=== PATIENT | male | born 1970 | race Caucasian/White ===

== ENCOUNTER 2023-09-16 02:48 | Emergency (ER) | payer MEDICARE, MEDICAID, SELFPAY ==
--- NOTE | 2023-09-16 | ECG_ITS ---
Test Reason : HYPERTENSION Blood Pressure : / mmHG Vent. Rate : 082 BPM Atrial Rate : 082 BPM P-R Int : 158 ms QRS Dur : 112 ms QT Int : 388 ms P-R-T Axes : 048 -24 025 degrees QTc Int : 453 ms Normal sinus rhythm Possible Left atrial enlargement Minimal voltage criteria for LVH, may be normal variant ( Wero product ) Borderline ECG No previous ECGs available Referred By: Generic ED Physician Electronically Signed By:SARA OLMOS
--- NOTE | ~2023-09-16 | XR_ITS ---
EXAMINATION: XR CHEST CLINICAL INFORMATION: Shortness of breath. COMPARISON: None available. TECHNIQUE: 2 views of the chest were obtained. FINDINGS: The lung volumes are low. The cardiomediastinal silhouette is within normal limits. There is faint bibasilar opacities. There are no significant pleural effusions. There is curvature of the thoracic spine to the right. The soft tissues are unremarkable. XR/XR chest 2V IMPRESSION: Low lung volumes. Faint bibasilar opacities likely atelectasis. Infiltrates considered less likely.
[2023-09-16 02:54] VITALS: BP 156/93; PULSE 89; RESP 19; TEMP 37.2; O2SAT 92; BMI 30.5
[2023-09-16 03:10] LABS: MANUAL DIFF FLAG NO
[2023-09-16 03:12] LABS: Basophils Absolute Auto 0.1 X10*3/uL (0.0-0.2); Basophils Percent Auto 0.7 % (0-2); Eosinophils Absolute Auto 0.2 X10*3/uL (0.0-0.4); Eosinophils Percent Auto 2.3 % (0-4); Hematocrit 46.2 % (42.0-52.0); Hemoglobin 16.2 g/dl (14.0-18.0); Imm Gran Abs Auto 0.03 X10*3/uL (0.00-0.03); Imm Gran Pct Auto 0.3 % (0.0-0.4); Lymphocytes Absolute Auto 2.2 X10*3/uL (1.2-4.9); Lymphocytes Percent Auto 22.1 % (20-40); Mean Corpuscular HGB Conc 35.1 g/dl (31.0-36.0); Mean Corpuscular Hemoglobin 30.6 pg (27.0-33.0); Mean Corpuscular Volume 87.2 fL (80.0-98.0); Mean Platelet Volume 9.7 fL (9.4-12.4); Monocytes Absolute Auto 0.7 X10*3/uL (0.1-1.2); Neutrophils Absolute Auto 6.6 x10*3/uL (2.0-8.3); Neutrophils Percent Auto 67.6 % (45-73); Platelet Count 211 X10*3/uL (160-400); Red Cell Distribution Width 12.5 % (11.0-16.0); White Blood Count 9.8 X10*3/uL (4.8-10.8)
[2023-09-16 03:35] LABS: Alanine Aminotransferase 22 U/L (0-40); Albumin Level 4.1 g/dL (3.5-5.0); Alkaline Phosphatase 100 U/L (39-117); Anion Gap 15 (12-20); Aspartate Amino Transferase 23 U/L (5-37); Bilirubin Direct 0.1 mg/dL (0.0-0.5); Bilirubin Total 0.4 mg/dL (0.0-1.0); Blood Urea Nitrogen 8 mg/dL (9-16); Calcium 9.5 mg/dL (8.4-10.2); Carbon Dioxide 26 mmol/L (22-29); Chloride 101 mmol/L (96-108); Creatinine Clr Calc Pharmacy 113.3; Estimated Glomerular Filt Rate > 60; Glucose Random 158 mg/dL (60-115); Potassium 3.5 mmol/L (3.3-5.1); Sodium 138 mmol/L (135-145); Total Protein 7.3 g/dL (6.5-8.0)
[2023-09-16 03:55] LABS: Troponin-I High Sensitivity < 2.7 ng/L (<3.5-35.0)
[2023-09-16 03:58] VITALS: BP 131/82; PULSE 84; RESP 16; O2SAT 93
--- NOTE | 2023-09-16 04:45 | ED_ITS ---
HPI - General Adult General Chief complaint: General Medical Stated complaint: High Blood Pressure Time Seen by Provider: 09/16/23 03:44 Source: patient, family and historic interpreter Mode of arrival: ambulatory History of Present Illness HPI narrative: 53-year-old male with presentation of waking up from sleep with feeling short of breath and having left shoulder pain and noting that his blood pressure was very high. Patient states that he took an additional dose of his losartan totaling 200 mg. Patient denies any recent illnesses such as fever, chills, nausea/vomiting/abdominal discomfort, he states that his blood pressure medication has recently been changed and otherwise at the time of my interview states that his symptoms have completely resolved. Related Data Allergies Allergy/AdvReac Type Severity Reaction Status Date / Time No Known Allergies Allergy Verified 09/16/23 02:53 Review of Systems 2 Review of Systems: Pertinent positives and negatives as stated in [facility] Past Medical History Source: nursing notes reviewed Social History Social History Smoked in Last 30 Days: No Use of substances other than those prescribed or required for medical reasons: No Advance Directives: No Advance Directives Information Provided: Yes Physical Exam ED Vital Signs: Vital Signs - 24 hr 09/16/23 02:54 09/16/23 03:58 09/16/23 05:00 Temperature 98.9 F 98.3 F Pulse Rate 89 84 76 Respiratory Rate 19 16 18 Blood Pressure 156/93 H 131/82 124/79 Pulse Oximetry 92 93 96 Oxygen Delivery Method Room Air Room Air Room Air 09/16/23 05:08 Temperature Pulse Rate 79 Respiratory Rate 18 Blood Pressure Pulse Oximetry Oxygen Delivery Method BMI result Body Mass Index 30.5 VITAL SIGNS: Reviewed. GENERAL: Well developed, well nourished, in no acute distress. HEAD: Normocephalic/atraumatic EYES: PERRLA, EOMI EARS: Ext canals without abnormality NOSE: Nares patent bilateral OROPHARYNX: no oral lesions noted, posterior pharynx clear NECK: Supple, no adenopathy LUNGS: Normal breath sounds. No adventitious sounds or accessory muscle use. SpO2<93> CARDIOVASCULAR: Regular rate and rhythm without noted murmurs ABDOMEN: Soft, non-tender, non-distended with bowel sounds. MUSCULOSKELETAL: No tenderness, deformities, or effusions noted on gross inspection. EXTREMITIES: No cyanosis, clubbing or edema. SKIN: Inspection of the skin reveals no rashes NEUROLOGIC: Alert and oriented x 4. Strength and sensation to light touch were grossly intact x 4. Medications Administered Discontinued Medications Generic Name Dose Route Start Last Admin Trade Name Baldomeroq PRN Reason Stop Dose Admin Albuterol/Ipratropium 3 ml 09/16/23 04:49 09/16/23 05:04 Albuterol/Iprat 2.5/0.5mg 3 Ml Ampul.Neb INHALE 09/16/23 04:50 3 ml ONCE ONE Administration Medical Decision Making Medical Decision Making [facility] Narrative: 83-year-old male with history and clinical presentation, DDX: Viral illness, CHF, asthma, ACS I reviewed all investigations and hematologic indices are grossly within normal limits and there are no noted derangements. Chemistry indices are negative for CANDY/electrolytes/liver enzyme derangement and serial troponins are undetectable without acute EKG changes. Patient is currently asymptomatic. Chest x-ray is not significant for infiltrate or venous congestion. BNP is undetectable. On re-evaluation patient appears much improved, states that he feels better and is otherwise discharged home with instructions to follow-up with his primary care doctor. Differential Diagnosis Differential Diagnoses: The differential diagnosis associated with the presentation includes Please see the discussion above Admission/Observation Consideration of admission/observation: Escalation of care including admission/observation considered Please see the discussion above Lab Data [facility] Lab Attestation statement: I reviewed the patient's lab results. Please see the discussion above 09/16/23 03:07 09/16/23 03:07 Labs: Lab Results 09/16/23 09/16/23 09/16/23 Range/Units 03:06 03:07 05:01 WBC 9.8 (4.8-10.8) X10*3/uL RBC 5.30 (4.60-5.80) X10*6/uL Hgb 16.2 (14.0-18.0) g/dl Hct 46.2 (42.0-52.0) % MCV 87.2 (80.0-98.0) fL MCH 30.6 (27.0-33.0) pg MCHC 35.1 (31.0-36.0) g/dl RDW 12.5 (11.0-16.0) % Plt Count 211 (160-400) X10*3/uL MPV 9.7 (9.4-12.4) fL Immature Gran % (Auto) 0.3 (0.0-0.4) % Neut % (Auto) 67.6 (45-73) % Lymph % (Auto) 22.1 (20-40) % [place] % (Auto) 7.0 (2-11) % Eos % (Auto) 2.3 (0-4) % Baso % (Auto) 0.7 (0-2) % Lymph # (Auto) 2.2 (1.2-4.9) X10*3/uL [place] # (Auto) 0.7 (0.1-1.2) X10*3/uL Eos # (Auto) 0.2 (0.0-0.4) X10*3/uL Baso # (Auto) 0.1 (0.0-0.2) X10*3/uL Abs Immat Gran (auto) 0.03 (0.00-0.03) X10*3/uL Absolute Neuts (auto) 6.6 (2.0-8.3) x10*3/uL Absolute Nucleated RBC 0.000 (0.0-0.012) X10*3/uL Nucleated RBC % (auto) 0.0 (0.0-0.2) /100WBC Sodium 138 (135-145) mmol/L Potassium 3.5 (3.3-5.1) mmol/L Chloride 101 (96-108) mmol/L Carbon Dioxide 26 (22-29) mmol/L Anion Gap 15 (12-20) BUN 8 L (9-16) mg/dL Creatinine 0.91 (0.5-1.4) mg/dL Estim Creat Clear Calc 113.3 Estimated GFR > 60 Random Glucose 158 H (60-115) mg/dL Calcium 9.5 (8.4-10.2) mg/dL Total Bilirubin 0.4 (0.0-1.0) mg/dL Direct Bilirubin 0.1 (0.0-0.5) mg/dL AST 23 (5-37) U/L ALT 22 (0-40) U/L Alkaline Phosphatase 100 (39-117) U/L Troponin I High Sens < 2.7 < 2.7 (<3.5-35.0) ng/L B-Natriuretic Peptide < 10 (<100) pg/mL Total Protein 7.3 (6.5-8.0) g/dL Albumin 4.1 (3.5-5.0) g/dL Independent Interpretation I performed an independent interpretation of an: EKG Interpretation: Normal sinus rhythm, HR-82, no STEMI, AL/QTC are within normal limits. Radiology Impression Discussion of test interpretation with radiology: I have reviewed the radiologist's reading. Radiologist Impression: Please see the discussion above Chronic Conditions Patient?s care impacted by: Hypertension Discharge Plan Discharge Clinical Impression: Hypertension Patient Disposition: Home, Self-Care Instructions: DASH Eating Plan (ED), Hypertension (ED) Additional Instructions: 1. Resume all home medications as prescribed 2. Follow-up with your primary care doctor by calling the office this morning. Return to the ER for any worsening symptoms. Print Language: Djib[place]ian
[2023-09-16 04:48] LABS: B Type Natriuretic Peptide < 10 pg/mL (<100)
[2023-09-16 05:00] VITALS: BP 124/79; PULSE 76; RESP 18; TEMP 36.8; O2SAT 96
[2023-09-16] MEDS: Albuterol/Iprat 2.5/0.5MG 3 ML AMPUL.NEB INHALE (05:04)
[2023-09-16 05:08] VITALS: PULSE 79; RESP 18; O2SAT 89
[2023-09-16 05:29] LABS: Troponin-I High Sensitivity < 2.7 ng/L (<3.5-35.0)
[2023-09-16 06:07] VITALS: BP 117/76; PULSE 78; RESP 16; TEMP 37.1; O2SAT 95
== END 2023-09-16 06:07 | disposition home or self-care (01) ==
PROVIDERS: Emergency Provider Student in an Organized Health Care Education/Training Program
DX: I10 Essential (primary) hypertension (principal); R06.02 Shortness of breath
CPT/HCPCS: 36415; 71046; 80048; 80076; 83880; 84484; 85025; 93005; 94640; 99284; 99285

== ENCOUNTER → 2023-09-16 03:00 | Outpatient (BNV) | payer MEDICARE, MEDICAID, SELFPAY | PROVIDERS: Emergency Provider Student in an Organized Health Care Education/Training Program; Visit Provider Internal Medicine | DX: I10 Essential (primary) hypertension (principal) | CPT/HCPCS: 93010 ==

== ENCOUNTER 2024-03-13 14:57 | Outpatient (REF) | payer MEDICARE, MEDICAID, SELFPAY ==
[2024-03-13 16:57] LABS: Alanine Aminotransferase 31 U/L (0-40); Albumin Level 4.6 g/dL (3.5-5.0); Alkaline Phosphatase 111 U/L (39-117); Aspartate Amino Transferase 33 U/L (5-37); Bilirubin Direct 0.2 mg/dL (0.0-0.5); Bilirubin Total 0.6 mg/dL (0.0-1.0); Total Protein 8.3 g/dL (6.5-8.0)
[2024-03-14 07:28] LABS: HBS Num1 168.86 mIU/mL (0-7.99); HBc Num1 0.17 S/CO (0.00-0.79); HBsAGNum1 0.37 S/CO (0.00-0.99); HIV AB/AG Nonreactive (Nonreactive); HIV Num 1 0.13 S/CO (0.00-0.99); Hepatitis B Core Antibody Nonreactive (Nonreactive); Hepatitis B Surface Antigen Negative (Negative); ~HepC Num1 0.16 S/CO (0.00-0.79); ~Hepatitis B Surface Antibody REACTIVE (Nonreactive); ~Hepatitis C Antibody Nonreactive (Nonreactive)
[2024-03-14 07:55] LABS: Hepatitis A Antibody IgG Nonreactive (Nonreactive); ~Hepatitis A Antibody IgG 0.31 S/CO (0.00-0.99)
[2024-03-14 07:58] LABS: Syphilis Screen Nonreactive (Nonreactive)
[2024-03-14 08:45] LABS: Anion Gap 12 (12-20); Blood Urea Nitrogen 9 mg/dL (9-16); Calcium 9.6 mg/dL (8.4-10.2); Carbon Dioxide 26 mmol/L (22-29); Chloride 105 mmol/L (96-108); Estimated Glomerular Filt Rate > 60; Glucose Random 87 mg/dL (60-115); Potassium 4.1 mmol/L (3.3-5.1); Sodium 139 mmol/L (135-145)
== END 2024-03-13 14:58 | disposition home or self-care (01) ==
LOC: HO.HHCL 14:57
PROVIDERS: Visit Provider Emergency Medicine
DX: I10 Essential (primary) hypertension (principal); F11.20 Opioid dependence, uncomplicated; Z11.59 Encounter for screening for other viral diseases; Z20.828 Contact with and (suspected) exposure to other viral communicable diseases; Z11.3 Encounter for screening for infections with a predominantly sexual mode of transmission
CPT/HCPCS: 36415; 80048; 80076; 86704; 86706; 86708; 86780; 86803; 87340; 87389

== ENCOUNTER 2024-07-20 10:17 | Outpatient (AMB) | payer MEDICARE, MEDICAID, SELFPAY ==
--- NOTE | 2024-07-20 10:20 | A.OFFVIS_ITS ---
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 States pain started about 15 yrs ago, no injury he can recall. Hx of herniated disc. His pain starts at his neck and T-spine. He is also having lower back pain that radiates to his right side. Denies groin pain. He has numbness and tingling in both feet. States he has fallen multiple times and has made his pain worse. He has tried P.T and injection with no relief. Patient referred by [facility] Dr. Shane Ndiaye Senior Internet Sales Consultant Name: [email or web address] [id number] Allergies No Known Allergies Allergy (Verified 07/20/24 10:33) Medication List - Last Reconciled 07/20/24 by Aminah Moody MD albuterol sulfate 2 mg PO TID amlodipine 5 mg PO DAILY aspirin 81 mg PO DAILY atorvastatin 40 mg PO DAILY buprenorphine-naloxone 2-0.5 mg (Suboxone) 1 film buccal DAILY chlorthalidone 25 mg PO DAILY cholecalciferol (vitamin D3) 10 mcg PO DAILY clonidine HCl 0.1 mg PO BEDTIME duloxetine 30 mg PO DAILY fluticasone propion-salmeterol 100-50 mcg/dose (Advair Diskus) 1 inh inhalation BID fluticasone propionate 50 mcg/actuation (Flonase Allergy Relief) 1 spray intranasal DAILY glipizide 5 mg PO DAILY losartan 100 mg PO DAILY metformin 1,000 mg PO DAILY mirtazapine 15 mg PO BEDTIME naloxone 4 mg/actuation (Narcan) 4 mg intranasal Q2M PRN HPI Comments Details: States pain started about 15 yrs ago, no injury he can recall. Hx of herniated disc. His pain starts at his neck and T-spine. He is also having lower back pain that radiates to both legs, worse on left. Denies groin pain. He has numbness and tingling in both feet. Last PT more than 2 years ago. Last MRI more than 2 years, in [place], [place]. Last injection around that time, injection didn't help at that time. Has not seen a surgeon yet. Diabetic with neuropathy. Has tried gabapentin but he has moved. History of opioid dependence, on suboxone. [facility] Social History (System 09/20/24 @ 09:32 by Sandra Galeas) Current occupational status: disabled Review of Systems Const All systems reviewed & are unremarkable except as noted in HPI and below Physical Exam Constitutional: Patient appears to be in no acute distress, well nourished and well developed. Patient was appropriately conversant and oriented. Good historian. MSK: No specific abnormalities found on inspection of the spine and all extremities. Diffusely tender including SI and GT. Neurological: Left hip flexor weaker than right. Left hip flexor 4/5, right hip flexor 5/5. Bilateral knee extensors 5/5. Dorsiflexors 5/5. Tested while seated. No clonus. Results Reviewed Results Reviewed: I reviewed records from the following: [facility]-patient has history of opiate dependence, on Suboxone. Assessment & Plan Assessment & Plan (1) Chronic low back pain with sciatica: Code(s): M54.40 - Lumbago with sciatica, unspecified side; G89.29 - Other chronic pain Category: Medical Qualifiers: Back pain laterality: bilateral Sciatica laterality: bilateral sciatica Qualified Code(s): M54.42 - Lumbago with sciatica, left side; M54.41 - Lumbago with sciatica, right side; G89.29 - Other chronic pain Plan Previously diagnosed with lumbar disc herniation. Has had injections in the past. No recent physical therapy. Patient says he will find information where we can get reports of his last lumbar MRI. He is reluctant about getting further injections or physical therapy. Assessment and plan discussed with patient, and patient was agreeable. All questions were answered thoroughly. Aminah Moody MD, ANN Board Certified, [place] Board of [employer] Medicine and Rehabilitation (ABPMR) Board Certified, [place] Board of Electrodiagnostic Medicine (ABEM) Coding Level of Care Code New Pt Level 3 (63102) Diagnoses Chronic bilateral low back pain with bilateral sciatica M54.42; M54.41; G89.29 Back pain laterality: bilateral Sciatica laterality: bilateral sciatica
--- OUTSIDE RECORDS SUMMARY | 2024-07-20 11:28 | XMS_ITS | Encounter Summary ---
Author Organization [employer] Address [address] [place] [address] [address] [place] [address] Care Team Providers Care Hand Ii Thermal Cutter Name Role Phone Ced Sesay PA-C Primary Care Provider Reason for Referral * Medications - Denied Specialty Diagnoses / Procedures Referred By Davey vance Referred To Contact Diagnoses Asthma, unspecified asthma severity, unspecified whether complicated, unspecified whether persistent Ced Sesay PA-C [address] [place] [address] Phone: tel: fax: Referral ID Status Reason Start Date Expiration Date Visits Re quested Visits Authorized [id number] Denied 1 1 Encounter Details Date Type Department Care Team (Late st Contact Info) Description 02/13/2024 Telephone [facility] [address] [place] [address] Family Medicine, Video Tape Editor, CAMPUS POLICE OFFICER Social History Tobacco Use Types Packs/Day Years Used Date Smoking Tobacco: Every Day Cigarettes Sex and Gender Information Value Date Recorded Sex Assigned at Male 12/06/2023 1:37 PM EDT Legal Sex Male 6:53 PM EDT Gender Identity Male 12/06/2023 1:37 PM EDT Sexual Orientation Choose not to disclose 2023 6:53 PM EDT documented as of this encounter Miscellaneous Notes * Telephone Encounter - Emily Anderson LPN - 02/16/2024 9:23 AM EDT Pa req. Sent to PA team for advir inhaler * Telephone Encounter - Ced Sesay PA-C - 02/15/2024 1:53 PM EDT Hi, I sent ADVAIR as you stated that it is covered by insurance. He can use 2 puffs every 12 hours but can increase after a few days to 3 puffs if not working. If still not good, he is to let us know so we can send a stronger strength. Should use with spacer and stop smoking. * Telephone Encounter - Laquita Matamoros LPN - 02/15/2024 10:07 AM EDT Note received from pharmacy, Karla FELDMAN, the following meds are cover w/o PA: advair,arnuity ellipta, breztri aero and dulera. * Telephone Encounter - Laquita Matamoros LPN - 02/13/2024 11:10 AM EDT Request received from [facility], pt request refill for Advair and ventolin inhalers. These meds are not in pt's med list including NG. Attempted to reach pt but voice mail is not set up. Pt needs appt withprovider if these are new med request. documented in this encounter Plan of Treatment Upcoming Encounters Date Type Department Care Team (Late st Contact Info) Description 08/24/2024 2:00 PM EST Office Visit [facility] [address] [place] [phone] Carlin Rivas CNP [address] [place] [address] 09/03/2024 1:30 PM EDT Clinical Support [facility] [address] [place] [phone] Michaela Tenorio, GREGORY documented as of this encounter Visit Diagnoses Diagnosis Asthma, unspecified asthma severity, unspecified whether complicated, unspecified whether persistent- Primary documented in this encounter Care Teams Hand Ii Thermal Cutter Relationship Specialty Start Date End Date Ced Sesay PA-C [address] [place] [phone] PCP - General Family Medicine 09/07/18 05/14/24 Promise Zavala LPN Petroleum Plant OperatorMember Of Parliament 12/13/19 05/14/24 documented as of this encounter
--- OUTSIDE RECORDS SUMMARY | 2024-07-20 11:28 | XMS_ITS | Encounter Summary ---
Author Organization [employer] Address [address] [place] [address] [address] [place] [address] Care Team Providers Care Meat Stringer Name Role Phone Ced Sesay PA-C Primary Care Provider Encounter Details Date Type Department Care Team (Late st Contact Info) Description 12/07/2023 [facility] Only [address] [address] Ced Sesay PA-C [address] [place] [phone] Uncomplicated opioid dependence (CMS/HCC) Social History Tobacco Use Types Packs/Day Years Used Date Smoking Tobacco: Never Assessed Sex and Gender Information Value Date Recorded Sex Assigned at Male 12/06/2023 1:37 PM EDT Legal Sex Male 6:53 PM EDT Gender Identity Male 12/06/2023 1:37 PM EDT Sexual Orientation Choose not to disclose 2023 6:53 PM EDT documented as of this encounter Plan of Treatment Upcoming Encounters Date Type Department Care Team (Late st Contact Info) Description 08/24/2024 2:00 PM EST Office Visit [facility] [address] [place] [phone] Carlin Rivas CNP [address] [place], [place] [phone] 09/03/2024 1:30 PM EDT Clinical Support [facility] [address] [place] [phone] Michaela Tenorio RN documented as of this encounter Visit Diagnoses Diagnosis Uncomplicated opioid dependence (CMS/HCC) documented in this encounter Care Teams Meat Stringer Relationship Specialty Start Date End Date Ced Sesay PA-C [address] [place] [phone] PCP - General Family Medicine 09/07/18 05/14/24 Promise Zavala LPN Floor MechanicSandblast Carver 12/13/19 05/14/24 documented as of this encounter
--- OUTSIDE RECORDS SUMMARY | 2024-07-20 11:28 | XMS_ITS | Clinical Summary ---
Author Organization [facility] Address [address] [place] [address] Care Team Providers Care Grubber Name Role Phone Unavailable Primary Care Provider Unavailabl e Allergies Active Allergy Reactions Criticality Noted Date Comments Cyclobenzaprine Hcl 12/06/2016 Medications No known medications Active Problems No known active problems Social History Tobacco Use Types Packs/Day Years Used Date Smoking Tobacco: Never Assessed Sex and Gender Information Value Date Recorded Sex Assigned at Not on file Legal Sex Male 11:06 AM EDT Gender Identity Not on file Sexual Orientation Not on file Plan of Treatment Health Maintenance Due Date Last Done Comments Hepatitis C Screening 1968 DTaP/Tdap/Td (1 - Tdap) 1986 Hep B (1 of 3 - 19+ 3-dose series) 1987 Pneumococcal 50+ years (1 of 1 - PCV) 2018 Zoster (Shingrix) (1 of 2) 2018 COVID-19 Vaccine ( - 2023-2 5 season) 2024 Influenza (#1) 2024 HPV Vaccine Aged Out No longer eligi ble based on patient's age to complete this topic Hep A Aged Out No longer eligi ble based on patient's age to complete this topic Hib Aged Out No longer eligi ble based on patient's age to complete this topic Meningococcal ACWY Aged Out No longer eligible based on patient's age to complete this topic Insurance MEDICARE PART B MEDICAID
--- OUTSIDE RECORDS SUMMARY | 2024-07-20 11:29 | XMS_ITS | Encounter Summary ---
Author Organization [facility] Address [address] [place] [address] Care Team Providers Care Program Coordinator Name Role Phone Ced Sesay Primary Care Provider [phone] Reason for Referral * Consultation (Routine) - Authorized Specialty Diagnoses / Procedures Referred By Conttheodora t Referred To Contact Orthopaedic Surgery Diagnoses Low back pain, unspecified back pain laterality, unspecified chronicity, unspecified whether sciatica present Ced Sesay PA [address] [place] [phone] Phone: tel: fax: [facility] [address] [place] [address] Phone: tel: fax: Referral ID Status Reason Start Date Expiration Date Visits Requested Visits Authorized [id number] Authorized Specialty Services Required 02/01/2024 08/02/2025 6 6 Encounter Details Date Type Department Care Team (Late st Contact Info) Description 02/01/2024 Community Orders [facility] Link [address] [place] [address] Ced Sesay PA [address] [place] [phone] Low back pain, unspecified back pain laterality, unspecified chronicity, unspecified whether sciatica present (Primary Dx) Social History Tobacco Use Types Packs/Day Years Used Date Smoking Tobacco: Former Smokeless Tobacco: Never Comments:: Alcohol Use Standard Drinks/Week Comments No 0 (1 standard drink = 0.6 oz pur e alcohol) Sex and Gender Information Value Date Recorded Sex Assigned at Male 02/01/2024 10:29 AM EDT Legal Sex Male 6:52 PM EDT Gender Identity Not on file Sexual Orientation Not on file documented as of this encounter Plan of Treatment Scheduled Referrals Name Type Priority Associated Diagnoses Orde r Schedule Ambulatory referral to Ortho - All Outpatient Referral Routine Low back pain, unspecified back pain laterality, unspecified chronicity, unspecified whether sciatica present Expected: 02/01/2024, Expires: 08/03/2024 documented as of this encounter Visit Diagnoses Diagnosis Low back pain, unspecified back pain laterality, unspecified chronicity, unspecified whether sciatica present- Primary documented in this encounter Care Teams Program Coordinator Relationship Specialty Start Date End Date Ced Sesay PA PCP - General 10/14/21 documented as of this encounter
--- OUTSIDE RECORDS SUMMARY | 2024-07-20 11:29 | XMS_ITS | Encounter Summary ---
Author Organization [facility] Address [address] [place] [address] Care Team Providers Care Burr Grinder Name Role Phone Unavailable Primary Care Provider Unavailabl e Encounter Details Date Type Department Care Team ([facility] st Contact Info) Description 11/09/2016 Orders Only [facility] Orthopedic Surgery [address] [facility] [address] [place] [address] Cullen Rosas MD [address] [place] [address] Social History Tobacco Use Types Packs/Day Years Used Date Smoking Tobacco: Never Assessed Sex and Gender Information Value Date Recorded Sex Assigned at Not on file Legal Sex Male 11:06 AM EDT Gender Identity Not on file Sexual Orientation Not on file documented as of this encounter Plan of Treatment Scheduled Orders Name Type Priority Associated Diagnoses Orde r Schedule XRAY SPINE, LUMBOSACRAL; 2 OR 3 VIEWS FC Imaging Routine Low back pain, unspecified back pain laterality, unspecified chronicity, with sciatica presence unspecified Expected: 12/06/2016, Expires: 11/09/2017 documented as of this encounter Visit Diagnoses Diagnosis Low back pain, unspecified back pain laterality, unspecified chronicity, with sciatica presence unspecified documented in this encounter
--- OUTSIDE RECORDS SUMMARY | 2024-07-20 11:29 | XMS_ITS | Referral Summary ---
Author Organization [facility] Address [address] [place] [address] Care Team Providers Care Blade Sharpener Name Role Phone Ced Sesay Primary Care Provider [phone] Allergies Active Allergy Reactions Criticality Noted Date Comments Cyclobenzaprine Rash Pregabalin Itching 03/24/2016 Medications * This document contains information received from the source organization and may not represent a complete record from that organization. atorvastatin (LIPITOR) 40 mg tablet Take 40 mg by mouth once a day. 5 7 Active losartan (COZAAR) 100 mg tablet Take 100 mg by mouth once a day. Active metFORMIN (GLUCOPHAGE) 1,000 mg tablet TK 1 T PO BID WITH THE MORNING AND EMANUEL MEAL 2 7 Active glipiZIDE XL (GLUCOTROL XL) 5 mg tablet TK 1 T PO QD WITH CINDY 2 7 Active OXYCONTIN 40 mg tablet Take 40 mg by mouth every 12 hours. 0 7 Active oxyCODONE-acet aminophen (PERCOCET) 5-325 mg tablet Take 1 tablet by mouth daily. Active chlorthalidone (HYGROTEN) 25 mg tablet Chlorthalidone 25 MG Oral Tablet TK 1/2 T PO QD Quantity: 15; Refills: 0 Started -Apr-2016 Active 6 Active MAPAP EXTRA STRENGTH 500 mg tablet TK 2 T PO EVERY 12 HOURS PRN. 5 7 Active albuterol (PROAIR HFA,VENTOLIN HFA) 90 mcg inhaler Inhale 2 puffs (180 mcg total) by mouth every 4 hours as needed for wheezing or shortness of breath. Use with spacer. 6.7 g 7 Active diclofenac (VOLTAREN) 1% gel EDISON TOPICALLY QID PRN P [address] (CYMBALTA) 30 mg capsule Take 60 mg by mouth once a day. 7 Active mirtazapine (REMERON) 15 mg tablet Take 45 mg by mouth daily. Before bedtime. 6 Active ranitidine (ZANTAC) 150 mg tablet TK 1 T PO BID PRN WITH BREAKFAST AND DINNER FOR HEARTBURN/ ACID REFLUX. 7 Active inhalational spacing device Valved Holding Chamber Device. USE DIRECTED WITH INHALER. 6 Active glipiZIDE XL (GLUCOTROL XL) tablet 10 mg Take 10 mg by mouth daily. Active predniSONE (DELTASONE) 50 mg tablet Take 1 tablet (50 mg total) by mouth daily. 5 tablet 9 Active loratadine (CLARITIN) 10 mg tablet Take 1 tablet (10 mg total) by mouth daily. 10 tablet 9 Active ibuprofen (MOTRIN) 800 mg tablet Take 1 tablet (800 mg total) by mouth 3 times a day. 21 tablet 9 Active polyethylene glycol (COLYTE) solutionIndica tions:Screen for colon cancer Take according to instructions provided by physician. 4000 mL 9 Active fluticasone propion-salmet brandi (ADVAIR DISKUS) 100-50 mcg inhaler Inhale 1 puff by mouth every 12 (twelve) hours. 9 Active cloNIDine (CATAPRES) 0.1 mg tablet Take 0.1 mg by mouth 2 times a day. Active hydroCHLOROthi azide (HYDRODIURIL) 12.5 mg tablet Take 12.5 mg by mouth once a day. Active Active Problems Problem Noted Date Diagnosed Date Asthma 08/13/2016 Dyspnea 08/12/2016 Chronic obstructive asthma 08/12/2016 Acute hip pain, left 11/27/2015 Acute back pain with sciatica, left 09/16/2015 Social History Tobacco Use Types Packs/Day Years Used Date Smoking Tobacco: Former Smokeless Tobacco: Never Comments:: Alcohol Use Standard Drinks/Week Comments No 0 (1 standard drink = 0.6 oz pur e alcohol) Sex and Gender Information Value Date Recorded Sex Assigned at Male 02/01/2024 10:29 AM EDT Legal Sex Male 6:52 PM EDT Gender Identity Not on file Sexual Orientation Not on file Last Filed Vital Signs Vital Sign Reading Time Taken Comments Blood Pressure 151/104 07/06/2023 5:00 AM EST Pulse 73 07/06/2023 2:29 AM EST Temperature 36.4 ??C (97.5 ??F) 07/05/2023 9:33 PM ES T Respiratory Rate 18 07/06/2023 4:00 AM EST Oxygen Saturation 96% 07/06/2023 5:00 AM EST Inhaled Oxygen Concentration - - Weight 112.5 kg (248 lb) 07/05/2023 9:36 PM EST Height 170.2 cm (5' 7 ) 07/05/2023 9:36 PM EST Body Mass Index 38.84 07/05/2023 9:36 PM EST Plan of Treatment Not on file Procedures * Due to [place] [employer] law, this organization might not be sharing negative HIV tests. Procedure Name Priority Date/Time Associated Diagnosis Comments COLONOSCOPY 12/11/2018 CT CHEST PULMONARY EMBOLISM W CONTRAST STAT 04/13/2016 5:47 AM EDT from Last 3 Months or Most Recently Relevant to Health Maintenance Results * Due to [place] [employer] law, this organization might not be sharing negative HIV tests. * COLONOSCOPY (12/11/2018) Narrative Procedure Note Sandeep Duarte MD - 12/11/2018 11:35 AM EDT Gastroenterology Patient Name: Kannan You Procedure Date: 12/11/2018 11:35 AM Date of : 1970 Admit Type: Outpatient Age: 48 Room: Room 3 Gender: Male Note Status: Finalized Attending MD: Sandeep Duarte MD Procedure: Colonoscopy Indications: Screening for colorectal malignant neoplasm Comorbidities Providers: Sandeep Duarte MD Referring MD: Gabriella Acevedo (Referring MD) Requesting Provider: Medicines: Midazolam 6 mg IV, Fentanyl 100 micrograms IV Complications: No immediate complications. Estimated Blood Loss: Estimated blood loss: none. Procedure: After I obtained informed consent, the scope was passed under direct vision. Throughout the procedure, the patient's blood pressure, pulse, and oxygen saturations were monitored continuously. The Colonoscope was introduced through the anus and advanced to theterminal ileum. The colonoscopy was performed withoutdifficulty. The patient tolerated the procedure well. The qualityof the bowel preparation was fair. Retroflexion wasperformed. Findings: The terminal ileum appeared normal. A 2 mm polyp was found in the rectum. The polyp was sessile. Thepolyp was removed with a cold snare. Resection and retrieval werecomplete. The exam was otherwise without abnormality. Impression: - Preparation of the colon was fair. - The examined portion of the ileum was normal. - One 2 mm polyp in the rectum, removed with a coldsnare. Resected and retrieved. - The examination was otherwise normal. Recommendation: - If the pathology report reveals adenomatous tissue,then repeat the colonoscopy for surveillance in 5 years. - If the pathology report indicates hyperplastic polyp, then repeat colonoscopy for screening purposes in 10years. Sandeep Duarte MD 12/11/2018 12:26:39 PM This report has been signed electronically. Number of Addenda: 0 Note Initiated On: 12/11/2018 11:35 AM us Sandeep Duarte MD PROVATION PROCEDURES Fi nal Result * CT Chest Pulmonary Embolism with Contrast (04/13/2016 5:47 AM EDT) Anatomical Region Laterality Modality Body Computed Tomogra phy 04/13/2016 4:35 AM EDT Impressions 04/13/2016 6:21 AM EDT 1. No evidence of pulmonary embolism. 2. Hepatic steatosis. 3. Platelike atelectasis in the right lower lobe and lower lingula. I have personally reviewed the images and I agree with the report above. Contrast Information : OMNIPAQUE 350: 80 ML, IV POWER INJ WSN: [id number] Narrative 04/13/2016 6:21 AM EDT COMPARISON: None. FINDINGS: Vessels: There is no intraluminal filling defect to suggest pulmonary embolism. The aorta is normal in caliber, without gross acute abnormality. Lungs: The tracheobronchial tree is patent. ??There is no focal airspace consolidation. ??No pleural effusion or pneumothorax is identified. There is platelike atelectasis in the right lower lobe and lower lingula. Mediastinum: The heart size is normal without pericardial effusion. ??There are no enlarged mediastinal, axillary, or hilar lymph nodes. ?? Bones: The visualized osseous structures demonstrate no acute abnormality. There is S-shaped scoliosis of the thoracic spine. Chest wall: Unremarkable. Abdomen: The liver demonstrates significant decreased density relative to the spleen consistent with hepatic steatosis. Procedure Note Crow Mcbride - 02/23/2017 COMPARISON: None. FINDINGS: Vessels: There is no intraluminal filling defect to suggest pulmonary embolism. The aorta is normal in caliber, without gross acute abnormality. Lungs: The tracheobronchial tree is patent. There is no focal airspace consolidation. No pleural effusion or pneumothorax is identified. There is platelike atelectasis in the right lower lobe and lower lingula. Mediastinum: The heart size is normal without pericardial effusion. There are no enlarged mediastinal, axillary, or hilar lymph nodes. Bones: The visualized osseous structures demonstrate no acute abnormality. There is S-shaped scoliosis of the thoracic spine. Chest wall: Unremarkable. Abdomen: The liver demonstrates significant decreased density relative to the spleen consistent with hepatic steatosis. IMPRESSION: 1. No evidence of pulmonary embolism. 2. Hepatic steatosis. 3. Platelike atelectasis in the right lower lobe and lower lingula. I have personally reviewed the images and I agree with the report above. Contrast Information : OMNIPAQUE 350: 80 ML, IV POWER INJ WSN: [id number] Casey Castro MD IMG CT PROCEDURES Final Result from Last 3 Months or Most Recently Relevant to Health Maintenance Insurance MEDICARE [facility] Care Teams Blade Sharpener Relationship Specialty Start Date End Date Ced Sesay PA PCP - General 10/14/21
--- OUTSIDE RECORDS SUMMARY | 2024-07-20 11:29 | XMS_ITS | Encounter Summary ---
Author Organization [facility] [employer] Address [address] [place] [address] Care Team Providers Care Leasing Assistant Name Role Phone Unavailable Primary Care Provider Unavailabl e Encounter Details Date Type Department Care Team (Late st Contact Info) Description 07/10/[address] [facility] [address] [place] [address] Shane Ndiaye MD [address] [place] [address] Social History Tobacco Use Types Packs/Day Years Used Date Smoking Tobacco: Every Day Cigarettes Alcohol Use Standard Drinks/Week Comments Never 0 (1 standard drink = 0.6 oz pur e alcohol) Housing Stability Answer Date Recorded What is your housing situation today? I have evelynbarb vazquez 03/13/[address] you li ve. Do you have problems with any of the following? None of the above 03/13/2024 Food Insecurity Answer Date Recorded Within the past 12 months, y ou worried that your food would run out before you got money to buy more: Never True 03/13/2024 Within the past 12 months,th e food you bought just didn't last and you didn't have enough money to get more: Never True Transportation Answer Date Recorded In the past 12 months, has l ack of transportation kept you from medical appts, meetings, work or from getting things needed for daily living? No 03/13/2024 Utilities Answer Date Recorded In the past 12 months, has t he electric, gas, oil or water company threatened to shut off services in your home? No 03/13/2024 Depression Answer Date Recorded Patient Health Questionnaire-2 Score 0 03/13/2024 Internet Access Answer Date Recorded Internet Access Q1 No 03/13/2024 Internet Access Q2 I do not want or need it 02/25 Sex and Gender Information Value Date Recorded [...] Description 08/24/2024 2:00 PM EST Office Visit [address] [address] Carlin Rivas CNP [address] [place] [address] 09/03/2024 1:30 PM EDT Clinical Support [address] [address] Michaela Tenorio RN documented as of this encounter Visit Diagnoses Not on filedocumented in this encounter
--- OUTSIDE RECORDS SUMMARY | 2024-07-20 11:29 | XMS_ITS | Clinical Summary ---
Author Organization [employer] Address [address] [place] [address] 7t [place] [address] Care Team Providers Care Supplier Quality Specialist Name Role Phone Unavailable Primary Care Provider Unavailabl e Allergies Active Allergy Reactions Criticality Noted Date Comments Cyclobenzaprine Hives 01/30/2019 Causative Agent: Flexeril; Reaction(s): Hives Pregabalin 03/24/2016 Causative Agent: Lyrica; Comment: Extremity swelling, shortness of breath and chest tightness Medications * This document contains information received from the source organization and may not represent a complete record from that organization. Narcan 4 MG/0.1ML nasal spray Administer into affected nostril(s). 04/14/20 23 Active omeprazole (PriLOSEC) [address] capsule Take 20 mg by mouth. Active polyethylene glycol (Colyte) 240 g solution Take by mouth. 11/11/19 19 Active predniSONE (Deltasone) 50 MG tablet Take 50 mg by mouth Once per day. 09/10/19 19 Active pregabalin (Lyrica) 75 MG capsule Take by mouth. Activ e Spacer/Aero-Ho lding Chambers (EasiVent) inhaler Valved Holding Chamber Device. USE DIRECTED WITH INHALER. 04/21/20 16 Active Fluticasone Furoate-Vilant brandi (Breo Ellipta) 50-25 MCG/ACT aerosol powder Inhale 2 puffs 2 times daily. 60 each 1 02/14/20 24 Active albuterol (ProAir HFA) 108 (90 Base) MCG/ACT inhaler Inhale 1 puff every 4 (four) hours if needed for shortness of breath or wheezing. 18 g 1 02/14/20 24 Active acetaminophen (Tylenol) 500 MG tablet TK 2 TS PO EVERY 12 HOURS PRN Active atorvastatin (Lipitor) 40 MG tablet 04/24/20 17 Active Blood Glucose Monitoring Suppl (FreeStyle Lite) device Use as directed to check blood sugar every day 01/08/20 20 Active fluticasone-sa lmeterol (Advair) 45-21 MCG/ACT inhalerIndicat ions:Asthma, unspecified asthma severity, unspecified whether complicated, unspecified whether persistent Inhale 2 puffs in the morning and at bedtime. Rinse mouth with water after use to reduce aftertaste and incidence of candidiasis. Do not swallow. 12 g 11 02/15/20 24 025 Active buprenorphine- naloxone (Suboxone) 4-1 MG per sublingual filmIndication s:Uncomplicate d opioid dependence (CMS/HCC) Place 1 Film under the tongue 2 times daily for 28 days. 56 Film 03/06/20 24 Active nicotine polacrilex (Commit) 4 MG lozenge Dissolve 1 lozenge (4 mg) in the mouth every 2 (two) hours if needed for smoking cessation. 100 lozenge 03/13/20 24 Active nicotine (Nicoderm CQ) 7 MG/24HR patch Place 1 patch on the skin 1 (one) time each day at the same time. 14 patch 03/13/20 24 Active nicotine (Nicoderm CQ) 21 MG/24HR patch Place 1 patch on the skin 1 (one) time each day at the same time. 42 patch 03/13/20 24 Active nicotine (Nicoderm CQ) 14 MG/24HR patch Place 1 patch on the skin 1 (one) time each day at the same time. 14 patch 03/13/20 24 Active naloxone (Narcan) 4 mg/0.1 mL nasal spray Administer 1 spray (4 mg) into affected nostril(s) if needed for opioid reversal. May repeat every 2-3 minutes if needed, alternating nostrils, until medical assistance becomes available. 2 each 3 03/13/20 24 025 Active amLODIPine (Norvasc) 10 MG tablet Take 1 tablet (10 mg) by mouth Once per day. 30 tablet 03/13/20 24 Active chlorthalidone (Hygroton) 25 MG tablet Take 1 tablet (25 mg) by mouth Once per day. 30 tablet 5 03/13/20 24 Active losartan (Cozaar) 100 MG tablet Take 1 tablet (100 mg) by mouth Once per day. 30 tablet 5 03/13/20 24 Active cloNIDine (Catapres) 0.1 MG tablet Take 1 tablet (0.1 mg) by mouth 2 times daily. 60 tablet 5 03/13/20 24 Active glipiZIDE (Glucotrol) 10 MG tablet Take 10 mg by mouth before breakfast and before evening meal. Active aspirin 81 MG EC tablet Take 81 mg by mouth Once per day. Active metFORMIN (Glucophage) 1000 MG tablet Take 1,000 mg by mouth with breakfast and with evening meal. Active mirtazapine (Remeron) 7.5 MG tablet Take 1 tablet (7.5 mg) by mouth if needed at bedtime (sleep). 30 tablet 2 04/16/20 24 Active albuterol 108 (90 Base) MCG/ACT inhaler 2 puffs q 4-6 hours prn asthma/shortne ss of breath. 18 g 1 05/15/20 24 Active FREESTYLE LITE test strip TEST BLOOD SUGAR ONCE DAILY 100 each 2 05/17/20 24 Active lidocaine (Xylocaine) 5 % ointment Apply topically if needed in the morning and at bedtime for moderate pain. 50 g 1 06/11/20 24 Active Buprenorphine HCl-Naloxone HCl (Suboxone) 8-2 MG SL filmIndication s:Uncomplicate d opioid dependence (CMS/HCC) Place 1 Film under the tongue 2 times daily. 56 Film 1 07/02/19 25 025 Active tiZANidine (Zanaflex) 2 MG tablet Take 1 tablet (2 mg) by mouth every 8 (eight) hours if needed for muscle spasms. 30 tablet 3 07/10/19 25 Active Buprenorphine HCl-Naloxone HCl (Suboxone) 8-2 MG SL filmIndication s:Uncomplicate d opioid dependence (CMS/HCC) Place 1 Film under the tongue 2 times daily for 28 days. 56 Film 06/05/20 24 025 Discontinued(R eorder (will not trigger notification to Pharmacy)) tiZANidine (Zanaflex) 2 MG tablet Take 1 tablet (2 mg) by mouth every 8 (eight) hours if needed for muscle spasms for up to 10 days. 30 tablet 06/11/20 24 025 Discontinued(R eorder (will not trigger notification to Pharmacy)) Active Problems Problem Noted Date Diagnosed Date Tobacco dependence 03/13/2024 HTN (hypertension) 03/13/2024 Mild persistent asthma without complication 02/25 Type 2 diabetes mellitus wit hout complication, without long-term current use of insulin 03/13/2024 Anxiety 03/13/2024 Depression 03/13/2024 Lumbar radiculopathy, chronic 03/13/2024 Gastroesophageal reflux disease without esophagi tis 03/13/2024 Uncomplicated opioid dependence 12/06/2023 Encounters Date Type Department Care Team Description 07/10/2024 Orders Only [facility] [address] [place] [phone] Shane Ndiaye MD 07/10/2024 Telephone [facility] [address] [place] [phone] Lino Yoon MD New patient appt. 07/09/2024 1:30 PM EST Clinical Support [address] [address] Michaela Tenorio RN Uncomplicated opioid dependence (CMS/HCC) (Primary Dx) 07/09/2024 Travel 07/02/2024 Refill [facility] [address] [place] [phone] Michaela Tenorio RN Uncomplicated opioid dependence (CMS/HCC) 07/01/2024 Refill [facility] [address] [place] [phone] Shane Ndiaye MD 06/11/2024 1:30 PM EST Office Visit [address] [address] Shane Ndiaye MD Uncomplicated opioid dependence (CMS/HCC) (Primary Dx) 06/11/2024 Travel 06/04/2024 Refill [facility] [address] [place] [phone] Michaela Tenorio RN Uncomplicated opioid dependence (CMS/HCC) 05/28/2024 2:00 PM EST Office Visit [address] [address] Shane Ndiaye MD Uncomplicated opioid dependence (CMS/HCC) (Primary Dx); Chronic bilateral low back pain without sciatica; Chronic pain of both knees; Left hip pain 05/28/2024 Patient Outreach [facility] [address] [place] [address] [place] [address] AnshulCiarajv 05/28/2024 Travel 05/22/2024 Refill [facility] [address] [place] [address] Michaela Tenorio RN Uncomplicated opioid dependence (CMS/HCC) 05/20/[address] [phone] Ced Sesay PA-C 05/15/2024 Refill [facility] [address] [place] [address] Emre Mckeon MD 05/15/2024 Telephone [facility] [address] [place] [phone] Emre Mckeon MD 05/15/2024 Telephone [facility] [address] [place] [phone] Lizbeth Duncan MA 05/15/2024 Telephone [facility] [address] [place] [phone] Emre Mckeon MD 05/14/2024 2:00 PM EST Clinical Support [address] [address] Michaela Tenorio RN Uncomplicated opioid dependence (CMS/HCC) (Primary Dx) 05/14/2024 Travel 05/08/2024 Refill [facility] [address] [place] [phone] Michaela Tenorio RN Uncomplicated opioid dependence (CMS/HCC) 04/30/2024 3:15 PM EST Office Visit [address] [phone] Shane Ndiaye MD Uncomplicated opioid dependence (CMS/HCC) (Primary Dx) 04/30/2024 Travel 2024 Refill [facility] [address] [place] [phone] Michaela Tenorio RN Uncomplicated opioid dependence (CMS/HCC) from Last 3 Months Immunizations Name Administration Dates Next Due Hep A, Adult 03/19/2024 Hep B, adult 09/01/2016,10/21/2015,07/18/2015 Influenza injectable quadriv alent IIV4 with preservative 03/23/2018 Influenza injectable quadriv alent preservative free 04/26/2020,03/02/2017,02/25/2016,04/01 Pneumococcal Polysaccharide PPSV23 08/28/2021 Tdap 04/01/2015 Social History Tobacco Use Types Packs/Day Years Used Date Smoking Tobacco: Every Day Cigarettes Tobacco Cessation:Ready to Q uit: Not Asked; Counseling Given: Not Answered Alcohol Use Standard Drinks/Week Comments Never 0 (1 standard drink = 0.6 oz pur e alcohol) Housing Stability Answer Date Recorded What is your housing situation today? I have evelyn vazquez 03/13/[address] you [...] not to disclose 2023 6:53 PM EDT Last Filed Vital Signs Vital Sign Reading Time Taken Comments Blood Pressure 135/88 03/19/2024 2:13 PM EDT Pulse 80 03/19/2024 2:13 PM EDT Temperature 36.7 ??C (98 ??F) 03/13/2024 2:18 PM EDT Respiratory Rate 16 02/14/2024 1:34 PM EDT Oxygen Saturation 95% 02/14/2024 1:34 PM EDT Inhaled Oxygen Concentration - - Weight 109 kg (240 lb 12.8 oz) 02/14/2024 1:34 P M EDT Height 174 cm (5' 8.5 ) 11/23/2023 9:22 AM EDT Body Mass Index 36.08 11/23/2023 9:22 AM EDT Plan of Treatment Upcoming Encounters Date Type Department Care Team (Late st Contact Info) Description 08/24/2024 2:00 PM EST Office Visit [facility] [address] [place] [address] [phone] Carlin Rivas CNP [address] [place], [place] [phone] 09/03/2024 1:30 PM EDT Clinical Support [facility] [address] [place] [address] [phone] Michaela Tenorio, RN Health Maintenance Due Date Last Done Comments CT Colonography 1968 FIT DNA/Cologuard 1968 FIT 1968 FOBT 1968 Sigmoidoscopy 1968 Eye Exam 1978 Alcohol/Substance Use Screening 1980 Diabetes: Urine Protein Screening 1987 Zoster Vaccines (2 of 2) 07/24/2021 05/29/2021 Pneumococcal Vaccine: Pediatrics (0 to 5 Years) and At-Risk Patients (6 to 64 Years) (2 of 2 - PCV) 08/28/2022 08/28/2021 Lipid Panel 11/17/2023 11/16/2022 Diabetes: Hemoglobin A1C 11/30/2023 05/31/2023 COVID-19 Vaccine ( - season) 2024 11/22/2020, 10/25/2020 Influenza Vaccine (#1) 2024 , 03/23/2018, 03/02/2017, Additional history exists Hepatitis A Vaccines (2 of 2 - Risk 2-dose series) 09/16/2024 03/19/2024 Diabetes: Foot Exam 09/19/2024 09/20/2023 Depression Screening 03/13/2025 03/13/2024, 03/13/20 24 SDOH Screening 03/13/2025 03/13/2024 DTaP/Tdap/Td Vaccines (2 - Td or Tdap) 04/01/2025 04/01/2015 Tobacco Screening 06/11/2025 06/11/2024 Colonoscopy 12/11/2028 12/11/2018 Colorectal Cancer Screening 12/11/2028 RSV Patients and Patients Aged 60 years or older (1 - 1-dose 75+ series) 2043 Hepatitis B Vaccines Completed 09/01/2016, 10/21/2015, 07/18/2015 HIV Screening Completed 03/13/2024, 06/16/2023 Hepatitis C Screening Completed 03/13/2024, 023 HIB Vaccines Aged Out No longer eligi ble based on patient's age to complete this topic HPV Vaccines Aged Out No longer eligi ble based on patient's age to complete this topic IPV Vaccines Aged Out No longer eligi ble based on patient's age to complete this topic Meningococcal Vaccine Aged Out No daron radha eligible based on patient's age to complete this topic RSV under 20 months Aged Out No longe r eligible based on patient's age to complete this topic Rotavirus Vaccines Aged Out No longer eligible based on patient's age to complete this topic Procedures Procedure Name Priority Date/Time Associated Diagnosis Comments POCT WILLIAM-14 URINE DRUG SCREEN Routine 07/09/2024 1:13 PM EST Uncomplicated opioid dependence (CMS/HCC) POCT WILLIAM-14 URINE DRUG SCREEN Routine 06/11/2024 1:26 PM EST Uncomplicated opioid dependence (CMS/HCC) POCT WILLIAM-14 URINE DRUG SCREEN Routine 05/28/2024 1:38 PM EST Uncomplicated opioid dependence (CMS/HCC) POCT WILLIAM-14 URINE DRUG SCREEN Routine 05/14/2024 1:57 PM EST Uncomplicated opioid dependence (CMS/HCC) POCT WILLIAM-14 URINE DRUG SCREEN Routine 04/30/2024 3:49 PM EST Uncomplicated opioid dependence (CMS/HCC) HEPATITIS C AB W/REFL TO HCV RNA, QN, PCR Routine 03/13/2024 3:07 PM EDT HIV 1/2 ANTIGEN/ANTIBODY, FOURTH GENERATION W/RFL Routine 03/13/2024 3:07 PM EDT DIABETES FOOT EXAM Routine 09/20/2023 HEMOGLOBIN A1C Routine 05/31/2023 LIPID PANEL, STANDARD Routine 11/16/2022 COLONOSCOPY Routine 12/11/2018 from Last 3 Months or Most Recently Relevant to Health Maintenance Results * POCT WILLIAM-14 Urine Drug Screen (07/09/2024 1:13 PM EST) Only the most recent of5 resultswithin the time period is included. THC Negative Cocaine Screen, Urine Negative Opiate Screen, Urine Negative Methamphetamine Screen Urine Negative Amphetamine Screen, Urine Negative Benzodiazepines Screen, Urine Negative Barbiturate Screen, Urine Negative Methadone Screen, Urine Negative Buprenophine Screen, Urine Positive TCA, Urine Negative MDMA Urine Negative ng/mL Oxycodone Screen, Urine Negative Phencyclidine (PCP), Urine Negative Propoxyphene, Urine Negative Fentanyl, Urine Negative Urine Urine specimen obtained by clean catch procedure / Unknown 07/09/2024 1:13 PM EST Malena Adams MD POINT OF CARE TEST ENTER/CHINA T ORDERABLES Final Result * Hepatitis C Antibody with Reflex to HCV, RNA, Quantitative, Real-Time PCR (03/13/2024 3:07 PM EDT) Hepatitis C Antibody Nonreactive Nonreactive [facility] Comment:Antibodies to HCV no t detected; does not exclude early acuteHCV infection. 03/13/2024 3:07 PM EDT 03/13/2024 4:22 PM EDT Shane Ndiaye MD LAB BLOOD ORDERABLES Final Resul t Performing Organization Address City/[facility]/ZIP Co de Phone Number [facility] [address] [place] [address] [phone] * HIV-1/2 Antigen and Antibodies, Fourth Generation, with Reflexes (03/13/2024 3:07 PM EDT) HIV AB/AG Nonreactive Nonreactive [facility] Comment:HIV-1 p24 Ag and/or HIV-1/HIV-2 Ab not detected.A test result that is nonreactive does not exclude thepossibility of exposure to or infection with HIV-1 and/orHIV-2. Nonreactive results in this assay for individualswith prior exposure to HIV-1 and/or HIV-2 may be due toantigen and antibody levels that are below the limit ofdetection of this assay.[facility] HIV Ag/Ab Combo assay result andsupplemental assay results should be interpreted inconjunction with the patient's clinical presentation,history and other laboratory results. If the results areinconsistent with clinical evidence, additional testing issuggested to confirm the result. 03/13/2024 3:07 PM EDT 03/13/2024 4:22 PM EDT Shane Ndiaye MD LAB BLOOD ORDERABLES Final Resul t Performing Organization Address [facility]/ZIP Co de Phone Number [facility] [address] [place] [phone] [phone] * Diabetes Foot Exam (09/20/2023) Historical Provider HEALTH MAINTENANCE Final Result * (ABNORMAL) Hemoglobin A1c (05/31/2023) Hemoglobin A1C 6.2(A) 4.0 - 6.0 % Historical Provider HEALTH MAINTENANCE Final Result * Lipid Panel, Standard (11/16/2022) LDL Cholesterol 36 mg/dL Blood Venous blood specimen / Unknown us Historical Provider MD LAB BLOOD ORDERABLES Yasmin l Result * (ABNORMAL) Colonoscopy (12/11/2018) Colonoscopy Normal(A) Normal us Historical Provider HEALTH MAINTENANCE Final Result from Last 3 Months or Most Recently Relevant to Health Maintenance [facility]
--- OUTSIDE RECORDS SUMMARY | 2024-07-20 11:29 | XMS_ITS | Encounter Summary ---
Author Organization [employer] Address [address] [facility] 7t [place] [address] Care Team Providers Care Back Hoe Machine Operator Name Role Phone Unavailable Primary Care Provider Unavailabl e Encounter Details Date Type Department Care Team (Latest Contact Info) Description 07/09/2024 Travel Social History Tobacco Use Types Packs/Day Years [...] Description 08/24/2024 2:00 PM EST Office Visit [address] [phone] Carlin Rivas CNP [address] [place], [place] [phone] 09/03/2024 1:30 PM EDT Clinical Support [address] [address] Michaela Tenorio RN documented as of this encounter Visit Diagnoses Not on filedocumented in this encounter
--- OUTSIDE RECORDS SUMMARY | 2024-07-20 11:29 | XMS_ITS | Encounter Summary ---
Author Organization [employer] Address [address] [facility] [address]t [place] [address] Care Team Providers Care Hot Frame Tender Name Role Phone Unavailable Primary Care Provider Unavailabl e Reason for Visit * Reason Comments OBAT Encounter Details Date Type Department Care Team (Latest Contact Info) Description 07/09/2024 1:30 PM EST Clinical Support [facility] [address] [place] [address] Michaela Tenorio RN Uncomplicated opioid dependence (CMS/HCC) (Primary Dx) Social History Tobacco Use Types [...] PM EDT documented as of this encounter Progress Notes * Michaela Tenorio RN - 07/09/2024 1:30 PM EST Patient here today for Opioid Dependence RV. Patient on current Suboxone dose of 16/4 mg on a 4 week schedule. Patient has been in the program for 3 months. Induction date: 03/12/24. LFTs done 03/13/24. Patient actively enrolled in behavioral health services, therapist ---. JAN VALDIVIA reviewed by provider. Last PCP appt: pending Feeder Operator: Zainab Moved here from [place] several months ago. Feels well except for chronic LBP, bilat knee pain, left hip pain. Had lumbar injection and PT in [place] that didn't help. States that oxycodone and Fentanyl patches helped. Takes Tylenol with mild relief. LAST VISIT 06/11/24 [facility] reviewed. UTOX: + bup Discussed Suboxone dental care; given written instructions. Kannan is requesting refill of mirtazapine that was prescribed for sleep by former PCP in [place]. Lab tests were good. Has nonreactive Hep A antibodies, and he had 1st Hep A vaccine 03/19/2024. Constipation is relieved by MiraLax, does not need refill. Lives alone. Smoked 1 PPD, decreased to 1 cigarette/day using NRT. No EtOH. Not employed. Lives alone. Has 2 adult children, 1 in [place], 1 in [facility]. He declined supply of fentanyl strips. Assessment/Plan Diagnoses and all orders for this visit: Uncomplicated opioid dependence ([facility]) Recovery support, harm reduction (including Narcan) and behavioral health attendance reviewed. Continue Suboxone 16/4 mg on 4 week schedule. If doing well at next visit, will increase visit interval to 8 weeks. I prescribed tizanidine and lidocaine patches for back pain pending being assigned PCP. - POCT WILLIAM-14 Urine Drug Screen Other orders - tiZANidine (Zanaflex) 2 MG tablet; Take 1 tablet (2 mg) by mouth every 8 (eight) hours if needed for muscle spasms for up to 10 days. - lidocaine (Xylocaine) 5 % ointment; Apply topically if needed in the morning and at bedtime for moderate pain. Today 07/09/24 UTOX: + bup Feeder Operator: Lizbeth Brunner presented today for OBAT RN IN PERSON VISIT for Opioid Use Disorder. He is alert and oriented.Speech clear, coherent and goal directed. Easily engaged. Initiates conversation. Good eye contact.Doing well on suboxone. Denies illicit substance use, cravings or side effects. Requesting refill of his tizanidine. Will request refill when Dr. Ndiaye returns tomorrow. Patient is still awaiting a PCP new patient appt. Second MANAGER MEDICAL WRITING request sent to [facility]. Plan: Suboxone dosing schedule of 16/4 mg daily and management of side effects reviewed. Recovery support, harm reduction (including Narcan), and behavioral health attendance reviewed. Appointment for two weeks given. Patient expressed understanding and agreement with continuing plan of care. This information has been disclosed to you from records protected by federal confidentiality rules (42 CFR Part 2). The federal rules prohibit you from making any further disclosure of information inthis record that identifies a patient as having or having had a substance use disorder either directly, by reference to publicly available information, or through verification of such identification by another person unless further disclosure is expressly permitted by the written consent of the individual whose information is being disclosed or as otherwise permitted by (see2.3.1). The federal rules restrict any use of the information to investigate or prosecute with regard to a crime any patient with a substance use disorder, except as provided at 2.12??(5) and 2.65. documented in this encounter Plan of Treatment Upcoming Encounters Date Type Department Care Team (Late st Contact Info) Description 08/24/2024 2:00 PM EST Office Visit [facility] [address] [place] [address] Carlin Rivas CNP [address] [place] [phone] 09/03/2024 1:30 PM EDT Clinical Support [address] [phone] Michaela Tenorio RN documented as of this encounter Procedures Procedure Name Priority Date/Time Associated Diagnosis Comments POCT WILLIAM-14 URINE DRUG SCREEN Routine 07/09/2024 1:13 PM EST Uncomplicated opioid dependence (CMS/HCC) documented in this encounter Results * POCT WILLIAM-14 Urine Drug Screen (07/09/2024 1:13 PM EST) THC Negative Cocaine Screen, Urine Negative Opiate [...] CARE TEST ENTER/CHINA T ORDERABLES Final Result documented in this encounter Visit Diagnoses Diagnosis Uncomplicated opioid dependence (CMS/HCC)- Primary documented in this encounter
--- OUTSIDE RECORDS SUMMARY | 2024-07-20 11:29 | XMS_ITS | Encounter Summary ---
Author Organization [employer] Address [address] [facility] 7[address] [place] [address] Care Team Providers Care Boat Joiner Name Role Phone Unavailable Primary Care Provider Unavailabl e Reason for Visit * Reason Onset Date Comments Med Refill 07/02/2024 Encounter Details Date Type Department Care Team (Late st Contact Info) Description 07/02/2024 Refill [facility] [address] [place] [address] Michaela Tenorio RN Uncomplicated opioid dependence (CMS/HCC) Social History Tobacco [...] Description 08/24/2024 2:00 PM EST Office Visit [address] [address] Carlin Rivas CNP [address] [place] [address] 09/03/2024 1:30 PM EDT Clinical Support [address] [address] Michaela Tenorio RN documented as of this encounter Visit Diagnoses Diagnosis Uncomplicated opioid dependence (CMS/HCC) documented in this encounter
--- OUTSIDE RECORDS SUMMARY | 2024-07-20 11:29 | XMS_ITS | Clinical Summary ---
Author Organization [facility] Address [address] [place] [address] Care Team Providers Care Full Time Name Role Phone Ced Sesay Primary Care Provider [phone] Allergies Active Allergy Reactions Criticality Noted Date [...] Acute back pain with sciatica, left 09/16/2015 Family History Medical History Relation Name Comments Other Father Family History of cardiac disorder /Family History of kidney disease Relation Name Status Comments Father Social History Tobacco Use Types Packs/Day Years [...] 07/05/2023 9:36 PM EST Plan of Treatment Health Maintenance Due Date Last Done Comments HIV Screening 1968 Hepatitis C Screening 1968 CT Lung Cancer Screening (Baseline) 2018 04/13/2016 Zoster Vaccines (1 of 2) 2018 Pneumococcal Vaccine: Pediat joan (0-5 Years) and At-Risk Patients (6-64 Years) (2 of 2 - PCV) 08/28/2022 08/28/2021 Colonoscopy 12/12/2023 12/11/2018 COVID-19 Vaccine (3 - 2023-2 5 season) 2024 11/22/2020, 10/25/2020 Influenza Vaccine (#1) 2024 , 03/23/2018, 03/02/2017, Additional history exists Alcohol/Substance Use Screening 06/27/2024 Depression Evaluation 06/27/2024 Social Drivers of Health Barbie ual Screening 06/27/2024 DTaP,Tdap,and Td Vaccines (2 - Td or Tdap) 04/01/2025 04/01/2015 Tobacco Screening 06/27/2042 07/05/2023 RSV Vaccine (60+ years old a nd patients) (1 - 1-dose 75+ series) 2043 Hepatitis B Vaccines Completed 09/01/2016, 10/21/2015, 07/18/2015 Procedures * Due to [place] myDocket law, this organization might not be sharing negative HIV tests. Procedure Name Priority Date/Time Associated Diagnosis Comments COLONOSCOPY 12/11/2018 CT CHEST PULMONARY EMBOLISM W CONTRAST STAT 04/13/2016 5:47 AM EDT from Last 3 Months or Most Recently Relevant to Health Maintenance Results * Due to [place] myDocket law, this organization might not be sharing [...] 350: 80 ML, IV POWER INJ WSN: [id number] Narrative 04/13/2016 6:21 AM EDT COMPARISON: None. [...] 350: 80 ML, IV POWER INJ WSN: [id number] Casey Castro MD IMG CT PROCEDURES Final Result from Last 3 Months or Most Recently Relevant to Health Maintenance Insurance MEDICARE [facility] Care Teams Full Time Relationship Specialty Start Date End Date Ced Sesay PA PCP - General 10/14/21
--- OUTSIDE RECORDS SUMMARY | 2024-07-20 11:29 | XMS_ITS | Encounter Summary ---
Author Organization [employer] Address [address] [facility] [address] [place] [address] Care Team Providers Care Tar Worker Name Role Phone Unavailable Primary Care Provider Unavailabl e Reason for Visit * Reason Onset Date Comments New patient appt. 07/10/2024 Encounter Details Date Type Department Care Team ([facility] st Contact Info) Description 07/10/2024 Telephone [facility] MED[facility]INE [address] [place], [place] [phone] Lino Yoon MD [address] [place], [place] [phone] New patient appt. Social History Tobacco Use Types Packs/Day Years [...] encounter Miscellaneous Notes * Telephone Encounter - Jany Johnson - 07/17/2024 11:47 AM EST Outgoing call to pt to book BUSINESS RECORDS MANAGER appt. Patient booked for 08/24/24 with BUSINESS RECORDS MANAGER Carlin. [facility] patient. Medical conditions reported: DM, Cholesterol, high BP. Appt reminder sent via text and mail. * Telephone Encounter - Jany Johnson - 07/10/2024 12:50 PM EST Zero availability. Patient will be contacted as soon as an appt becomes available. * Telephone Encounter - Jany Johnson - 07/10/2024 12:46 PM EST ----- Message from Nurse Michaela Tejada sent at 07/09/2024 1:30 PM EST ----- Patient requesting new patient appt. Is on several blood pressure medications with refills running out next month. Request previously sent in March,. documented in this encounter Plan of Treatment Upcoming Encounters Date Type Department Care Team (Late st Contact Info) Description 08/24/2024 2:00 PM EST Office Visit [facility] [address] [place] [address] Carlin Rivas CNP [address] [place], [place] [phone] 09/03/2024 1:30 PM EDT Clinical Support [address] [address] Michaela Tenorio RN documented as of this encounter Visit Diagnoses Not on filedocumented in this encounter
--- OUTSIDE RECORDS SUMMARY | 2024-07-20 11:29 | XMS_ITS | Encounter Summary ---
Author Organization [employer] Address [address] [facility] 7[address] [place] [address] Care Team Providers Care Capacitor Pack Press Operator Name Role Phone Unavailable Primary Care Provider Unavailabl e Reason for Visit * Reason Comments Med Refill Encounter Details Date Type Department Care Team (Late st Contact Info) Description 07/01/[address] [facility] MED[facility]INE [address] [place] [address] Shane Ndiaye MD [address] [place] [address] Social History Tobacco Use Types Packs/Day Years Used Date Smoking Tobacco: Every Day Cigarettes Alcohol Use Standard Drinks/Week Comments Never 0 (1 standard drink = 0.6 oz pur e alcohol) Housing Stability Answer Date Recorded What is your housing situation today? I have evelyn taylor 03/13/[address] you li [...] Description 08/24/2024 2:00 PM EST Office Visit [address] [phone] Carlin Rivas CNP [address] [place], [place] [phone] 09/03/2024 1:30 PM EDT Clinical Support [address] [address] Michaela Tenorio RN documented as of this encounter Visit Diagnoses Not on filedocumented in this encounter
--- OUTSIDE RECORDS SUMMARY | 2024-07-20 11:29 | XMS_ITS | Encounter Summary ---
Author Organization [employer] Address [address] [place] [address] 7 [place] [address] Care Team Providers Care Drier Attendant Name Role Phone Unavailable Primary Care Provider Unavailabl e Reason for Visit * Reason Comments Med Refill Encounter Details Date Type Department Care Team (Late st Contact Info) Description 05/20/2024 Refill Family [facility] [address] [phone] Ced Sesay PA-C [address] [place] [phone] Social History Tobacco Use Types Packs/Day Years [...] encounter Miscellaneous Notes * Telephone Encounter - Preston Duran - 05/22/2024 1:24 AM EST documented in this encounter Plan of Treatment Upcoming Encounters Date Type Department Care Team (Late st Contact Info) Description 08/24/2024 2:00 PM EST Office Visit [facility] MED[facility]INE [address] [place] [id number] Carlin Rivas CNP [address] [place] [address] 09/03/2024 1:30 PM EDT Clinical Support [address] [address] Michaela Tenorio RN documented as of this encounter Visit Diagnoses Not on filedocumented in this encounter
== END 2024-07-20 10:52 | disposition home or self-care (01) ==
PROVIDERS: Visit Provider Physical Medicine & Rehabilitation
DX: M54.42 Lumbago with sciatica, left side (principal); M54.41 Lumbago with sciatica, right side; G89.29 Other chronic pain
CPT/HCPCS: 99203

== ENCOUNTER → 2024-07-20 10:17 | Outpatient (BNVA) | payer MEDICARE, MEDICAID, SELFPAY | PROVIDERS: Visit Provider Physical Medicine & Rehabilitation | DX: M54.42 Lumbago with sciatica, left side (principal); M54.41 Lumbago with sciatica, right side; G89.29 Other chronic pain | CPT/HCPCS: 99202 ==

== ENCOUNTER 2024-09-14 12:50 | Outpatient (AMB) | payer MEDICARE, MEDICAID, SELFPAY ==
--- NOTE | 2024-09-14 14:15 | A.OFFVIS_ITS ---
Vital Signs 09/14/24 14:21 Height 6 ft Weight 218 lb 7 oz BMI 29.6 BP 142/95 H Blood Pressure Location Rt brachial Position Sitting Pulse 71 Pulse Source Pulse Oximeter Pulse Oximetry (%) 96 Oxygen Delivery Method Room Air Intake Visit Reasons: Chronic pain syndrome Intake Note: Pain today 8 Managed Care Director Required: Yes Managed Care Director Language: Canal Boat Captain Name: Kalina Accompanied by: Self / Same As Patient Allergies No Known Allergies Allergy (Verified 09/14/24 14:22) HPI Comments Details: The patient is a 54-year-old male presenting with chronic low back pain. His pain has persisted for over 15 years, diagnosed as resulting from degenerative disc disease and osteoarthritis of the spine. During this time, he has undertaken several therapeutic interventions, including injections and physical therapy, with only temporary benefits before effectiveness diminished. His pain is localized primarily to the lumbar spine region, worsening with twisting movements but shows no evidence of radicular pain extending into the lower extremities. The patient denies any history of back surgery or acute injury to the spine. He underwent an MRI study approximately two years prior, pointing to degenerative changes, with ongoing efforts to retrieve those imaging results. Medications such as anti-inflammatories have been ineffective. Despite various therapies, pain has significantly impacted his daily life, leading to disability status primarily due to persistent back discomfort. - Onset: More than 15 years ago. - Quality: Described as pressure and discomfort. - Duration and Timing: Chronic, continuous issue. - Primary Location: Lumbar spine. - Radiation: No radiation down the legs reported. - Exacerbation: Worsens with twisting movements and physical exertion. - Relief: Achieved temporarily with opioids such as oxycodone, thermal massage. - Activities Interference: Activities significantly impacted, leading to disabling status. - Affect: Pain has led to disability affecting daily life. - Analgesia: Anti-inflammatory medications deemed ineffective. - Adverse Effects: No specific adverse effects from medication noted. - Activities of Daily Living: Pain severely limits functional capacity, contributing to inability to work. - Aberrant Drug Related Behaviors: None reported or evidenced. Completed physical therapy 6 months ago with no improvement. Denies red flag symptoms including new loss of bowel, bladder or saddle anesthesia Denies current use of anticoagulants Denies implantable devices, pacemaker or defibrillator Reports MRI completed approximately 2 years ago, results are not available at this time. This was performed in [place]. He is currently on Suboxone through [facility] Social History (Updated 07/20/24 @ 10:40 by THEA Espino) Current occupational status: disabled Review of Systems Const Details: - Musculoskeletal: Reports chronic low back pain. - Neurological: Denies radicular pain or sensations down the legs. - Constitutional: No report of fever or accompanying systemic symptoms. Physical Exam Vital Signs: Last Vital Signs Pulse 71 09/14/24 14:21 BP 142/95 H 09/14/24 14:21 Pulse Ox 96 09/14/24 14:21 Oxygen Delivery Method Room Air 09/14/24 14:21 BMI result Body Mass Index 29.6 General: awake, alert, oriented. Answers questions appropriately. Fully engaged in examination. Skin: warm, dry, intact HEENT: Normocephalic. Hearing intact. Cardiac: External chest normal in appearance. Respiratory: No cough, audible wheezing or stridor. Abdomen: without gross distension. MS: No obvious swelling or deformities. Able to stand on bilateral tiptoes and bilateral heels.? Able to transition from sit to stand unassisted. Ambulates with bilaterally normal heel strike and toe off Facet loading positive Tenderness to palpation midline lumbar vertebrae and lumbar paraspinal muscles SLR negative bilaterally Negative footdrop, negative clonus Nontender over bilateral PSIS Bilateral lower extremity strength 5/5 Neurological: Oriented to person, place, time and situation. Thought process intact. No gait abnormalities appreciated. Psychiatric: Appropriate mood and affect. Good judgment and insight. Assessment & Plan Assessment & Plan (1) Lumbar spondylosis: Code(s): M47.816 - Spondylosis without myelopathy or radiculopathy, lumbar region Category: Medical (2) Degenerative disc disease, lumbar: Code(s): M51.369 - Other intervertebral disc degeneration, lumbar region without mention of lumbar back pain or lower extremity pain Category: Medical (3) Chronic pain syndrome: Code(s): G89.4 - Chronic pain syndrome Category: Medical Plan To address this patient's chronic low back pain, related to degenerative disc disease and osteoarthritis, I will commence with obtaining updated x-ray imaging of the lumbar spine to evaluate for current degenerative changes and compare with results from the previous MRI performed around two years ago, to be obtained with authorized release. Once these imaging results are available, we will explore the utility of diagnostic injections to precisely identify pain sources and propose potential nerve stimulation therapies contingent on positive outcomes. I discussed with the patient the chronicity of his low back pain, acknowledging the diagnosis of degenerative disc disease and possible arthritic contributions. I explained the rationale for obtaining updated x-rays and retrieving past MRI data to correlate with clinical findings. The patient consented to the release of medical records for previous imaging studies, necessary to formulate an informed treatment strategy focused on precise diagnostic interventions like injections and possibly nerve stimulation. We reviewed the possibilities of revising his pain management plan depending on these comprehensive assessments, with an understanding of steps to pursue upon receipt of diagnostic results. - Consent to release previous MRI records for review. - Obtain updated x-rays as instructed. - Follow up for review of imaging results and discussion of potential treatment options. - after review of MRI plan for bilateral diagnostic L3-L4 DR L5 medial branch blocks with local anesthetic. If positive results plan for bilateral lumbar sprint PNS trial. - Notify for any sudden changes in symptoms or worsening conditions. Patient was informed and verbally consented to the use of an ambient scribe for clinic note documentation during this visit. Orders: Orders XR lumbar spine 4V min Today M54.9 - Dorsalgia, unspecified Coding Level of Care Code New Pt Level 4 (03622) Complex EM visit Add On G2211 Diagnoses Lumbar spondylosis M47.816 Degenerative disc disease, lumbar M51.369 Chronic pain syndrome G89.4
[2024-09-14 14:21] VITALS: BP 142/95; PULSE 71; O2SAT 96; BMI 29.6
--- OUTSIDE RECORDS SUMMARY | 2024-09-14 15:13 | XMS_ITS | Clinical Summary ---
Author Organization [facility] Address [address] [place] [address] Care Team Providers Care Academic Physician Name Role Phone Unavailable Primary Care Provider [...]
--- OUTSIDE RECORDS SUMMARY | 2024-09-14 15:13 | XMS_ITS | Encounter Summary ---
Author Organization [employer] Address [address] [facility] 7t [place] [address] Care Team Providers Care Insulation Installer Name Role Phone Carlin Rivas CNP Primary Care Provider [phone] Reason for Referral * Consultation (Routine) - Pending Review Specialty Diagnoses / Procedures Referred By Davey vance Referred To Contact Joint Surgery Diagnoses Chronic pain syndrome Carlin Rivas CNP [address] [place] [address] Phone: tel: fax: Referral ID Status Reason Start Date Expiration Date Visits Requested Visits Authorized [id number] Pending Review Specialty Services Required 08/24/2024 08/24/2025 1 1 * Consultation (Routine) - Authorized Specialty Diagnoses / Procedures Referred By Davey vance Referred To Contact Orthopaedic Surgery Diagnoses Chronic pain syndrome Carlin Rivas CNP [address] [place] [address] Phone: tel: fax: [facility] Orthopedics [address] [place] [address] Phone: tel: Referral ID Status Reason Start Date Expiration Date Visits Requested Visits Authorized [id number] Authorized Specialty Services Required 08/24/2024 08/24/2025 1 1 * Consultation (Routine) - Authorized Specialty Diagnoses / Procedures Referred By Davey vance Referred To Contact Pain Medicine Diagnoses Chronic pain syndrome Carlin Rivas CNP [address] [place] [address] Phone: tel: fax: [address] Phone: tel: fax: Referral ID Status Reason Start Date Expiration Date Visits Requested Visits Authorized [id number] Authorized Specialty Services Required 08/24/2024 08/24/2025 1 1 * Consultation (Routine) - Authorized Specialty Diagnoses / Procedures Referred By Davey vance Referred To Contact Dental Grocery Specialist / Dentistry Diagnoses Healthcare maintenance Carlin Rivas CNP [address] [place] [address] Phone: tel: fax: Referral ID Status Reason Start Date Expiration Date Visits Requested Visits Authorized [id number] Authorized Consult and Treat 08/24/2024 08/24/2025 1 1 * Consultation (Routine) - Authorized Specialty Diagnoses / Procedures Referred By Davey vance Referred To Contact Optometry Diagnoses Routine eye exam Carlin Rivas CNP [address] [place] [address] Phone: tel: fax: [facility] OPTOMETRY [address] [place] [address] Phone: tel: fax: Referral ID Status Reason Start Date Expiration Date Visits Requested Visits Authorized [id number] Authorized Consult and Treat 08/24/2024 08/24/2025 1 1 Reason for Visit * Reason Comments New Pt Encounter Details Date Type Department Care Team (Late st Contact Info) Description 08/24/2024 2:00 PM EST Office Visit [facility] MEDICINE [address] [place] [id number] Carlin Rivas CNP [address] [place] [address] Type 2 diabetes mellitus with other specified complication, without long-term current use of insulin ([facility]) (Primary Dx); Routine eye exam; Healthcare maintenance; Asthma, unspecified asthma severity, unspecified whether complicated, unspecified whether persistent; Anxiety associated with depression; Chronic pain syndrome; Hypertension, unspecified type; Anxiety and depression Social History Tobacco Use Types Packs/Day Years Used Date Smoking Tobacco: Every Day Cigarettes Tobacco Cessation:Ready to Q uit: Not Asked; Counseling Given: Not Answered Alcohol Use Standard Drinks/Week Comments Never 0 (1 standard drink = 0.6 oz pur e alcohol) Depression Answer Date Recorded Patient Health Questionnaire-9 Score 7 08/24/2024 Patient Health Questionnaire-9 Score 7 08/24/2024 Last PHQ-9: Questionnaire Data Not on file 0 08/24/2024 Housing Stability Answer Date Recorded What is [...] Answer Date Recorded Patient Health Questionnaire-2 Score 2 08/24/2024 Internet Access Answer Date Recorded Internet Access Q1 Yes 08/24/2024 Internet Access Q2 I do not want or need it 07/29 Sex and Gender Information Value Date Recorded Sex Assigned at Male 12/06/2023 1:37 PM EDT Legal Sex Male 6:53 PM EDT Gender Identity Male 12/06/2023 1:37 PM EDT Sexual Orientation Choose not to disclose 2023 6:53 PM EDT documented as of this encounter Last Filed Vital Signs Vital Sign Reading Time Taken Comments Blood Pressure 143/80 08/24/2024 1:53 PM EST Pulse 76 08/24/2024 1:53 PM EST Temperature 36.8 ??C (98.2 ??F) 08/24/2024 1:53 PM ES T Respiratory Rate 18 08/24/2024 1:53 PM EST Oxygen Saturation 98% 08/24/2024 1:53 PM EST Inhaled Oxygen Concentration - - Weight 101 kg (222 lb 9.6 oz) 08/24/2024 1:53 PM EST Height - - Body Mass Index 33.35 11/23/2023 9:22 AM EDT documented in this encounter Progress Notes * Carlin Rivas, YOLANDA - 08/24/2024 2:00 PM EST Subjective: Kannan Galeano is a 54 y.o. male who presents to the office for a new patient visit. Previous PCP was in [place]. Denies recent illness, injury, hospitalization. Interim history: Pt part of [facility] program, pt on current suboxone dose of 16/4mg on a 4 week schedule. Pt apart of program x 3 months. Has Narcan at home Pt was enrolled in [facility], had therapist in [place], no longer seeing therapist, reports his mental health is great right now. Pt has chronic pain syndrome. Had lumbar injection and PT in [place] that didn't help. States that oxycodone and Fentanyl patches helped. Takes Tylenol with mild relief. Pt also prescribed tizanidine and lidocaine patches for pain control. Smoker, smoking 1-2 PPW, now 5 cigarette/day using NRT, no alcohol, no illicit drug use, on suboxone Not employed, lives alone, has 2 adult children, has [employer] ARCHITECT helps with ADLs Pt has blood glucose monitor at home, checks daily glucose runs 60-130s. Denies any diet or exercise at this time, unable to exercise d/t chronic pain. Pt has BP monitor at home, hasn't checked it in awhile. Current concerns: Chronic Pain Imaging: MRI Lumbar spine 07/2018 The signal intensity and size of the visualized spinal cord and cauda equina are within normal limits. No suspicious spinal cord or cauda equina lesions. No spinal cord compression. The conus medullaris terminates at the L1-L2 level. Endplate changes are seen at L5-S1. Question bilateral pars defects. The visualized vertebral body heights are well maintained. Vertebral alignment is preserved. No acute fracture or dislocation. No ligamentous or soft tissue injury. The paraspinal soft tissues areunremarkable. XR Lumbar Spine 2-3 Views FINDINGS: Again seen is bilateral L5 spondylolysis with an associated grade 1 anterior listhesis of L5 on S1. Degenerative disc disease at this level is stable. Alignment is otherwise maintained without acute fracture or dislocation. Lab Results Component Value Date HGBA1C 7.0 (A) 08/24/2024 Lab Results Component Value Date GLUCOSE 87 03/13/2024 NA 139 03/13/2024 K 4.1 03/13/2024 CO2 26 03/13/2024 CL 105 03/13/2024 BUN 9 03/13/2024 CREATININE 0.85 03/13/2024 History reviewed. No pertinent surgical history. No family history on file. Social History Living situation: lives alone Employment/Education: unemployed Diet/exercise: none at this time Substance use: -alcohol : none -tobacco : yes 1 cigarette daily on NRT -opioids : hx of opioid use, part of [facility] program, on suboxone Sexual activity: Mental health: Patient Health Questionnaire-9 Score: 7 (08/24/2024 2:01 PM) Patient Health Questionnaire-2 Score: 2 (08/24/2024 2:01 PM) Thoughts that you would be better off or hurting yourself in some way: Not at all (08/24/2024 2:01 PM) Allergies Allergen Reactions Cyclobenzaprine Hives Causative Agent: Flexeril; Reaction(s): Hives Pregabalin Causative Agent: Lyrica; Comment: Extremity swelling, shortness of breath and chest tightness Review of Systems Constitutional: Negative for activity change, appetite change, chills, fatigue, fever and unexpected weight change. Respiratory: Negative for choking, shortness of breath and wheezing. Cardiovascular: Negative for chest pain and palpitations. Gastrointestinal: Negative for abdominal distention, abdominal pain, constipation, diarrhea, nauseaand vomiting. Musculoskeletal: Positive for arthralgias, back pain, gait problem and myalgias. Negative for jointswelling, neck pain and neck stiffness. Neurological: Positive for weakness. Negative for tremors, seizures, syncope, facial asymmetry, speech difficulty, light-headedness, numbness and headaches. Psychiatric/Behavioral: Negative for self-injury and sleep disturbance. The patient is not nervous/anxious. Vitals: 08/24/24 1353 BP: (!) 143/80 Pulse: 76 Resp: 18 Temp: 98.2 ??F (36.8 ??C) TempSrc: Oral SpO2: 98% Weight: 222 lb 9.6 oz (101 kg) Physical Exam Vitals reviewed. Constitutional: General: He is not in acute distress. Appearance: Normal appearance. He is not ill-appearing, toxic-appearing or diaphoretic. HENT: Head: Normocephalic and atraumatic. Right Ear: Tympanic membrane, ear canal and external ear normal. There is no impacted cerumen. Left Ear: Tympanic membrane, ear canal and external ear normal. There is no impacted cerumen. Nose: No congestion or rhinorrhea. Mouth/Throat: Pharynx: No oropharyngeal exudate or posterior oropharyngeal erythema. Eyes: General: No scleral icterus. Right eye: No discharge. Left eye: No discharge. Extraocular Movements: Extraocular movements intact. Pupils: Pupils are equal, round, and reactive to light. Cardiovascular: Rate and Rhythm: Normal rate and regular rhythm. Pulses: Normal pulses. Heart sounds: Normal heart sounds. No murmur heard. No friction rub. No gallop. Pulmonary: Effort: Pulmonary effort is normal. No respiratory distress. Breath sounds: Normal breath sounds. No stridor. No wheezing, rhonchi or rales. Chest: Chest wall: No tenderness. Musculoskeletal: Cervical back: Normal range of motion and neck supple. No tenderness. Right lower leg: No edema. Left lower leg: No edema. Lymphadenopathy: Cervical: No cervical adenopathy. Neurological: General: No focal deficit present. Mental Status: He is alert and oriented to person, place, and time. Mental status is at baseline. Sensory: No sensory deficit. Motor: Weakness present. Coordination: Coordination normal. Gait: Gait abnormal. Deep Tendon Reflexes: Reflexes normal. Psychiatric: Mood and Affect: Mood normal. Behavior: Behavior normal. Thought Content: Thought content normal. Judgment: Judgment normal. Routine Screening and Health Maintenance Optometry: No Dental: Yes Routine Cancer Screening Colon CA: Last colonoscopy in 2018, a 2mm polyp was removed from rectum. Exam was otherwise normal.Repeat in 2028. Lung CA: had lung cancer screening last year, was normal PSA: due if desired by pt Problem List Items Addressed This Visit HTN (hypertension) Overview Pt taking Cozaar and chlorthalidone Has BP monitor at home Current Assessment & Plan Pt BP mildly elevated today goal is <140/90 Advised pt to start taking Bps and keep log to review at next appt Anxiety and depression Overview Last Addressed Date: 05/31/2023 Current Assessment & Plan Pt declines services at this time Happy with current medication, reports mental health has improved a lot from the past Asthma (Chronic) Current Assessment & Plan Asthma controlled on daily maintenance inhaler, needs refills today they were sent Has albuterol inhaler on hand Relevant Medications Breo Ellipta 100-25 MCG/ACT aerosol powder Chronic pain syndrome Overview Pt has chronic back pain and chronic knee pain Pt follows with [facility] program On Suboxone 16/4mg Has Narcan at home Conservative therapy- ineffective PT- tried and was ineffective Steroid injections: has 1 lumbar injection, ineffective Acupuncture- not trialed yet Current Assessment & Plan Plan to refer to our pain mgmt clinic Plan to refer to exploration manager Pt declines PT at this time Pt to continue with tylenol and lidocaine patches prn Will obtain new images of his back and both knees Will refer to ortho for further evaluation Pt would benefit from supportive devices at home specifically hand railing in his bathroom, a raised toilet seat, and a shower chair d/t instability. Pt does have walker at home. Relevant Orders Referral to Pain Medicine XR Lumbar Spine 2-3 Views XR Knee 4+ Views Left XR Knee 4+ Views Right Referral to Orthopaedic Surgery Referral for Acupuncture Type 2 diabetes mellitus, without long-term current use of insulin ([facility]) - Primary Current Assessment & Plan Maintenance BMP: ordered today Microalbumin: ordered today Foot Exam: completed today Eye Exam: not UTD Lipid panel: ordered today Statin: yes lipitor 40 mg ASA: no DIEGO/ARB: yes Cozaar 100 Encouraged regular aerobic exercise for improved glycemic control Encouraged daily foot checks Encouraged lean protein snacks and to avoid foods high in sugar and simple carbohydrates Treatment Goals: A1c goal: <7% FBG goal: <130 2 hour post prandial goal: <180 Relevant Medications glipiZIDE XL (Glucotrol XL) 5 MG 24 hr tablet Other Relevant Orders Lipid Panel, Standard Albumin, Random Urine W/Creatinine POCT HGB A1C (Completed) POCT Glucose (Completed) Basic Metabolic Panel Healthcare maintenance Current Assessment & Plan Vision: Due, referral placed Dental: cleaning UTD, but needs to transfer care to [facility], referral placed Colon CA: UTD, next due 2028 Lung CA: UTD, had it done last year in [place] and was neg, will obtain records Labs: see orders IMMs: declines today, due for covid, flu, pcv20, zoster Follow up in 3 months for chronic conditions Relevant Orders Referral to [facility] Dental Adult Other Visit Diagnoses Routine eye exam Relevant Orders Referral to [facility] Eye Care [facility] POWER PLANT OPERATORS SUPERVISOR Attestation [employer]OWER [employer]PERAT[employer] SUPERVISOR Resident Attestation: Patient was seen and evaluated by Carlin Rivas CNP, in collaboration with Dylan Abreu MD whohas reviewed my assessment and plan. I, Dylan Abreu MD , have reviewed the resident's note and agree with the assessment & plan of care as documented above. Visit Conducted in: Malay Translation by: Provided by [facility] staff member Jackson Warner MA , documented in this encounter Miscellaneous Notes * Assessment & Plan Note - Carlin Rivas CNP - 08/24/2024 4:16 PM EST Associated Problem(s): Chronic pain syndrome Plan to refer to our pain mgmt clinic Plan to refer to exploration manager Pt declines PT at this time Pt to continue with tylenol and lidocaine patches prn Will obtain new images of his back and both knees Will refer to ortho for further evaluation * Assessment & Plan Note - Carlin Rivas CNP - 08/24/2024 4:12 PM EST Associated Problem(s): HTN (hypertension) Pt BP mildly elevated today goal is <140/90 Advised pt to start taking Bps and keep log to review at next appt * Assessment & Plan Note - Carlin Rivas CNP - 08/24/2024 4:11 PM EST Associated Problem(s): Asthma Asthma controlled on daily maintenance inhaler, needs refills today they were sent Has albuterol inhaler on hand * Assessment & Plan Note - Carlin Rivas CNP - 08/24/2024 4:10 PM EST Associated Problem(s): Healthcare maintenance Vision: Due, referral placed Dental: cleaning UTD, but needs to transfer care to [facility], referral placed Colon CA: UTD, next due 2028 Lung CA: UTD, had it done last year in [place] and was neg, will obtain records Labs: see orders IMMs: declines today, due for covid, flu, pcv20, zoster Follow up in 3 months for chronic conditions * Assessment & Plan Note - Carlin Rivas CNP - 08/24/2024 4:08 PM EST Associated Problem(s): Anxiety and depression Pt declines services at this time Happy with current medication, reports mental health has improved a lot from the past * Assessment & Plan Note - Carlin Rivas CNP - 08/24/2024 2:00 PM EST Associated Problem(s): Type 2 diabetes mellitus, without long-term current use of insulin ([facility]) Maintenance BMP: ordered today Microalbumin: ordered today Foot Exam: completed today Eye Exam: not UTD Lipid panel: ordered today Statin: yes lipitor 40 mg ASA: no DIEGO/ARB: yes Cozaar 100 Encouraged regular aerobic exercise for improved glycemic control Encouraged daily foot checks Encouraged lean protein snacks and to avoid foods high in sugar and simple carbohydrates Treatment Goals: A1c goal: <7% FBG goal: <130 2 hour post prandial goal: <180 documented in this encounter Plan of Treatment Upcoming Encounters Date Type Department Care Team (Late st Contact Info) Description 10/29/2024 1:45 PM EDT Clinical Support [facility] MEDICINE [address] [place] [address] Michaela Tenorio, RN Scheduled Orders Name Type Priority Associated Diagnoses Orde r Schedule Lipid Panel, Standard Lab Routine Type 2 diabetes mellitus with other specified complication, without long-term current use of insulin ([facility]) Expected: 08/24/2024 (Approximate), Expires: 08/24/2025 Albumin, Random Urine W/Creatinine Lab Routine Type 2 diabetes mellitus with other specified complication, without long-term current use of insulin (CMS/HCC) Expected: 08/24/2024 (Approximate), Expires: 08/24/2025 Basic Metabolic Panel Lab Routine Type 2 diabetes mellitus with other specified complication, without long-term current use of insulin ([facility]) Expected: 08/24/2024 (Approximate), Expires: 08/24/2025 XR Lumbar Spine 2-3 Views Imaging Routine Chronic pain syndrome Expected: 08/24/2024, Expires: 08/24/2025 XR Knee 4+ Views Left Imaging Routine Chronic pain syndrome Expected: 08/24/2024, Expires: 08/24/2025 XR Knee 4+ Views Right Imaging Routine Chronic pain syndrome Expected: 08/24/2024, Expires: 08/24/2025 Scheduled Referrals Name Type Priority Associated Diagnoses Orde r Schedule Referral to [facility] Eye Care Outpatient Referral Routine Routine eye exam Expected: 08/24/2024 (Approximate), Expires: 08/24/2025 Referral to [facility] Dental Adult Outpatient Referral Routine Healthcare maintenance Expected: 08/24/2024 (Approximate), Expires: 08/24/2025 Referral to Pain Medicine Outpatient Referral Routine Chronic pain syndrome Expected: 08/24/2024 (Approximate), Expires: 08/24/2025 Referral to Orthopaedic Surgery Outpatient Referral Routine Chronic pain syndrome Expected: 08/24/2024 (Approximate), Expires: 08/24/2025 Referral for Acupuncture Outpatient Referral Routine Chronic pain syndrome Expected: 08/24/2024 (Approximate), Expires: 08/24/2025 documented as of this encounter Procedures Procedure Name Priority Date/Time Associated Diagnosis Comments POCT GLYCATED HEMOGLOBIN, TOTAL Routine 08/24/2024 1:52 PM EST Type 2 diabetes mellitus with other specified complication, without long-term current use of insulin ([facility]) POCT GLUCOSE Routine 08/24/2024 1:52 PM EST Type 2 diabetes mellitus with other specified complication, without long-term current use of insulin ([facility]) documented in this encounter Results * POCT Glucose (08/24/2024 1:52 PM EST) Glucose Blood, POC 62 60 - 200 mg/dL QC Media Lot # [id number] Lot# Expiration Date Blood Capillary blood specimen / Unknown 08/24/2024 1:52 PM EST [facility] Rob [facility] POINT OF CARE TEST ENTER/ EDIT ORDERABLES Final Result * (ABNORMAL) POCT HGB A1C (08/24/2024 1:52 PM EST) Hemoglobin A1C 7.0(A) 4.0 - 6.0 % QC Media Lot # [id number] Lot# Expiration Date Blood 08/24/2024 1:52 PM EST [facility] POINT OF CARE TEST ENTER/ EDIT ORDERABLES Final Result documented in this encounter Visit Diagnoses Diagnosis Type 2 diabetes mellitus with other specified complication, without long-term current use of insulin ([facility])- Primary Routine eye exam Examination of eyes and vision Healthcare maintenance Asthma, unspecified asthma severity, unspecified whether complicated, unspecified whether persistent Anxiety associated with depression Dysthymic disorder Chronic pain syndrome Hypertension, unspecified type Anxiety and depression documented in this encounter Additional Health Concerns Assessment Noted Time PHQ-9 Depression Total Score: 7 08/24/19 25 2:01 PM EST documented as of this encounter Care Teams Insulation Installer Relationship Specialty Start Date End Date Carlin Rivas CNP [address] [place] [id number] PCP - General Family Medicine 08/24/24 documented as of this encounter
--- OUTSIDE RECORDS SUMMARY | 2024-09-14 15:13 | XMS_ITS | Encounter Summary ---
Author Organization [employer] Address [address] [facility] [address] [place] [address] Care Team Providers Care Licensed Midwife Name Role Phone Unavailable Primary Care Provider Unavailabl e Reason for Visit * Reason Comments Pre-visit Planning SDOH unable to reach , no voicemail. Encounter Details Date Type Department Care Team (Late st Contact Info) Description 08/16/2024 Patient Outreach [facility] [address] [place] [address] Carlin Rivas CNP [address] [place], [place] [phone] Pre-visit Planning (SDOH unable to reach, no voicemail.) Social History Tobacco Use Types Packs/Day Years [...] as of this encounter Progress Notes * Roslyn Medina - 08/16/2024 3:34 PM EST CC Roslyn Rodríguez placed outbound call to patient to complete pre-visit planning. No answer at this time. Patient name and were not confirmed. CC unable to leave a message due to no voicemail. documented in this encounter Plan of Treatment Upcoming Encounters Date Type Department Care Team (Late st Contact Info) Description 10/29/2024 1:45 PM EDT Clinical Support [facility] [address] [place] [phone] Michaela Tenorio RN documented as of this encounter Visit Diagnoses Not on filedocumented in this encounter
--- OUTSIDE RECORDS SUMMARY | 2024-09-14 15:13 | XMS_ITS | Encounter Summary ---
Author Organization [employer] Address [address] [facility] [address] [place] [address] Care Team Providers Care Accounts Receivable Specialist Name Role Phone Carlin Rivas YOLANDA Primary Care Provider [phone] Reason for Visit * Reason Onset Date Comments Med Refill 08/29/2024 Encounter Details Date Type Department Care Team (Late st Contact Info) Description 08/29/2024 Refill [facility] [address] [place] [address] Michaela Tenorio RN Uncomplicated opioid dependence (CMS/HCC) [...] Description 10/29/2024 1:45 PM EDT Clinical Support [facility] [address] [place] [address] Michaela Tenorio RN documented as of this encounter Visit Diagnoses Diagnosis Uncomplicated opioid dependence (CMS/HCC) documented in this encounter Additional Health Concerns Assessment Noted Time PHQ-9 Depression Total Score: 7 08/24/19 2:01 PM EST documented as of this encounter Care Teams Accounts Receivable Specialist Relationship Specialty Start Date End Date Carlin Rivas CNP [address] [place] [address] PCP - General Family Medicine 08/24/24 documented as of this encounter
--- OUTSIDE RECORDS SUMMARY | 2024-09-14 15:13 | XMS_ITS | Encounter Summary ---
Author Organization [employer] Address [address] [place] [address] [address] [place] [address] Care Team Providers Care Guest Relation Officer Name Role Phone Ced Sesay PA-C Primary Care Provider Carlin Rivas CNP Primary Care Provider [phone] Encounter Details Date Type Department Care Team (Late st Contact Info) Description 02/13/2024 Telephone [facility] [address] [place] [phone] Family Medicine, Home Care Consultant, LEGAL CONTRACTS SPECIALIST Social History Tobacco Use Types Packs/Day Years [...] Anderson LPN - 02/16/2024 9:23 AM EDT German hinojosa. Sent to PA team for advir inhaler [...] AM EDT Note received from pharmacy, Karla smith PA, the following meds are cover w/o PA: [...] Description 10/29/2024 1:45 PM EDT Clinical Support [facility] [address] [place] [phone] Michaela Tenorio RN documented as of this encounter Visit Diagnoses Diagnosis Asthma, unspecified asthma severity, unspecified whether complicated, unspecified whether persistent- Primary documented in this encounter Care Teams Guest Relation Officer Relationship Specialty Start Date End Date Ced Sesay PA-C [address] [place] [phone] PCP - General Family Medicine 09/07/18 05/14/24 Carlin Rivas CNP [address] [place] [id number] PCP - General Family Medicine 08/24/24 Promise Zavala LPN Cricket CoachCity Manager 12/13/19 05/14/24 documented as of this encounter
--- OUTSIDE RECORDS SUMMARY | 2024-09-14 15:13 | XMS_ITS | Clinical Summary ---
Author Organization [facility] Address [address] [place] [address] Care Team Providers Care Rehabilitation Tech Name Role Phone Ced Sesay Primary Care Provider [phone] Allergies Active Allergy Reactions Criticality Noted Date [...] 1% gel EDISON TOPICALLY QID PRN P 11/30/[address] (CYMBALTA) 30 mg [...] HIV Screening 1970 Hepatitis C Screening [address] Lung Cancer Screening (Baseline) 2018 04/13/2016 Zoster Vaccines (1 of 2) 2018 Pneumococcal Vaccine: 50+ Ye ars (2 of 2 - PCV) 08/28/2022 08/28/2021 Colonoscopy 12/12/2023 12/11/2018 COVID-19 Vaccine (3 - 2023-2 5 season) 2024 11/22/2020, 10/25/2020 Influenza Vaccine (#1) 2024 , 03/23/2018, 03/02/2017, Additional history exists Alcohol/Substance Use Screening 06/27/2024 Depression Screening and Follow-Up 06/27/2024 Social Drivers of Health Barbie ual Screening 06/27/2024 DTaP,Tdap,and Td Vaccines (2 - Td or Tdap) 04/01/2025 04/01/2015 RSV Vaccine (60+ years old a nd patients) (1 - 1-dose 75+ series) 2043 Hepatitis B Vaccines Completed 09/01/2016, 10/21/2015, 07/18/2015 Procedures * Due to [place] state law, this organization might not be sharing negative HIV tests. Procedure Name Priority Date/Time Associated Diagnosis Comments COLONOSCOPY 12/11/2018 CT CHEST PULMONARY EMBOLISM W CONTRAST STAT 04/13/2016 5:47 AM EDT from Last 3 Months or Most Recently Relevant to Health Maintenance Results * Due to [place] state law, this organization might not be sharing [...] 350: 80 ML, IV POWER INJ WSN: [id number] Narrative 04/13/2016 6:21 AM EDT COMPARISON: None. [...] spleen consistent with hepatic steatosis. Procedure Note ChilobereRenataCrow - 02/23/2017 COMPARISON: None. FINDINGS: Vessels: There [...] 350: 80 ML, IV POWER INJ WSN: [id number] Casey Castro MD IMG CT PROCEDURES Final Result from Last 3 Months or Most Recently Relevant to Health Maintenance Insurance MEDICARE [facility] Care Teams Rehabilitation Tech Relationship Specialty Start Date End Date Ced Sesay PA PCP - General 10/14/21
--- OUTSIDE RECORDS SUMMARY | 2024-09-14 15:13 | XMS_ITS | Encounter Summary ---
Author Organization [employer] Address [address] [place] [address] [address] [place] [address] Care Team Providers Care Cryptographic Machine Operator Name Role Phone Ced Sesay PA-C Primary Care Provider Carlin Rivas CNP Primary Care Provider [phone] Encounter Details Date Type Department Care Team (Late st Contact Info) Description 12/07/2023 Orders Only [address] [phone] Ced Sesay PA-C [address] [place] [phone] Uncomplicated opioid dependence (CMS/HCC) Social History Tobacco [...] Description 10/29/2024 1:45 PM EDT Clinical Support [facility] [address] [place], [place] [phone] Michaela Tenorio RN documented as of this encounter Visit Diagnoses Diagnosis Uncomplicated opioid dependence (CMS/HCC) documented in this encounter Care Teams Cryptographic Machine Operator Relationship Specialty Start Date End Date Ced Sesay PA-C [address] [place] [phone] PCP - General Family Medicine 09/07/18 05/14/24 Carlin Rivas CNP [address] [place] [phone] PCP - General Family Medicine 08/24/24 Promise Zavala LPN Psychosocial Rehabilitation CounselorSoftware Applications Specialist 12/13/19 05/14/24 documented as of this encounter
--- OUTSIDE RECORDS SUMMARY | 2024-09-14 15:13 | XMS_ITS | Encounter Summary ---
Author Organization [employer] Address [address] [facility] [address] [place] [address] Care Team Providers Care Director Of Sales And Marketing Name Role Phone Carlin Rivas YOLANDA Primary Care Provider [phone] Reason for Visit * Reason Comments Med Refill Encounter Details Date Type Department Care Team (Late st Contact Info) Description 08/30/[address] [facility] [address] [place], [place] [phone] Shane Ndiaye MD [address] [place], [place] [phone] Social History Tobacco Use Types Packs/Day Years [...] t he electric, gas, oil or water Qlue threatened to shut off services in your [...] encounter Miscellaneous Notes * Telephone Encounter - Carlin Rivas CNP - 08/31/2024 9:02 AM EST Good morning, I will refill med, but please calal pt and remind him to come in [facility] to complete ordered bloodwork from last appt. Specifically pt needs to complete BMP since pt is on ARB. Thank you! documented in this encounter Plan of Treatment Upcoming Encounters Date Type Department Care Team (Late st Contact Info) Description 10/29/2024 1:45 PM EDT Clinical Support [facility] [address] [place] [address] Michaela Tenorio, RN documented as of this encounter Visit Diagnoses Not on filedocumented in this encounter Additional Health Concerns Assessment Noted Time PHQ-9 Depression Total Score: 7 08/24/19 2:01 PM EST documented as of this encounter Care Teams Director Of Sales And Marketing Relationship Specialty Start Date End Date Carlin Rivas CNP [address] [place] [address] PCP - General Family Medicine 08/24/24 documented as of this encounter
--- OUTSIDE RECORDS SUMMARY | 2024-09-14 15:13 | XMS_ITS | Encounter Summary ---
Author Organization [facility] Address [address] [place] [address] Care Team Providers Care Day Care Worker Name Role Phone Unavailable Primary Care Provider Unavailabl e Encounter Details Date Type Department Care Team ([facility] st Contact Info) Description 11/09/2016 Orders Only [facility] Orth[facility] [address] [facility] [address] [place] [address] Cullen Rosas MD [address] [place] [address] Social History Tobacco Use Types Packs/Day Years [...]
--- OUTSIDE RECORDS SUMMARY | 2024-09-14 15:13 | XMS_ITS | Clinical Summary ---
Author Organization [employer] Address [address] [place] [address] 7[address] [place] [address] Care Team Providers Care Cold Type Composing Machine Operator Name Role Phone Carlin Rivas CALENDER WORKER HELPER Primary Care Provider [phone] Allergies Active Allergy Reactions Criticality Noted Date Comments Cyclobenzaprine Hives 01/30/2019 Causative Agent: Flexeril; Reaction(s): Hives Pregabalin 03/24/2016 Causative Agent: Lyrica; Comment: Extremity swelling, shortness of breath and chest tightness Medications * This document contains information received from the source organization and may not represent a complete record from that organization. omeprazole (PriLOSEC) [address] capsule Take 20 mg by mouth. Active polyethylene glycol (Colyte) 240 g solution Take by mouth. 11/11/19 19 Active pregabalin (Lyrica) 75 MG capsule Take by mouth. Activ e Spacer/Aero-Ho lding Chambers (EasiVent) inhaler Valved Holding Chamber Device. USE DIRECTED WITH INHALER. 04/21/20 16 Active acetaminophen (Tylenol) 500 MG tablet TK 2 TS PO EVERY 12 HOURS PRN Active atorvastatin (Lipitor) 40 MG tablet 04/24/20 17 Active Blood Glucose Monitoring Suppl (FreeStyle Lite) device Use as directed to check blood sugar every day 01/08/20 20 Active buprenorphine- naloxone (Suboxone) 4-1 MG per [...] day. 30 tablet 5 03/13/20 24 Active chlorthalidone (Hygroton) 25 MG tablet Take 1 tablet (25 mg) by mouth Once per day. 30 tablet 5 03/13/20 24 Active cloNIDine (Catapres) 0.1 MG tablet Take 1 tablet (0.1 mg) by mouth 2 times daily. 60 tablet 5 03/13/20 24 Active aspirin 81 MG EC tablet Take 81 mg by mouth Once per day. Active metFORMIN (Glucophage) 1000 MG tablet Take 1,000 mg by mouth with breakfast and with evening meal. Active albuterol 108 (90 Base) MCG/ACT inhaler 2 puffs q 4-6 hours prn asthma/shortne ss of breath. 18 g 1 05/15/20 24 Active FREESTYLE LITE test strip TEST BLOOD SUGAR ONCE DAILY 100 each 2 05/17/20 24 Active lidocaine (Xylocaine) 5 % ointment Apply topically if needed in the morning and at bedtime for moderate pain. 50 g 1 06/11/20 24 Active tiZANidine (Zanaflex) 2 MG tablet Take 1 tablet (2 mg) by mouth every 8 (eight) hours if needed for muscle spasms. 30 tablet 3 07/10/19 25 Active lamoTRIgine (LaMICtal) 25 MG tablet Take 25 mg by mouth Once per day. 10/20/19 24 Active Breo Ellipta 100-25 MCG/ACT aerosol powderIndicati ons:Asthma, unspecified asthma severity, unspecified whether complicated, unspecified whether persistent Take 1 puff by mouth Once per day. 60 each 08/24/19 25 Active mirtazapine (Remeron) 7.5 MG tabletIndicati ons:Anxiety associated with depression Take 1 tablet (7.5 mg) by mouth if needed at bedtime (sleep). 30 tablet 2 08/24/19 25 025 Active glipiZIDE XL (Glucotrol XL) 5 MG 24 hr tabletIndicati ons:Type 2 diabetes mellitus with other specified complication, without long-term current use of insulin (CMS/HCC) Take 1 tablet (5 mg) by mouth with breakfast. 90 tablet 3 08/24/19 25 Active Buprenorphine HCl-Naloxone HCl (Suboxone) 8-2 MG SL filmIndication s:Uncomplicate d opioid dependence (CMS/HCC) Place 1 Film under the tongue 2 times daily. 56 Film 1 08/30/19 25 025 Active losartan (Cozaar) 100 MG tablet TAKE 1 TABLET BY MOUTH EVERY DAY 90 tablet 1 09/01/19 25 Active predniSONE (Deltasone) 50 MG tablet Take 50 mg by mouth Once per day. 09/10/19 19 025 Discontinued(T herapy completed) losartan (Cozaar) 100 MG tablet Take 1 tablet (100 mg) by mouth Once per day. 30 tablet 5 03/13/20 24 025 Discontinued mirtazapine (Remeron) 7.5 MG tablet Take 1 tablet (7.5 mg) by mouth if needed at bedtime (sleep). 30 tablet 2 04/16/20 24 025 Discontinued(R eorder (will not trigger notification to Pharmacy)) Buprenorphine HCl-Naloxone HCl (Suboxone) 8-2 MG SL filmIndication s:Uncomplicate d opioid dependence (CMS/HCC) Place 1 Film under the tongue 2 times daily. 56 Film 1 07/02/19 25 025 Discontinued(R eorder (will not trigger notification to Pharmacy)) Breo Ellipta 100-25 MCG/ACT aerosol powder Take 1 puff by mouth Once per day. 05/15/20 24 025 Discontinued(R eorder (will not trigger notification to Pharmacy)) glipiZIDE XL (Glucotrol XL) 5 MG 24 hr tablet Take 1 tablet by mouth with breakfast. 02/17/20 24 025 Discontinued(R eorder (will not trigger notification to Pharmacy)) Active Problems Problem Noted Date Diagnosed Date Abnormal colonoscopy 08/24/2024 Overview (08/24/2024): Status: Chronic; Recent NextGen Note: One 2mm polyp in rectum. Repeat in 5 years, date of next colonoscopy: 12/12/2023 Chronic pain syndrome 08/24/2024 Overview (08/24/2024): Pt has chronic back pain and chronic knee pain Pt follows with [facility] program On Suboxone 16/4mg Has Narcan at home Conservative therapy- ineffective PT- tried and was ineffective Steroid injections: has 1 lumbar injection, ineffective Acupuncture- not trialed yet Assessment & Plan (08/24/2024 4:16 PM EST): Plan to refer to our pain mgmt clinic Plan to refer to water plant pump operator supervisor Pt declines PT at this time Pt to continue with tylenol and lidocaine patches prn Will obtain new images of his back and both knees Will refer to ortho for further evaluation Pain in thoracic spine 08/24/2024 Overview (08/24/2024): Last Addressed Date: 11/30/2021; Status: Chronic Routine health maintenance 08/24/2024 Overview (08/24/2024): Last Addressed Date: 06/17/2021; Status: Chronic; Recent NextGen Note: #RHCM: SMOKING: denies any current smoking and states he hasn't been using the nicotine patch because of his anxiety. SUBSTANCE USE: denies drinking any alcohol. VACCINATIONS: patient reports he received both dosages of the COVID vaccine. COLONOSCOPY: reports he had a Colonoscopy done in 2019 and was told to f/u in 10 years (~2028) since patient had a hyperplastic polyp. SOCIAL: he has 2 children that live in [place] and expresses his 4 years ago. ASCVD=10.5% on 06/17/21 considering he is a smoker. Pt was started on Aspirin 81mg Smoking 08/24/2024 Overview (08/24/2024): Last Addressed Date: 12/30/2022 Type 2 diabetes mellitus, wi thout long-term current use of insulin 08/24/2024 Assessment & Plan (08/24/2024 2:00 PM EST): Maintenance BMP: ordered today Microalbumin: ordered today [...] <130 2 hour post prandial goal: <180 Healthcare maintenance 08/24/2024 Assessment & Plan (08/24/2024 4:10 PM EST): Vision: Due, referral placed Dental: cleaning UTD, but needs to transfer care to [facility], referral placed Colon CA: UTD, next due 2028 Lung CA: UTD, had it done last year in [place] and was neg, will obtain records Labs: see orders IMMs: declines today, due for covid, flu, pcv20, zoster Follow up in 3 months for chronic conditions Tobacco dependence 03/13/2024 HTN (hypertension) 03/13/2024 Overview (08/24/2024): Pt taking Cozaar and chlorthalidone Has BP monitor at home Assessment & Plan (08/24/2024 4:12 PM EST): Pt BP mildly elevated today goal is <140/90 Advised pt to start taking Bps and keep log to review at next appt Mild persistent asthma without complication 02/25 Type 2 diabetes mellitus wit hout complication, without long-term current use of insulin 03/13/2024 Anxiety 03/13/2024 Anxiety and depression 03/13/2024 Overview (08/24/2024): Last Addressed Date: 05/31/2023 Assessment & Plan (08/24/2024 4:08 PM EST): Pt declines services at this time Happy with current medication, reports mental health has improved a lot from the past Lumbar radiculopathy, chronic 03/13/2024 Gastroesophageal reflux disease without esophagi tis 03/13/2024 Uncomplicated opioid dependence 12/06/2023 Asthma 08/13/2016 Assessment & Plan (08/24/2024 4:11 PM EST): Asthma controlled on daily maintenance inhaler, needs refills today they were sent Has albuterol inhaler on hand Chronic obstructive pulmonary disease 08/12/2016 Dyspnea 08/12/2016 Acute hip pain, left 11/27/2015 Acute back pain with sciatica, left 09/16/2015 Encounters Date Type Department Care Team Description 09/03/2024 1:30 PM EDT Office Visit [facility] [address] [place] [phone] Shane Ndiaye MD Uncomplicated opioid dependence (CMS/HCC) (Primary Dx) 09/03/2024 Travel 08/31/[address] [address] Carlin Rivas CNP Lab Orders; Med Refill 08/30/2024 Refill [facility] [address] [place] [phone] Shane Ndiaye MD 08/29/[address] [address] Michaela Tenorio, RN Uncomplicated opioid dependence (CMS/HCC) 08/27/2024 Telephone [facility] [address] [place] [phone] Carlin Rivas CNP Durable Medical Equipment (Shower chair, rts, grab bar) 08/24/2024 2:00 PM EST Office Visit [address] [address] Carlin Rivas CNP Type 2 diabetes mellitus with other specified complication, without long-term current use of insulin (CMS/[facility]) (Primary Dx); Routine eye exam; Healthcare maintenance; Asthma, unspecified asthma severity, unspecified whether complicated, unspecified whether persistent; Anxiety associated with depression; Chronic pain syndrome; Hypertension, unspecified type; Anxiety and depression 08/24/2024 Travel 08/16/2024 Patient Outreach [facility] [address] [place] [address] Carlin Rivas CNP Pre-visit Planning (SDOH unable to reach, no voicemail.) 08/16/2024 Telephone [facility] [address] [place] [address] Carlin Rivas CNP Chart Prep 07/10/2024 Orders Only [facility] [address] [place], [place] [phone] Shane Ndiaye MD 07/10/2024 Telephone [facility] [address] [place] [phone] Lino Yoon MD New patient appt. 07/09/2024 1:30 PM EST Clinical Support [facility] [address] [place] [phone] Michaela Tenorio RN Uncomplicated opioid dependence ([facility]) (Primary Dx) 07/09/2024 Travel 07/02/2024 Refill [facility] [address] [place] [phone] Michaela Tenorio RN Uncomplicated opioid dependence ([facility]) 07/01/2024 Refill [facility] [address] [place] [phone] Shane Ndiaye MD from Last 3 Months Immunizations Name Administration Dates Next Due Hep A, Adult 03/19/2024 Hep B, adult 09/01/2016,10/21/2015,07/18/2015 Influenza injectable quadriv alent IIV4 with preservative 03/23/2018 Influenza injectable quadriv alent preservative free 04/26/2020,03/02/2017,02/25/2016,04/01 Pneumococcal Polysaccharide PPSV23 08/28/2021 Tdap 04/01/2015 Zoster, Recombinant 05/29/2021 Social History Tobacco Use Types Packs/Day Years [...] 9.6 oz) 08/24/2024 1:53 PM EST Height 174 cm (5' 8.5 ) 11/23/2023 9:22 AM EDT Body Mass Index 33.35 11/23/2023 9:22 AM EDT Plan of Treatment Upcoming Encounters Date Type Department Care Team (Late st Contact Info) Description 10/29/2024 1:45 PM EDT Clinical Support [address] [address] Michaela Tenorio, GREGORY Health Maintenance Due Date Last Done Comments CT Colonography 1968 FIT DNA/Cologuard 1968 FIT 1968 FOBT 1968 Sigmoidoscopy 1968 Eye Exam 1978 Alcohol/Substance Use Screening 1980 Diabetes: Urine Protein Screening 1987 Zoster Vaccines (2 of 2) 07/24/2021 05/29/2021 Pneumococcal Vaccine: 50+ Years (2 of 2 - PCV) 08/28/2022 08/28/2021 Lipid Panel 11/17/2023 11/16/2022 COVID-19 Vaccine (3 - season) 2024 11/22/2020, 10/25/2020 Influenza Vaccine (#1) 2024 , 03/23/2018, 03/02/2017, Additional history exists Diabetes: Foot Exam 09/19/2024 09/20/2023 Diabetes: Hemoglobin A1C 11/21/2024 08/24/2024, 12/0 10/2022 DTaP/Tdap/Td Vaccines (2 - Td or Tdap) 04/01/2025 04/01/2015 Depression Screening 08/24/2025 08/24/2024, 08/24/19 25 SDOH Screening 08/24/2025 08/24/2024 Tobacco Screening 08/24/2025 08/24/2024 Colonoscopy 12/11/2028 12/11/2018 Colorectal Cancer Screening 12/11/2028 RSV Patients and Patients Aged 60 years or older (1 - 1-dose 75+ series) 2043 Hepatitis B Vaccines Completed 09/01/2016, 10/21/2015, 07/18/2015 HIV Screening Completed 03/13/2024, 06/16/2023 Hepatitis C Screening Completed 03/13/2024, 023 Hepatitis A Vaccines Aged Out 03/19/2024 No long er eligible based on patient's age to complete this topic HIB Vaccines Aged Out No longer eligi [...] Comments POCT WILLIAM-14 URINE DRUG SCREEN Routine 09/03/2024 1:18 PM EDT Uncomplicated opioid dependence (CMS/HCC) POCT GLUCOSE Routine 08/24/2024 1:52 PM EST Type 2 diabetes mellitus with other specified complication, without long-term current use of insulin (CMS/HCC) POCT GLYCATED HEMOGLOBIN, TOTAL Routine 08/24/2024 1:52 PM EST Type 2 diabetes mellitus with other specified complication, without long-term current use of insulin (CMS/HCC) AMB REFERRAL TO ORTHOPAEDIC SURGERY Routine 07/20/2024 Chronic bilateral low back pain without sciatica Chronic pain of both knees Left hip pain POCT WILLIAM-14 URINE DRUG SCREEN Routine 07/09/2024 1:13 PM EST Uncomplicated opioid dependence (CMS/HCC) HEPATITIS C AB W/REFL TO HCV RNA, QN, PCR Routine 03/13/2024 3:07 PM EDT HIV 1/2 ANTIGEN/ANTIBODY, FOURTH GENERATION W/RFL Routine 03/13/2024 3:07 PM EDT HM DIABETES FOOT EXAM Routine 09/20/2023 LIPID PANEL, STANDARD Routine 11/16/2022 COLONOSCOPY Routine 12/11/2018 from Last 3 Months or Most Recently Relevant to Health Maintenance Results * POCT WILLIAM-14 Urine Drug Screen (09/03/2024 1:18 PM EDT) Only the most recent of2 resultswithin the time period is included. THC [...] obtained by clean catch procedure / Unknown 09/03/2024 1:18 PM EDT Shane Ndiaye MD POINT OF CARE TEST ENTER/EDIT OR DERABLES Final Result * (ABNORMAL) POCT HGB A1C (08/24/2024 1:52 PM EST) Hemoglobin A1C 7.0(A) 4.0 - 6.0 % QC Media Lot # [id number] Lot# Expiration Date Blood 08/24/2024 1:52 PM EST [facility] POINT OF CARE TEST ENTER/ EDIT ORDERABLES Final Result * POCT Glucose (08/24/2024 1:52 PM EST) Pathologist [facility] Glucose Blood, POC 62 60 - 200 mg/dL QC Media Lot # [id number] Lot# Expiration Date Blood Capillary blood specimen / Unknown 08/24/2024 1:52 PM EST [facility] POINT OF CARE TEST ENTER/ EDIT ORDERABLES Final Result * Hepatitis C Antibody with Reflex to HCV, RNA, Quantitative, Real-Time PCR (03/13/2024 3:07 PM EDT) Hepatitis C Antibody Nonreactive Nonreactive [facility] Comment:Antibodies to HCV no t detected; does not exclude early acuteHCV infection. 03/13/2024 3:07 PM EDT 03/13/2024 4:22 PM EDT Shane Ndiaye MD LAB BLOOD ORDERABLES Final Resul t Performing Organization Address [facility] Co de Phone Number [facility] [address] [place] [phone] * HIV-1/2 Antigen and Antibodies, Fourth Generation, with Reflexes (03/13/2024 3:07 PM EDT) HIV AB/AG Nonreactive Nonreactive [facility] Comment:HIV-1 p24 Ag and/or HIV-1/HIV-2 Ab not detected.A test result that is nonreactive does not exclude thepossibility of exposure to or infection with HIV-1 and/orHIV-2. Nonreactive results in this assay for individualswith prior exposure to HIV-1 and/or HIV-2 may be due toantigen and antibody levels that are below the limit ofdetection of this assay.The [employer] HIV Ag/Ab Combo assay result andsupplemental assay results should be interpreted inconjunction with the patient's clinical presentation,history and other laboratory results. If the results areinconsistent with clinical evidence, additional testing issuggested to confirm the result. 03/13/2024 3:07 PM EDT 03/13/2024 4:22 PM EDT us Shane Ndiaye MD LAB BLOOD ORDERABLES Final Resul t Performing Organization Address [facility] Co de Phone Number [facility] [address] [place] [phone] * Diabetes Foot Exam (09/20/2023) [facility] Provider HEALTH MAINTENANCE Final Result * Lipid Panel, Standard (11/16/2022) LDL Cholesterol 36 mg/dL Blood Venous blood specimen / Unknown Historical Provider LAB BLOOD ORDERABLES Yasmin l Result * (ABNORMAL) Colonoscopy (12/11/2018) Colonoscopy Normal(A) Normal Historical Provider HEALTH MAINTENANCE Final Result from Last 3 Months or Most Recently Relevant to Health Maintenance Insurance [facility] STANDARD MEDICARE [facility] STANDARD MEDICARE Care Teams Cold Type Composing Machine Operator Relationship Specialty Start Date End Date Carlin Rivas CNP [address] [place] [phone] PCP - General Family Medicine 08/24/24
--- OUTSIDE RECORDS SUMMARY | 2024-09-14 15:13 | XMS_ITS | Encounter Summary ---
Author Organization [employer] Address [address] [facility] [address] [place] [address] Care Team Providers Care Patient Services Manager Name Role Phone Carlin Rivas YOLANDA Primary Care Provider [phone] Encounter Details Date Type Department Care Team (Latest Contact Info) Description 08/24/2024 Travel Social History Tobacco Use Types Packs/Day [...] Description 10/29/2024 1:45 PM EDT Clinical Support [facility] [address] [place] [address] Michaela Tenorio RN documented as of this encounter Visit Diagnoses Not on filedocumented in this encounter Additional Health Concerns Assessment Noted Time PHQ-9 Depression Total Score: 7 08/24/19 2:01 PM EST documented as of this encounter Care Teams Patient Services Manager Relationship Specialty Start Date End Date Carlin Rivas CNP [address] [place] [address] PCP - General Family Medicine 08/24/24 documented as of this encounter
--- OUTSIDE RECORDS SUMMARY | 2024-09-14 15:13 | XMS_ITS | Referral Summary ---
Author Organization [facility] Address [address] [place] [address] Care Team Providers Care Emd Special Education Teacher Name Role Phone Ced Sesay Primary Care Provider [phone] Allergies Active Allergy Reactions Criticality Noted Date [...] Not on file Procedures * Due to [place] [employer] law, this organization might not be sharing negative HIV tests. Procedure Name Priority Date/Time Associated Diagnosis Comments COLONOSCOPY 12/11/2018 CT CHEST PULMONARY EMBOLISM W CONTRAST STAT 04/13/2016 5:47 AM EDT from Last 3 Months or Most Recently Relevant to Health Maintenance Results * Due to [place] [employer] law, this organization might not be sharing [...] 0 Note Initiated On: 12/11/2018 11:35 AM Sandeep Duarte MD PROVATION PROCEDURES Fi nal [...] 350: 80 ML, IV POWER INJ WSN: [id number] Narrative 04/13/2016 6:21 AM EDT COMPARISON: None. [...] 350: 80 ML, IV POWER INJ WSN: [id number] us Casey Castro MD IMG CT PROCEDURES Final Result from Last 3 Months or Most Recently Relevant to Health Maintenance Insurance [address] [place] [id number] MEDICARE [facility] [address] [place] [id number] Care Teams Emd Special Education Teacher Relationship Specialty Start Date End Date Ced Sesay PA PCP - General 10/14/21
--- OUTSIDE RECORDS SUMMARY | 2024-09-14 15:13 | XMS_ITS | Encounter Summary ---
Author Organization [employer] Address [address] [facility] [address] [place] [address] Care Team Providers Care Jazz Singer Name Role Phone Carlin Rivas CNP Primary Care Provider [phone] Reason for Visit * Reason Onset Date Comments Durable Medical Equipment 08/27/2024 Shower chair, rts, grab bar Encounter Details Date Type Department Care Team ([facility] st Contact Info) Description 08/27/2024 Telephone [facility] [address] [place], [place] [phone] Carlin Rivas CNP [address] [place], [place] [phone] Durable Medical Equipment (Shower chair, rts, grab bar) Social History Tobacco Use Types Packs/Day Years [...] encounter Miscellaneous Notes * Telephone Encounter - Nidia Paniagua - 09/03/2024 3:15 PM EDT RX signed and faxed to Daniela . Confirmation received and sent to scan. If patient calls to check status on above, please advise them to contact Daniela at [phone]. * Telephone Encounter - Nidia Paniagua - 08/27/2024 2:56 PM EST DME RX for Raised toilet seat, Shower chair and grab bar generated and placed on providers desk [facility]. * Telephone Encounter - Nidia Paniagua - 08/27/2024 2:56 PM EST ----- Message from Dialoggy Rob sent at 08/24/2024 4:20 PM EST ----- Modesto Jacob, can you please generate DME request for supportive railing in bathroom, raised toilet seat, and shower chair for this patient. Thank you! documented in this encounter Plan of Treatment Upcoming Encounters Date Type Department Care Team (Late st Contact Info) Description 10/29/2024 1:45 PM EDT Clinical Support [facility] [address] [place] [address] Michaela Tenorio RN documented as of this encounter Visit Diagnoses Not on filedocumented in this encounter Additional Health Concerns Assessment Noted Time PHQ-9 Depression Total Score: 7 08/24/19 2:01 PM EST documented as of this encounter Care Teams Jazz Singer Relationship Specialty Start Date End Date Carlin Rivas CNP [address] [place] [address] PCP - General Family Medicine 08/24/24 documented as of this encounter
--- OUTSIDE RECORDS SUMMARY | 2024-09-14 15:13 | XMS_ITS | Encounter Summary ---
Author Organization [employer] Address [address] [facility] [address] [place] [address] Care Team Providers Care Government Professor Name Role Phone Unavailable Primary Care Provider Unavailabl e Reason for Visit * Reason Onset Date Comments Chart Prep 08/16/2024 Encounter Details Date Type Department Care Team (Late st Contact Info) Description 08/16/2024 Telephone [facility] MEDICINE [address] [place] [address] Carlin Rivas CNP [address] [place], [place] [phone] Chart Prep Social History Tobacco Use Types Packs/Day Years [...] encounter Miscellaneous Notes * Telephone Encounter - Jackson Warner MA - 08/16/2024 9:45 AM EST Chart Prep Labs: done Images: not done Vaccines due: yes Zoster PCV Flu Covid Hep A Referrals: complete Screenings: eye exam Overdue care gaps: A1C, Glucose, Sbirt documented in this encounter Plan of Treatment Upcoming Encounters Date Type Department Care Team (Late st Contact Info) Description 10/29/2024 1:45 PM EDT Clinical Support [facility] MEDICINE [address] [place] [phone] Michaela Tenorio, RN documented as of this encounter Visit Diagnoses Not on filedocumented in this encounter
--- OUTSIDE RECORDS SUMMARY | 2024-09-14 15:13 | XMS_ITS | Encounter Summary ---
Author Organization [facility] Address [address] [place] [address] Care Team Providers Care Day Care Assistant Name Role Phone Ced Sesay Primary Care Provider [phone] Encounter Details Date Type Department Care Team (Late st Contact Info) Description 02/01/2024 Community Orders [facility] EpicCare Link [address] [place] [address] Ced Sesay PA [address] [place] [phone] Low back pain, unspecified back pain laterality, [...] as of this encounter Plan of Treatment Not on file documented as of this encounter Visit Diagnoses Diagnosis Low back pain, unspecified back pain laterality, unspecified chronicity, unspecified whether sciatica present- Primary documented in this encounter Care Teams Day Care Assistant Relationship Specialty Start Date End Date Ced Sesay PA PCP - General 10/14/21 documented as of this encounter
--- OUTSIDE RECORDS SUMMARY | 2024-09-14 15:13 | XMS_ITS | Encounter Summary ---
Author Organization [employer] Address [address] [place] [address] [address]t [place] [address] Care Team Providers Care Pot Press Operator Name Role Phone Carlin Rivas YOLANDA Primary Care Provider [phone] Reason for Visit * Reason Comments Med Refill Encounter Details Date Type Department Care Team (Late st Contact Info) Description 05/20/2024 Refill Family [facility] [address] [phone] Ced Sesay PA-C [address] [place] [phone] Social History Tobacco Use Types Packs/Day [...] 1:45 PM EDT Clinical Support [facility] [address] [place] [address] Michaela Tenorio RN documented as of this encounter Visit Diagnoses Not on filedocumented in this encounter Care Teams Pot Press Operator Relationship Specialty Start Date End Date Carlin Rivas CNP [address] [place], [place] [phone] PCP - General Family Medicine 08/24/24 documented as of this encounter
--- OUTSIDE RECORDS SUMMARY | 2024-09-14 15:13 | XMS_ITS | Encounter Summary ---
Author Organization [employer] Address [address] [facility] 7t [place] [address] Care Team Providers Care Die Lay Out Worker Name Role Phone Carlin Rivas CNP Primary Care Provider [phone] [phone] Reason for Visit * Reason Onset Date Comments Lab Orders 08/31/2024 Med Refill 08/31/2024 Encounter Details Date Type Department Care Team (Late st Contact Info) Description 08/31/2024 Telephone [facility] [address] [place], [place] [phone] Carlin Rivas CNP [address] [place], [place] [phone] Lab Orders; Med Refill Social History Tobacco Use Types Packs/Day Years [...] encounter Miscellaneous Notes * Telephone Encounter - Lyn Hobson RN - 08/31/2024 9:35 AM EST TC x 3 placed to pt via Ookbee presser automatic (ViajaNet ID#[id number]) to inform of below PCP message. Call immediately goes to voicemail. No answer, voicemail box has not been set up. Unable to leave a voicemail. Message forwarded to PCP as an FYI. Carlin Rivas CNP: Good morning, I will refill med, but please call pt and remind him to comein ADILENE to complete ordered bloodwork from last appt. Specifically needs to complete BMP since pt is on ARB. Thank you! documented in this encounter Plan of Treatment Upcoming Encounters Date Type Department Care Team (Late st Contact Info) Description 10/29/2024 1:45 PM EDT Clinical Support [facility] [address] [place] [phone] Michaela Tenorio RN documented as of this encounter Visit Diagnoses Not on filedocumented in this encounter Additional Health Concerns Assessment Noted Time PHQ-9 Depression Total Score: 7 08/24/19 25 2:01 PM EST documented as of this encounter Care Teams Die Lay Out Worker Relationship Specialty Start Date End Date Carlin Rivas CNP [address] [place] [address] PCP - General Family Medicine 08/24/24 documented as of this encounter
--- OUTSIDE RECORDS SUMMARY | 2024-09-14 15:14 | XMS_ITS | Encounter Summary ---
Author Organization [employer] Address [address] [facility] 7t [place] [address] Care Team Providers Care Spring Inspector Name Role Phone Carlin Rivas YOLANDA Primary Care Provider [phone] [phone] Encounter Details Date Type Department Care Team (Latest Contact Info) Description 09/03/2024 Travel Social History Tobacco Use Types Packs/Day [...] Description 10/29/2024 1:45 PM EDT Clinical Support [facility] [address] [place] [address] Michaela Tenorio RN documented as of this encounter Visit Diagnoses Not on filedocumented in this encounter Additional Health Concerns Assessment Noted Time PHQ-9 Depression Total Score: 7 08/24/19 2:01 PM EST documented as of this encounter Care Teams Spring Inspector Relationship Specialty Start Date End Date Carlin Rivas CNP [address] [place] [address] PCP - General Family Medicine 08/24/24 documented as of this encounter
--- OUTSIDE RECORDS SUMMARY | 2024-09-14 15:14 | XMS_ITS | Encounter Summary ---
Author Organization [employer] Address [address] [facility] 7t [place] [address] Care Team Providers Care Medical Anthropologist Name Role Phone Carlin Rivas YOLANDA Primary Care Provider [phone] [phone] Reason for Visit * Reason Comments Med Refill Encounter Details Date Type Department Care Team ([facility] st Contact Info) Description 07/01/2024 Refill [facility] [address] [place], [place] [phone] Shane Ndiaye MD [address] [place], [place] [phone] Social History Tobacco Use Types Packs/Day Years [...] Description 10/29/2024 1:45 PM EDT Clinical Support [facility] [address] [place], [place] [phone] Michaela Tenorio RN documented as of this encounter Visit Diagnoses Not on filedocumented in this encounter Care Teams Medical Anthropologist Relationship Specialty Start Date End Date Carlin Rivas CNP [address] [place] [address] PCP - General Family Medicine 08/24/24 documented as of this encounter
--- OUTSIDE RECORDS SUMMARY | 2024-09-14 15:14 | XMS_ITS | Encounter Summary ---
Author Organization [employer] Address [address] [facility] 7t [place] [address] Care Team Providers Care Macroeconomics Professor Name Role Phone aCrlin Rivas YOLANDA Primary Care Provider [phone] [phone] Reason for Visit * Reason Comments OBAT F/U Encounter Details Date Type Department Care Team (Latest Contact Info) Description 09/03/2024 1:30 PM EDT Office Visit [facility] [address] [place] [address] Shane Ndiaye MD [address] [place], [place] [phone] Uncomplicated opioid dependence (CMS/HCC) (Primary Dx) Social [...] as of this encounter Progress Notes * Shane Ndiaye MD - 09/03/2024 1:30 PM EDT Subjective Patient ID: Kannan Galeano is a 54 y.o. male. HPI Patient here today for Opioid Dependence RV. Patient on current Suboxone dose of 16/4 mg on a 8 week schedule. Patient has been in the program for 5 months. Induction date: 03/12/24. LFTs done 03/13/24. Patient actively enrolled in behavioral health services, therapist ---. JAN VALDIVIA reviewed by provider. Last PCP appt: pending Cell Operation Supervisor: Lizbeth Moved here from [place]. Feels well except for chronic LBP, bilat knee pain, left hip pain. Had lumbar injection and PT in [place] that didn't help. States that oxycodone and Fentanyl patches helped. Takes Tylenol with mild relief. PCP referred him to [facility] for back pain; he states lumbar spine MRI is scheduled later this month. [facility] reviewed. UTOX: + bup Declines speaking with tin recovery worker today, states PCP referred him to [facility]. Discussed Suboxone dental care; given written instructions. Lab tests were good. Has nonreactive Hep A antibodies, and he had 1st Hep A vaccine 03/19/2024. Last vaccine due later this month. Constipation is relieved by MiraLax, does not need refill. Lives alone. Smoked 1 PPD, decreased to 1 cigarette/day using NRT. No EtOH. Not employed. Lives alone. Has 2 adult children, 1 in [place], [facility]. He declined supply of fentanyl strips. The following portions of the chart were reviewed this encounter and updated as appropriate: Review of Systems Constitutional: Negative for fever. Respiratory: Negative for shortness of breath. Cardiovascular: Negative for chest pain. Gastrointestinal: Negative for abdominal pain. Musculoskeletal: Positive for back pain. Skin: Negative for rash. Neurological: Negative for headaches. Objective Physical Exam Vitals and nursing note reviewed. Constitutional: Appearance: Normal appearance. HENT: Head: Normocephalic and atraumatic. Nose: Nose normal. Eyes: Conjunctiva/sclera: Conjunctivae normal. Pupils: Pupils are equal, round, and reactive to light. Pulmonary: Effort: Pulmonary effort is normal. Skin: General: Skin is warm and dry. Neurological: Mental Status: He is alert. Gait: Gait is intact. Psychiatric: Mood and Affect: Mood and affect normal. Behavior: Behavior normal. Procedures Assessment/Plan Diagnoses and all orders for this visit: Uncomplicated opioid dependence (CMS/HCC) Recovery support, harm reduction (including Narcan) and behavioral health attendance reviewed. Continue Suboxone 16/4 mg on 8 week schedule. - POCT WILLIAM-14 Urine Drug Screen documented in this encounter Plan of Treatment Upcoming Encounters Date Type Department Care Team (Late st Contact Info) Description 10/29/2024 1:45 PM EDT Clinical Support [facility] [address] [place] [phone] Michaela Tenorio RN documented as of this encounter Procedures Procedure Name Priority Date/Time Associated Diagnosis Comments POCT WILLIAM-14 URINE DRUG SCREEN Routine 09/03/2024 1:18 PM EDT Uncomplicated opioid dependence (CMS/HCC) documented in this encounter Results * POCT WILLIAM-14 Urine Drug Screen (09/03/2024 1:18 PM EDT) THC Negative Cocaine Screen, Urine Negative Opiate [...] CARE TEST ENTER/EDIT OR DERABLES Final Result documented in this encounter Visit Diagnoses Diagnosis Uncomplicated opioid dependence (CMS/HCC)- Primary documented in this encounter Additional Health Concerns Assessment Noted Time PHQ-9 Depression Total Score: 7 08/24/19 2:01 PM EST documented as of this encounter Care Teams Macroeconomics Professor Relationship Specialty Start Date End Date Carlin Rivas CNP [address] [place] [phone] PCP - General Family Medicine 08/24/24 documented as of this encounter
== END 2024-09-14 14:42 | disposition home or self-care (01) ==
LOC: HO.PMC 12:50
PROVIDERS: Visit Provider Registered Nurse Emergency
DX: M47.816 Spondylosis without myelopathy or radiculopathy, lumbar region (principal); M51.369 Other intervertebral disc degeneration, lumbar region without mention of lumbar back pain or lower extremity pain; G89.4 Chronic pain syndrome
CPT/HCPCS: 99204; G2211

== ENCOUNTER → 2024-09-14 12:50 | Outpatient (BNVA) | payer MEDICARE, MEDICAID, SELFPAY | PROVIDERS: Visit Provider Registered Nurse Emergency | DX: M47.816 Spondylosis without myelopathy or radiculopathy, lumbar region (principal); M51.369 Other intervertebral disc degeneration, lumbar region without mention of lumbar back pain or lower extremity pain; G89.4 Chronic pain syndrome | CPT/HCPCS: 99202 ==

== ENCOUNTER 2024-09-21 11:14 | Outpatient (REF) | payer MEDICARE, MEDICAID, SELFPAY ==
--- NOTE | ~2024-09-21 | XR_ITS ---
EXAMINATION: X-ray lumbar spine 4 views. CLINICAL INFORMATION: Dorsalgia, unspecified. TECHNIQUE: 4 views of the lumbar spine. COMPARISON: No priors. FINDINGS: Marginal osteophyte formation and endplate sclerosis and vacuum phenomenon and decreased intervertebral disc height at L5-S1. 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 No acute cortical disruption. XR/XR lumbar spine 4V min IMPRESSION: Grade 1 anterolisthesis secondary to spondylolysis pars interarticularis at L5-S1. Severe spondylosis L5-S1. Electronically signed by: Rico Aldana MD 09/21/2024 02:09 PM EDT
== END 2024-09-21 11:15 | disposition home or self-care (01) ==
LOC: HO.XRAY 11:14
PROVIDERS: Visit Provider Registered Nurse Emergency
DX: M54.9 Dorsalgia, unspecified (principal)
CPT/HCPCS: 72110

== ENCOUNTER → 2024-09-21 11:18 | Outpatient (BNV) | payer MEDICARE, MEDICAID, SELFPAY | PROVIDERS: Visit Provider Radiology Diagnostic Radiology | DX: M54.9 Dorsalgia, unspecified (principal) | CPT/HCPCS: 72110 ==

== ENCOUNTER 2024-11-30 14:44 | Outpatient (REF) | payer MEDICARE, MEDICAID, SELFPAY ==
--- OUTSIDE RECORDS SUMMARY | 2024-11-30 14:47 | XMS_ITS | Encounter Summary ---
Author Organization [employer] Address [address] [facility] 7t [place] [address] Care Team Providers Care Dog Handler Name Role Phone Carlin Rivas YOLANDA Primary Care Provider [phone] [phone] Reason for Visit * Reason Onset Date Comments Chart Prep 11/29/2024 Encounter Details Date Type Department Care Team (Late st Contact Info) Description 11/29/2024 Telephone [facility] [address] [facility] [place] [address] Anna Anne MA Chart Prep Social History Tobacco Use Types [...] encounter Miscellaneous Notes * Telephone Encounter - Anna Anne MA - 11/29/2024 10:31 AM EDT Chart Prep Labs: not done from 08/24/24 Images: not done 08/24/24 Referrals: Optometry [facility], Dental [facility], Acupuncture [facility], Orthopedic surgeon t/c [phone] no referral on file Ma re faxed referral. Vaccines due: Covid, PCV20, and Zoster Screenings: eye exam, foot exam, and Lipid panel, Urine protein Overdue care gaps: Glucose and Tobacco documented in this encounter Plan of Treatment Upcoming Encounters Date Type Department Care Team (Late st Contact Info) Description 12/05/2024 2:00 PM EDT Office Visit [facility] OPTOMETRY [address] [place] [address] Janet Nuñez, OD [address] [place] [address] 12/24/2024 1:30 PM EDT Office Visit [facility] MEDICINE [address] [place] [address] Shane Ndiaye MD [address] [place] [address] documented as of this encounter Visit Diagnoses Not on filedocumented in this encounter Additional Health Concerns Assessment Noted Time PHQ-9 Depression Total Score: 7 08/24/19 25 2:01 PM EST documented as of this encounter Care Teams Dog Handler Relationship Specialty Start Date End Date Carlin Rivas CNP [address] [place] [address] PCP - General Family Medicine 08/24/24 documented as of this encounter
[2024-11-30 16:31] LABS: MANUAL DIFF FLAG NO
[2024-11-30 16:35] LABS: Basophils Absolute Auto 0.1 X10*3/uL (0.0-0.2); Basophils Percent Auto 0.9 % (0-2); Eosinophils Absolute Auto 0.1 X10*3/uL (0.0-0.4); Eosinophils Percent Auto 0.7 % (0-4); Hematocrit 43.4 % (42.0-52.0); Hemoglobin 15.7 g/dl (14.0-18.0); Imm Gran Abs Auto 0.01 X10*3/uL (0.00-0.03); Imm Gran Pct Auto 0.1 % (0.0-0.4); Lymphocytes Percent Auto 28.9 % (20-40); Mean Corpuscular HGB Conc 36.2 g/dl (31.0-36.0); Mean Corpuscular Hemoglobin 31.5 pg (27.0-33.0); Mean Corpuscular Volume 87.1 fL (80.0-98.0); Mean Platelet Volume 10.2 fL (9.4-12.4); Monocytes Absolute Auto 0.5 X10*3/uL (0.1-1.2); Monocytes Percent Auto 6.6 % (2-11); Neutrophils Absolute Auto 4.3 x10*3/uL (2.0-8.3); Neutrophils Percent Auto 62.8 % (45-73); Platelet Count 300 X10*3/uL (160-400); Red Blood Count 4.98 X10*6/uL (4.60-5.80); Red Cell Distribution Width 12.7 % (11.0-16.0); White Blood Count 6.9 X10*3/uL (4.8-10.8)
[2024-11-30 16:43] LABS: Rheumatoid Factor < 13.0 IU/mL (<15.0)
[2024-11-30 17:13] LABS: Erythrocyte Sedimentation Rate 5 MM/HR (0-15)
[2024-11-30 18:13] LABS: Alanine Aminotransferase 30 U/L (0-40); Albumin Level 4.7 g/dL (3.5-5.0); Anion Gap 12 (12-20); Aspartate Amino Transferase 29 U/L (5-37); Bilirubin Total 0.4 mg/dL (0.0-1.0); Blood Urea Nitrogen 10 mg/dL (9-16); C Reactive Protein 0.25 mg/dL (< or = 0.50); Calcium 9.6 mg/dL (8.4-10.2); Carbon Dioxide 30 mmol/L (22-29); Chloride 103 mmol/L (96-108); Estimated Glomerular Filt Rate > 60; Glucose Random 114 mg/dL (60-115); Potassium 3.4 mmol/L (3.3-5.1); Sodium 142 mmol/L (135-145); Total Protein 7.3 g/dL (6.5-8.0)
[2024-11-30 18:20] LABS: TSH reflex Free T4 0.52 uIU/mL (0.32-4.0)
[2024-11-30 18:49] LABS: Alkaline Phosphatase 74 U/L (39-117)
[2024-12-07 11:29] LABS: Anti Nuclear Antibody Pattern Nuclear, Speckled; Anti Nuclear Antibody Screen POSITIVE (NEGATIVE)
== END 2024-11-30 14:45 | disposition home or self-care (01) ==
LOC: HO.HHCL 14:44
DX: G89.4 Chronic pain syndrome (principal); R63.4 Abnormal weight loss
CPT/HCPCS: 36415; 80053; 84443; 85025; 85652; 86038; 86039; 86140; 86431

== ENCOUNTER 2025-01-17 14:09 | Inpatient (IN) | payer MEDICARE, MEDICAID, SELFPAY ==
--- NOTE | ~2025-01-17 | XR_ITS ---
EXAMINATION: XR ABDOMEN 1 VIEW (KUB) HISTORY: abd pain, hx of SBO COMPARISON: There are no prior studies available for comparison. FINDINGS: Three supine views of the abdomen are submitted. There is gaseous distention of the stomach and numerous small bowel loops which are moderately dilated. There is also gas in the ascending colon. No abnormal calcifications are identified. There are surgical clips in the left upper quadrant. There are no abnormal soft tissue masses. There is scoliosis and degenerative disc disease of the spine. XR/XR KUB IMPRESSION: Findings concerning for small bowel obstruction. This could be further evaluated with CT as indicated. Electronically signed by: Alfredito Briones MD 01/17/2025 03:53 PM EDT
--- NOTE | ~2025-01-17 | CT_ITS ---
CLINICAL HISTORY: pain, nausea and vomiting. ?obstruction CT abdomen and pelvis with contrast Comparison: CR/SR - XR ABDOMEN 1 VIEW (KUB) - 01/17/25 15:39 EDT Findings: Small bilateral effusions. Mild dependent atelectasis. Colonic interposition displacing the liver posteriorly. Liver parenchyma is otherwise within normal limits. Atrophic pancreas. Gallbladder, spleen, and adrenal glands are within normal limits. No hydronephrosis. Symmetric contrast enhancement of the kidneys. Small bowel loops are displaced to the right with the distal SMA located lateral to the SMV suggesting malrotation. There is small-bowel obstruction with transition point in the left lower quadrant. No pneumatosis or pneumoperitoneum. Pelvic contents unremarkable. Severe degenerative disc disease at L5-S1. Grade 1 anterolisthesis of L5 on S1 from bilateral pars defects. No acute fracture. IMPRESSION: 1. Small bowel obstruction with transition point in left lower quadrant. 2. Findings suggestive of intestinal malrotation with right-sided small bowel and lateral displacement of distal SMA relative to SMV. This document has been electronically signed by: Celso Glez MD on 01/17/2025 21:39:54
--- NOTE | ~2025-01-17 | XR_ITS ---
CLINICAL HISTORY: Post NG Tube Placement 1 view chest x-ray Comparison: CT/SR - CT ABDOMEN PELVIS W IV CON - 01/17/25 19:53 EDT CR/SR - XR CHEST 2 VIEWS - 09/16/23 04:29 EDT Findings: Low lung volumes with bibasilar atelectasis. Normal heart size. Gastric tube tip and side hole in the stomach. Gas distended loops of bowel in the visualized upper abdomen. IMPRESSION: Gastric tube in appropriate position. This document has been electronically signed by: Celso Glez MD on 01/18/2025 00:18:36
--- NOTE | 2025-01-17 14:43 | ED.ABDPAIN ---
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 He reports in his symptoms started just this morning. He reports persistent nausea and vomiting with diffuse abdominal pain pain Denies any fevers, chills His pain is 8/10 on, sharp and constant. He reports that he is not having bowel movements with the passing gas Related Data Home Medications ?Medication ?Instructions ?Recorded ?Confirmed albuterol sulfate 2 mg/5 mL oral 2 mg PO TID 07/20/24 07/20/24 syrup amlodipine 5 mg tablet 5 mg PO DAILY 07/20/24 07/20/24 aspirin 81 mg tablet,delayed 81 mg PO DAILY 07/20/24 07/20/24 release atorvastatin 40 mg tablet 40 mg PO DAILY 07/20/24 07/20/24 buprenorphine 2 mg-naloxone 0.5 mg 1 film buccal DAILY 07/20/24 07/20/24 sublingual film (Suboxone) chlorthalidone 25 mg tablet 25 mg PO DAILY 07/20/24 07/20/24 cholecalciferol (vitamin D3) 10 10 mcg PO DAILY 07/20/24 07/20/24 mcg (400 unit) capsule clonidine HCl 0.1 mg tablet 0.1 mg PO BEDTIME 07/20/24 07/20/24 duloxetine 30 mg capsule,delayed 30 mg PO DAILY 07/20/24 07/20/24 release fluticasone 100 mcg-salmeterol 50 1 inh inhalation BID 07/20/24 07/20/24 mcg/dose blistr powdr for inhalation (Advair Diskus) fluticasone propionate 50 1 spray intranasal DAILY 07/20/24 07/20/24 mcg/actuation nasal spray,suspension (Flonase Allergy Relief) glipizide 5 mg tablet 5 mg PO DAILY 07/20/24 07/20/24 losartan 100 mg tablet 100 mg PO DAILY 07/20/24 07/20/24 metformin 1,000 mg tablet 1,000 mg PO DAILY 07/20/24 07/20/24 mirtazapine 15 mg tablet 15 mg PO BEDTIME 07/20/24 07/20/24 naloxone 4 mg/actuation nasal 4 mg intranasal Q2M PRN 07/20/24 07/20/24 spray (Narcan) Allergies Allergy/AdvReac Type Severity Reaction Status Date / Time No Known Allergies Allergy Verified 01/17/25 14:47 Review of Systems Constitutional: Denies body ache(s), Denies chills and Denies fever(s) Eyes: Denies blurry vision Denies vertigo and Denies dizziness Cardiovascular: Denies chest pain and Denies dyspnea on exertion Respiratory: Denies cough and Denies dyspnea on exertion Gastrointestinal: Reports abdominal pain, Denies melena, Reports bloating, Denies hematochezia, Reports change in bowel habits, Denies excessive flatus, Reports nausea, Reports vomiting and Denies hematemesis Musculoskeletal: Denies back pain Skin/Breast: Denies rash Denies vertigo and Denies dizziness Psychiatric: Denies anxiety PMFSH Social History Social History (Updated 07/20/24 @ 10:40 by THEA Espino) Smoked in Last 30 Days: No Use of substances other than those prescribed or required for medical reasons: No Advance Directives: No Advance Directives Information Provided: No Current occupational status: disabled Physical Exam ED Vital Signs: Vital Signs - 24 hr 01/17/25 14:44 01/17/25 16:45 01/17/25 17:14 Temperature 97.4 F 98.7 F Pulse Rate 79 79 68 Respiratory Rate 22 H 11 L 13 Blood Pressure 196/115 H 209/129 H 150/81 H Pulse Oximetry 99 93 94 Oxygen Delivery Method Room Air Room Air Room Air 01/17/25 19:05 01/17/25 20:16 01/17/25 22:14 Temperature 97.3 F 97.8 F 98.3 F Pulse Rate 78 86 84 Respiratory Rate 16 19 18 Blood Pressure 145/85 H 175/113 H 155/88 H Pulse Oximetry 95 93 93 Oxygen Delivery Method Room Air Room Air Room Air BMI result Body Mass Index 28.2 Const General: healthy appearing, no acute distress, alert and awake Nutritional Appearance: well nourished Orientation/consciousness: patient oriented x3 HENMT Head: Yes normocephalic and Yes atraumatic Eyes Eyelids: Yes eyelids normal Conjunctivae: conjunctivae normal Sclerae: sclerae normal Corneas: corneas normal Pupils: Equal, round and reactive pupils present EOM: EOMs intact bilaterally Neck Neck: Yes full ROM Resp Effort & Inspection: normal respiratory effort, able to speak in complete sentences and not labored GI Inspection: No distended Palpation (GI): Soft to palpation, not firm, Tenderness to palpation present (GI) in the LLQ, in the RLQ, in the LUQ and in the RUQ; Melo's sign negative, Guarding due to palpation present (GI) and not rigid Skin General skin exam: elasticity normal Neuro General: patient oriented x3 Cranial nerves: Yes Equal, round and reactive pupils present and Yes Bilaterally intact EOM present Cognition (Neuro): normal cognition Extrem Other: Moving all extremities well without any obvious deformities Course Course Course Narrative: This is an RME: Additional HPI, ROS, PE not included below will be deferred to primary provider. RME assessment and note performed by: Daylin Smith PA-C This is a 59-mwta-cvd-male, hx of diabetes, who presents to the ER with a complaint of abdominal pain since this morning. Nausea and vomiting started this AM. Abd is soft, diffuse tenderness throughout. Reporting diarrhea. No fevers. +chills. Reporting pain with urinating, malodorous urine, no hematuria. had cholecystectomy. Hx of SBO - pain feels the same Plan: Labs, EKG, UA, further ER eval needed Reevaluation(s) Reevaluation #1: Patient is signed out to overnight staff pending CT scan and disposition Time: 19:22 Reevaluation #2: 9:49 PM 01/17/2025 (Carmen FELDMAN): Patient was signed out to this provider at shift change, in summary the patient is a 54-year-old male with a history of SBO who presents to the ED with nausea, vomiting, and abdominal pain similar to his previous presentation. The patient was signed out pending CT abdomen and pelvis. The patient's CT has now resulted and shows SBO with transition point and question intestinal malrotation. The patient's case, lab findings, and CT findings will be discussed with surgery. 10:15 PM 01/17/2025 (Carmen FELDMAN): Patient's case was discussed with Dr. Galarza from surgery who has accepted the patient to the surgical service. Patient will have an NG tube placed. RN updated. Medical Decision Making Medical Decision Making [facility] Narrative: 54-year-old male with past medical history as above presents for evaluation abdominal pain. He has diffuse tenderness, history of bowel obstruction I feel that is the most likely diagnosis. A KUB was obtained which is consistent with small-bowel obstruction. Plan for CT scan with IV and oral contrast to better evaluate. There are no findings to suggest infectious process. The patient is afebrile with no known infection. His sodium is slightly low at 134 with a potassium of 3.1, this is likely due to vomiting. We will treat with IV fluids Differential Diagnosis Differential Diagnoses: The differential diagnosis associated with the presentation includes Abdominal pain Gastroenteritis Small bowel obstruction Diverticulitis Bowel perforation less likely Admission/Observation Consideration of admission/observation: Escalation of care including admission/observation considered Lab Data [facility] Lab Attestation statement: I reviewed the patient's lab results. As above 01/17/25 15:18 01/17/25 15:18 Labs: Lab Results 01/17/25 01/17/25 01/17/25 Range/Units 15:18 17:12 20:22 WBC 11.4 H (4.8-10.8) X10*3/uL RBC 5.73 (4.60-5.80) X10*6/uL Hgb 18.2 H (14.0-18.0) g/dl Hct 49.2 (42.0-52.0) % MCV 85.9 (80.0-98.0) fL MCH 31.8 (27.0-33.0) pg MCHC 37.0 H (31.0-36.0) g/dl RDW 13.0 (11.0-16.0) % Plt Count 348 (160-400) X10*3/uL MPV 9.3 L (9.4-12.4) fL Immature Gran % (Auto) 0.4 (0.0-0.4) % Neut % (Auto) 80.9 H (45-73) % Lymph % (Auto) 11.2 L (20-40) % [place] % (Auto) 6.3 (2-11) % Eos % (Auto) 0.3 (0-4) % Baso % (Auto) 0.9 (0-2) % Lymph # (Auto) 1.3 (1.2-4.9) X10*3/uL [place] # (Auto) 0.7 (0.1-1.2) X10*3/uL Eos # (Auto) 0.0 (0.0-0.4) X10*3/uL Baso # (Auto) 0.1 (0.0-0.2) X10*3/uL Abs Immat Gran (auto) 0.04 H (0.00-0.03) X10*3/uL Absolute Neuts (auto) 9.2 H (2.0-8.3) x10*3/uL Absolute Nucleated RBC 0.000 (0.0-0.012) X10*3/uL Nucleated RBC % (auto) 0.0 (0.0-0.2) /100WBC Sodium 134 L (135-145) mmol/L Potassium 3.1 L (3.3-5.1) mmol/L Chloride 97 (96-108) mmol/L Carbon Dioxide 25 (22-29) mmol/L Anion Gap 15 (12-20) BUN 8 L (9-16) mg/dL Creatinine 0.72 (0.5-1.4) mg/dL Estim Creat Clear Calc 117.1 Estimated GFR > 60 Random Glucose 143 H (60-115) mg/dL Lactic Acid 0.9 (0.5-2.0) mmol/L Calcium 9.7 (8.4-10.2) mg/dL Magnesium 1.7 (1.6-2.6) mg/dL Total Bilirubin 0.6 (0.0-1.0) mg/dL Direct Bilirubin 0.3 (0.0-0.5) mg/dL AST 27 (5-37) U/L ALT 17 (0-40) U/L Alkaline Phosphatase 87 (39-117) U/L Troponin I High Sens 2.9 (<3.5-35.0) ng/L Total Protein 7.6 (6.5-8.0) g/dL Albumin 4.7 (3.5-5.0) g/dL Lipase 14 (8-78) U/L Urine Color Yellow Urine Appearance Clear Urine pH 8.0 (5.0-9.0) Ur Specific Elton 1.010 (1.005-1.025) Urine Protein Trace (Neg-Trace) mg/dL Urine Glucose (UA) Negative (Negative) mg/dL Urine Ketones 15 (Negative) mg/dL Urine Blood Negative (Negative) Urine Nitrite Negative (Negative) Ur Leukocyte Esterase Negative (Negative) Influenza Type A (PCR) NEGATIVE (Negative) Influenza Type B (PCR) NEGATIVE (Negative) RSV RNA Qual (PCR) NEGATIVE (Negative) SARS-CoV-2 RNA (RT-PCR) NEGATIVE (Negative) Medications Administered Discontinued Medications Generic Name Dose Route Start Last Admin Trade Name Freq PRN Reason Stop Dose Admin Diatrizoate Meglum/Diatrizoate Sod 30 ml 01/17/25 20:12 01/17/25 20:14 Diatrizoate Meglumine, Sodium 30 Ml Solution PO 01/17/25 20:13 30 ml ONCE ONE Administration Hydromorphone HCl 1 mg 01/17/25 17:32 01/17/25 17:54 Hydromorphone Hcl 1 Mg/Ml Syringe IVPUSH 01/17/25 17:33 1 mg ONCE ONE Administration Protocol Hydromorphone HCl 1 mg 01/17/25 21:10 01/17/25 21:17 Hydromorphone Hcl 1 Mg/Ml Syringe IVPUSH 01/17/25 21:11 1 mg ONCE ONE Administration Protocol Lactated Ringer's 1,000 mls @ 999 mls/hr 01/17/25 16:45 01/17/25 17:55 Lr IV 01/17/25 17:45 Infused .Q1H1M [place] Infusion Iohexol 100 ml 01/17/25 19:58 01/17/25 19:59 Iohexol 350 Mg/Ml 100 Ml Infus..Btl IV 01/17/25 19:59 85 ml ONCE ONE Administration Morphine Sulfate 4 mg 01/17/25 16:04 01/17/25 16:42 Morphine Sulfate 4 Mg/Ml Cartridge IVPUSH 01/17/25 16:05 4 mg ONCE ONE Administration Protocol Ondansetron HCl 4 mg 01/17/25 16:04 01/17/25 16:42 Ondansetron Hcl 4 Mg/2 Ml Vial IVPUSH 01/17/25 16:05 4 mg ONCE ONE Administration Ondansetron HCl 4 mg 01/17/25 21:16 01/17/25 21:18 Ondansetron Hcl 4 Mg/2 Ml Vial IVPUSH 01/17/25 21:17 4 mg ONCE ONE Administration Discharge Plan Discharge Print Language: Turkmen
[2025-01-17 14:44] VITALS: BP 196/115; PULSE 79; RESP 22; TEMP 36.3; O2SAT 99; BMI 28.2
--- NOTE | 2025-01-17 14:44 | ECG_ITS ---
Test Reason : cp/sob Blood Pressure : */* mmHG Vent. Rate : 74 BPM Atrial Rate : 74 BPM P-R Int : 164 ms QRS Dur : 112 ms QT Int : 396 ms P-R-T Axes : 74 -25 71 degrees QTcB Int : 439 ms Normal sinus rhythm Minimal voltage criteria for LVH, may be normal variant ( Wero product ) Inferior infarct , age undetermined Abnormal ECG When compared with ECG of 16-Sep-2023 03:00, No significant change was found Referred By: Daylin Smith Electronically Signed By: Keyshawn Arias
[2025-01-17 15:27] LABS: MANUAL DIFF FLAG NO
[2025-01-17 15:29] LABS: Hematocrit 49.2 % (42.0-52.0); Hemoglobin 18.2 g/dl (14.0-18.0); Imm Gran Abs Auto 0.04 X10*3/uL (0.00-0.03); Imm Gran Pct Auto 0.4 % (0.0-0.4); Lymphocytes Absolute Auto 1.3 X10*3/uL (1.2-4.9); Mean Corpuscular HGB Conc 37.0 g/dl (31.0-36.0); Mean Corpuscular Hemoglobin 31.8 pg (27.0-33.0); Mean Corpuscular Volume 85.9 fL (80.0-98.0); NRBC Abs Auto 0.000 X10*3/uL (0.0-0.012); NRBC Pct Auto 0.0 /100WBC (0.0-0.2); Platelet Count 348 X10*3/uL (160-400); Red Blood Count 5.73 X10*6/uL (4.60-5.80); White Blood Count 11.4 X10*3/uL (4.8-10.8)
[2025-01-17 15:45] LABS: Alanine Aminotransferase 17 U/L (0-40); Albumin Level 4.7 g/dL (3.5-5.0); Alkaline Phosphatase 87 U/L (39-117); Anion Gap 15 (12-20); Aspartate Amino Transferase 27 U/L (5-37); Blood Urea Nitrogen 8 mg/dL (9-16); Calcium 9.7 mg/dL (8.4-10.2); Carbon Dioxide 25 mmol/L (22-29); Chloride 97 mmol/L (96-108); Creatinine Clr Calc Pharmacy 117.1; Estimated Glomerular Filt Rate > 60; Lipase 14 U/L (8-78); Magnesium 1.7 mg/dL (1.6-2.6); Potassium 3.1 mmol/L (3.3-5.1); Sodium 134 mmol/L (135-145); Total Protein 7.6 g/dL (6.5-8.0)
[2025-01-17 15:55] LABS: Troponin-I High Sensitivity 2.9 ng/L (<3.5-35.0)
--- OUTSIDE RECORDS SUMMARY | 2025-01-17 15:56 | XMS_ITS | Clinical Summary ---
Author Organization [facility] Address [address] [place] [address] Care Team Providers Care Commercial Instructor Supervisor Name Role Phone Ced Sesay Primary Care Provider [phone] Allergies Active Allergy Reactions Criticality Noted Date [...] 73 07/06/2023 2:29 AM EST Temperature 36.4 C (97.5 F) 07/05/2023 9:33 PM EST Respiratory Rate 18 07/06/2023 4:00 AM EST [...] - 2023-2 5 season) 2024 11/22/2020, 10/25/2020 Alcohol/Substance Use Screening 06/27/2024 Depression Screening and Follow-Up 06/27/2024 Social Drivers of Health Barbie ual Screening 06/27/2024 Influenza Vaccine (#1) 2025 , 03/23/2018, 03/02/2017, Additional history exists DTaP,Tdap,and Td Vaccines (2 - Td or Tdap) 04/01/2025 04/01/2015 RSV Vaccine (60+ years old a nd patients) (1 - 1-dose 75+ series) 2043 Hepatitis B Vaccines Completed 09/01/2016, 10/21/2015, 07/18/2015 Procedures * Due to [place] [employer] law, this organization might not be sharing negative HIV tests. Procedure Name Priority Date/Time Associated Diagnosis Comments COLONOSCOPY 12/11/2018 CT CHEST PULMONARY EMBOLISM W CONTRAST STAT 04/13/2016 5:47 AM EDT from Last 3 Months or Most Recently Relevant to Health Maintenance Results * Due to [place] [employer] law, this organization might not be sharing [...] 350: 80 ML, IV POWER INJ WSN: [id number] Narrative 04/13/2016 6:21 AM EDT COMPARISON: None. [...] spleen consistent with hepatic steatosis. Procedure Note Renata Mcbridesco - 02/23/2017 COMPARISON: None. FINDINGS: Vessels: There [...] 350: 80 ML, IV POWER INJ WSN: [id number] Casey Castro MD IMG CT PROCEDURES Final Result from Last 3 Months or Most Recently Relevant to Health Maintenance Insurance MEDICARE [facility] Care Teams Commercial Instructor Supervisor Relationship Specialty Start Date End Date Ced Sesay PA PCP - General 10/14/21
--- OUTSIDE RECORDS SUMMARY | 2025-01-17 15:56 | XMS_ITS | Clinical Summary ---
Author Organization [employer] Address [address] [place] [address] Care Team Providers Care Broadcast Designer Name Role Phone Carlin Rivas [facility] Primary Care Provider [phone] Allergies Active Allergy Reactions Criticality Noted Date [...] solution Take by mouth. 11/11/19 19 Active Spacer/Aero-Hol ding Chambers (EasiVent) inhaler 04/21/20 16 Active acetaminophen (Tylenol) 500 MG tablet Active atorvastatin (Lipitor) 40 MG tablet 04/24/20 17 Active Blood Glucose Monitoring Suppl (FreeStyle Lite) device 01/08/20 20 Active buprenorphine-n aloxone (Suboxone) 4-1 MG per sublingual filmIndications :Uncomplicated opioid dependence (CMS/HCC) Place 1 Film under the tongue 2 times daily for 28 days. 56 Film 03/06/20 24 Active naloxone (Narcan) 4 mg/0.1 mL nasal spray Administer 1 spray (4 mg) into affected nostril(s) if needed for opioid reversal. May repeat every 2-3 minutes if needed, alternating nostrils, until medical assistance becomes available. 2 each 3 03/13/20 24 2024 Active cloNIDine (Catapres) 0.1 MG tablet Take [...] breath. 18 g 1 05/15/20 24 Active lidocaine (Xylocaine) 5 % ointment [...] 24 Active Breo Ellipta 100-25 MCG/ACT aerosol powderIndicatio ns:Asthma, unspecified asthma severity, unspecified whether complicated, unspecified whether persistent Take 1 puff by mouth Once per day. 60 each 08/24/19 25 Active glipiZIDE XL (Glucotrol XL) 5 MG 24 hr tabletIndicatio ns:Type 2 diabetes mellitus with other specified complication, without long-term current use of insulin (CMS/HCC) Take 1 tablet (5 mg) by mouth with breakfast. 90 tablet 3 08/24/19 25 Active escitalopram (Lexapro) 10 MG tabletIndicatio ns:Anxiety associated with depression Take 1 tablet (10 mg) by mouth Once per day. 30 tablet 2 12/01/19 25 2024 Active losartan-hydroC HLOROthiazide (Hyzaar) 100-12.5 MG tabletIndicatio ns:Hypertension , unspecified type Take 1 tablet by mouth Once per day. 30 tablet 11 12/01/19 25 2025 Active polyvinyl alcohol (Liquifilm Tears) 1.4 % ophthalmic solutionIndicat ions:Dry eyes, bilateral Administer 1 drop into both eyes if needed in the morning and at bedtime for dry eyes. 15 mL 5 12/06/19 25 Active Buprenorphine HCl-Naloxone HCl (Suboxone) 8-2 MG SL filmIndications :Uncomplicated opioid dependence (CMS/HCC) Place 1 Film under the tongue 3 times daily. Do not start before December 17, 2024. 84 Film 1 12/18/19 25 2024 Active amLODIPine (Norvasc) 10 MG tablet TAKE 1 TABLET BY MOUTH EVERY DAY 30 tablet 5 12/25/19 25 Active docusate sodium (Colace) 100 MG capsule Take 1 capsule (100 mg) by mouth 2 times daily. 60 capsule 11 01/02/20 25 2025 Active polycarbophil (Fibercon) 625 MG tablet Take 1 tablet (625 mg) by mouth 2 times daily. 60 tablet 11 01/02/20 25 2025 Active polyethylene glycol, PEG, 3350 (MiraLax) 17 GM/SCOOP powder Take 17 g by mouth if needed each day (constipation) . 527 g 2 01/02/20 25 2025 Active senna-docusate sodium (Senokot-S) 8.6-50 MG tabletIndicatio ns:Other constipation Take 2 tablets by mouth Once per day. 60 tablet 01/05/20 25 2025 Active glucose blood (FREESTYLE LITE) test stripIndication s:Type 2 diabetes mellitus with other specified complication, without long-term current use of insulin ([facility]) TEST BLOOD SUGAR ONCE DAILY 100 each 3 01/16/20 25 Active Blood Pressure Monitor miscIndications :Hypertension, unspecified type Use to check blood pressure two times daily 1 each 01/17/20 25 Active amLODIPine (Norvasc) 10 MG tablet Take 1 tablet (10 mg) by mouth Once per day. 30 tablet 5 03/13/20 24 2024 Discontinued FREESTYLE LITE test strip TEST BLOOD SUGAR ONCE DAILY 100 each 2 05/17/20 24 2024 Discontinued(R eorder (will not trigger notification to Pharmacy)) ibuprofen 800 MG tabletIndicatio ns:Chronic pain syndrome Take 1 tablet (800 mg) by mouth 3 times daily. 90 tablet 12/01/19 25 2024 Blood Pressure Monitor [facility] 2024 Discontinued(R eorder (will not trigger notification to Pharmacy)) Active Problems Problem Noted Date Diagnosed Date Generalized anxiety disorder 11/02/2024 Abnormal colonoscopy 08/24/2024 Overview (08/24/2024): Status: Chronic; [...] pain mgmt clinic Plan to refer to rn radiation Pt declines PT at this time Pt [...] he has 2 children that live in [place] and expresses his 4 years ago. ASCVD=10.5% [...] UTD, but needs to transfer care to [facility], referral placed Colon CA: UTD, next due 2028 Lung CA: UTD, had it done last year in [place] and was neg, will obtain records Labs: [...] Encounters Date Type Department Care Team Description 01/15/2025 Refill [facility] [address] [place] [address] Carlin Rivas CNP Hypertension, unspecified type (Primary Dx) 01/15/2025 Refill [facility] [address] [place] [address] Carlin Rivas CNP Type 2 diabetes mellitus with other specified complication, without long-term current use of insulin ([facility]) 01/11/2025 Refill [facility] [address] [place] [address] Carlin Rivas CNP Anxiety associated with depression 01/09/2025 9:30 AM EDT Office Visit [facility] [address] [place] [address] Cheo, Ananya, OD Presbyopia (Primary Dx) 01/07/2025 Telephone [facility] [address] [place] [address] Carlin Rivas CNP 01/04/2025 3:45 PM EDT Office Visit [facility] [address] [place] [address] Carlin Rivas CNP Other constipation (Primary Dx); Type 2 diabetes mellitus with other specified complication, without long-term current use of insulin ([facility]) 01/04/2025 Travel 01/03/2025 Telephone [facility] [address] [place] [address] Carlin Rivas CNP Chart Prep 01/03/2025 Telephone [facility] [address] [place] [address] Carlin Rivas CNP Nurse Triage 01/01/2025 10:40 AM EDT Office Visit [facility] [address] [place] [address] Daly Pineda DO Acute constipation (Primary Dx) 01/01/2025 Travel 12/31/2024 Telephone [facility] [address] [place] [address] Carlin Rivas CNP Nurse Triage 12/24/2024 1:30 PM EDT Office Visit [facility] [address] [place] [address] Shane Ndiaye MD Uncomplicated opioid dependence (CMS/HCC) (Primary Dx) 12/24/2024 Travel 12/23/2024 Refill [facility] [address] [place] [address] Carlin Rivas CNP Anxiety associated with depression 12/23/2024 Refill [facility] [address] [place] [address] Shane Ndiaye MD 12/18/[address] [address] Carlin Rivas CNP 12/14/2024 11:30 AM EDT Clinical Support [address] [address] Sandy Hebert RN Hypertension, unspecified type 12/14/2024 Refill [facility] [address] [place] [phone] Michaela Tenorio RN Uncomplicated opioid dependence (CMS/HCC) 12/14/2024 Travel 12/07/2024 Orders Only [facility] [address] [place], [place] [phone] Carlin Rivas CNP Positive CHRIS (antinuclear antibody) (Primary Dx); Unintended weight loss; Chronic pain syndrome 12/05/2024 2:00 PM EDT Office Visit [facility] [address] [place] [address] Janet Nuñez, HAYLEY Type 2 diabetes mellitus without ophthalmic manifestations (CMS/HCC) (Primary Dx); Dry eyes, bilateral; Combined forms of age-related cataract of both eyes; Myopia, bilateral 12/05/2024 Travel 12/04/2024 Telephone [facility] [address] [place] [address] Yenny Penaloza RN 12/03/2024 Telephone [facility] [address] [place] [phone] Carlin Rivas CNP Appointment 11/30/2024 2:00 PM EDT Office Visit [address] [address] Carlin Rivas CNP Anxiety associated with depression (Primary Dx); Type 2 diabetes mellitus with other specified complication, without long-term current use of insulin (CMS/HCC); Chronic pain syndrome; Unintended weight loss; Hypertension, unspecified type 11/30/2024 Travel 11/29/2024 Telephone [facility] [address] [place] [phone] Anna Anne MA Chart Prep 11/02/2024 1:00 PM EDT Office Visit [address] [address] Carlin Rivas CNP Type 2 diabetes mellitus with other specified complication, without long-term current use of insulin (CMS/HCC) (Primary Dx); Chronic pain syndrome; Hypertension, unspecified type; Generalized anxiety disorder 11/02/2024 Travel 10/29/2024 1:45 PM EDT Office Visit [address] [address] Shane Ndiaye MD Uncomplicated opioid dependence (CMS/HCC) (Primary Dx) 10/29/2024 Patient Outreach [address] [address] Osman Pedersen Recovery Supports 10/29/2024 Refill [facility] [address] [place] [phone] Michaela Tenorio RN Uncomplicated opioid dependence (CMS/HCC) 10/29/2024 Travel 10/22/2024 Refill [facility] [address] [place] [phone] Michaela Tenorio, GREGORY Uncomplicated opioid dependence (CMS/HCC) from Last 3 Months Immunizations Immunization Administration Dates Next Due Hep A, Adult 12/24/2024,03/19/2024 Hep B, adult 09/01/2016,10/21/2015,07/18/2015 Influenza injectable quadriv alent IIV4 with preservative 03/23/2018 Influenza injectable quadriv alent preservative free 04/26/2020,03/02/2017,02/25/2016,04/01 Pneumococcal Polysaccharide PPSV23 08/28/2021 Tdap 04/01/2015 Zoster, Recombinant 05/29/2021 Social History Tobacco Use Types Packs/Day Years Used Date Smoking Tobacco: Every Day Cigarettes Tobacco Cessation:Ready to Q uit: Not Asked; Counseling Given: Not Answered Comments:Pt reports smoking more often when he is anxious Alcohol Use Standard Drinks/Week Comments Never 0 [...] Sign Reading Time Taken Comments Blood Pressure 130/82 01/04/2025 3:38 PM EDT Pulse 82 01/04/2025 3:38 PM EDT Temperature 36.3 C (97.3 F) 01/04/2025 3:38 PM EDT Respiratory Rate 20 01/04/2025 3:38 PM EDT Oxygen Saturation 97% 01/04/2025 3:38 PM EDT Inhaled Oxygen Concentration - - Weight 91 kg (200 lb 9.6 oz) 01/04/2025 3:38 PM EDT Height 174 cm (5' 8.5 ) 01/04/2025 3:38 PM EDT Body Mass Index 30.06 01/04/2025 3:38 PM EDT Plan of Treatment Upcoming Encounters Date Type Department Care Team (Late st Contact Info) Description 02/18/2025 1:15 PM EDT Office Visit [facility] [address], [place] [phone] Shane Ndiaye MD [address] [place] [address] Health Maintenance Due Date Last Done Comments CT Colonography 1968 FIT DNA/Cologuard 1968 FIT 1968 FOBT 1968 Sigmoidoscopy 1968 Diabetes: Urine Protein Screening 1987 Zoster Vaccines (2 of 2) 07/24/2021 05/29/2021 Pneumococcal Vaccine: 50+ Years (2 of 2 - PCV) 08/28/2022 08/28/2021 Lipid Panel 11/17/2023 11/16/2022 COVID-19 Vaccine ( - season) 2024 11/22/2020, 10/25/2020 Diabetes: Foot Exam 09/19/2024 09/20/2023 Diabetes: Hemoglobin A1C 02/02/2025 025, 08/24/2024, 05/31/2023 Influenza Vaccine (#1) 2025 0, 03/23/2018, 03/02/2017, Additional history exists DTaP/Tdap/Td Vaccines (2 - Td or Tdap) 04/01/2025 04/01/2015 Depression Screening 08/24/2025 08/24/2024, 08/24/19 SDOH Screening 08/24/2025 08/24/2024 Alcohol/Substance Use Screening 11/02/2025 11/02/2024 Disability Screening 11/02/2025 11/02/2024 Tobacco Screening 01/04/2026 01/04/2025 Eye Exam 12/05/2026 12/05/2024, 11/25, 12/05/2024, Additional history exists Colonoscopy 12/11/2028 12/11/2018 Colorectal Cancer Screening 12/11/2028 RSV Patients and Patients Aged 60 years or older (1 - 1-dose 75+ series) 2043 Hepatitis B Vaccines Completed 09/01/2016, 10/21/2015, 07/18/2015 HIV Screening Completed 03/13/2024, 06/16/2023 Hepatitis C Screening Completed 03/13/2024, 023 Hepatitis A Vaccines Aged Out 12/24/2024, 03/19/20 24 No longer eligible based on patient's age to complete this topic HIB Vaccines Aged Out No longer eligi ble based on patient's age to complete this topic HPV Vaccines Aged Out No longer eligi ble based on patient's age to complete this topic IPV Vaccines Aged Out No longer eligi ble based on patient's age to complete this topic Meningococcal B Vaccine Aged Out No l onger eligible based on patient's age to complete [...] Name Priority Date/Time Associated Diagnosis Comments POCT GLUCOSE Routine 01/04/2025 4:00 PM EDT Type 2 diabetes mellitus with other specified complication, without long-term current use of insulin ([facility]) POCT WILLIAM-14 URINE DRUG SCREEN Routine 12/24/2024 1:15 PM EDT Uncomplicated opioid dependence (CMS/[facility]) CBC WITH AUTO DIFFERENTIAL Routine 11/30/2024 2:27 PM EDT Unintended weight loss TSH W/REFLEX TO FT4 Routine 11/30/2024 2 :27 PM EDT Unintended weight loss RHEUMATOID FACTOR Routine 11/30/2024 2:2 7 PM EDT Chronic pain syndrome CHRIS SCREEN, IFA, W/REFL TITER AND PATTERN Routine 11/30/2024 2:27 PM EDT Chronic pain syndrome COMPREHENSIVE METABOLIC PANEL Routine 11/30/2024 2:27 PM EDT Chronic pain syndrome C-REACTIVE PROTEIN Routine 11/30/2024 2: 27 PM EDT Chronic pain syndrome SED RATE BY MODIFIED WESTERGREN Routine 11/30/2024 2:27 PM EDT Chronic pain syndrome POCT GLUCOSE Routine 11/30/2024 2:07 PM EDT Type 2 diabetes mellitus with other specified complication, without long-term current use of insulin (CMS/HCC) POCT GLYCATED HEMOGLOBIN, TOTAL Routine 11/02/2024 1:10 PM EDT Type 2 diabetes mellitus with other specified complication, without long-term current use of insulin (CMS/HCC) POCT GLUCOSE Routine 11/02/2024 1:09 PM EDT Type 2 diabetes mellitus with other specified complication, without long-term current use of insulin (CMS/HCC) POCT WILLIAM-14 URINE DRUG SCREEN Routine 10/29/2024 1:47 PM EDT Uncomplicated opioid dependence (CMS/HCC) HEPATITIS C AB W/REFL TO HCV RNA, QN, PCR Routine 03/13/2024 3:07 PM EDT HIV 1/2 ANTIGEN/ANTIBODY, FOURTH GENERATION W/RFL Routine 03/13/2024 3:07 PM EDT DIABETES FOOT EXAM Routine 09/20/2023 LIPID PANEL, STANDARD Routine 11/16/2022 COLONOSCOPY Routine 12/11/2018 from Last 3 Months or Most Recently Relevant to Health Maintenance Results * POCT Glucose (01/04/2025 4:00 PM EDT) Only the most recent of3 resultswithin the time period is included. Pathologist [facility] Glucose Blood, POC 127 60 - 200 mg/dL QC Media Lot # [id number] Lot# Expiration Date Blood Capillary blood specimen / Unknown 01/04/2025 4:00 PM EDT Carlin Rivas CNP POINT OF CARE TEST ENTER/ EDIT ORDERABLES Final Result * (ABNORMAL) POCT WILLIAM-14 Urine Drug Screen (12/24/2024 1:15 PM EDT) Only the most recent of2 resultswithin the time period is included. [facility] THC Negative Negative Cocaine Screen, Urine Negative Negative Opiate Screen, Urine Negative Negative Methamphetamine Screen Urine Negative Negative Amphetamine Screen, Urine Negative Negative Benzodiazepines Screen, Urine Negative Negative Barbiturate Screen, Urine Negative Negative Methadone Screen, Urine Negative Negative Buprenophine Screen, Urine Positive(A) Negative TCA, Urine Negative Negative MDMA Urine Negative Negative ng/mL Oxycodone Screen, Urine Negative Negative Phencyclidine (PCP), Urine Negative Negative Fentanyl, Urine Negative Negative Urine Urine specimen obtained by clean catch procedure / Unknown 12/24/2024 1:15 PM EDT Shane Ndiaye MD POINT OF CARE TEST ENTER/EDIT OR DERABLES Final Result * TSH W/Reflex to FT4 (11/30/2024 2:27 PM EDT) Pathologist [facility] TSH reflex Free T4 0.52 0.32 - 4.0 uIU/mL [facility] Blood Venous blood specimen / Unknown 11/30/2024 2:27 PM EDT 11/30/2024 4:26 PM EDT Carlin Rivas [facility] LAB BLOOD ORDERABLES Yasmin gordillo Result [facility] [address] [place] [phone] * (ABNORMAL) CBC auto differential (11/30/2024 2:27 PM EDT) White Blood Count 6.9 4.8 - 10.8 X10*3/uL [facility] Red Blood Count 4.98 4.60 - 5.80 X10*6/uL [facility] Hemoglobin 15.7 14.0 - 18.0 g/dl [facility] Hematocrit 43.4 42.0 - 52.0 % [facility] Mean Corpuscular Volume 87.1 80.0 - 98.0 fL [facility] Mean Corpuscular Hemoglobin 31.5 27.0 - 33.0 pg [facility] Mean Corpuscular HGB Conc 36.2(H) 31.0 - 36.0 g/dl [facility] Red Cell Distribution Width 12.7 11.0 - 16.0 % [facility] Platelet Count 300 160 - 400 X10*3/uL [facility] Mean Platelet Volume 10.2 9.4 - 12.4 fL [facility] Neutrophils Percent Auto 62.8 45 - 73 % [facility] Imm Gran Pct Auto 0.1 0.0 - 0.4 % [facility] Lymphocytes Percent Auto 28.9 20 - 40 % [facility] Monocytes Percent Auto 6.6 2 - 11 % [facility] Eosinophils Percent Auto 0.7 0 - 4 % [facility] Basophils Percent Auto 0.9 0 - 2 % [facility] NRBC Pct Auto 0.0 0.0 - 0.2 /100WBC [facility] Neutrophils Absolute Auto 4.3 2.0 - 8.3 x10*3/uL [facility] Imm Gran Abs Auto 0.01 0.00 - 0.03 X10*3/uL [facility] Lymphocytes Absolute Auto 2.0 1.2 - 4.9 X10*3/uL [facility] Monocytes Absolute Auto 0.5 0.1 - 1.2 X10*3/uL [facility] Eosinophils Absolute Auto 0.1 0.0 - 0.4 X10*3/uL [facility] Basophils Absolute Auto 0.1 0.0 - 0.2 X10*3/uL [facility] NRBC Abs Auto 0.000 0.0 - 0.012 X10*3/uL [facility] Blood Venous blood specimen / Unknown 11/30/2024 2:27 PM EDT 11/30/2024 4:26 PM EDT [facility] BLOOD ORDERABLES Yasmin l Result Performing Organization Address City/[facility] Co de Phone Number [facility] [address] [place] [phone] * Sed Rate by Modified Abdielren (11/30/2024 2:27 PM EDT) Pathologist [facility] Erythrocyte Sedimentation Rate 5 0 - 15 MM/HR [facility] Comment:Patients with polycy themia and many hemoglobin abnormalitiesmay have depressed sed rates whereas patients with anemiamay have elevated sed rates. Blood Venous blood specimen / Unknown 11/30/2024 2:27 PM EDT 11/30/2024 4:26 PM EDT [facility] LAB BLOOD ORDERABLES Yasmin l Result Performing Organization Address City/[facility] Co de Phone Number [facility] [address] [place] [phone] * Rheumatoid Factor (11/30/2024 2:27 PM EDT) Pathologist [facility] Rheumatoid Factor <13.0 <15.0 IU/mL [facility] Blood Venous blood specimen / Unknown 11/30/2024 2:27 PM EDT 11/30/2024 4:26 PM EDT Result [facility] LAB BLOOD ORDERABLES Yasmin l Result Performing Organization Address City/[facility] Co de Phone Number [facility] [address] [place] [phone] * C-reactive Protein (11/30/2024 2:27 PM EDT) Pathologist [facility] C Reactive Protein 0.25 < or = 0.50 mg/dL [facility] Blood Venous blood specimen / Unknown 11/30/2024 2:27 PM EDT 11/30/2024 4:26 PM EDT Result [facility] LAB BLOOD ORDERABLES Yasmin l Result Performing Organization Address [facility] Co de Phone Number [facility] [address] [place] [phone] * (ABNORMAL) CHRIS Screen,IFA, with Reflex to Titer and Pattern (11/30/2024 2:27 PM EDT) Pathologist [facility] Anti Nuclear Antibody Screen POSITIVE (A) NEGATIVE [facility] Comment:CHRIS IFA is a first l ine screen for detecting thepresence of up to approximately 150 autoantibodies invarious autoimmune diseases. A positive CHRIS IFA resultis suggestive of autoimmune disease and reflexes totiter and pattern. Further laboratory testing may beconsidered if clinically indicated.For additional information, please refer [email or web address](This link is being provided for informational/educational purposes only.) CHRIS Titer 1:80(A) titer [facility] Comment:A low level CHRIS tite r may be present in pre-clinicalautoimmune diseases and normal individuals. Reference Range <1:40 Negative 1:40-1:80 Low Antibody Level >1:80 Elevated Antibody Level CHRIS Pattern Nuclear, Speckled (A) [facility] Comment:Speckled pattern is associated with mixed connectivetissue disease (MCTD), systemic lupus erythematosus(SLE), Sjogren's syndrome, dermatomyositis, andsystemic sclerosis/polymyositis overlap.AC-2,4,5,29: SpeckledInternational Consensus on CHRIS Patterns(https://doi.org/10.1515/lsnw-1803-3073) CHRIS TITER 2 (REF LAB) 1:80(A) titer [facility] Comment:A low level CHRIS tite r may be present in pre-clinicalautoimmune diseases and normal individuals. Reference Range <1:40 Negative 1:40-1:80 Low Antibody Level >1:80 Elevated Antibody Level CHRIS Pattern 2 (A) [facility] Comment:Cytoplasmic, Discret e Dots/GW body Abnormal Flag: AStaining of GW bodies in the cytoplasm of interphasecells with high numbers in late S/G2 cells (e.g., anti-GW182, anti-Figueroa/Ago2). Pattern is associated with primarybiliary cholangitis (PBC), systemic autoimmune rheumaticdiseases (SARD), neurological conditions, and otherautoimmune conditions.AC-18: Discrete Dots/GW body-likeInternational Consensus on CHRIS Patterns(https://doi.org/10.1515/hvvh-3102-4776)THIS TEST WAS PERFORMED AT:[employer] [place] [phone] ELLSWORTH MD CHRIS TITER 3 TNP [facility] CHRIS PATTERN 3 [facility] Blood Venous blood specimen / Unknown 11/30/2024 2:27 PM EDT 11/30/2024 4:26 PM EDT [facility] LAB BLOOD ORDERABLES Yasmin l Result [facility] [address] [place] [phone] * (ABNORMAL) Comprehensive Metabolic Panel (11/30/2024 2:27 PM EDT) Sodium 142 135 - 145 mmol/L [facility] Potassium 3.4 3.3 - 5.1 mmol/L [facility] Chloride 103 96 - 108 mmol/L [facility] Carbon Dioxide 30(H) 22 - 29 mmol/L [facility] Anion Gap 12 12 - 20 [facility] Urea Nitrogen (BUN) 10 9 - 16 mg/dL [facility] Creatinine, Serum 0.73 0.5 - 1.4 mg/dL [facility] Estimated Glomerular Filt Rate >60 [facility] Comment:Chronic Kidney Disea se: Estimated GFR < 60 mL/min/1.79x2Tmnknc Kidney Disease: Estimated GFR < 15 mL/min/1.73m2 Glucose 114 60 - 115 mg/dL [facility] Calcium 9.6 8.4 - 10.2 mg/dL [facility] Bilirubin, Total 0.4 0.0 - 1.0 mg/dL [facility] Aspartate Amino Transferase 29 5 - 37 U/L [facility] Alanine Aminotransferase 30 0 - 40 U/L [facility] Total Protein 7.3 6.5 - 8.0 g/dL [facility] Albumin Level 4.7 3.5 - 5.0 g/dL [facility] Alkaline Phosphatase 74 39 - 117 U/L [facility] Blood Venous blood specimen / Unknown 11/30/2024 2:27 PM EDT 11/30/2024 4:26 PM EDT [facility] LAB BLOOD ORDERABLES Yasmin l Result [facility] [address] [place] [phone] * (ABNORMAL) POCT HGB A1C (11/02/2024 1:10 PM EDT) Hemoglobin A1C 7.0(A) 4.0 - 6.0 % QC Media Lot # [id number] Lot# Expiration Date ,644 Blood 11/02/2024 1:[address] [facility] POINT OF CARE TEST ENTER/ EDIT ORDERABLES Final Result * Hepatitis C Antibody with Reflex to HCV, RNA, Quantitative, Real-Time PCR (03/13/2024 3:07 PM EDT) Pathologist [facility] Hepatitis C Antibody Nonreactive Nonreactive [facility] Comment:Antibodies to HCV no t detected; does not exclude early acuteHCV infection. 03/13/2024 3:07 PM EDT 03/13/2024 4:22 PM EDT Result [facility] Shane Ndiaye MD LAB BLOOD ORDERABLES Final Resul t Performing Organization Address [facility] Co de Phone Number [facility] [address] [place] [address] [phone] * HIV-1/2 Antigen and Antibodies, Fourth Generation, with Reflexes (03/13/2024 3:07 PM EDT) Pathologist [facility] HIV AB/AG Nonreactive Nonreactive [facility] Comment:HIV-1 p24 Ag and/or HIV-1/HIV-2 Ab not detected.A test result that is nonreactive does not exclude thepossibility of exposure to or infection with HIV-1 and/orHIV-2. Nonreactive results in this assay for individualswith prior exposure to HIV-1 and/or HIV-2 may be due toantigen and antibody levels that are below the limit ofdetection of this assay.The [employer] HIV Ag/Ab Combo assay result andsupplemental assay results should be interpreted inconjunction with the patient's clinical presentation,history and other laboratory results. If the results areinconsistent with clinical evidence, additional testing issuggested to confirm the result. 03/13/2024 3:07 PM EDT 03/13/2024 4:22 PM EDT Shane Ndiaye MD LAB BLOOD ORDERABLES Final Resul t Performing Organization Address [facility] Co de Phone Number [facility] [address] [place] [phone] * Diabetes Foot Exam (09/20/2023) us Historical Provider HEALTH MAINTENANCE Final Result * Lipid Panel, Standard (11/16/2022) LDL Cholesterol 36 mg/dL Blood Venous blood specimen / Unknown Historical Provider LAB BLOOD ORDERABLES Yasmin l Result * (ABNORMAL) Colonoscopy (12/11/2018) Colonoscopy Normal(A) Normal Historical Provider HEALTH MAINTENANCE Final Result from Last 3 Months or Most Recently Relevant to Health Maintenance Insurance [employer] [phone] [employer] [place] [address] [place] [phone] Care Teams Broadcast Designer Relationship Specialty Start Date End Date Carlin Rivas CNP [address] [place] [phone] PCP - General Family Medicine 08/24/24
--- OUTSIDE RECORDS SUMMARY | 2025-01-17 15:56 | XMS_ITS | Clinical Summary ---
Author Organization [facility] Address [address] [place] [address] Care Team Providers Care Hypo Dipper Name Role Phone Unavailable Primary Care Provider [...] - 2023-2 5 season) 2024 Influenza (#1) 2025 HPV Vaccine Aged Out No longer eligi [...]
[2025-01-17 16:10] LABS: Resp Syncy Virus RNA Qual PCR NEGATIVE (Negative); SARS COV2 PCR INHOUSE NEGATIVE (Negative)
[2025-01-17 16:45] VITALS: BP 209/129; PULSE 79; RESP 11; O2SAT 93
[2025-01-17 17:14] VITALS: BP 150/81; PULSE 68; RESP 13; TEMP 37.1; O2SAT 94
[2025-01-17] MEDS: Lactated Ringers 1,000 ML 999 ML IV (17:17)
[2025-01-17 17:19] LABS: Appearance Urine Clear; Glucose Urine UA Negative (Negative); PH 8.0 (5.0-9.0); Specific Gravity - Urine 1.010 (1.005-1.025)
[2025-01-17 19:05] VITALS: BP 145/85; PULSE 78; RESP 16; TEMP 36.3; O2SAT 95
[2025-01-17] MEDS: iohexoL 350 MG/ML 100 ML INFUS..BTL IV (19:59)
[2025-01-17 20:16] VITALS: BP 175/113; PULSE 86; RESP 19; TEMP 36.6; O2SAT 93
[2025-01-17 22:14] VITALS: BP 155/88; PULSE 84; RESP 18; TEMP 36.8; O2SAT 93
[2025-01-17] MEDS: Lactated Ringers 1,000 ML 125 ML IVCONT (22:42)
[2025-01-17] MEDS: oxyCODONE HCl Immed Release 5 MG TABLET PO (22:43)
--- NOTE | 2025-01-17 22:54 | PC.NURSE ---
16 Fr NGT placed in R nare, placement confirmed with air bolus, awaiting CXR. Pt continues to be uncomfortable, given prn oxycodone.
--- NOTE | 2025-01-17 23:06 | HO.PM.IMCN ---
History of Present Illness Data of Consult Service Date: 01/17/25 Requesting physician: Jv Galarza Primary Care Provider: ANASTACIA Bill Reason for consult: medical managment DM barrel burner requested and patient's son was able to provide HPI, PMH, PSH. Patient is a 54-year-old male, Icelandic-speaking only with past medical history hypertension, hyperlipidemia, tobacco dependence, history of substance use disorder has been sober for years, chronic pain syndrome involving back pain, COPD not on home O2, NIDDM, allergic rhinitis, vitamin-D deficiency, chronic constipation (patient recently started buprenorphine prone with naltrexone for pain management per patient's son), history of previous small-bowel obstruction 11 years ago (pt resided in [facility] at the time), previous abdominal surgery 20 years prior (both son inpatient unable to provide type of surgery or reason for surgery) came through the emergency department with complaints of abdominal pain and was admitted by Dr. Galarza for small bowel obstruction. Patient currently NPO and has NG tube ordered per surgeon. Hospitalist consult requested for medical management of patient's diabetes and medical needs. Patient currently experiencing abdominal pain secondary to bowel obstruction with point of transition via CT scan. Patient has NG tube in place but confirmation chest x-ray is pending. Patient is not able to participate in admission interview due to patient's level of pain. Son is at patient's bedside and was helpful in providing information for consultation. Currently patient's only medical concern is his abdominal pain. Patient and son both understand that patient currently has a bowel obstruction. Patient does have history of small-bowel obstruction 11 years prior and son is not sure if surgical intervention was required. Per patient's son, patient has had chronic issues with constipation and prior was on oxycodone and then recently switched to bupreneprhone and naltrexone for pain management involving back pain. Patient has been using MiraLax to help with his constipation but was continued to have issues. Son does acknowledge that patient did have abdominal surgery approximately 20 years prior but is unable to explain the type of surgery or indication for the surgery. There is a scar in the upper abdominal area. Son does report that patient did have history of colonoscopy and EGD but can not recall how long ago or what the results were. Patient was following with the GI specialist up until 2 years prior. K incidentally 3.1, secondary likely to vomiting and poor po intake. Patient is also a known diabetic but only takes oral medications. Patient has never been dependent on insulin. Patient is not taking any GLP 1 injectable medications at this time. Patient is an active smoker but does not use oxygen at home. Patient does use inhalers daily. Review of Systems Review of Systems: Yes Unobtainable due to mental condition (Due to a level of pain patient unable to participate) [facility] Medical History COPD (chronic obstructive pulmonary disease) Chronic constipation Non-insulin dependent type 2 diabetes mellitus Tobacco dependence Hyperlipidemia Small bowel obstruction History of substance use disorder Cognitive capacity: Awake and alert Functional capacity: independent ambulation Surgical History History of abdominal surgery Social History (Updated 01/18/25 @ 02:07 by GERRY Fragoso) Patient Tobacco Use Status: Current everyday Tobacco user Tobacco use type: Cigarette Cigarette Packs Per Day: 1 Smoked in Last 30 Days: No Use of substances other than those prescribed or required for medical reasons: No Advance Directives: No Advance Directives Information Provided: No Current occupational status: disabled Ebola Risk: Travel/Contact With Anyone From Affected Area/s: No Has Patient Experienced Ebola Symptoms: No Meds Allergies Allergy/AdvReac Type Severity Reaction Status Date / Time No Known Allergies Allergy Verified 01/17/25 14:47 Active Medications: Current Medications Dextrose (Dextrose 50 % 25 Gm/50 Ml Syringe) 25 gm IVPUSH Q15M PRN; Protocol PRN Reason: per Hypoglycemia Standing Ord. Dextrose (Dextrose 50 % 25 Gm/50 Ml Syringe) 25 gm IVPUSH Q15M PRN; Protocol PRN Reason: per Hypoglycemia Standing Ord. Glucose (Glucose Gel 15 Gm Gel..Gram.) 15 gm PO Q15M PRN; Protocol PRN Reason: per Hypoglycemia Standing Ord. Glucose (Glucose Gel 15 Gm Gel..Gram.) 15 gm PO Q15M PRN; Protocol PRN Reason: per Hypoglycemia Standing Ord. Hydromorphone HCl (Hydromorphone Hcl 0.5 Mg/0.5 Ml Syringe) 0.5 mg IVPUSH Q3H PRN; Protocol PRN Reason: Pain, Severe (Pain Scale 7-10) Lactated Ringer's (Lr) 1,000 mls @ 125 mls/hr IVCONT .Q8H [place] Last Admin: 01/17/25 22:42 Dose: 125 mls/hr Acetaminophen (Ofirmev) 1,000 mg in 100 mls @ 400 mls/hr IV Q6H PRN PRN Reason: Pain, Mild (Pain Scale 1-3) Insulin Human Lispro (Insulin Lispro 100 Unit/Ml 3 Ml Vial) 0 unit SUBCUT Q6H [facility]; Protocol Ondansetron HCl (Ondansetron Hcl 4 Mg/2 Ml Vial) 4 mg IVPUSH QID PRN PRN Reason: Nausea Oxycodone HCl (Oxycodone Hcl Immed Release 5 Mg Tablet) 5 mg PO Q6H PRN PRN Reason: Pain, Moderate(Pain Scale 4-6) Last Admin: 01/17/25 22:43 Dose: 5 mg Sodium Chloride (0.9 % Sodium Chloride Flush 3 Ml Syringe) 3 ml [facility]FLUSH [facility] Home Medications ?Medication ?Instructions ?Recorded ?Confirmed ?Last Taken ?Type albuterol sulfate 2 mg/5 mL oral 2 mg PO TID 07/20/24 07/20/24 Unknown History syrup amlodipine 5 mg tablet 5 mg PO DAILY 07/20/24 07/20/24 Unknown History aspirin 81 mg tablet,delayed 81 mg PO DAILY 07/20/24 07/20/24 Unknown History release atorvastatin 40 mg tablet 40 mg PO DAILY 07/20/24 07/20/24 Unknown History buprenorphine 2 mg-naloxone 0.5 mg 1 film buccal DAILY 07/20/24 07/20/24 Unknown History sublingual film (Suboxone) chlorthalidone 25 mg tablet 25 mg PO DAILY 07/20/24 07/20/24 Unknown History cholecalciferol (vitamin D3) 10 10 mcg PO DAILY 07/20/24 07/20/24 Unknown History mcg (400 unit) capsule clonidine HCl 0.1 mg tablet 0.1 mg PO BEDTIME 07/20/24 07/20/24 Unknown History duloxetine 30 mg capsule,delayed 30 mg PO DAILY 07/20/24 07/20/24 Unknown History release fluticasone 100 mcg-salmeterol 50 1 inh inhalation BID 07/20/24 07/20/24 Unknown History mcg/dose blistr powdr for inhalation (Advair Diskus) fluticasone propionate 50 1 spray intranasal DAILY 07/20/24 07/20/24 Unknown History mcg/actuation nasal spray,suspension (Flonase Allergy Relief) glipizide 5 mg tablet 5 mg PO DAILY 07/20/24 07/20/24 Unknown History losartan 100 mg tablet 100 mg PO DAILY 07/20/24 07/20/24 Unknown History metformin 1,000 mg tablet 1,000 mg PO DAILY 07/20/24 07/20/24 Unknown History mirtazapine 15 mg tablet 15 mg PO BEDTIME 07/20/24 07/20/24 Unknown History naloxone 4 mg/actuation nasal 4 mg intranasal Q2M PRN 07/20/24 07/20/24 Unknown History spray (Narcan) Physical Exam Vital Signs and Narrative: Vital Signs: Last Vital Signs Temp 98.3 F 01/17/25 22:14 Pulse 84 01/17/25 22:14 Resp 18 01/17/25 22:14 BP 155/88 H 01/17/25 22:14 Pulse Ox 93 01/17/25 22:14 O2 Del Method Room Air 01/17/25 22:14 BMI result Body Mass Index 28.2 Alert and orientated, in pain with NG in place. Pt can follow commands Neuro: CN II-X11 intact, no deficits, visual acuity intact EYES: PERRLA, EOM intact, sclera nonicteric, conjunctiva pink ENT: hearing intact, NG in place, lips moist, nares patent no epistaxis Cardiac: S1 S2 RRR, no murmur, no JVD, no edema in Lower ext Pulmonary: lungs diminshed B Abdominal: ABD grossly distended, tympanic, tender with mild palpation MSK: strength 5/5 upper and lower extremities : no CVA tenderness Extremities: no edema in lower extremities, PT and DP pulses palpable +2,B feet warm Psych: mood anxious Skin: intact, tattoos BUE's Results Labs 01/17/25 15:18 01/17/25 15:18 Labs: Laboratory Results - last 24 hr 01/17/25 01/17/25 01/17/25 15:18 17:12 20:22 MCV 85.9 MCH 31.8 MCHC 37.0 H RDW 13.0 Plt Count 348 MPV 9.3 L Immature Gran % (Auto) 0.4 Neut % (Auto) 80.9 H Lymph % (Auto) 11.2 L [place] % (Auto) 6.3 Eos % (Auto) 0.3 Baso % (Auto) 0.9 Lymph # (Auto) 1.3 [place] # (Auto) 0.7 Eos # (Auto) 0.0 Baso # (Auto) 0.1 Abs Immat Gran (auto) 0.04 H Absolute Neuts (auto) 9.2 H Absolute Nucleated RBC 0.000 Nucleated RBC % (auto) 0.0 Anion Gap 15 Estim Creat Clear Calc 117.1 Estimated GFR > 60 Random Glucose 143 H Lactic Acid 0.9 Calcium 9.7 Magnesium 1.7 Total Bilirubin 0.6 Direct Bilirubin 0.3 AST 27 ALT 17 Alkaline Phosphatase 87 Total Protein 7.6 Albumin 4.7 Lipase 14 Urine Color Yellow Urine Appearance Clear Urine pH 8.0 Ur Specific [place] 1.010 Urine Protein Trace Urine Glucose (UA) Negative Urine Ketones 15 Urine Blood Negative Urine Nitrite Negative Ur Leukocyte Esterase Negative Influenza Type A (PCR) NEGATIVE Influenza Type B (PCR) NEGATIVE RSV RNA Qual (PCR) NEGATIVE SARS-CoV-2 RNA (RT-PCR) NEGATIVE ECG Attestation: I personally reviewed and interpreted this ECG as follows: (Normal sinus rhythm Minimal voltage criteria for LVH, may be normal variant ( [place] product ) Inferior infarct , age undetermined) Prior ECG tracings: available for review Imaging Radiologist's Impressions: Impressions KUB X-Ray 01/17/25 15:30 IMPRESSION: Findings concerning for small bowel obstruction. This could be further evaluated with CT as indicated. Electronically signed by: Alfredito Briones MD 01/17/2025 03:[address] ABD IMPRESSION: 1. Small bowel obstruction with transition point in left lower quadrant. 2. Findings suggestive of intestinal malrotation with right-sided small bowel and lateral displacement of distal SMA relative to SMV. Assessment and Plan (1) Small bowel obstruction: Status: Acute Plan Hospitalist group consulted per surgeon to help with patient's medical management in regards to diabetes and hypertension. Patient admitted for small-bowel obstruction and his currently NPO with plans for NG tube placement. CT scan indicates point of transition and patient remains symptomatic. SBO Management per surgery X-ray confirmed proper placement of NG tube Pain management per surgery (narcotics may be less effective as pt is on Buprenorphine with naloxone) NPO Patient has history of small-bowel obstruction 11 years prior, son unable to confirm if surgery was indicated and reason for small bowel obstruction (patient was living in [place] at the time) Hypokalemia K 3.1 IV supplementation ordered, 2 runs Repeat BMP in AM Telemetry ordered Chronic constipation Patient was taking oxycodone regularly, is now on Buprenorphine and naloxone daily for chronic low back pain issues This could be a long-term issue for patient Recommend follow-up with GI as an outpatient Patient may benefit from the use of lubiprostonem (Amitiza) NIDDM Sliding scale insulin for NPO status Can consider infusion with dextrose if patient experiences any hypoglycemia which is not expected. Last blood sugar 143 mg/dL. Resume oral medication therapy once cleared by surgery HTN Patient currently NPO, hydralazine 10 mg IV q.6 for systolic greater than 160 Avoid p.o. intake while NPO Hyperlipidemia Patient normally on atorvastatin, can continue once cleared by surgeon and can resume oral medications Chronic low back pain As above patient is on newly prescribed buprenorphine and naloxone, was on oxycodone prior per son Once med rec is completed, may need to check with pharmacy regarding availability of the sublingual film. If available patient can resume as long as blood pressure is stable. As above this will likely contribute to ongoing issues with constipation The hospitalist group will sign off at this time. We appreciate this consultation and please reach out with any questions or concerns or need for further consultation.
[2025-01-17 23:21] LABS: Glucose, Whole Blood 190 mg/dL (60-115)
[2025-01-18] VITALS (19 sets, daily range): BP systolic 118–203; BP diastolic 79–113; PULSE 80–104; RESP 15–21; TEMP 36.6–37.6; O2SAT 91–99
[2025-01-18] MEDS: 0.9 % Sodium Chloride Flush 3 ML SYRINGE IVFLUSH (00:24)
[2025-01-18] MEDS: diazePAM 10 MG/2 ML CARTRIDGE 5 MG IVPUSH (03:02)
[2025-01-18] MEDS: Potassium Chloride/H20 10 MEQ/100 ML PIGGYBACK 100 MEQ IV ×2 (03:03→05:08)
[2025-01-18 05:05] LABS: Glucose, Whole Blood 155 mg/dL (60-115)
[2025-01-18] MEDS: Buprenorphine/Naloxone 2/0.5mg FILM 1 FILM SUBLINGUAL (05:09)
[2025-01-18 05:56] LABS: MANUAL DIFF FLAG NO
[2025-01-18 05:57] LABS: Hematocrit 49.8 % (42.0-52.0); Hemoglobin 18.2 g/dl (14.0-18.0); Imm Gran Abs Auto 0.04 X10*3/uL (0.00-0.03); Imm Gran Pct Auto 0.3 % (0.0-0.4); Lymphocytes Absolute Auto 0.8 X10*3/uL (1.2-4.9); Mean Corpuscular HGB Conc 36.5 g/dl (31.0-36.0); Mean Corpuscular Hemoglobin 31.5 pg (27.0-33.0); Mean Corpuscular Volume 86.3 fL (80.0-98.0); NRBC Abs Auto 0.000 X10*3/uL (0.0-0.012); NRBC Pct Auto 0.0 /100WBC (0.0-0.2); Platelet Count 346 X10*3/uL (160-400); Red Blood Count 5.77 X10*6/uL (4.60-5.80); White Blood Count 14.0 X10*3/uL (4.8-10.8)
[2025-01-18 06:12] LABS: Anion Gap 14 (12-20); Blood Urea Nitrogen 7 mg/dL (9-16); Calcium 9.4 mg/dL (8.4-10.2); Carbon Dioxide 25 mmol/L (22-29); Chloride 97 mmol/L (96-108); Creatinine Clr Calc Pharmacy 136.0; Estimated Glomerular Filt Rate > 60; Potassium 3.4 mmol/L (3.3-5.1); Sodium 133 mmol/L (135-145)
--- NOTE | 2025-01-18 07:00 | PM.HPGS ---
History of Present Illness History of Present Illness Date of Service: 01/18/25 Chief complaint: abd pain Narrative: Kannan Gann is a 54 year old male presenting with complaints of severe abdominal pain which began approximately 3 days prior to presentation to the emergency department. His past medical history is significant for diabetes mellitus and a previous history of small-bowel obstruction. He has a history of chronic back pain in his on Suboxone. He reports the abdominal pain has increased in severity with the past 3 days in his associated with nausea, vomiting, and difficulty passing his bowels. He presented to the emergency department and was noted to have a mild leukocytosis of 11.4 and a normal lactic acid. CT abdomen and pelvis revealed small-bowel obstruction with a transition point in the left lower quadrant with findings suggestive of intestinal malrotation with right-sided small-bowel lateral displacement of the distal SMA relative the SMV. The patient was admitted to the surgical service for further management of this small-bowel obstruction. A nasogastric tube was placed in the emergency department and has been draining clear nonbilious fluid. The patient reports his previous obstruction occurred at an outside facility and required a surgical exploration to resolve. Review of Systems Review of Systems: Yes Unobtainable due to mental condition [facility] Past Medical History Medical History COPD (chronic obstructive pulmonary disease) Chronic constipation Non-insulin dependent type 2 diabetes mellitus Tobacco dependence Hyperlipidemia Small bowel obstruction History of substance use disorder Surgical History Surgical History History of abdominal surgery Social History Social History (Updated 01/18/25 @ 02:07 by GERRY Fragoso) Patient Tobacco Use Status: Current everyday Tobacco user Tobacco use type: Cigarette Cigarette Packs Per Day: 1 Smoked in Last 30 Days: No Use of substances other than those prescribed or required for medical reasons: No Advance Directives: No Advance Directives Information Provided: No Current occupational status: disabled Travel History Ebola Risk: Travel/Contact With Anyone From Affected Area/s: No Has Patient Experienced Ebola Symptoms: No Meds Allergies Allergy/AdvReac Type Severity Reaction Status Date / Time No Known Allergies Allergy Verified 01/17/25 14:47 Active Medications: Current Medications Dextrose (Dextrose 50 % 25 Gm/50 Ml Syringe) 25 gm IVPUSH Q15M PRN; Protocol PRN Reason: per Hypoglycemia Standing Ord. Glucose (Glucose Gel 15 Gm Gel..Gram.) 15 gm PO Q15M PRN; Protocol PRN Reason: per Hypoglycemia Standing Ord. Hydralazine HCl (Hydralazine Hcl 20 Mg/Ml Vial) 10 mg IVPUSH Q6H PRN; Protocol PRN Reason: SBP > 160 Last Admin: 01/18/25 02:29 Dose: 10 mg Hydromorphone HCl (Hydromorphone Hcl 1 Mg/Ml Syringe) 1 mg IVPUSH Q3H PRN; Protocol PRN Reason: Pain, Severe (Pain Scale 7-10) Lactated Ringer's (Lr) 1,000 mls @ 125 mls/hr IVCONT .Q8H [facility] Last Admin: 01/17/25 22:42 Dose: 125 mls/hr Acetaminophen (Ofirmev) 1,000 mg in 100 mls @ 400 mls/hr IV Q6H PRN PRN Reason: Pain, Mild (Pain Scale 1-3) Insulin Human Lispro (Insulin Lispro 100 Unit/Ml 3 Ml Vial) 0 unit SUBCUT Q6H [facility]; Protocol Last Admin: 01/18/25 00:23 Dose: 2 unit Ondansetron HCl (Ondansetron Hcl 4 Mg/2 Ml Vial) 4 mg IVPUSH QID PRN PRN Reason: Nausea Oxycodone HCl (Oxycodone Hcl Immed Release 5 Mg Tablet) 5 mg PO Q6H PRN PRN Reason: Pain, Moderate(Pain Scale 4-6) Last Admin: 01/17/25 22:43 Dose: 5 mg Sodium Chloride (0.9 % Sodium Chloride Flush 3 Ml Syringe) 3 ml IVFLUSH [facility] Last Admin: 01/18/25 00:24 Dose: 3 ml Home Medications ?Medication ?Instructions ?Recorded ?Confirmed ?Last Taken ?Type albuterol sulfate 2 mg/5 mL oral 2 mg PO TID 07/20/24 07/20/24 Unknown History syrup amlodipine 5 mg tablet 5 mg PO DAILY 07/20/24 07/20/24 Unknown History aspirin 81 mg tablet,delayed 81 mg PO DAILY 07/20/24 07/20/24 Unknown History release atorvastatin 40 mg tablet 40 mg PO DAILY 07/20/24 07/20/24 Unknown History buprenorphine 2 mg-naloxone 0.5 mg 1 film buccal DAILY 07/20/24 07/20/24 Unknown History sublingual film (Suboxone) chlorthalidone 25 mg tablet 25 mg PO DAILY 07/20/24 07/20/24 Unknown History cholecalciferol (vitamin D3) 10 10 mcg PO DAILY 07/20/24 07/20/24 Unknown History mcg (400 unit) capsule clonidine HCl 0.1 mg tablet 0.1 mg PO BEDTIME 07/20/24 07/20/24 Unknown History duloxetine 30 mg capsule,delayed 30 mg PO DAILY 07/20/24 07/20/24 Unknown History release fluticasone 100 mcg-salmeterol 50 1 inh inhalation BID 07/20/24 07/20/24 Unknown History mcg/dose blistr powdr for inhalation (Advair Diskus) fluticasone propionate 50 1 spray intranasal DAILY 07/20/24 07/20/24 Unknown History mcg/actuation nasal spray,suspension (Flonase Allergy Relief) glipizide 5 mg tablet 5 mg PO DAILY 07/20/24 07/20/24 Unknown History losartan 100 mg tablet 100 mg PO DAILY 07/20/24 07/20/24 Unknown History metformin 1,000 mg tablet 1,000 mg PO DAILY 07/20/24 07/20/24 Unknown History mirtazapine 15 mg tablet 15 mg PO BEDTIME 07/20/24 07/20/24 Unknown History naloxone 4 mg/actuation nasal 4 mg intranasal Q2M PRN 07/20/24 07/20/24 Unknown History spray (Narcan) Physical Exam Vital Signs: Vital Signs: Last Vital Signs Temp 98.8 F 01/18/25 05:00 Pulse 102 H 01/18/25 05:00 Resp 15 01/18/25 05:00 BP 171/104 H 01/18/25 05:00 Pulse Ox 94 01/18/25 05:00 O2 Del Method Room Air 01/18/25 05:00 BMI result Body Mass Index 28.2 Const: General: acute distress, ill appearing and lethargic Nutritional Appearance: well nourished Orientation/consciousness: lethargic HEENT: Other: NG tube in place Head: Yes normocephalic and Yes atraumatic Resp: Other: Breathing comfortably on room air, no respiratory distress GI: Other: Soft but diffusely tender to light palpation. Tympanitic to percussion. No guarding or rigidity. Mild rebound tenderness. Upper midline scar, no hernia Skin: Other: Warm, dry, no rashes Extrem: Other: No cyanosis, clubbing or edema. Results Results Labs: Short CBC 01/17/25 01/18/25 Range/Units 15:18 05:28 WBC 11.4 H 14.0 H (4.8-10.8) X10*3/uL Hgb 18.2 H 18.2 H (14.0-18.0) g/dl Hct 49.2 49.8 (42.0-52.0) % Plt Count 348 346 (160-400) X10*3/uL BMP 01/17/25 01/18/25 15:18 05:28 Sodium 134 L 133 L Potassium 3.1 L 3.4 Chloride 97 97 Carbon Dioxide 25 25 BUN 8 L 7 L Creatinine 0.72 0.62 Calcium 9.7 9.4 Liver Function 01/17/25 Range/Units 15:18 Total Bilirubin 0.6 (0.0-1.0) mg/dL Direct Bilirubin 0.3 (0.0-0.5) mg/dL AST 27 (5-37) U/L ALT 17 (0-40) U/L Alkaline Phosphatase 87 (39-117) U/L Albumin 4.7 (3.5-5.0) g/dL Urine 01/17/25 Range/Units 17:12 Urine Color Yellow Urine Appearance Clear Urine pH 8.0 (5.0-9.0) Ur Specific [place] 1.010 (1.005-1.025) Urine Protein Trace (Neg-Trace) mg/dL Urine Glucose (UA) Negative (Negative) mg/dL Chest x-ray: image reviewed Abdomen CT scan report/results: image reviewed CT scan - chest: image reviewed Assessment and Plan (1) Small bowel obstruction: Status: Acute Plan 54-year-old male patient presenting with complaints of 3 day history of abdominal pain worsening over the past 24 hours with the associated nausea and vomiting. Workup revealed a mild leukocytosis and CT findings suggestive of a small-bowel obstruction with a transition point in the left lower quadrant. His large bowel appears to be in its normal position without malrotation however small bowel is position more to the right side with the potential twist of the mesentery. I reviewed the findings in detail with the assistance of a primary grade teacher and recommended an emergency exploratory laparotomy, lysis of adhesions, possible bowel resection. After discussion of the procedure, risks, and alternatives, he consents to the surgery. Quality Stroke Does the patient have a stroke diagnosis?: No VTE Prior VTE?: No VTE Risk Level:: Surgical - moderate VTE Device Contraindication: N/A - Device Ordered VTE Drug Contraindication: Treatment Not Indicated Procedures Date of Service Date of Service: 01/18/25
[2025-01-18] MEDS: Lactated Ringers 1,000 ML 125 ML IVCONT ×2 (07:06→22:15)
--- NOTE | 2025-01-18 07:26 | PC.NURSE ---
Pt appears more comfortable following dialdid. NG tube remains in place and to intermittent suction. 800ml mostly clear fluid with khoi red specks in vacutainer. has been NPO since yesterday dinner. pt is aware of plan for transfer to OR this AM.
--- NOTE | 2025-01-18 08:43 | MHC.EDTECH ---
Patient is complaining for a lot of pain, Patient was advised that the RN will be made aware. RN made aware.
--- NOTE | 2025-01-18 08:53 | PC.NURSE ---
continues to complain of pain. additional meds requested of hospitalist.
[2025-01-18 08:56] LABS: Glucose, Whole Blood 176 mg/dL (60-115)
[2025-01-18 10:16] LABS: Glucose, Whole Blood 167 mg/dL (60-115)
--- NOTE | 2025-01-18 10:48 | PHA.MEDREC ---
Addendum entered by Cheryl Graham rochelle 01/19/25 11:05: Spoke to patient via lock and dam operator and he was able to confirm his medications. Patient verified that he is not taking aspirin nor duloxetine anymore. Per patient, he takes metformin 1000 mg bid. When ask about how there's no claims at [facility] for metformin, patient said he is taking it twice a day and he has a lot of it at home. Last dose of medications was tuesday01/16/25. Original Note: Pharmacy Consult ? Medication Reconciliation Pharmacy has completed the medication reconciliation. Attempted to speak with patient through lock and dam operator service, how ever patient states he is to much pain to speak/think at the moment. Patient lives with son however, couldn't get sons contact information. Utilized claims to confirm most recent claims. Will have evening [employer] follow up when patient feels better or when son comes in.
--- NOTE | 2025-01-18 10:54 | PC.NURSE ---
Patient transported to [facility] for surgical procedure at approximately 1045.
[2025-01-18 11:20] LABS: Glucose, Whole Blood 163 mg/dL (60-115)
--- NOTE | 2025-01-18 11:27 | PC.NURSE ---
Patient noted to have an NG tube to the right nare. NG tube patent, secured, and hooked up to wall suction. + drainage noted to be coming out of tube. +bowel sounds, abd round, distended, and tender.
--- NOTE | 2025-01-18 11:34 | PC.NURSE ---
Family at the bedside with patient to discuss plan of care with surgical team included but not limited to surgeon, anesthesiologist, RN, etc.
--- NOTE | 2025-01-18 11:39 | HO.ANESPROP2 ---
Documented by User: Daly Zelaya NP 01/18/25 11:33 HPI - Anesthesia Eval Consult details Narrative: 54 yr old male for Exploratory Laparotomy, lysis of Adhesions, seen with per diem interpreter No recent illness No CP/SOB COPD: O2 low to mid 90s on ra in ED Type 2 DM: on glipizide, metformin, BG 140s-150s H/O substance use disorder: on suboxone PMFSH Active Problems Active Problems: All Active Problems Chronic constipation (Acute) Non-insulin dependent type 2 diabetes mellitus (Acute) Tobacco dependence (Acute) Hyperlipidemia (Acute) Small bowel obstruction (Acute) Chronic pain syndrome (Acute) Degenerative disc disease, lumbar (Acute) Lumbar spondylosis (Acute) Back pain (Acute) Chronic low back pain with sciatica (Acute) Past Medical History Medical History COPD (chronic obstructive pulmonary disease) Chronic constipation Non-insulin dependent type 2 diabetes mellitus Tobacco dependence Hyperlipidemia Small bowel obstruction History of substance use disorder Functional capacity: independent ambulation Family History Family history of problems with anesthesia: No Surgical History Surgical History History of abdominal surgery History of Problems with Anesthesia: No Social History Social History (Updated 01/18/25 @ 02:07 by GERRY Fragoso) Household Members: Children Housing: Apartment Do you presently have visiting nurse or other home services: Yes ([employer].) Patient Tobacco Use Status: Current everyday Tobacco user Tobacco use type: Cigarette Cigarette Packs Per Day: 1 Cigarettes Per Day: 20.0 Current occupational status: disabled Meds Allergies Allergy/AdvReac Type Severity Reaction Status Date / Time No Known Allergies Allergy Verified 01/17/25 14:47 Active Medications: Current Medications Dextrose (Dextrose 50 % 25 Gm/50 Ml Syringe) 25 gm IVPUSH Q15M PRN; Protocol PRN Reason: per Hypoglycemia Standing Ord. Glucose (Glucose Gel 15 Gm Gel..Gram.) 15 gm PO Q15M PRN; Protocol PRN Reason: per Hypoglycemia Standing Ord. Hydralazine HCl (Hydralazine Hcl 20 Mg/Ml Vial) 10 mg IVPUSH Q6H PRN; Protocol PRN Reason: SBP > 160 Last Admin: 01/18/25 07:23 Dose: 10 mg Hydromorphone HCl (Hydromorphone Hcl 1 Mg/Ml Syringe) 1 mg IVPUSH Q3H PRN; Protocol PRN Reason: Pain, Severe (Pain Scale 7-10) Last Admin: 01/18/25 07:09 Dose: 1 mg Lactated Ringer's (Lr) 1,000 mls @ 125 mls/hr IVCONT .Q8H [place] Last Admin: 01/18/25 07:06 Dose: 125 mls/hr Acetaminophen (Ofirmev) 1,000 mg in 100 mls @ 400 mls/hr IV Q6H PRN PRN Reason: Pain, Mild (Pain Scale 1-3) Insulin Human Lispro (Insulin Lispro 100 Unit/Ml 3 Ml Vial) 0 unit SUBCUT Q6H [facility]; Protocol Last Admin: 01/18/25 07:05 Dose: Not Given Ondansetron HCl (Ondansetron Hcl 4 Mg/2 Ml Vial) 4 mg IVPUSH QID PRN PRN Reason: Nausea Oxycodone HCl (Oxycodone Hcl Immed Release 5 Mg Tablet) 5 mg PO Q6H PRN PRN Reason: Pain, Moderate(Pain Scale 4-6) Last Admin: 01/17/25 22:43 Dose: 5 mg Sodium Chloride (0.9 % Sodium Chloride Flush 3 Ml Syringe) 3 ml IVFSH [facility] Last Admin: 01/18/25 00:24 Dose: 3 ml Home Medications ?Medication ?Instructions ?Recorded ?Confirmed ?Last Taken ?Type albuterol sulfate 2 mg/5 mL oral 2 mg PO TID 07/20/24 01/18/25 Unknown History syrup aspirin 81 mg tablet,delayed 81 mg PO DAILY 07/20/24 07/20/24 Unknown History release atorvastatin 40 mg tablet 40 mg PO DAILY 07/20/24 07/20/24 Unknown History chlorthalidone 25 mg tablet 25 mg PO DAILY 07/20/24 07/20/24 Unknown History cholecalciferol (vitamin D3) 10 10 mcg PO DAILY 07/20/24 07/20/24 Unknown History mcg (400 unit) capsule clonidine HCl 0.1 mg tablet 0.1 mg PO BEDTIME 07/20/24 07/20/24 Unknown History duloxetine 30 mg capsule,delayed 30 mg PO DAILY 07/20/24 07/20/24 Unknown History release fluticasone 100 mcg-salmeterol 50 1 inh inhalation BID 07/20/24 07/20/24 Unknown History mcg/dose blistr powdr for inhalation (Advair Diskus) fluticasone propionate 50 1 spray intranasal DAILY 07/20/24 07/20/24 Unknown History mcg/actuation nasal spray,suspension (Flonase Allergy Relief) metformin 1,000 mg tablet 1,000 mg PO DAILY 07/20/24 07/20/24 Unknown History mirtazapine 15 mg tablet 15 mg PO BEDTIME 07/20/24 07/20/24 Unknown History naloxone 4 mg/actuation nasal 4 mg intranasal Q2M PRN 07/20/24 07/20/24 Unknown History spray (Narcan) amlodipine 10 mg tablet 10 mg PO DAILY 01/18/25 01/18/25 Unknown History buprenorphine 8 mg-naloxone 2 mg 1 film sublingual TID 01/18/25 01/18/25 Unknown History sublingual film calcium polycarbophil 625 mg 625 mg PO BID 01/18/25 01/18/25 Unknown History tablet (Fiber-Lax) docusate sodium 100 mg capsule 100 mg PO BID 01/18/25 01/18/25 Unknown History escitalopram oxalate 10 mg tablet 10 mg PO DAILY 01/18/25 01/18/25 Unknown History glipizide 5 mg tablet, extended 5 mg PO DAILY 01/18/25 01/18/25 Unknown History release 24 hr ibuprofen 800 mg tablet 800 mg PO TID 01/18/25 01/18/25 Unknown History losartan 100 1 tab PO DAILY 01/18/25 01/18/25 Unknown History mg-hydrochlorothiazide 12.5 mg tablet polyethylene glycol 3350 17 17 g PO DAILY PRN constipation 01/18/25 01/18/25 Unknown History gram/dose oral powder sennosides 8.6 mg-docusate sodium 2 tab PO DAILY 01/18/25 01/18/25 Unknown History 50 mg tablet (Stool Softener-Stimulant Laxative) Exam Height,Weight and Vital Signs: Height 5 ft 7 in Weight 81.647 kg Last Vital Signs Temp 98.8 F 01/18/25 07:58 Pulse 80 01/18/25 07:58 Resp 18 01/18/25 07:58 BP 180/102 H 01/18/25 07:58 Pulse Ox 99 01/18/25 07:58 O2 Del Method Room Air 01/18/25 07:58 Pertinent Lab Results Pertinent Lab Results: Laboratory Tests 01/17/25 01/17/25 01/17/25 15:18 17:12 20:22 WBC 11.4 H RBC 5.73 Hgb 18.2 H Hct 49.2 MCV 85.9 MCH 31.8 MCHC 37.0 H RDW 13.0 Plt Count 348 MPV 9.3 L Immature Gran % (Auto) 0.4 Neut % (Auto) 80.9 H Lymph % (Auto) 11.2 L [place] % (Auto) 6.3 Eos % (Auto) 0.3 Baso % (Auto) 0.9 Lymph # (Auto) 1.3 [place] # (Auto) 0.7 Eos # (Auto) 0.0 Baso # (Auto) 0.1 Abs Immat Gran (auto) 0.04 H Absolute Neuts (auto) 9.2 H Absolute Nucleated RBC 0.000 Nucleated RBC % (auto) 0.0 Sodium 134 L Potassium 3.1 L Chloride 97 Carbon Dioxide 25 Anion Gap 15 BUN 8 L Creatinine 0.72 Estim Creat Clear Calc 117.1 Estimated GFR > 60 POC Glucose Random Glucose 143 H Lactic Acid 0.9 Calcium 9.7 Magnesium 1.7 Total Bilirubin 0.6 Direct Bilirubin 0.3 AST 27 ALT 17 Alkaline Phosphatase 87 Troponin I High Sens 2.9 Total Protein 7.6 Albumin 4.7 Lipase 14 Urine Color Yellow Urine Appearance Clear Urine pH 8.0 Ur Specific [place] 1.010 Urine Protein Trace Urine Glucose (UA) Negative Urine Ketones 15 Urine Blood Negative Urine Nitrite Negative Ur Leukocyte Esterase Negative Influenza Type A (PCR) NEGATIVE Influenza Type B (PCR) NEGATIVE RSV RNA Qual (PCR) NEGATIVE SARS-CoV-2 RNA (RT-PCR) NEGATIVE 01/17/25 01/18/25 01/18/25 23:17 04:58 05:28 WBC 14.0 H RBC 5.77 Hgb 18.2 H Hct 49.8 MCV 86.3 MCH 31.5 MCHC 36.5 H RDW 12.9 Plt Count 346 MPV 9.9 Immature Gran % (Auto) 0.3 Neut % (Auto) 88.6 H Lymph % (Auto) 6.0 L [place] % (Auto) 4.4 Eos % (Auto) 0.4 Baso % (Auto) 0.3 Lymph # (Auto) 0.8 L [place] # (Auto) 0.6 Eos # (Auto) 0.1 Baso # (Auto) 0.0 Abs Immat Gran (auto) 0.04 H Absolute Neuts (auto) 12.4 H Absolute Nucleated RBC 0.000 Nucleated RBC % (auto) 0.0 Sodium 133 L Potassium 3.4 Chloride 97 Carbon Dioxide 25 Anion Gap 14 BUN 7 L Creatinine 0.62 Estim Creat Clear Calc 136.0 Estimated GFR > 60 POC Glucose 190 H 155 H Random Glucose 147 H Lactic Acid Calcium 9.4 Magnesium Total Bilirubin Direct Bilirubin AST ALT Alkaline Phosphatase Troponin I High Sens Total Protein Albumin Lipase Urine Color Urine Appearance Urine pH Ur Specific [place] Urine Protein Urine Glucose (UA) Urine Ketones Urine Blood Urine Nitrite Ur Leukocyte Esterase Influenza Type A (PCR) Influenza Type B (PCR) RSV RNA Qual (PCR) SARS-CoV-2 RNA (RT-PCR) Airway Mallampati Class: III TM Dist: >3cm Neck ROM: Full Loose/Missing/Broken Teeth: Yes (molars M; crown 9) Heart: RRR Lungs: CTAB Assessment and Plan Final Anesthetic Review Family History of Problems with Anesthesia: No History of Problems with Anesthesia: No Documented by User: Caprice Smith DO 01/18/25 11:51 [facility] Past Medical History Medical History COPD (chronic obstructive pulmonary disease) Chronic constipation Non-insulin dependent type 2 diabetes mellitus Tobacco dependence Hyperlipidemia Small bowel obstruction History of substance use disorder Family History Family history of problems with anesthesia: No Surgical History Surgical History History of abdominal surgery History of Problems with Anesthesia: No Social History Social History (Updated 01/18/25 @ 02:07 by GERRY Fragoso) Household Members: Children Housing: Apartment Do you presently have visiting nurse or other home services: Yes ([employer].) Patient Tobacco Use Status: Current everyday Tobacco user Tobacco use type: Cigarette Cigarette Packs Per Day: 1 Cigarettes Per Day: 20.0 Current occupational status: disabled Meds Allergies Allergy/AdvReac Type Severity Reaction Status Date / Time No Known Allergies Allergy Verified 01/17/25 14:47 Home Medications ?Medication ?Instructions ?Recorded ?Confirmed ?Last Taken ?Type albuterol sulfate 2 mg/5 mL oral 2 mg PO TID 07/20/24 01/18/25 Unknown History syrup aspirin 81 mg tablet,delayed 81 mg PO DAILY 07/20/24 07/20/24 Unknown History release atorvastatin 40 mg tablet 40 mg PO DAILY 07/20/24 07/20/24 Unknown History chlorthalidone 25 mg tablet 25 mg PO DAILY 07/20/24 07/20/24 Unknown History cholecalciferol (vitamin D3) 10 10 mcg PO DAILY 07/20/24 07/20/24 Unknown History mcg (400 unit) capsule clonidine HCl 0.1 mg tablet 0.1 mg PO BEDTIME 07/20/24 07/20/24 Unknown History duloxetine 30 mg capsule,delayed 30 mg PO DAILY 07/20/24 07/20/24 Unknown History release fluticasone 100 mcg-salmeterol 50 1 inh inhalation BID 07/20/24 07/20/24 Unknown History mcg/dose blistr powdr for inhalation (Advair Diskus) fluticasone propionate 50 1 spray intranasal DAILY 07/20/24 07/20/24 Unknown History mcg/actuation nasal spray,suspension (Flonase Allergy Relief) metformin 1,000 mg tablet 1,000 mg PO DAILY 07/20/24 07/20/24 Unknown History mirtazapine 15 mg tablet 15 mg PO BEDTIME 07/20/24 07/20/24 Unknown History naloxone 4 mg/actuation nasal 4 mg intranasal Q2M PRN 07/20/24 07/20/24 Unknown History spray (Narcan) amlodipine 10 mg tablet 10 mg PO DAILY 01/18/25 01/18/25 Unknown History buprenorphine 8 mg-naloxone 2 mg 1 film sublingual TID 01/18/25 01/18/25 Unknown History sublingual film calcium polycarbophil 625 mg 625 mg PO BID 01/18/25 01/18/25 Unknown History tablet (Fiber-Lax) docusate sodium 100 mg capsule 100 mg PO BID 01/18/25 01/18/25 Unknown History escitalopram oxalate 10 mg tablet 10 mg PO DAILY 01/18/25 01/18/25 Unknown History glipizide 5 mg tablet, extended 5 mg PO DAILY 01/18/25 01/18/25 Unknown History release 24 hr ibuprofen 800 mg tablet 800 mg PO TID 01/18/25 01/18/25 Unknown History losartan 100 1 tab PO DAILY 01/18/25 01/18/25 Unknown History mg-hydrochlorothiazide 12.5 mg tablet polyethylene glycol 3350 17 17 g PO DAILY PRN constipation 01/18/25 01/18/25 Unknown History gram/dose oral powder sennosides 8.6 mg-docusate sodium 2 tab PO DAILY 01/18/25 01/18/25 Unknown History 50 mg tablet (Stool Softener-Stimulant Laxative) Exam Exam Date and Time: 01/18/25 1140 Airway Mallampati Class: III TM Dist: >3cm Neck ROM: Full Loose/Missing/Broken Teeth: Yes (missing molars) Heart: S1S2 Other: NGT in place Assessment and Plan Assessment Anesthesia Assessment: Anesthesia Plan Discussed and Chart Reviewed Final Anesthetic Review Family History of Problems with Anesthesia: No History of Problems with Anesthesia: No NPO: Yes ASA Class: III and Emergency Final Preanesthetic Review: No Changes in Pt Med Stat, Meds/Allgs Chart Reviewed, Consent Obtained/Reviewed (per diem interpreter at bedside for translation) and Anes Risks/Benef Reviewed Patient Risk: Intermediate Procedure Risk: Intermediate Anesthetic Plan Anesthetic Plan: GA, Regional Block (possible bilateral transversus abdominis plane block and/or bilateral rectus sheath block) and Agree w/ Assess. and Plan Disposition: Standard PACU
[2025-01-18] MEDS: cefoTEtan disodium 2 GM VIAL IVPUSH (12:15)
--- NOTE | 2025-01-18 13:22 | HO.PM.IMPN ---
Subjective Subjective Date of Service: 01/18/25 Interval History: Chart reviewed patient examined. Uncomfortable appearing awaiting surgery Review of Systems Denies chest pain Denies shortness of breath Admits to nausea vomiting and abdominal pain Denies fever chills Physical Exam Vital Signs: Vital Signs: Last Vital Signs Temp 99.2 F 01/18/25 11:08 Pulse 93 01/18/25 11:08 Resp 16 01/18/25 11:08 BP 183/101 H 01/18/25 11:08 Pulse Ox 94 01/18/25 11:08 O2 Del Method Nasal Cannula 01/18/25 11:08 O2 Flow Rate 2 01/18/25 11:08 BMI result Body Mass Index 28.2 Const: Other: Awake alert uncomfortable appearing HEENT: Other: NG-tube present Resp: Other: Clear to auscultation bilaterally no rales rhonchi or wheezes Cardio: Other: No S4; positive S1-S2; no S3 murmurs rubs or gallops GI: Other: Slightly distended quiet bowel sounds Extrem: Other: No edema bilaterally Objective Data Active Medications Dextrose (Dextrose 50 % 25 Gm/50 Ml Syringe) 25 gm IVPUSH Q15M PRN; Protocol PRN Reason: per Hypoglycemia Standing Ord. Glucose (Glucose Gel 15 Gm Gel..Gram.) 15 gm PO Q15M PRN; Protocol PRN Reason: per Hypoglycemia Standing Ord. Haloperidol Lactate (Haloperidol Lactate 5 Mg/Ml Vial) 1 mg IVPUSH ONCE PRN PRN Reason: intractable nausea Stop: 01/18/25 19:19 Hydralazine HCl (Hydralazine Hcl 20 Mg/Ml Vial) 10 mg IVPUSH Q6H PRN; Protocol PRN Reason: SBP > 160 Last Admin: 01/18/25 07:23 Dose: 10 mg Documented By: DORM Hydromorphone HCl (Hydromorphone Hcl 1 Mg/Ml Syringe) 1 mg IVPUSH Q3H PRN; Protocol PRN Reason: Pain, Severe (Pain Scale 7-10) Last Admin: 01/18/25 07:09 Dose: 1 mg Documented By: DORM Hydromorphone HCl (Hydromorphone Hcl 0.5 Mg/0.5 Ml Syringe) 0.5 mg IVPUSH Q5M PRN PRN Reason: Pain, Moderate to Severe (Pain Scale 4-10) Stop: 01/18/25 19:19 Lactated Ringer's (Lr) 1,000 mls @ 125 mls/hr IVCONT .Q8H [facility] Last Admin: 01/18/25 07:06 Dose: 125 mls/hr Documented By: EMILE Acetaminophen (Ofirmev) 1,000 mg in 100 mls @ 400 mls/hr IV Q6H PRN PRN Reason: Pain, Mild (Pain Scale 1-3) Last Infusion: 01/18/25 10:12 Dose: Infused Documented By: SAE Insulin Human Lispro (Insulin Lispro 100 Unit/Ml 3 Ml Vial) 0 unit SUBCUT Q6H [facility]; Protocol Last Admin: 01/18/25 13:11 Dose: Not Given Documented By: SAE Non-Admin Reason: Off Unit: Surgery Naloxone HCl (Naloxone Hcl 0.4 Mg/Ml Vial) 0.04 mg IVPUSH Q5M PRN PRN Reason: Excessive sedation or RR < 8 Ondansetron HCl (Ondansetron Hcl 4 Mg/2 Ml Vial) 4 mg IVPUSH QID PRN PRN Reason: Nausea Oxycodone HCl (Oxycodone Hcl Immed Release 5 Mg Tablet) 5 mg PO Q6H PRN PRN Reason: Pain, Moderate(Pain Scale 4-6) Last Admin: 01/17/25 22:43 Dose: 5 mg Documented By: MARQUITA Sodium Chloride (0.9 % Sodium Chloride Flush 3 Ml Syringe) [facility] Last Admin: 01/18/25 08:48 Dose: Not Given Documented By: EMILE Non-Admin Reason: Med Not Available Labs 01/18/25 05:28 01/18/25 05:28 Labs: Laboratory Results - last 24 hr 01/17/25 01/17/25 01/17/25 15:18 17:12 20:22 MCV 85.9 MCH 31.8 MCHC 37.0 H RDW 13.0 Plt Count 348 MPV 9.3 L Immature Gran % (Auto) 0.4 Neut % (Auto) 80.9 H Lymph % (Auto) 11.2 L [place] % (Auto) 6.3 Eos % (Auto) 0.3 Baso % (Auto) 0.9 Lymph # (Auto) 1.3 [place] # (Auto) 0.7 Eos # (Auto) 0.0 Baso # (Auto) 0.1 Abs Immat Gran (auto) 0.04 H Absolute Neuts (auto) 9.2 H Absolute Nucleated RBC 0.000 Nucleated RBC % (auto) 0.0 Anion Gap 15 Estim Creat Clear Calc 117.1 Estimated GFR > 60 POC Glucose Random Glucose 143 H Lactic Acid 0.9 Calcium 9.7 Magnesium 1.7 Total Bilirubin 0.6 Direct Bilirubin 0.3 AST 27 ALT 17 Alkaline Phosphatase 87 Total Protein 7.6 Albumin 4.7 Lipase 14 Urine Color Yellow Urine Appearance Clear Urine pH 8.0 Ur Specific [place] 1.010 Urine Protein Trace Urine Glucose (UA) Negative Urine Ketones 15 Urine Blood Negative Urine Nitrite Negative Ur Leukocyte Esterase Negative Influenza Type A (PCR) NEGATIVE Influenza Type B (PCR) NEGATIVE RSV RNA Qual (PCR) NEGATIVE SARS-CoV-2 RNA (RT-PCR) NEGATIVE Blood Type Antibody Screen 01/17/25 01/18/25 01/18/25 23:17 04:58 05:28 MCV 86.3 MCH 31.5 MCHC 36.5 H RDW 12.9 Plt Count 346 MPV 9.9 Immature Gran % (Auto) 0.3 Neut % (Auto) 88.6 H Lymph % (Auto) 6.0 L [place] % (Auto) 4.4 Eos % (Auto) 0.4 Baso % (Auto) 0.3 Lymph # (Auto) 0.8 L [place] # (Auto) 0.6 Eos # (Auto) 0.1 Baso # (Auto) 0.0 Abs Immat Gran (auto) 0.04 H Absolute Neuts (auto) 12.4 H Absolute Nucleated RBC 0.000 Nucleated RBC % (auto) 0.0 Anion Gap 14 Estim Creat Clear Calc 136.0 Estimated GFR > 60 POC Glucose 190 H 155 H Random Glucose 147 H Lactic Acid Calcium 9.4 Magnesium Total Bilirubin Direct Bilirubin AST ALT Alkaline Phosphatase Total Protein Albumin Lipase Urine Color Urine Appearance Urine pH Ur Specific [place] Urine Protein Urine Glucose (UA) Urine Ketones Urine Blood Urine Nitrite Ur Leukocyte Esterase Influenza Type A (PCR) Influenza Type B (PCR) RSV RNA Qual (PCR) SARS-CoV-2 RNA (RT-PCR) Blood Type Antibody Screen 01/18/25 01/18/25 01/18/25 07:15 08:53 10:11 MCV MCH MCHC RDW Plt Count MPV Immature Gran % (Auto) Neut % (Auto) Lymph % (Auto) [place] % (Auto) Eos % (Auto) Baso % (Auto) Lymph # (Auto) [place] # (Auto) Eos # (Auto) Baso # (Auto) Abs Immat Gran (auto) Absolute Neuts (auto) Absolute Nucleated RBC Nucleated RBC % (auto) Anion Gap Estim Creat Clear Calc Estimated GFR POC Glucose 176 H 167 H Random Glucose Lactic Acid Calcium Magnesium Total Bilirubin Direct Bilirubin AST ALT Alkaline Phosphatase Total Protein Albumin Lipase Urine Color Urine Appearance Urine pH Ur Specific [place] Urine Protein Urine Glucose (UA) Urine Ketones Urine Blood Urine Nitrite Ur Leukocyte Esterase Influenza Type A (PCR) Influenza Type B (PCR) RSV RNA Qual (PCR) SARS-CoV-2 RNA (RT-PCR) Blood Type O Positive Antibody Screen NEGATIVE 01/18/25 11:17 MCV MCH MCHC RDW Plt Count MPV Immature Gran % (Auto) Neut % (Auto) Lymph % (Auto) [place] % (Auto) Eos % (Auto) Baso % (Auto) Lymph # (Auto) [place] # (Auto) Eos # (Auto) Baso # (Auto) Abs Immat Gran (auto) Absolute Neuts (auto) Absolute Nucleated RBC Nucleated RBC % (auto) Anion Gap Estim Creat Clear Calc Estimated GFR POC Glucose 163 H Random Glucose Lactic Acid Calcium Magnesium Total Bilirubin Direct Bilirubin AST ALT Alkaline Phosphatase Total Protein Albumin Lipase Urine Color Urine Appearance Urine pH Ur Specific [place] Urine Protein Urine Glucose (UA) Urine Ketones Urine Blood Urine Nitrite Ur Leukocyte Esterase Influenza Type A (PCR) Influenza Type B (PCR) RSV RNA Qual (PCR) SARS-CoV-2 RNA (RT-PCR) Blood Type Antibody Screen Assessment and Plan (1) Small bowel obstruction: Status: Acute (2) Non-insulin dependent type 2 diabetes mellitus: Status: Acute Plan Hospitalist group consulted per surgeon to help with patient's medical management in regards to diabetes and hypertension. Patient admitted for small-bowel obstruction and his currently NPO with plans for NG tube placement. CT scan indicates point of transition and patient remains symptomatic. 1.SBO -NPO -as per surgery 2. Hypokalemia -good response to repletion -follow renals/divalents 3.NIDDM -acceptable control on current therapies -lispro correctional scale -adjust as indicated 4. Hypertension -p.r.n. hydralazine while NPO -reassess postop We will follow Quality Stroke Does the patient have a stroke diagnosis?: No VTE Prior VTE?: No VTE Risk Level:: Surgical - moderate VTE Device Contraindication: N/A - Device Ordered VTE Drug Contraindication: Treatment Not Indicated
--- NOTE | 2025-01-18 13:27 | P.OP_ITS ---
Operative Note Operative Note Date of Service: 01/18/25 Narrative: Preoperative diagnosis: Small bowel obstruction Postoperative diagnosis: Same, internal hernia with infarcted bowel Procedure: Exploratory laparotomy, lysis of adhesions, small-bowel resection Surgeon: Jv Galarza MD Systems Operator: Fletcher Portillo PA-C; HEIDY Sampson Anesthesia: General endotracheal Indications for procedure: 54-year-old male patient presenting with complaints of severe abdominal pain of 3 days' duration. Patient has a prior history of small-bowel obstruction. Workup revealed dilated loops of small bowel suggestive of small-bowel obstruction. 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 After administering general anesthesia the patient's abdomen was prepped with ChloraPrep and draped in a sterile fashion. A surgical time-out was called the consent confirmed. Patient received preoperative antibiotics and Venodyne boots were in place. A lower midline incision was made food below the umbilicus to the pubis. Incision was carried out through subcutaneous tissue up to linea alba. This was then incised with electrocautery and peritoneum entered. A Bookwalter retractor was then placed. Surgical assistance were required to assist with retraction and exploration. Small bowel was noted to be markedly dilated. This was brought up through the incision and run from proximal to distal. At approximately the last 25 cm of the ileum an area of adhesion was noted deep in the pelvis. A loop of small bowel was noted to be herniated into an area of adhesion in the left lower quadrant with a surrounding hematoma. The adhesion was opened using electrocautery and a loop of intestine brought up into the incision. There was an area of ischemia and hemorrhage in the wall of the small bowel which did not appear viable. The decision was made to resect this area and perform a functional end-to-end anastomosis. The mesentery was divided proximal and distal to the area of infarction. A JOSHUA stapler was then used to divide the small bowel both proximally and distally. LigaSure was then used to divide the mesentery and the specimen removed. This was sent to pathology for further examination. A functional end-to-end anastomosis was prepared by using silk 3-0 sutures to approximate the proximal and distal portion of the bowel. An enterotomy was then created at both the proximal and distal segment and a JOSHUA stapler fired between the 2 loops to create a end-to-end anastomosis. A TA 60 stapler was then used to close the enterotomy. This was then reinforced using [place] 3-0 silk sutures. The crotch was reinforced using 3-0 silk sutures as well. The small bowel was then run once again and no other obstruction identified. Bowel was then returned to the abdominal cavity carefully to be sure to avoid any twists. Wounds were then irrigated with saline solution and suctioned dry. Fascia was then closed in the midline using a running 0 looped PDS suture. Subcutaneous tissue and dermis were then reapproximated using interrupted 3-0 Polysorb sutures. Skin was closed using skin nehemiah. Sterile dressings were then applied. The patient tolerated the procedure well. Sponge, instrument, and needle counts reported as correct. The patient was transferred to PACU in stable condition.
--- NOTE | 2025-01-18 14:47 | MHC.CM.PN ---
Addendum entered by Adina Cevallos RN 01/18/25 16:02: *Will attempt to complete assessment tomorrow. Addendum entered by Adina Cevallos RN 01/18/25 16:02: Patient returned to unit. Attempted CM assessment, still drowsy from surgery and unable to participate. Will attempt. Original Note: Pateint in OR, will attempt CM assessment upon return.
[2025-01-18 15:13] LABS: Glucose, Whole Blood 172 mg/dL (60-115)
[2025-01-18] MEDS: Lactated Ringers 1,000 ML 100 ML IVCONT (15:16)
[2025-01-18 17:26] LABS: Glucose, Whole Blood 155 mg/dL (60-115)
[2025-01-18 23:40] LABS: Glucose, Whole Blood 149 mg/dL (60-115)
[2025-01-19] VITALS (23 sets, daily range): BP systolic 140–174; BP diastolic 70–99; PULSE 82–95; RESP 16–20; TEMP 36.7–37.5; O2SAT 91–94
[2025-01-19] MEDS: 0.9 % Sodium Chloride Flush 3 ML SYRINGE IVFLUSH ×3 (00:11→21:25)
[2025-01-19 05:56] LABS: Glucose, Whole Blood 155 mg/dL (60-115)
[2025-01-19] MEDS: Lactated Ringers 1,000 ML 125 ML IVCONT ×2 (06:02→14:50)
[2025-01-19 06:59] LABS: MANUAL DIFF FLAG NO
[2025-01-19 07:13] LABS: Hematocrit 49.2 % (42.0-52.0); Hemoglobin 17.5 g/dl (14.0-18.0); Imm Gran Abs Auto 0.03 X10*3/uL (0.00-0.03); Imm Gran Pct Auto 0.3 % (0.0-0.4); Lymphocytes Absolute Auto 0.9 X10*3/uL (1.2-4.9); Mean Corpuscular HGB Conc 35.6 g/dl (31.0-36.0); Mean Corpuscular Hemoglobin 31.3 pg (27.0-33.0); Mean Corpuscular Volume 88.0 fL (80.0-98.0); NRBC Abs Auto 0.000 X10*3/uL (0.0-0.012); NRBC Pct Auto 0.0 /100WBC (0.0-0.2); Platelet Count 340 X10*3/uL (160-400); Red Blood Count 5.59 X10*6/uL (4.60-5.80); White Blood Count 9.0 X10*3/uL (4.8-10.8)
[2025-01-19] MEDS: oxyCODONE HCl Immed Release 5 MG TABLET PO (07:57)
[2025-01-19 11:44] LABS: Glucose, Whole Blood 140 mg/dL (60-115)
--- NOTE | 2025-01-19 11:50 | P.PNIM_ITS ---
Subjective Subjective Date of Service: 01/19/25 Interval History: c/o discomfort from NGT which is draining bilious liquid; no flatus yet Review of Systems Review of Systems: Yes all other systems are reviewed and are negative Physical Exam 2 Vital Signs: Vital Signs: Last Vital Signs Temp 98.5 F 01/19/25 11:43 Pulse 83 01/19/25 11:43 Resp 16 01/19/25 11:43 BP 174/90 H 01/19/25 11:43 Pulse Ox 94 01/19/25 11:43 O2 Del Method Nasal Cannula 01/19/25 11:43 O2 Flow Rate 3 01/19/25 11:43 BMI result Body Mass Index 28.2 Gen: in no acute distress HEENT: sclera anicteric, moist mucus membranes Neck: supple Lungs: clear to auscultation bilaterally Heart: regular rate and rhythm, no murmurs Abd: midline incision, NGT with bilious output, no bowel sounds yet, slightly distended Ext: no edema Skin: warm/well-perfused Neuro: alert and oriented x3, no focal findings Psych: appropriate affect Objective Data Active Medications Buprenorphine/Naloxone (Buprenorphine/Naloxone 8/2 Mg Film) 1 film SUBLINGUAL TID [place] Last Admin: 01/19/25 08:51 Dose: 1 film Documented By: RAJANI Dextrose (Dextrose 50 % 25 Gm/50 Ml Syringe) 25 gm IVPUSH Q15M PRN; Protocol PRN Reason: per Hypoglycemia Standing Ord. Glucose (Glucose Gel 15 Gm Gel..Gram.) 15 gm PO Q15M PRN; Protocol PRN Reason: per Hypoglycemia Standing Ord. Hydralazine HCl (Hydralazine Hcl 20 Mg/Ml Vial) 10 mg IVPUSH Q6H PRN; Protocol PRN Reason: SBP > 160 Last Admin: 01/19/25 04:17 Dose: 10 mg Documented By: SUZETTE Hydromorphone HCl (Hydromorphone Hcl 1 Mg/Ml Syringe) 1 mg IVPUSH Q3H PRN; Protocol PRN Reason: Pain, Severe (Pain Scale 7-10) Last Admin: 01/19/25 05:52 Dose: 1 mg Documented By: SUZETTE Lactated Ringer's (Lr) 1,000 mls @ 125 mls/hr IVCONT .Q8H [facility] Last Admin: 01/19/25 06:02 Dose: 125 mls/hr Documented By: SUZETTE Acetaminophen (Ofirmev) 1,000 mg in 100 mls @ 400 mls/hr IV Q6H PRN PRN Reason: Pain, Mild (Pain Scale 1-3) Last Infusion: 01/19/25 10:35 Dose: Infused Documented By: LUKE Piperacillin Sod/Tazobactam (Sod 3.375 gm/ Sodium Chloride) 50 mls @ 100 mls/hr IV Q6H [facility] Last Infusion: 01/19/25 11:26 Dose: Infused Documented By: LUKE Insulin Human Lispro (Insulin Lispro 100 Unit/Ml 3 Ml Vial) 0 unit SUBCUT Q6H [facility]; Protocol Last Admin: 01/19/25 06:00 Dose: Not Given Documented By: SUZETTE Non-Admin Reason: NPO, POC 155 Multi-Ingred Medicated Throat [place] (Throat [place], Medicated 177 Ml Bottle) 1 spray MUCOUS MEM Q2H PRN PRN Reason: Sore Throat Naloxone HCl (Naloxone Hcl 0.4 Mg/Ml Vial) 0.04 mg IVPUSH Q5M PRN PRN Reason: Excessive sedation or RR < 8 Ondansetron HCl (Ondansetron Hcl 4 Mg/2 Ml Vial) 4 mg IVPUSH QID PRN PRN Reason: Nausea Oxycodone HCl (Oxycodone Hcl Immed Release 5 Mg Tablet) 5 mg PO Q6H PRN PRN Reason: Pain, Moderate(Pain Scale 4-6) Last Admin: 01/19/25 07:57 Dose: 5 mg Documented By: LUKE Sodium Chloride (0.9 % Sodium Chloride Flush 3 Ml Syringe) [facility] Last Admin: 01/19/25 07:37 Dose: 3 ml Documented By: LUKE Labs 01/19/25 06:11 01/18/25 05:28 Labs: Laboratory Results - last 24 hr 01/18/25 01/18/25 01/18/25 15:10 17:23 23:32 MCV MCH MCHC RDW Plt Count MPV Immature Gran % (Auto) Neut % (Auto) Lymph % (Auto) [place] % (Auto) Eos % (Auto) Baso % (Auto) Lymph # (Auto) [place] # (Auto) Eos # (Auto) Baso # (Auto) Abs Immat Gran (auto) Absolute Neuts (auto) Absolute Nucleated RBC Nucleated RBC % (auto) POC Glucose 172 H 155 H 149 H 01/19/25 01/19/25 01/19/25 05:51 06:11 11:41 MCV 88.0 MCH 31.3 MCHC 35.6 RDW 13.2 Plt Count 340 MPV 10.3 Immature Gran % (Auto) 0.3 Neut % (Auto) 77.9 H Lymph % (Auto) 10.0 L [place] % (Auto) 11.6 H Eos % (Auto) 0.0 Baso % (Auto) 0.2 Lymph # (Auto) 0.9 L [place] # (Auto) 1.0 Eos # (Auto) 0.0 Baso # (Auto) 0.0 Abs Immat Gran (auto) 0.03 Absolute Neuts (auto) 7.0 Absolute Nucleated RBC 0.000 Nucleated RBC % (auto) 0.0 POC Glucose 155 H 140 H Assessment and Plan (1) Small bowel obstruction: Status: Acute (2) Non-insulin dependent type 2 diabetes mellitus: Status: Acute Plan 54yo M admitted to general surgery service with SBO, underwent ex-lap/MICHELE/SB resection 01/18 for 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 We will continue to follow the patient while they are admitted to your service. Quality Stroke Does the patient have a stroke diagnosis?: No VTE Prior VTE?: No VTE Risk Level:: Surgical - moderate VTE Device Contraindication: N/A - Device Ordered VTE Drug Contraindication: Treatment Not Indicated
[2025-01-19] MEDS: Throat Spray, Medicated 177 ML BOTTLE 1 SPRAY MUCOUS MEM ×2 (12:01→23:47)
--- NOTE | 2025-01-19 15:50 | HO.POSTANES ---
Post Anesthesia Evaluation Post Anesthesia Evaluation Date of Service: 01/19/25 Vital Signs: Vital Signs Temp Pulse Resp BP Pulse Ox O2 Del Method O2 Flow Rate 01/19/25 15:24 91 L Nasal Cannula 1.5 01/19/25 15:10 99.0 F 85 160/94 H 94 Nasal Cannula 3 01/19/25 12:32 160/76 H 01/19/25 11:50 16 01/19/25 11:43 98.5 F 83 16 174/90 H 94 Nasal Cannula 3 01/19/25 08:45 156/84 H 01/19/25 07:12 98.0 F 88 18 164/88 H 94 Nasal Cannula 3 01/19/25 05:29 85 155/87 H 01/19/25 05:20 85 155/87 H 01/19/25 05:05 85 159/79 H 01/19/25 04:49 90 165/85 H 01/19/25 04:34 95 169/99 H 01/19/25 04:25 82 01/19/25 04:20 170/97 H 01/19/25 04:17 170/97 H Anesthesia: General Endotracheal-GETA Mental Status: Awake Pain Control: Satisfactory Hydration: Adequate Anesthesia-Related Issues: No Anes. Related Issues
[2025-01-19 16:28] LABS: Glucose, Whole Blood 126 mg/dL (60-115)
[2025-01-19 17:52] LABS: Glucose, Whole Blood 128 mg/dL (60-115)
--- NOTE | 2025-01-19 17:53 | P.PNGS_ITS ---
Subjective Subjective Date of Service: 01/19/25 Interval history: Patient is doing okay no significant complaints having some pain but controlled with pain medication no flatus as yet Physical Exam 2 Vital Signs: Vital Signs: Last Vital Signs Temp 98.9 F 01/19/25 16:33 Pulse 86 01/19/25 16:33 Resp 18 01/19/25 16:33 BP 162/88 H 01/19/25 16:33 Pulse Ox 94 01/19/25 16:33 O2 Del Method Nasal Cannula 01/19/25 16:33 O2 Flow Rate 1.5 01/19/25 16:33 BMI result Body Mass Index 28.2 Const: General: cooperative, healthy appearing, comfortable and no acute distress GI: Other: Abdomen is soft mildly distended bandages are intact bowels are quiet Objective Data Active Medications Albuterol Sulfate (Albuterol Sulfate (0.083%) 2.5 Mg/3 Ml Vial.Neb) 2.5 mg INHALE Q4H PRN PRN Reason: Shortness Of Breath Or Wheezing Amlodipine Besylate (Amlodipine Besylate 10 Mg Tablet) 10 mg PO DAILY [facility]; Protocol Last Admin: 01/19/25 15:18 Dose: 10 mg Documented By: LUKE Atorvastatin Calcium (Atorvastatin Calcium 40 Mg Tablet) 40 mg PO DAILY [facility] Buprenorphine/Naloxone (Buprenorphine/Naloxone 8/2 Mg Film) 1 film SUBLINGUAL TID [facility] Last Admin: 01/19/25 14:46 Dose: 1 film Documented By: LUKE Clonidine HCl (Clonidine Hcl 0.1 Mg Tablet) 0.1 mg PO BEDTIME [facility]; Protocol Dextrose (Dextrose 50 % 25 Gm/50 Ml Syringe) 25 gm IVPUSH Q15M PRN; Protocol PRN Reason: per Hypoglycemia Standing Ord. Escitalopram Oxalate (Escitalopram Oxalate 10 Mg Tablet) 10 mg PO DAILY [facility] Fluticasone Propionate (Fluticasone Propionate Nasal 16 Gm [place]) 1 spray NOSTRIL-B DAILY [facility] Fluticasone/Vilanterol (Fluticasone/Vilanterol 100/25 Blst.W.Dev) 1 puff INHALE RDAILY [facility] Glucose (Glucose Gel 15 Gm Gel..Gram.) 15 gm PO Q15M PRN; Protocol PRN Reason: per Hypoglycemia Standing Ord. Hydralazine HCl (Hydralazine Hcl 20 Mg/Ml Vial) 10 mg IVPUSH Q6H PRN; Protocol PRN Reason: SBP > 160 Last Admin: 01/19/25 04:17 Dose: 10 mg Documented By: SUZETTE Hydromorphone HCl (Hydromorphone Hcl 1 Mg/Ml Syringe) 1 mg IVPUSH Q3H PRN; Protocol PRN Reason: Pain, Severe (Pain Scale 7-10) Last Admin: 01/19/25 16:29 Dose: 1 mg Documented By: LUKE Lactated Ringer's (Lr) 1,000 mls @ 125 mls/hr IVCONT .Q8H [facility] Last Admin: 01/19/25 14:50 Dose: 125 mls/hr Documented By: LUKE Acetaminophen (Ofirmev) 1,000 mg in 100 mls @ 400 mls/hr IV Q6H PRN PRN Reason: Pain, Mild (Pain Scale 1-3) Last Admin: 01/19/25 17:30 Dose: 400 mls/hr Documented By: LUKE Piperacillin Sod/Tazobactam (Sod 3.375 gm/ Sodium Chloride) 50 mls @ 100 mls/hr IV Q6H [facility] Last Infusion: 01/19/25 15:39 Dose: Infused Documented By: LUKE Insulin Human Lispro (Insulin Lispro 100 Unit/Ml 3 Ml Vial) 0 unit SUBCUT Q6H [facility]; Protocol Last Admin: 01/19/25 12:00 Dose: Not Given Documented By: LUKE Non-Admin Reason: No Insulin Coverage Multi-Ingred Medicated Throat [place] (Throat [place], Medicated 177 Ml Bottle) 1 spray MUCOUS MEM Q2H PRN PRN Reason: Sore Throat Last Admin: 01/19/25 12:01 Dose: 1 spray Documented By: LUKE Naloxone HCl (Naloxone Hcl 0.4 Mg/Ml Vial) 0.04 mg IVPUSH Q5M PRN PRN Reason: Excessive sedation or RR < 8 Ondansetron HCl (Ondansetron Hcl 4 Mg/2 Ml Vial) 4 mg IVPUSH QID PRN PRN Reason: Nausea Last Admin: 01/19/25 13:03 Dose: 4 mg Documented By: LUKE Oxycodone HCl (Oxycodone Hcl Immed Release 5 Mg Tablet) 5 mg PO Q6H PRN PRN Reason: Pain, Moderate(Pain Scale 4-6) Last Admin: 01/19/25 07:57 Dose: 5 mg Documented By: LUKE Sodium Chloride (0.9 % Sodium Chloride Flush 3 Ml Syringe) [facility] Last Admin: 01/19/25 16:33 Dose: Not Given Documented By: LUKE Non-Admin Reason: IV Running Labs 01/19/25 06:11 01/18/25 05:28 Labs: Laboratory Results - last 24 hr 01/18/25 01/19/25 01/19/25 23:32 05:51 06:11 MCV 88.0 MCH 31.3 MCHC 35.6 RDW 13.2 Plt Count 340 MPV 10.3 Immature Gran % (Auto) 0.3 Neut % (Auto) 77.9 H Lymph % (Auto) 10.0 L [place] % (Auto) 11.6 H Eos % (Auto) 0.0 Baso % (Auto) 0.2 Lymph # (Auto) 0.9 L [place] # (Auto) 1.0 Eos # (Auto) 0.0 Baso # (Auto) 0.0 Abs Immat Gran (auto) 0.03 Absolute Neuts (auto) 7.0 Absolute Nucleated RBC 0.000 Nucleated RBC % (auto) 0.0 POC Glucose 149 H 155 H 01/19/25 01/19/25 01/19/25 11:41 16:18 17:47 MCV MCH MCHC RDW Plt Count MPV Immature Gran % (Auto) Neut % (Auto) Lymph % (Auto) [place] % (Auto) Eos % (Auto) Baso % (Auto) Lymph # (Auto) [place] # (Auto) Eos # (Auto) Baso # (Auto) Abs Immat Gran (auto) Absolute Neuts (auto) Absolute Nucleated RBC Nucleated RBC % (auto) POC Glucose 140 H 126 H 128 H Procedures Date of Service Date of Service: 01/19/25 Progress Note: A&P Assessment and plan (1) Small bowel obstruction: Status: Acute Assessment and Plan: Patient is postop day 1 status post exploratory laparotomy with small-bowel resection for small-bowel obstruction internal hernia. Stable doing okay NG tube with output appropriate. Plan to continue NPO NG tube Cat catheter in place for strict ins and outs. Hopefully we can get that out tomorrow. Time Spent With Patient Time: Total time managing care of this patient today ____ minutes. Quality Stroke Does the patient have a stroke diagnosis?: No VTE Prior VTE?: No VTE Risk Level:: Surgical - moderate VTE Device Contraindication: N/A - Device Ordered VTE Drug Contraindication: Treatment Not Indicated
--- NOTE | 2025-01-19 18:20 | PC.NURSE ---
Patient assisted out of bed with help of 2 people into chair. Patient tolerated well and remained in chair for an hour and then went back into bed. Patient abd dressing remained dry/intact. Medicated a few times during shift per AUG. Patient weened to 1.5 L NC with sats of 91 %
--- NOTE | 2025-01-19 23:05 | PC.NURSE ---
[id number]- Note sent to Hospitalist on duty that patients IVF Of LR at 125 has gone to stop/renew status. Note sent stated pod #1, NGT, NPO, and response was no via tiger text.
[2025-01-20] VITALS (20 sets, daily range): BP systolic 154–187; BP diastolic 72–98; PULSE 75–93; RESP 16–20; TEMP 36.2–37.2; O2SAT 90–94
[2025-01-20 00:10] LABS: Glucose, Whole Blood 125 mg/dL (60-115)
[2025-01-20 06:21] LABS: Glucose, Whole Blood 112 mg/dL (60-115)
[2025-01-20] MEDS: Fluticasone/Vilanterol 100/25 BLST.W.DEV 1 PUFF INHALE (08:06)
[2025-01-20] MEDS: oxyCODONE HCl Immed Release 5 MG TABLET PO (08:24)
[2025-01-20] MEDS: 0.9 % Sodium Chloride Flush 3 ML SYRINGE IVFLUSH ×3 (08:29→21:02)
[2025-01-20] MEDS: Lactated Ringers 1,000 ML 100 ML IVCONT ×2 (08:31→17:55)
--- NOTE | 2025-01-20 09:25 | HO.PM.IMPN ---
Subjective Subjective Date of Service: 01/20/25 Interval History: pain controlled, awaiting return of bowel function Review of Systems Review of Systems: Yes all other systems are reviewed and are negative Physical Exam Vital Signs: Vital Signs: Last Vital Signs Temp 99 F 01/20/25 07:09 Pulse 83 01/20/25 08:07 Resp 18 01/20/25 08:07 BP 174/98 H 01/20/25 07:09 Pulse Ox 92 01/20/25 07:09 O2 Del Method Room Air 01/20/25 07:09 O2 Flow Rate 2 01/20/25 03:44 BMI result Body Mass Index 28.2 Gen: in no acute distress HEENT: sclera anicteric, moist mucus membranes Neck: supple Lungs: clear to auscultation bilaterally Heart: regular rate and rhythm, no murmurs Abd: midline incision, NGT with bilious output, no bowel sounds yet, slightly distended Ext: no edema Skin: warm/well-perfused Neuro: alert and oriented x3, no focal findings Psych: appropriate affect Objective Data Active Medications Albuterol Sulfate (Albuterol Sulfate (0.083%) 2.5 Mg/3 Ml Vial.Neb) 2.5 mg INHALE Q4H PRN PRN Reason: Shortness Of Breath Or Wheezing Amlodipine Besylate (Amlodipine Besylate 10 Mg Tablet) 10 mg PO DAILY [facility]; Protocol Last Admin: 01/20/25 08:24 Dose: 10 mg Documented By: LUKE Atorvastatin Calcium (Atorvastatin Calcium 40 Mg Tablet) 40 mg PO DAILY [facility] Last Admin: 01/20/25 08:24 Dose: 40 mg Documented By: LUKE Buprenorphine/Naloxone (Buprenorphine/Naloxone 8/2 Mg Film) 1 film SUBLINGUAL TID [facility] Last Admin: 01/20/25 08:24 Dose: 1 film Documented By: LUKE Clonidine HCl (Clonidine Hcl 0.1 Mg Tablet) 0.1 mg PO BEDTIME [facility]; Protocol Last Admin: 01/19/25 21:21 Dose: 0.1 mg Documented By: SUZETTE Dextrose (Dextrose 50 % 25 Gm/50 Ml Syringe) 25 gm IVPUSH Q15M PRN; Protocol PRN Reason: per Hypoglycemia Standing Ord. Escitalopram Oxalate (Escitalopram Oxalate 10 Mg Tablet) 10 mg PO DAILY [facility] Last Admin: 01/20/25 08:24 Dose: 10 mg Documented By: LUKE Fluticasone Propionate (Fluticasone Propionate Nasal 16 Gm [place]) 1 spray NOSTRIL-B DAILY [facility] Fluticasone/Vilanterol (Fluticasone/Vilanterol 100/25 Blst.W.Dev) 1 puff INHALE RDAILY [facility] Last Admin: 01/20/25 08:06 Dose: 1 puff Documented By: SURAJ Glucose (Glucose Gel 15 Gm Gel..Gram.) 15 gm PO Q15M PRN; Protocol PRN Reason: per Hypoglycemia Standing Ord. Hydralazine HCl (Hydralazine Hcl 20 Mg/Ml Vial) 10 mg IVPUSH Q6H PRN; Protocol PRN Reason: SBP > 160 Last Admin: 01/19/25 04:17 Dose: 10 mg Documented By: SUZETTE Hydromorphone HCl (Hydromorphone Hcl 1 Mg/Ml Syringe) 1 mg IVPUSH Q3H PRN; Protocol PRN Reason: Pain, Severe (Pain Scale 7-10) Last Admin: 01/20/25 06:31 Dose: 1 mg Documented By: SUZETTE Acetaminophen (Ofirmev) 1,000 mg in 100 mls @ 400 mls/hr IV Q6H PRN PRN Reason: Pain, Mild (Pain Scale 1-3) Last Infusion: 01/20/25 00:38 Dose: Infused Documented By: SUZETTE Piperacillin Sod/Tazobactam (Sod 3.375 gm/ Sodium Chloride) 50 mls @ 100 mls/hr IV Q6H [facility] Last Admin: 01/20/25 08:40 Dose: 100 mls/hr Documented By: LUKE Lactated Ringer's (Lr) 1,000 mls @ 100 mls/hr IVCONT .Q10H [facility] Last Admin: 01/20/25 08:31 Dose: 100 mls/hr Documented By: LUKE Insulin Human Lispro (Insulin Lispro 100 Unit/Ml 3 Ml Vial) 0 unit SUBCUT Q6H [facility]; Protocol Last Admin: 01/20/25 06:23 Dose: Not Given Documented By: SUZETTE Non-Admin Reason: No Insulin Coverage Comments: poc 112 Multi-Ingred Medicated Throat [place] (Throat [place], Medicated 177 Ml Bottle) 1 spray MUCOUS MEM Q2H PRN PRN Reason: Sore Throat Last Admin: 01/19/25 23:47 Dose: 1 spray Documented By: SUZETTE Naloxone HCl (Naloxone Hcl 0.4 Mg/Ml Vial) 0.04 mg IVPUSH Q5M PRN PRN Reason: Excessive sedation or RR < 8 Ondansetron HCl (Ondansetron Hcl 4 Mg/2 Ml Vial) 4 mg IVPUSH QID PRN PRN Reason: Nausea Last Admin: 01/19/25 13:03 Dose: 4 mg Documented By: LUKE Oxycodone HCl (Oxycodone Hcl Immed Release 5 Mg Tablet) 5 mg PO Q6H PRN PRN Reason: Pain, Moderate(Pain Scale 4-6) Last Admin: 01/20/25 08:24 Dose: 5 mg Documented By: LUKE Sodium Chloride (0.9 % Sodium Chloride Flush 3 Ml Syringe) 3 ml IVFLUSH QSHIFT [place] Last Admin: 01/20/25 08:29 Dose: 3 ml Documented By: LUKE Labs 01/19/25 06:11 01/18/25 05:28 Labs: Laboratory Results - last 24 hr 01/19/25 01/19/25 01/19/25 11:41 16:18 17:47 POC Glucose 140 H 126 H 128 H 01/19/25 01/20/25 23:42 06:17 POC Glucose 125 H 112 Assessment and Plan (1) Small bowel obstruction: Status: Acute (2) Non-insulin dependent type 2 diabetes mellitus: Status: Acute Plan 54yo M admitted to general surgery service with SBO, underwent ex-lap/MICHELE/SB resection 01/18 for 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 We will continue to follow the patient while they are admitted to your service. Total time managing care of this patient today: 35 minutes. Quality Stroke Does the patient have a stroke diagnosis?: No VTE Prior VTE?: No VTE Risk Level:: Surgical - moderate VTE Device Contraindication: N/A - Device Ordered VTE Drug Contraindication: Treatment Not Indicated
[2025-01-20 09:27] LABS: Anion Gap 13 (12-20); Blood Urea Nitrogen 10 mg/dL (9-16); Calcium 8.8 mg/dL (8.4-10.2); Carbon Dioxide 32 mmol/L (22-29); Chloride 98 mmol/L (96-108); Creatinine Clr Calc Pharmacy 127.8; Estimated Glomerular Filt Rate > 60; Potassium 3.4 mmol/L (3.3-5.1); Sodium 140 mmol/L (135-145)
[2025-01-20] MEDS: Throat Spray, Medicated 177 ML BOTTLE 1 SPRAY MUCOUS MEM ×4 (10:34→23:57)
--- NOTE | 2025-01-20 11:00 | PC.NURSE ---
Shift assessment complete with the help of the physical chemistry professor. Patient states not passing gas. Patient was complaining of acid reflux and given protonix per MAR. Patient states relief after receiving protonix. Patient assisted out of bed with help of 1 person, tolerating well and resting comfortably in chair.
[2025-01-20 11:29] LABS: Glucose, Whole Blood 124 mg/dL (60-115)
--- NOTE | 2025-01-20 15:58 | P.PNGS_ITS ---
Subjective Subjective Date of Service: 01/20/25 Interval history: FEELING OK NO PASSING GAS, NO BOWEL MOVEMENT, NO NAUSEA - ng not bothering too muh high ng output but pt has been drinking liquids and getting sucked up into the canister so output is deceiving Physical Exam 2 Vital Signs: Vital Signs: Last Vital Signs Temp 98.5 F 01/20/25 15:48 Pulse 83 01/20/25 15:48 Resp 18 01/20/25 15:48 BP 160/84 H 01/20/25 12:00 Pulse Ox 90 L 01/20/25 15:48 O2 Del Method Room Air 01/20/25 15:48 O2 Flow Rate 2 01/20/25 03:44 BMI result Body Mass Index 28.2 Const: General: cooperative, healthy appearing and comfortable Resp: Effort & Inspection: normal respiratory effort Auscultation: clear to auscultation bilaterally GI: Other: abdo - little distended but soft abo still quiet - incision looks good Objective Data Active Medications Albuterol Sulfate (Albuterol Sulfate (0.083%) 2.5 Mg/3 Ml Vial.Neb) 2.5 mg INHALE Q4H PRN PRN Reason: Shortness Of Breath Or Wheezing Amlodipine Besylate (Amlodipine Besylate 10 Mg Tablet) 10 mg PO DAILY [facility]; Protocol Last Admin: 01/20/25 08:24 Dose: 10 mg Documented By: LUKE Atorvastatin Calcium (Atorvastatin Calcium 40 Mg Tablet) 40 mg PO DAILY [facility] Last Admin: 01/20/25 08:24 Dose: 40 mg Documented By: LUKE Buprenorphine/Naloxone (Buprenorphine/Naloxone 8/2 Mg Film) 1 film SUBLINGUAL TID [facility] Last Admin: 01/20/25 15:13 Dose: 1 film Documented By: LUKE Clonidine HCl (Clonidine Hcl 0.1 Mg Tablet) 0.1 mg PO BEDTIME [facility]; Protocol Last Admin: 01/19/25 21:21 Dose: 0.1 mg Documented By: SUZETTE Dextrose (Dextrose 50 % 25 Gm/50 Ml Syringe) 25 gm IVPUSH Q15M PRN; Protocol PRN Reason: per Hypoglycemia Standing Ord. Escitalopram Oxalate (Escitalopram Oxalate 10 Mg Tablet) 10 mg PO DAILY [facility] Last Admin: 01/20/25 08:24 Dose: 10 mg Documented By: LUKE Fluticasone Propionate (Fluticasone Propionate Nasal 16 Gm [place]) 1 spray NOSTRIL-B DAILY [facility] Last Admin: 01/20/25 10:34 Dose: 1 spray Documented By: LUKE Fluticasone/Vilanterol (Fluticasone/Vilanterol / Blst.W.Dev) 1 puff INHALE RDAILY [facility] Last Admin: 01/20/25 08:06 Dose: 1 puff Documented By: SURAJ Glucose (Glucose Gel 15 Gm Gel..Gram.) 15 gm PO Q15M PRN; Protocol PRN Reason: per Hypoglycemia Standing Ord. Hydralazine HCl (Hydralazine Hcl 20 Mg/Ml Vial) 10 mg IVPUSH Q6H PRN; Protocol PRN Reason: SBP > 160 Last Admin: 01/19/25 04:17 Dose: 10 mg Documented By: SUZETTE Hydromorphone HCl (Hydromorphone Hcl 1 Mg/Ml Syringe) 1 mg IVPUSH Q3H PRN; Protocol PRN Reason: Pain, Severe (Pain Scale 7-10) Last Admin: 01/20/25 12:44 Dose: 1 mg Documented By: LUKE Acetaminophen (Ofirmev) 1,000 mg in 100 mls @ 400 mls/hr IV Q6H PRN PRN Reason: Pain, Mild (Pain Scale 1-3) Last Infusion: 01/20/25 09:52 Dose: Infused Documented By: LUKE Piperacillin Sod/Tazobactam (Sod 3.375 gm/ Sodium Chloride) 50 mls @ 100 mls/hr IV Q6H [facility] Last Admin: 01/20/25 15:23 Dose: 100 mls/hr Documented By: LUEK Lactated Ringer's (Lr) 1,000 mls @ 100 mls/hr IVCONT .Q10H [facility] Last Admin: 01/20/25 08:31 Dose: 100 mls/hr Documented By: LUKE Insulin Human Lispro (Insulin Lispro 100 Unit/Ml 3 Ml Vial) 0 unit SUBCUT Q6H [place]; Protocol Last Admin: 01/20/25 11:31 Dose: Not Given Documented By: LUKE Non-Admin Reason: No Insulin Coverage Multi-Ingred Medicated Throat [place] (Throat [place], Medicated 177 Ml Bottle) 1 spray MUCOUS MEM Q2H PRN PRN Reason: Sore Throat Last Admin: 01/20/25 12:44 Dose: 1 spray Documented By: LUKE Naloxone HCl (Naloxone Hcl 0.4 Mg/Ml Vial) 0.04 mg IVPUSH Q5M PRN PRN Reason: Excessive sedation or RR < 8 Ondansetron HCl (Ondansetron Hcl 4 Mg/2 Ml Vial) 4 mg IVPUSH QID PRN PRN Reason: Nausea Last Admin: 01/19/25 13:03 Dose: 4 mg Documented By: LUKE Oxycodone HCl (Oxycodone Hcl Immed Release 5 Mg Tablet) 5 mg PO Q6H PRN PRN Reason: Pain, Moderate(Pain Scale 4-6) Last Admin: 01/20/25 08:24 Dose: 5 mg Documented By: LUKE Pantoprazole Sodium (Pantoprazole Sodium 40 Mg/10 Ml Vial) 40 mg IVPUSH BID@0630,1630 [facility] Last Admin: 01/20/25 09:42 Dose: 40 mg Documented By: LUKE Sodium Chloride (0.9 % Sodium Chloride Flush 3 Ml Syringe) 3 ml IVFLUSH QSHIFT [facility] Last Admin: 01/20/25 15:22 Dose: 3 ml Documented By: LUKE Labs 01/19/25 06:11 01/20/25 08:56 Labs: Laboratory Results - last 24 hr 01/19/25 01/19/25 01/19/25 16:18 17:47 23:42 Anion Gap Estim Creat Clear Calc Estimated GFR POC Glucose 126 H 128 H 125 H Random Glucose Calcium 01/20/25 01/20/25 01/20/25 06:17 08:56 11:26 Anion Gap 13 Estim Creat Clear Calc 127.8 Estimated GFR > 60 POC Glucose 112 124 H Random Glucose 120 H Calcium 8.8 D Procedures Date of Service Date of Service: 01/20/25 Progress Note: A&P Assessment and plan (1) Small bowel obstruction: Status: Acute Assessment and Plan: POD#2 s/p explor lap with SBR and anastomosis - doing ok -ileus cont with npo ivf ng tube and ambulate and iv pain meds check lytes tuesday Time Spent With Patient Time: Total time managing care of this patient today ____ minutes. Quality Stroke Does the patient have a stroke diagnosis?: No VTE Prior VTE?: No VTE Risk Level:: Surgical - moderate VTE Device Contraindication: N/A - Device Ordered VTE Drug Contraindication: Treatment Not Indicated
--- NOTE | 2025-01-20 16:19 | MHC.CM.PN ---
CM ATTEMPTED TO MEET WITH PT EARLIER, HOWEVER [facility] SEPARATOR INSERTER INDICATED SHE HAD SEVERAL PATIENTS WAITING CM ATTEMPTED TO CALL PTS BROTHER/PRIMARY CONTACT, DEAN [phone], WITH TELEPHONE JOY OPERATOR #[id number], HOWEVER CALL WAS PICKED UP AND DISCONNECTED CM MET WITH PT USING VIDEO JOY OPERATOR # [id number] AND OBTAINED THE FOLLOWING INFORMATION: PT HAS A LIVE IN [employer] HE USES A CANE FOR DME PCP: DESIREE PASTRANA AT [facility] PT WILL CONSIDER COMPLETING A HCP IMM DELIVERED DCP: HOME WITH RESUMPTION OF [employer]OBILITY INSTRUCTOR [employer] INSTRUCTOR TO TRANSPORT
[2025-01-20 17:45] LABS: Glucose, Whole Blood 96 mg/dL (60-115)
[2025-01-21] VITALS (9 sets, daily range): BP systolic 149–169; BP diastolic 82–98; PULSE 73–80; RESP 16–20; TEMP 36–36.9; O2SAT 93–96
[2025-01-21 00:06] LABS: Glucose, Whole Blood 95 mg/dL (60-115)
[2025-01-21] MEDS: oxyCODONE HCl Immed Release 5 MG TABLET PO ×3 (01:27→20:42)
[2025-01-21] MEDS: Lactated Ringers 1,000 ML 100 ML IVCONT ×3 (03:26→21:46)
[2025-01-21 06:21] LABS: Glucose, Whole Blood 104 mg/dL (60-115)
[2025-01-21] MEDS: Fluticasone/Vilanterol 100/25 BLST.W.DEV 1 PUFF INHALE (08:14)
[2025-01-21 08:44] LABS: Anion Gap 12 (12-20); Blood Urea Nitrogen 10 mg/dL (9-16); Calcium 8.3 mg/dL (8.4-10.2); Carbon Dioxide 28 mmol/L (22-29); Chloride 102 mmol/L (96-108); Creatinine Clr Calc Pharmacy 136.0; Estimated Glomerular Filt Rate > 60; Magnesium 1.9 mg/dL (1.6-2.6); Potassium 3.3 mmol/L (3.3-5.1); Sodium 139 mmol/L (135-145)
--- NOTE | 2025-01-21 10:59 | PM.PNGS ---
Subjective Subjective Date of Service: 01/21/25 Interval history: patient overall doing well today. States his pain is well controlled. Denies flatus or BM. NG output overnight 3400 (this is skewed by his intake of water). Having some heartburn Physical Exam Vital Signs: Vital Signs: Last Vital Signs Temp 97.4 F 01/21/25 07:47 Pulse 73 01/21/25 08:15 Resp 18 01/21/25 08:15 BP 168/90 H 01/21/25 07:47 Pulse Ox 96 01/21/25 07:47 O2 Del Method Nasal Cannula 01/21/25 07:47 O2 Flow Rate 2 01/21/25 07:47 BMI result Body Mass Index 28.2 Const: General: comfortable and no acute distress Orientation/consciousness: patient oriented x3 Resp: Effort & Inspection: normal respiratory effort and able to speak in complete sentences GI: Other: ng tube in place, green billious output. collection had just been drained. staple line intact, clean and dry Inspection: Yes distended (mild) Palpation (GI): Soft to palpation, not firm, Tenderness to palpation present (GI) (mild generalized throughout), Guarding due to palpation present (GI) (voluntary) and not rigid Neuro: General: patient oriented x3 Objective Data Active Medications Albuterol Sulfate (Albuterol Sulfate (0.083%) 2.5 Mg/3 Ml Vial.Neb) 2.5 mg INHALE Q4H PRN PRN Reason: Shortness Of Breath Or Wheezing Amlodipine Besylate (Amlodipine Besylate 10 Mg Tablet) 10 mg PO DAILY [facility]; Protocol Last Admin: 01/21/25 08:24 Dose: 10 mg Documented By: LUKE Atorvastatin Calcium (Atorvastatin Calcium 40 Mg Tablet) 40 mg PO DAILY [facility] Last Admin: 01/21/25 08:23 Dose: 40 mg Documented By: LUKE Buprenorphine/Naloxone (Buprenorphine/Naloxone 8/2 Mg Film) 1 film SUBLINGUAL TID [place] Last Admin: 01/21/25 08:25 Dose: 1 film Documented By: LUKE Clonidine HCl (Clonidine Hcl 0.1 Mg Tablet) 0.1 mg PO BEDTIME [facility]; Protocol Last Admin: 01/20/25 21:02 Dose: 0.1 mg Documented By: ALBARO Dextrose (Dextrose 50 % 25 Gm/50 Ml Syringe) 25 gm IVPUSH Q15M PRN; Protocol PRN Reason: per Hypoglycemia Standing Ord. Escitalopram Oxalate (Escitalopram Oxalate 10 Mg Tablet) 10 mg PO DAILY [facility] Last Admin: 01/21/25 08:45 Dose: 10 mg Documented By: LUKE Fluticasone Propionate (Fluticasone Propionate Nasal 16 Gm [place]) 1 spray NOSTRIL-B DAILY [facility] Last Admin: 01/21/25 08:45 Dose: 1 spray Documented By: LUKE Fluticasone/Vilanterol (Fluticasone/Vilanterol 100/ Blst.W.Dev) 1 puff INHALE RDAILY [facility] Last Admin: 01/21/25 08:14 Dose: 1 puff Documented By: BRESAMBERLY Glucose (Glucose Gel 15 Gm Gel..Gram.) 15 gm PO Q15M PRN; Protocol PRN Reason: per Hypoglycemia Standing Ord. Hydralazine HCl (Hydralazine Hcl 20 Mg/Ml Vial) 10 mg IVPUSH Q6H PRN; Protocol PRN Reason: SBP > 160 Last Admin: 01/20/25 16:01 Dose: 10 mg Documented By: LUKE Hydromorphone HCl (Hydromorphone Hcl 1 Mg/Ml Syringe) 1 mg IVPUSH Q3H PRN; Protocol PRN Reason: Pain, Severe (Pain Scale 7-10) Last Admin: 01/20/25 21:39 Dose: 1 mg Documented By: ALBARO Piperacillin Sod/Tazobactam (Sod 3.375 gm/ Sodium Chloride) 50 mls @ 100 mls/hr IV Q6H [facility] Last Infusion: 01/21/25 10:22 Dose: Infused Documented By: DALE Lactated Ringer's (Lr) 1,000 mls @ 100 mls/hr IVCONT .Q10H [facility] Last Admin: 01/21/25 03:26 Dose: 100 mls/hr Documented By: ALBARO Insulin Human Lispro (Insulin Lispro 100 Unit/Ml 3 Ml Vial) 0 unit SUBCUT Q6H [facility]; Protocol Last Admin: 01/21/25 06:20 Dose: Not Given Documented By: ALBARO Non-Admin Reason: No Insulin Coverage Losartan Potassium (Losartan Potassium 50 Mg Tablet) 100 mg PO DAILY [facility]; Protocol Last Admin: 01/21/25 08:45 Dose: 100 mg Documented By: LUKE Multi-Ingred Medicated Throat [place] (Throat [place], Medicated 177 Ml Bottle) 1 spray MUCOUS MEM Q2H PRN PRN Reason: Sore Throat Last Admin: 01/20/25 23:57 Dose: 1 spray Documented By: ALBARO Naloxone HCl (Naloxone Hcl 0.4 Mg/Ml Vial) 0.04 mg IVPUSH Q5M PRN PRN Reason: Excessive sedation or RR < 8 Ondansetron HCl (Ondansetron Hcl 4 Mg/2 Ml Vial) 4 mg IVPUSH QID PRN PRN Reason: Nausea Last Admin: 01/19/25 13:03 Dose: 4 mg Documented By: LUKE Oxycodone HCl (Oxycodone Hcl Immed Release 5 Mg Tablet) 5 mg PO Q6H PRN PRN Reason: Pain, Moderate(Pain Scale 4-6) Last Admin: 01/21/25 01:27 Dose: 5 mg Documented By: ALBARO Pantoprazole Sodium (Pantoprazole Sodium 40 Mg/10 Ml Vial) 40 mg IVPUSH BID@0630,1630 [facility] Last Admin: 01/21/25 05:31 Dose: 40 mg Documented By: ALBARO Sodium Chloride (0.9 % Sodium Chloride Flush 3 Ml Syringe) 3 ml IVFLUSH QSHIFT [facility] Last Admin: 01/21/25 08:28 Dose: Not Given Documented By: LUKE Non-Admin Reason: IV Running Labs 01/19/25 06:11 01/21/25 07:57 Labs: Laboratory Results - last 24 hr 01/20/25 01/20/25 01/20/25 11:26 17:40 23:58 Hold Purple Top Anion Gap Estim Creat Clear Calc Estimated GFR POC Glucose 124 H 96 95 Random Glucose Calcium Phosphorus Magnesium 01/21/25 01/21/25 01/21/25 06:18 07:57 08:05 Hold Purple Top SEE NOTE Anion Gap 12 Estim Creat Clear Calc 136.0 Estimated GFR > 60 POC Glucose 104 Random Glucose 94 Calcium 8.3 L Phosphorus 2.5 L Magnesium 1.9 Procedures Date of Service Date of Service: 01/21/25 Progress Note: A&P Assessment and plan (1) Small bowel obstruction: Status: Acute Plan 54 year old male POD#2 s/p explor lap with SBR and anastomosis. Doing okay today, NG tube remains in place, documented output skewed by the patients intake of water. There does seem to be billious content at the time of evaluation however the container had just been emptied so i could not appreciate the overall quality of the output. He appears comfortable at rest, continues to have some mild abdominal pain, more significant with palpation. He denies nausea or vomiting. Denies flatus or BM. Has not been ambulating but has been using spirometry. Continue NPO maintain NG, plan to clamp tomorrow pending output pain control Ambulation and spirometry. Patient needs to get OOB Time Spent With Patient Time: Total time managing care of this patient today ____ minutes. Quality Stroke Does the patient have a stroke diagnosis?: No VTE Prior VTE?: No VTE Risk Level:: Surgical - moderate VTE Device Contraindication: N/A - Device Ordered VTE Drug Contraindication: Treatment Not Indicated
[2025-01-21 11:49] LABS: Glucose, Whole Blood 93 mg/dL (60-115)
--- NOTE | 2025-01-21 12:25 | P.PNIM_ITS ---
Subjective Subjective Date of Service: 01/21/25 Interval History: no flatus yet bilious outpt from NGT Review of Systems Review of Systems: Yes all other systems are reviewed and are negative Physical Exam 2 Vital Signs: Vital Signs: Last Vital Signs Temp 97.7 F 01/21/25 11:33 Pulse 79 01/21/25 11:33 Resp 17 01/21/25 11:33 BP 162/98 H 01/21/25 11:33 Pulse Ox 94 01/21/25 11:33 O2 Del Method Nasal Cannula 01/21/25 11:33 O2 Flow Rate 2 01/21/25 11:33 BMI result Body Mass Index 28.2 Gen: in no acute distress HEENT: sclera anicteric, moist mucus membranes Neck: supple Lungs: clear to auscultation bilaterally Heart: regular rate and rhythm, no murmurs Abd: midline incision, NGT with bilious output, no bowel sounds yet, slightly distended Ext: no edema Skin: warm/well-perfused Neuro: alert and oriented x3, no focal findings Psych: appropriate affect Objective Data Active Medications Albuterol Sulfate (Albuterol Sulfate (0.083%) 2.5 Mg/3 Ml Vial.Neb) 2.5 mg INHALE Q4H PRN PRN Reason: Shortness Of Breath Or Wheezing Amlodipine Besylate (Amlodipine Besylate 10 Mg Tablet) 10 mg PO DAILY [facility]; Protocol Last Admin: 01/21/25 08:24 Dose: 10 mg Documented By: LUKE Atorvastatin Calcium (Atorvastatin Calcium 40 Mg Tablet) 40 mg PO DAILY [facility] Last Admin: 01/21/25 08:23 Dose: 40 mg Documented By: LUKE Buprenorphine/Naloxone (Buprenorphine/Naloxone 8/2 Mg Film) 1 film SUBLINGUAL TID [facility] Last Admin: 01/21/25 08:25 Dose: 1 film Documented By: LUKE Clonidine HCl (Clonidine Hcl 0.1 Mg Tablet) 0.1 mg PO BEDTIME [facility]; Protocol Last Admin: 01/20/25 21:02 Dose: 0.1 mg Documented By: ALBARO Dextrose (Dextrose 50 % 25 Gm/50 Ml Syringe) 25 gm IVPUSH Q15M PRN; Protocol PRN Reason: per Hypoglycemia Standing Ord. Escitalopram Oxalate (Escitalopram Oxalate 10 Mg Tablet) 10 mg PO DAILY [facility] Last Admin: 01/21/25 08:45 Dose: 10 mg Documented By: LUKE Fluticasone Propionate (Fluticasone Propionate Nasal 16 Gm [place]) 1 spray NOSTRIL-B DAILY [facility] Last Admin: 01/21/25 08:45 Dose: 1 spray Documented By: LUKE Fluticasone/Vilanterol (Fluticasone/Vilanterol 100/25 Blst.W.Dev) 1 puff INHALE RDAILY [facility] Last Admin: 01/21/25 08:14 Dose: 1 puff Documented By: MARIE Glucose (Glucose Gel 15 Gm Gel..Gram.) 15 gm PO Q15M PRN; Protocol PRN Reason: per Hypoglycemia Standing Ord. Hydralazine HCl (Hydralazine Hcl 20 Mg/Ml Vial) 10 mg IVPUSH Q6H PRN; Protocol PRN Reason: SBP > 160 Last Admin: 01/20/25 16:01 Dose: 10 mg Documented By: LUKE Hydromorphone HCl (Hydromorphone Hcl 1 Mg/Ml Syringe) 1 mg IVPUSH Q3H PRN; Protocol PRN Reason: Pain, Severe (Pain Scale 7-10) Last Admin: 01/20/25 21:39 Dose: 1 mg Documented By: ALBARO Piperacillin Sod/Tazobactam (Sod 3.375 gm/ Sodium Chloride) 50 mls @ 100 mls/hr IV Q6H [facility] Last Infusion: 01/21/25 10:22 Dose: Infused Documented By: DALE Lactated Ringer's (Lr) 1,000 mls @ 100 mls/hr IVCONT .Q10H [facility] Last Admin: 01/21/25 03:26 Dose: 100 mls/hr Documented By: ALBARO Insulin Human Lispro (Insulin Lispro 100 Unit/Ml 3 Ml Vial) 0 unit SUBCUT Q6H [facility]; Protocol Last Admin: 01/21/25 11:54 Dose: Not Given Documented By: DALE Non-Admin Reason: No Insulin Coverage Losartan Potassium (Losartan Potassium 50 Mg Tablet) 100 mg PO DAILY [facility]; Protocol Last Admin: 01/21/25 08:45 Dose: 100 mg Documented By: LUKE Multi-Ingred Medicated Throat [place] (Throat [place], Medicated 177 Ml Bottle) 1 spray MUCOUS MEM Q2H PRN PRN Reason: Sore Throat Last Admin: 01/20/25 23:57 Dose: 1 spray Documented By: ALBARO Naloxone HCl (Naloxone Hcl 0.4 Mg/Ml Vial) 0.04 mg IVPUSH Q5M PRN PRN Reason: Excessive sedation or RR < 8 Ondansetron HCl (Ondansetron Hcl 4 Mg/2 Ml Vial) 4 mg IVPUSH QID PRN PRN Reason: Nausea Last Admin: 01/19/25 13:03 Dose: 4 mg Documented By: LUKE Oxycodone HCl (Oxycodone Hcl Immed Release 5 Mg Tablet) 5 mg PO Q6H PRN PRN Reason: Pain, Moderate(Pain Scale 4-6) Last Admin: 01/21/25 01:27 Dose: 5 mg Documented By: ALBARO Pantoprazole Sodium (Pantoprazole Sodium 40 Mg/10 Ml Vial) 40 mg IVPUSH BID@0630,1630 [facility] Last Admin: 01/21/25 05:31 Dose: 40 mg Documented By: ALBARO Sodium Chloride (0.9 % Sodium Chloride Flush 3 Ml Syringe) 3 ml IVFLUSH QSHIFT [facility] Last Admin: 01/21/25 08:28 Dose: Not Given Documented By: LUKE Non-Admin Reason: IV Running Labs 01/19/25 06:11 01/21/25 07:57 Labs: Laboratory Results - last 24 hr 01/20/25 01/20/25 01/21/25 17:40 23:58 06:18 Hold Purple Top Anion Gap Estim Creat Clear Calc Estimated GFR POC Glucose 96 95 104 Random Glucose Calcium Phosphorus Magnesium 01/21/25 01/21/25 01/21/25 07:57 08:05 11:45 Hold Purple Top SEE NOTE Anion Gap 12 Estim Creat Clear Calc 136.0 Estimated GFR > 60 POC Glucose 93 Random Glucose 94 Calcium 8.3 L Phosphorus 2.5 L Magnesium 1.9 Assessment and Plan (1) Small bowel obstruction: Status: Acute (2) Non-insulin dependent type 2 diabetes mellitus: Status: Acute Plan 54yo M admitted to general surgery service with SBO, underwent ex-lap/MICHELE/SB resection 01/18 for 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 We will continue to follow the patient while they are admitted to your service. Total time managing care of this patient today: 35 minutes. Quality Stroke Does the patient have a stroke diagnosis?: No VTE Prior VTE?: No VTE Risk Level:: Surgical - moderate VTE Device Contraindication: N/A - Device Ordered VTE Drug Contraindication: Treatment Not Indicated
[2025-01-21] MEDS: Potassium Phosphate/NS 15 MMOL/250 ML PLAST..BAG 62.5 MMOL IV ×2 (13:20→17:22)
[2025-01-21] MEDS: 0.9 % Sodium Chloride Flush 3 ML SYRINGE IVFLUSH ×2 (16:16→20:46)
[2025-01-21 18:03] LABS: Glucose, Whole Blood 86 mg/dL (60-115)
[2025-01-21 23:34] LABS: Glucose, Whole Blood 90 mg/dL (60-115)
[2025-01-22] VITALS (9 sets, daily range): BP systolic 140–190; BP diastolic 83–104; PULSE 61–86; RESP 14–20; TEMP 36.2–36.9; O2SAT 91–94
--- NOTE | 2025-01-22 01:21 | PC.NURSE ---
pt requested to have dinh catheter removed. Dinh removed at 0120, will continue to monitor.
[2025-01-22] MEDS: oxyCODONE HCl Immed Release 5 MG TABLET PO ×2 (02:48→19:55)
[2025-01-22 05:50] LABS: Glucose, Whole Blood 106 mg/dL (60-115)
[2025-01-22 06:16] LABS: Anion Gap 13 (12-20); Blood Urea Nitrogen 9 mg/dL (9-16); Calcium 8.4 mg/dL (8.4-10.2); Carbon Dioxide 25 mmol/L (22-29); Chloride 105 mmol/L (96-108); Creatinine Clr Calc Pharmacy 143.0; Estimated Glomerular Filt Rate > 60; Magnesium 1.9 mg/dL (1.6-2.6); Potassium 3.5 mmol/L (3.3-5.1); Sodium 139 mmol/L (135-145)
[2025-01-22] MEDS: Fluticasone/Vilanterol 100/25 BLST.W.DEV 1 PUFF INHALE (07:33)
--- NOTE | 2025-01-22 07:47 | PM.PNGS ---
Subjective Subjective Date of Service: 01/22/25 Interval history: doing okay this morning, has continued mild abdominal pain in the upper abdomen some improvement in pain He has not been passing gas, no bowel movement. very limited ambulation. denies nause or vomiting NG tube output overnight 400, green bilious in quality. Physical Exam Vital Signs: Vital Signs: Last Vital Signs Temp 97.1 F 01/22/25 03:09 Pulse 61 01/22/25 07:35 Resp 16 01/22/25 07:35 BP 158/83 H 01/22/25 04:37 Pulse Ox 94 01/22/25 03:09 O2 Del Method Nasal Cannula 01/22/25 03:09 O2 Flow Rate 2 01/22/25 03:09 BMI result Body Mass Index 28.2 Const: General: comfortable and no acute distress Orientation/consciousness: patient oriented x3 Resp: Effort & Inspection: normal respiratory effort and able to speak in complete sentences GI: Other: ng tube in place incision is clean and dry, nehemiah in place. Inspection: No distended Palpation (GI): Soft to palpation, not firm, Tenderness to palpation present (GI) in the epigastrum and in the RLQ, Guarding due to palpation present (GI) (voluntary to palpation) and not rigid Percussion: Yes normal to percussion Auscultation: Absent bowel sounds Neuro: General: patient oriented x3 Objective Data Active Medications Albuterol Sulfate (Albuterol Sulfate (0.083%) 2.5 Mg/3 Ml Vial.Neb) 2.5 mg INHALE Q4H PRN PRN Reason: Shortness Of Breath Or Wheezing Amlodipine Besylate (Amlodipine Besylate 10 Mg Tablet) 10 mg PO DAILY [facility]; Protocol Last Admin: 01/21/25 08:24 Dose: 10 mg Documented By: LUKE Atorvastatin Calcium (Atorvastatin Calcium 40 Mg Tablet) 40 mg PO DAILY [facility] Last Admin: 01/21/25 08:23 Dose: 40 mg Documented By: LUKE Buprenorphine/Naloxone (Buprenorphine/Naloxone 8/2 Mg Film) 1 film SUBLINGUAL TID [facility] Last Admin: 01/21/25 20:42 Dose: 1 film Documented By: KELLY Clonidine HCl (Clonidine Hcl 0.1 Mg Tablet) 0.1 mg PO BEDTIME [facility]; Protocol Last Admin: 01/21/25 20:42 Dose: 0.1 mg Documented By: KELLY Dextrose (Dextrose 50 % 25 Gm/50 Ml Syringe) 25 gm IVPUSH Q15M PRN; Protocol PRN Reason: per Hypoglycemia Standing Ord. Escitalopram Oxalate (Escitalopram Oxalate 10 Mg Tablet) 10 mg PO DAILY [facility] Last Admin: 01/21/25 08:45 Dose: 10 mg Documented By: LUKE Fluticasone Propionate (Fluticasone Propionate Nasal 16 Gm [place]) 1 spray NOSTRIL-B DAILY [facility] Last Admin: 01/21/25 08:45 Dose: 1 spray Documented By: LUKE Fluticasone/Vilanterol (Fluticasone/Vilanterol 100/25 Blst.W.Dev) 1 puff INHALE RDAILY [facility] Last Admin: 01/22/25 07:33 Dose: 1 puff Documented By: JOCY Glucose (Glucose Gel 15 Gm Gel..Gram.) 15 gm PO Q15M PRN; Protocol PRN Reason: per Hypoglycemia Standing Ord. Hydralazine HCl (Hydralazine Hcl 20 Mg/Ml Vial) 10 mg IVPUSH Q6H PRN; Protocol PRN Reason: SBP > 160 Last Admin: 01/22/25 03:37 Dose: 10 mg Documented By: KELLY Hydromorphone HCl (Hydromorphone Hcl 1 Mg/Ml Syringe) 1 mg IVPUSH Q3H PRN; Protocol PRN Reason: Pain, Severe (Pain Scale 7-10) Last Admin: 01/22/25 06:10 Dose: 1 mg Documented By: KELLY Piperacillin Sod/Tazobactam (Sod 3.375 gm/ Sodium Chloride) 50 mls @ 100 mls/hr IV Q6H [facility] Last Infusion: 01/22/25 04:12 Dose: Infused Documented By: KELLY Lactated Ringer's (Lr) 1,000 mls @ 100 mls/hr IVCONT .Q10H [facility] Last Admin: 01/21/25 21:46 Dose: 100 mls/hr Documented By: KELLY Insulin Human Lispro (Insulin Lispro 100 Unit/Ml 3 Ml Vial) 0 unit SUBCUT Q6H [facility]; Protocol Last Admin: 01/22/25 05:55 Dose: Not Given Documented By: KELLY Non-Admin Reason: No Insulin Coverage Losartan Potassium (Losartan Potassium 50 Mg Tablet) 100 mg PO DAILY [facility]; Protocol Last Admin: 01/21/25 08:45 Dose: 100 mg Documented By: LUKE Multi-Ingred Medicated Throat [place] (Throat [place], Medicated 177 Ml Bottle) 1 spray MUCOUS MEM Q2H PRN PRN Reason: Sore Throat Last Admin: 01/20/25 23:57 Dose: 1 spray Documented By: ALBARO Naloxone HCl (Naloxone Hcl 0.4 Mg/Ml Vial) 0.04 mg IVPUSH Q5M PRN PRN Reason: Excessive sedation or RR < 8 Ondansetron HCl (Ondansetron Hcl 4 Mg/2 Ml Vial) 4 mg IVPUSH QID PRN PRN Reason: Nausea Last Admin: 01/19/25 13:03 Dose: 4 mg Documented By: LUKE Oxycodone HCl (Oxycodone Hcl Immed Release 5 Mg Tablet) 5 mg PO Q6H PRN PRN Reason: Pain, Moderate(Pain Scale 4-6) Last Admin: 01/22/25 02:48 Dose: 5 mg Documented By: KELLY Pantoprazole Sodium (Pantoprazole Sodium 40 Mg/10 Ml Vial) 40 mg IVPUSH BID@0630,1630 [facility] Last Admin: 01/22/25 05:48 Dose: 40 mg Documented By: KELLY Sodium Chloride (0.9 % Sodium Chloride Flush 3 Ml Syringe) 3 ml IVFLUSH QSHIFT [facility] Last Admin: 01/21/25 20:46 Dose: 3 ml Documented By: KELLY Labs 01/19/25 06:11 01/22/25 05:50 Labs: Laboratory Results - last 24 hr 01/21/25 01/21/25 01/21/25 07:57 08:05 11:45 Hold Purple Top SEE NOTE Anion Gap 12 Estim Creat Clear Calc 136.0 Estimated GFR > 60 POC Glucose 93 Random Glucose 94 Calcium 8.3 L Phosphorus 2.5 L Magnesium 1.9 01/21/25 01/21/25 01/22/25 17:59 23:30 05:46 Hold Purple Top Anion Gap Estim Creat Clear Calc Estimated GFR POC Glucose 86 90 106 Random Glucose Calcium Phosphorus Magnesium 01/22/25 05:50 Hold Purple Top SEE NOTE Anion Gap 13 Estim Creat Clear Calc 143.0 Estimated GFR > 60 POC Glucose Random Glucose 96 Calcium 8.4 Phosphorus 2.9 Magnesium 1.9 Procedures Date of Service Date of Service: 01/22/25 Progress Note: A&P Assessment and plan (1) Small bowel obstruction: Status: Acute Plan 54 year old male POD#4 s/p explor lap with SBR and anastomosis. Doing okay today, NG tube remains in place, output overnight 400cc There does seem to be billious content at the time of evaluation however the container had just been emptied so i could not appreciate the overall quality of the output. He appears comfortable at rest, continues to have some mild abdominal pain, more significant with palpation. He denies nausea or vomiting. Denies flatus or BM. Has not been ambulating but has been using spirometry. on exam there are absent bowel sounds, abdomen is soft, non distended. Incision is clean and dry Continue NPO maintain NG, plan to clamp ng for 4 hours if output after clamp is <100 cc will remove NG pain control Ambulation and spirometry. Patient needs to get OOB, spoke with nurse who will assist him out of bed Time Spent With Patient Time: Total time managing care of this patient today ____ minutes. Quality Stroke Does the patient have a stroke diagnosis?: No VTE Prior VTE?: No VTE Risk Level:: Surgical - moderate VTE Device Contraindication: N/A - Device Ordered VTE Drug Contraindication: Treatment Not Indicated
[2025-01-22] MEDS: Lactated Ringers 1,000 ML 100 ML IVCONT ×2 (08:18→19:56)
[2025-01-22 12:08] LABS: Glucose, Whole Blood 96 mg/dL (60-115)
--- NOTE | 2025-01-22 12:33 | HO.PM.IMPN ---
Subjective Subjective Date of Service: 01/22/25 Interval History: no bm or flatus, but feeling better, ambulating Physical Exam Vital Signs: Vital Signs: Last Vital Signs Temp 98.5 F 01/22/25 08:00 Pulse 81 01/22/25 08:00 Resp 18 01/22/25 08:00 BP 166/92 H 01/22/25 08:00 Pulse Ox 92 01/22/25 08:00 O2 Del Method Room Air 01/22/25 08:00 O2 Flow Rate 2 01/22/25 03:09 BMI result Body Mass Index 28.2 Const: General: comfortable and no acute distress Orientation/consciousness: patient oriented x3 Resp: Effort & Inspection: normal respiratory effort and able to speak in complete sentences GI: Other: ng tube in place incision is clean and dry, nehemiah in place. Inspection: No distended Palpation (GI): Soft to palpation, not firm, Tenderness to palpation present (GI) in the epigastrum and in the RLQ, Guarding due to palpation present (GI) (voluntary to palpation) and not rigid Percussion: Yes normal to percussion Auscultation: Absent bowel sounds Neuro: General: patient oriented x3 Objective Data Active Medications Albuterol Sulfate (Albuterol Sulfate (0.083%) 2.5 Mg/3 Ml Vial.Neb) 2.5 mg INHALE Q4H PRN PRN Reason: Shortness Of Breath Or Wheezing Amlodipine Besylate (Amlodipine Besylate 10 Mg Tablet) 10 mg PO DAILY [facility]; Protocol Last Admin: 01/22/25 08:14 Dose: 10 mg Documented By: DALE Atorvastatin Calcium (Atorvastatin Calcium 40 Mg Tablet) 40 mg PO DAILY [facility] Last Admin: 01/22/25 08:14 Dose: 40 mg Documented By: DALE Buprenorphine/Naloxone (Buprenorphine/Naloxone 8/2 Mg Film) 1 film SUBLINGUAL TID [facility] Last Admin: 01/22/25 08:13 Dose: 1 film Documented By: DALE Clonidine HCl (Clonidine Hcl 0.1 Mg Tablet) 0.1 mg PO BEDTIME [facility]; Protocol Last Admin: 01/21/25 20:42 Dose: 0.1 mg Documented By: KELLY Dextrose (Dextrose 50 % 25 Gm/50 Ml Syringe) 25 gm IVPUSH Q15M PRN; Protocol PRN Reason: per Hypoglycemia Standing Ord. Escitalopram Oxalate (Escitalopram Oxalate 10 Mg Tablet) 10 mg PO DAILY [facility] Last Admin: 01/22/25 08:14 Dose: 10 mg Documented By: DALE Fluticasone Propionate (Fluticasone Propionate Nasal 16 Gm [place]) 1 spray NOSTRIL-B DAILY [facility] Last Admin: 01/22/25 08:13 Dose: 1 spray Documented By: DALE Fluticasone/Vilanterol (Fluticasone/Vilanterol 100/ Blst.W.Dev) 1 puff INHALE RDAILY [facility] Last Admin: 01/22/25 07:33 Dose: 1 puff Documented By: JOCY Glucose (Glucose Gel 15 Gm Gel..Gram.) 15 gm PO Q15M PRN; Protocol PRN Reason: per Hypoglycemia Standing Ord. Hydralazine HCl (Hydralazine Hcl 20 Mg/Ml Vial) 10 mg IVPUSH Q6H PRN; Protocol PRN Reason: SBP > 160 Last Admin: 01/22/25 03:37 Dose: 10 mg Documented By: KELLY Hydromorphone HCl (Hydromorphone Hcl 1 Mg/Ml Syringe) 1 mg IVPUSH Q3H PRN; Protocol PRN Reason: Pain, Severe (Pain Scale 7-10) Last Admin: 01/22/25 06:10 Dose: 1 mg Documented By: KELLY Piperacillin Sod/Tazobactam (Sod 3.375 gm/ Sodium Chloride) 50 mls @ 100 mls/hr IV Q6H [facility] Last Infusion: 01/22/25 10:56 Dose: Infused Documented By: DALE Lactated Ringer's (Lr) 1,000 mls @ 100 mls/hr IVCONT .Q10H [facility] Last Admin: 01/22/25 08:18 Dose: 100 mls/hr Documented By: DALE Insulin Human Lispro (Insulin Lispro 100 Unit/Ml 3 Ml Vial) 0 unit SUBCUT Q6H [facility]; Protocol Last Admin: 01/22/25 05:55 Dose: Not Given Documented By: KELLY Non-Admin Reason: No Insulin Coverage Losartan Potassium (Losartan Potassium 50 Mg Tablet) 100 mg PO DAILY [facility]; Protocol Last Admin: 01/22/25 08:14 Dose: 100 mg Documented By: DALE Multi-Ingred Medicated Throat [place] (Throat [place], Medicated 177 Ml Bottle) 1 spray MUCOUS MEM Q2H PRN PRN Reason: Sore Throat Last Admin: 01/20/25 23:57 Dose: 1 spray Documented By: ALBARO Naloxone HCl (Naloxone Hcl 0.4 Mg/Ml Vial) 0.04 mg IVPUSH Q5M PRN PRN Reason: Excessive sedation or RR < 8 Ondansetron HCl (Ondansetron Hcl 4 Mg/2 Ml Vial) 4 mg IVPUSH QID PRN PRN Reason: Nausea Last Admin: 01/19/25 13:03 Dose: 4 mg Documented By: LEFEBSTEVE Oxycodone HCl (Oxycodone Hcl Immed Release 5 Mg Tablet) 5 mg PO Q6H PRN PRN Reason: Pain, Moderate(Pain Scale 4-6) Last Admin: 01/22/25 02:48 Dose: 5 mg Documented By: KELLY Pantoprazole Sodium (Pantoprazole Sodium 40 Mg/10 Ml Vial) 40 mg IVPUSH BID@0630,1630 [facility] Last Admin: 01/22/25 05:48 Dose: 40 mg Documented By: KELLY Sodium Chloride (0.9 % Sodium Chloride Flush 3 Ml Syringe) 3 ml IVFLUSH QSHIFT [facility] Last Admin: 01/22/25 08:14 Dose: Not Given Documented By: DALE Non-Admin Reason: IV Running Labs 01/19/25 06:11 01/22/25 05:50 Labs: Laboratory Results - last 24 hr 01/21/25 01/21/25 01/22/25 17:59 23:30 05:46 Hold Purple Top Anion Gap Estim Creat Clear Calc Estimated GFR POC Glucose 86 90 106 Random Glucose Calcium Phosphorus Magnesium 01/22/25 01/22/25 05:50 12:03 Hold Purple Top SEE NOTE Anion Gap 13 Estim Creat Clear Calc 143.0 Estimated GFR > 60 POC Glucose 96 Random Glucose 96 Calcium 8.4 Phosphorus 2.9 Magnesium 1.9 Assessment and Plan (1) Small bowel obstruction: Status: Acute (2) Non-insulin dependent type 2 diabetes mellitus: Status: Acute Plan 54M PMH DM, htn, chronic pain on suboxone, admitted to general surgery service with SBO, underwent ex-lap/MICHELE/SB resection 7/25 for 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 We will continue to follow the patient while they are admitted to your service. Total time managing care of this patient today: 35 minutes. Quality Stroke Does the patient have a stroke diagnosis?: No VTE Prior VTE?: No VTE Risk Level:: Surgical - moderate VTE Device Contraindication: N/A - Device Ordered VTE Drug Contraindication: Treatment Not Indicated
[2025-01-22 17:56] LABS: Glucose, Whole Blood 102 mg/dL (60-115)
[2025-01-22 23:44] LABS: Glucose, Whole Blood 136 mg/dL (60-115)
--- NOTE | 2025-01-23 03:38 | PC.NURSE ---
On routine vitals at 1900, BP =190/104 H 79, pt c/o back pain and hip pain, prn Apresoline IV and prn Oxycodone given, pt verbalized no relief of pain,SBP still at 170s, prn Dilaudid IV given, pt was able to sleep after, BP 140/83.
[2025-01-23 03:44] VITALS: BP 151/83; PULSE 78; RESP 16; TEMP 37.1; O2SAT 94
[2025-01-23] MEDS: Lactated Ringers 1,000 ML 100 ML IVCONT (05:40)
[2025-01-23 06:00] LABS: Hematocrit 44.3 % (42.0-52.0); Hemoglobin 15.5 g/dl (14.0-18.0); Mean Corpuscular HGB Conc 35.0 g/dl (31.0-36.0); Mean Corpuscular Hemoglobin 31.1 pg (27.0-33.0); Mean Corpuscular Volume 88.8 fL (80.0-98.0); NRBC Abs Auto 0.000 X10*3/uL (0.0-0.012); NRBC Pct Auto 0.0 /100WBC (0.0-0.2); Platelet Count 315 X10*3/uL (160-400); Red Blood Count 4.99 X10*6/uL (4.60-5.80); White Blood Count 8.1 X10*3/uL (4.8-10.8)
[2025-01-23 06:00] LABS: Glucose, Whole Blood 131 mg/dL (60-115)
[2025-01-23 06:19] LABS: Alanine Aminotransferase 8 U/L (0-40); Albumin Level 3.4 g/dL (3.5-5.0); Alkaline Phosphatase 47 U/L (39-117); Anion Gap 14 (12-20); Aspartate Amino Transferase 25 U/L (5-37); Blood Urea Nitrogen 7 mg/dL (9-16); Calcium 8.4 mg/dL (8.4-10.2); Carbon Dioxide 26 mmol/L (22-29); Chloride 102 mmol/L (96-108); Creatinine Clr Calc Pharmacy 133.9; Estimated Glomerular Filt Rate > 60; Magnesium 1.9 mg/dL (1.6-2.6); Potassium 3.7 mmol/L (3.3-5.1); Sodium 138 mmol/L (135-145); Total Protein 6.2 g/dL (6.5-8.0)
[2025-01-23 07:16] LABS: Glucose, Whole Blood 149 mg/dL (60-115)
[2025-01-23 07:34] VITALS: BP 140/77; PULSE 74; RESP 16; TEMP 37.1; O2SAT 93
--- NOTE | 2025-01-23 07:35 | P.PNGS_ITS ---
Subjective Subjective Date of Service: 01/23/25 <Fletcher Portillo PA-C - Last Filed: 01/23/25 07:43> 01/23/25 <Jv Galarza MD - Last Filed: 01/23/25 14:09> Interval history: doing well today. NG tube was removed. He denies pain at rest, denies n/v. Has been OOB walking. Now passing gas, no BM. tolerating clear liquid diet, states he has been having small amounts so far. Denies fever or chills <Fletcher Portillo PA-C - Last Filed: 01/23/25 07:43> Physical Exam 2 Vital Signs: Vital Signs: Last Vital Signs Temp 98.7 F 01/23/25 03:44 Pulse 78 01/23/25 03:44 Resp 16 01/23/25 03:44 BP 151/83 H 01/23/25 03:44 Pulse Ox 94 01/23/25 03:44 O2 Del Method Room Air 01/23/25 03:44 O2 Flow Rate 2 01/22/25 03:09 BMI result Body Mass Index 28.2 <Fletcher Portillo PA-C - Last Filed: 01/23/25 07:43> Const: General: comfortable and no acute distress <ANABEL Davis Last Filed: 01/23/25 07:43> Orientation/consciousness: patient oriented x3 <ANABEL Davis Last Filed: 01/23/25 07:43> GI: Other: nehemiah in place, incision is clean and dry <ANABEL Davis Last Filed: 01/23/25 07:43> Inspection: Yes distended (mild) <ANABEL Davis Last Filed: 01/23/25 07:43> Palpation (GI): Soft to palpation, not firm, Tenderness to palpation present (GI) (upper) in the epigastrum, Guarding due to palpation present (GI) (voluntary) and not rigid <ANABEL Davis Last Filed: 01/23/25 07:43> Percussion: Yes normal to percussion <ANABEL Davis Last Filed: 01/23/25 07:43> Neuro: General: patient oriented x3 <ANABEL Davis Last Filed: 01/23/25 07:43> Objective Data Active Medications Albuterol Sulfate (Albuterol Sulfate (0.083%) 2.5 Mg/3 Ml Vial.Neb) 2.5 mg INHALE Q4H PRN PRN Reason: Shortness Of Breath Or Wheezing Amlodipine Besylate (Amlodipine Besylate 10 Mg Tablet) 10 mg PO DAILY [facility]; Protocol Last Admin: 01/22/25 08:14 Dose: 10 mg Documented By: DALE Atorvastatin Calcium (Atorvastatin Calcium 40 Mg Tablet) 40 mg PO DAILY [facility] Last Admin: 01/22/25 08:14 Dose: 40 mg Documented By: DALE Buprenorphine/Naloxone (Buprenorphine/Naloxone 8/2 Mg Film) 1 film SUBLINGUAL TID [facility] Last Admin: 01/22/25 21:15 Dose: 1 film Documented By: DAVINA Clonidine HCl (Clonidine Hcl 0.1 Mg Tablet) 0.1 mg PO BEDTIME [facility]; Protocol Last Admin: 01/22/25 19:55 Dose: 0.1 mg Documented By: DAVINA Dextrose (Dextrose 50 % 25 Gm/50 Ml Syringe) 25 gm IVPUSH Q15M PRN; Protocol PRN Reason: per Hypoglycemia Standing Ord. Escitalopram Oxalate (Escitalopram Oxalate 10 Mg Tablet) 10 mg PO DAILY [facility] Last Admin: 01/22/25 08:14 Dose: 10 mg Documented By: DALE Fluticasone Propionate (Fluticasone Propionate Nasal 16 Gm [place]) 1 spray NOSTRIL-B DAILY [facility] Last Admin: 01/22/25 08:13 Dose: 1 spray Documented By: DALE Fluticasone/Vilanterol (Fluticasone/Vilanterol 100/25 Blst.W.Dev) 1 puff INHALE RDAILY [facility] Last Admin: 01/22/25 07:33 Dose: 1 puff Documented By: JOCY Glucose (Glucose Gel 15 Gm Gel..Gram.) 15 gm PO Q15M PRN; Protocol PRN Reason: per Hypoglycemia Standing Ord. Hydralazine HCl (Hydralazine Hcl 20 Mg/Ml Vial) 10 mg IVPUSH Q6H PRN; Protocol PRN Reason: SBP > 160 Last Admin: 01/22/25 19:55 Dose: 10 mg Documented By: DAVINA Hydromorphone HCl (Hydromorphone Hcl 1 Mg/Ml Syringe) 1 mg IVPUSH Q3H PRN; Protocol PRN Reason: Pain, Severe (Pain Scale 7-10) Last Admin: 01/22/25 22:03 Dose: 1 mg Documented By: DAVINA Piperacillin Sod/Tazobactam (Sod 3.375 gm/ Sodium Chloride) 50 mls @ 100 mls/hr IV Q6H [facility] Last Infusion: 01/23/25 03:59 Dose: Infused Documented By: DAVINA Lactated Ringer's (Lr) 1,000 mls @ 100 mls/hr IVCONT .Q10H [facility] Last Admin: 01/23/25 05:40 Dose: 100 mls/hr Documented By: DAVINA Insulin Human Lispro (Insulin Lispro 100 Unit/Ml 3 Ml Vial) 0 unit SUBCUT QIDACHS [facility]; Protocol Losartan Potassium (Losartan Potassium 50 Mg Tablet) 100 mg PO DAILY [facility]; Protocol Last Admin: 01/22/25 08:14 Dose: 100 mg Documented By: DALE Multi-Ingred Medicated Throat [place] (Throat [place], Medicated 177 Ml Bottle) 1 spray MUCOUS MEM Q2H PRN PRN Reason: Sore Throat Last Admin: 01/20/25 23:57 Dose: 1 spray Documented By: ALBARO Naloxone HCl (Naloxone Hcl 0.4 Mg/Ml Vial) 0.04 mg IVPUSH Q5M PRN PRN Reason: Excessive sedation or RR < 8 Ondansetron HCl (Ondansetron Hcl 4 Mg/2 Ml Vial) 4 mg IVPUSH QID PRN PRN Reason: Nausea Last Admin: 01/19/25 13:03 Dose: 4 mg Documented By: LEFEBVA Oxycodone HCl (Oxycodone Hcl Immed Release 5 Mg Tablet) 5 mg PO Q6H PRN PRN Reason: Pain, Moderate(Pain Scale 4-6) Last Admin: 01/22/25 19:55 Dose: 5 mg Documented By: DAVINA Pantoprazole Sodium (Pantoprazole Sodium 40 Mg/10 Ml Vial) 40 mg IVPUSH BID@0630,1630 [facility] Last Admin: 01/23/25 05:40 Dose: 40 mg Documented By: DAVINA Sodium Chloride (0.9 % Sodium Chloride Flush 3 Ml Syringe) 3 ml IVFLUSH QSHIFT [facility] Last Admin: 01/22/25 23:41 Dose: Not Given Documented By: KELLY Non-Admin Reason: IV Running <Fletcher Portillo PA-C - Last Filed: 01/23/25 07:43> Labs CBC & Chem 7: 01/23/25 05:41 01/23/25 05:41 <Fletcher Portillo PA-C - Last Filed: 01/23/25 07:43> Labs: Laboratory Results - last 24 hr 01/22/25 01/22/25 01/22/25 12:03 17:53 23:41 MCV MCH MCHC RDW Plt Count MPV Absolute Nucleated RBC Nucleated RBC % (auto) Anion Gap Estim Creat Clear Calc Estimated GFR POC Glucose 96 102 136 H Random Glucose Calcium Phosphorus Magnesium Total Bilirubin Direct Bilirubin AST ALT Alkaline Phosphatase Total Protein Albumin 01/23/25 01/23/25 01/23/25 05:41 05:56 07:09 MCV 88.8 MCH 31.1 MCHC 35.0 RDW 12.9 Plt Count 315 MPV 9.5 Absolute Nucleated RBC 0.000 Nucleated RBC % (auto) 0.0 Anion Gap 14 Estim Creat Clear Calc 133.9 Estimated GFR > 60 POC Glucose 131 H 149 H Random Glucose 133 H Calcium 8.4 Phosphorus 2.4 L Magnesium 1.9 Total Bilirubin 1.1 H Direct Bilirubin 0.4 AST 25 ALT 8 Alkaline Phosphatase 47 Total Protein 6.2 L Albumin 3.4 L <Fletcher Portillo PA-C - Last Filed: 01/23/25 07:43> Procedures Date of Service Date of Service: 01/23/25 <Fletcher Portillo PA-C - Last Filed: 01/23/25 07:43> 01/23/25 <Jv Galarza MD - Last Filed: 01/23/25 14:09> Progress Note: A&P Assessment and plan (1) Small bowel obstruction: Status: Acute <Fletcher Portillo PA-C - Last Filed: 01/23/25 07:43> Assessment and Plan: 54 year old male POD#5 s/p explor lap with SBR and anastomosis. Doing well today. NG tube was removed yesterday afternoon. He has not had nausea or vomiting since. Pain is minimal at rest. He has been walking more. Tolerating clear diet, but is hungry. He denies nausea or vomiting. Now passing flatus or BM. abdomen is soft, mildly distended tender to palpation in the epigastric area. Incision is clean and dry, nehemiah in palce Continue clears, will evaluate in afternoon, possibly advance to clears Ambulation and spirometry as tolerated <Fletcher Portillo PA-C - Last Filed: 01/23/25 07:43> 54 year old male POD#5 s/p explor lap with SBR and anastomosis. Doing well today. NG tube was removed yesterday afternoon. He has not had nausea or vomiting since. Pain is minimal at rest. He has been walking more. Tolerating clear diet, but is hungry. He denies nausea or vomiting. Now passing flatus or BM. abdomen is soft, mildly distended tender to palpation in the epigastric area. Incision is clean and dry, nehemiah in palce Continue clears, will evaluate in afternoon, possibly advance to clears Ambulation and spirometry as tolerated Agree with the above assessment and plan. Overall he is much improved with improved pain control. Wounds are clean and intact without redness or discharge. Awaiting return of bowel function. <Jv Galarza MD - Last Filed: 01/23/25 14:09> Time Spent With Patient Time: Total time managing care of this patient today ____ minutes. <Fletcher Portillo PA-C - Last Filed: 01/23/25 07:43> Quality Stroke Does the patient have a stroke diagnosis?: No <Fletcher Portillo PA-C - Last Filed: 01/23/25 07:43> VTE Prior VTE?: No <Fletcher Portillo PA-C - Last Filed: 01/23/25 07:43> VTE Risk Level:: Surgical - moderate <Fletcher Portillo PA-C - Last Filed: 01/23/25 07:43> VTE Device Contraindication: N/A - Device Ordered <Fletcher Portillo PA-C - Last Filed: 01/23/25 07:43> VTE Drug Contraindication: Treatment Not Indicated <Fletcher Portillo PA-C - Last Filed: 01/23/25 07:43>
[2025-01-23] MEDS: Fluticasone/Vilanterol 100/25 BLST.W.DEV 1 PUFF INHALE (08:20)
[2025-01-23 08:21] VITALS: PULSE 74; RESP 16; O2SAT 93
--- NOTE | 2025-01-23 09:05 | HO.PM.IMPN ---
Subjective Subjective Date of Service: 01/23/25 Interval History: NGT removed, feeling well Physical Exam Vital Signs: Vital Signs: Last Vital Signs Temp 98.8 F 01/23/25 07:34 Pulse 74 01/23/25 08:21 Resp 16 01/23/25 08:21 BP 140/77 H 01/23/25 07:34 Pulse Ox 93 01/23/25 07:34 O2 Del Method Room Air 01/23/25 07:34 O2 Flow Rate 2 01/22/25 03:09 BMI result Body Mass Index 28.2 Const: General: comfortable and no acute distress Orientation/consciousness: patient oriented x3 GI: Other: nehemiah in place, incision is clean and dry Inspection: Yes distended (mild) Palpation (GI): Soft to palpation, not firm, Tenderness to palpation present (GI) (upper) in the epigastrum, Guarding due to palpation present (GI) (voluntary) and not rigid Percussion: Yes normal to percussion Neuro: General: patient oriented x3 Objective Data Active Medications Albuterol Sulfate (Albuterol Sulfate (0.083%) 2.5 Mg/3 Ml Vial.Neb) 2.5 mg INHALE Q4H PRN PRN Reason: Shortness Of Breath Or Wheezing Amlodipine Besylate (Amlodipine Besylate 10 Mg Tablet) 10 mg PO DAILY [facility]; Protocol Last Admin: 01/23/25 08:27 Dose: 10 mg Documented By: SAE Atorvastatin Calcium (Atorvastatin Calcium 40 Mg Tablet) 40 mg PO DAILY [facility] Last Admin: 01/23/25 08:27 Dose: 40 mg Documented By: SAE Buprenorphine/Naloxone (Buprenorphine/Naloxone 8/2 Mg Film) 1 film SUBLINGUAL TID [facility] Last Admin: 01/23/25 08:32 Dose: 1 film Documented By: SAE Clonidine HCl (Clonidine Hcl 0.1 Mg Tablet) 0.1 mg PO BEDTIME [facility]; Protocol Last Admin: 01/22/25 19:55 Dose: 0.1 mg Documented By: CASTILSergo Dextrose (Dextrose 50 % 25 Gm/50 Ml Syringe) 25 gm IVPUSH Q15M PRN; Protocol PRN Reason: per Hypoglycemia Standing Ord. Escitalopram Oxalate (Escitalopram Oxalate 10 Mg Tablet) 10 mg PO DAILY [facility] Last Admin: 01/23/25 08:27 Dose: 10 mg Documented By: SAE Fluticasone Propionate (Fluticasone Propionate Nasal 16 Gm [place]) 1 spray NOSTRIL-B DAILY [facility] Last Admin: 01/23/25 08:56 Dose: 1 spray Documented By: SAE Fluticasone/Vilanterol (Fluticasone/Vilanterol 100/25 Blst.W.Dev) 1 puff INHALE RDAILY [facility] Last Admin: 01/23/25 08:20 Dose: 1 puff Documented By: JACQUELINE Glucose (Glucose Gel 15 Gm Gel..Gram.) 15 gm PO Q15M PRN; Protocol PRN Reason: per Hypoglycemia Standing Ord. Hydralazine HCl (Hydralazine Hcl 20 Mg/Ml Vial) 10 mg IVPUSH Q6H PRN; Protocol PRN Reason: SBP > 160 Last Admin: 01/22/25 19:55 Dose: 10 mg Documented By: DAVINA Hydromorphone HCl (Hydromorphone Hcl 1 Mg/Ml Syringe) 1 mg IVPUSH Q3H PRN; Protocol PRN Reason: Pain, Severe (Pain Scale 7-10) Last Admin: 01/22/25 22:03 Dose: 1 mg Documented By: DAVINA Piperacillin Sod/Tazobactam (Sod 3.375 gm/ Sodium Chloride) 50 mls @ 100 mls/hr IV Q6H [facility] Last Infusion: 01/23/25 03:59 Dose: Infused Documented By: DAVINA Lactated Ringer's (Lr) 1,000 mls @ 100 mls/hr IVCONT .Q10H [facility] Last Admin: 01/23/25 05:40 Dose: 100 mls/hr Documented By: DAVINA Insulin Human Lispro (Insulin Lispro 100 Unit/Ml 3 Ml Vial) 0 unit SUBCUT QIDACHS [facility]; Protocol Losartan Potassium (Losartan Potassium 50 Mg Tablet) 100 mg PO DAILY [facility]; Protocol Last Admin: 01/23/25 08:27 Dose: 100 mg Documented By: SAE Multi-Ingred Medicated Throat [place] (Throat [place], Medicated 177 Ml Bottle) 1 spray MUCOUS MEM Q2H PRN PRN Reason: Sore Throat Last Admin: 01/20/25 23:57 Dose: 1 spray Documented By: ALBARO Naloxone HCl (Naloxone Hcl 0.4 Mg/Ml Vial) 0.04 mg IVPUSH Q5M PRN PRN Reason: Excessive sedation or RR < 8 Ondansetron HCl (Ondansetron Hcl 4 Mg/2 Ml Vial) 4 mg IVPUSH QID PRN PRN Reason: Nausea Last Admin: 01/19/25 13:03 Dose: 4 mg Documented By: LUKE Oxycodone HCl (Oxycodone Hcl Immed Release 5 Mg Tablet) 5 mg PO Q6H PRN PRN Reason: Pain, Moderate(Pain Scale 4-6) Last Admin: 01/22/25 19:55 Dose: 5 mg Documented By: DAVINA Pantoprazole Sodium (Pantoprazole Sodium 40 Mg/10 Ml Vial) 40 mg IVPUSH BID@0630,1630 [facility] Last Admin: 01/23/25 05:40 Dose: 40 mg Documented By: DAVINA Sodium Chloride (0.9 % Sodium Chloride Flush 3 Ml Syringe) 3 ml IVFLUSH QSHIFT [facility] Last Admin: 01/23/25 08:26 Dose: Not Given Documented By: SAE Non-Admin Reason: IV Running Labs 01/23/25 05:41 01/23/25 05:41 Labs: Laboratory Results - last 24 hr 01/22/25 01/22/25 01/22/25 12:03 17:53 23:41 MCV MCH MCHC RDW Plt Count MPV Absolute Nucleated RBC Nucleated RBC % (auto) Anion Gap Estim Creat Clear Calc Estimated GFR POC Glucose 96 102 136 H Random Glucose Calcium Phosphorus Magnesium Total Bilirubin Direct Bilirubin AST ALT Alkaline Phosphatase Total Protein Albumin 01/23/25 01/23/25 01/23/25 05:41 05:56 07:09 MCV 88.8 MCH 31.1 MCHC 35.0 RDW 12.9 Plt Count 315 MPV 9.5 Absolute Nucleated RBC 0.000 Nucleated RBC % (auto) 0.0 Anion Gap 14 Estim Creat Clear Calc 133.9 Estimated GFR > 60 POC Glucose 131 H 149 H Random Glucose 133 H Calcium 8.4 Phosphorus 2.4 L Magnesium 1.9 Total Bilirubin 1.1 H Direct Bilirubin 0.4 AST 25 ALT 8 Alkaline Phosphatase 47 Total Protein 6.2 L Albumin 3.4 L Assessment and Plan (1) Small bowel obstruction: Status: Acute (2) Non-insulin dependent type 2 diabetes mellitus: Status: Acute Plan 54M PMH DM, htn, chronic pain on suboxone, admitted to general surgery service with SBO, underwent ex-lap/MICHELE/SB resection 01/18 for 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 Quality Stroke Does the patient have a stroke diagnosis?: No VTE Prior VTE?: No VTE Risk Level:: Surgical - moderate VTE Device Contraindication: N/A - Device Ordered VTE Drug Contraindication: Treatment Not Indicated
[2025-01-23] MEDS: oxyCODONE HCl Immed Release 5 MG TABLET PO (10:38)
[2025-01-23 12:02] LABS: Glucose, Whole Blood 166 mg/dL (60-115)
[2025-01-23 12:19] VITALS: BMI 28.2
--- NOTE | 2025-01-23 12:29 | MHC.CLN ---
NUTRITION PATIENT NPO OR CLEAR LIQUIDS SINCE 01/17. TODAY IS DAY 7 OF INADEQUATE PO INTAKE. NGT OUT 01/22 AND DIET ADVANCED TO CLEAR LIQUIDS. IF UNABLE TO ADVANCE DIET, RECOMMEND START PPN. START PPN AT 50 ML PER HOUR TO PROVIDE 51 G PROTEIN, 120 G DEXTROSE, 612 KCALS. REPLETE LYTES NEEDED. CHECK TRIGLYCERIDES. FOLLOW FOR DIET ADVANCEMENT AND PPN TOLERANCE. SEE CLINICAL NUTRITION ASSESSMENT 01/23/25.
--- NOTE | 2025-01-23 13:58 | HO.SKINPHOTO ---
Location: Right Nare Category: Stage: Length: Width: Depth: cm Location: Category: Stage: Length: Width: Depth: cm Location: Category: Stage: Length: Width: Depth: cm Location: Category: Stage: Length: Width: Depth: cm Location: Category: Stage: Length: Width: Depth: cm Location: Category: Stage: Length: Width: Depth: cm
[2025-01-23 16:02] VITALS: BP 174/98; PULSE 80; RESP 20; TEMP 36.9; O2SAT 93
[2025-01-23 16:43] LABS: Glucose, Whole Blood 116 mg/dL (60-115)
[2025-01-23 17:16] VITALS: BP 161/97; PULSE 80
[2025-01-23 19:18] VITALS: BP 156/88; PULSE 83; RESP 18; TEMP 36.8; O2SAT 93
[2025-01-23 19:58] LABS: Glucose, Whole Blood 127 mg/dL (60-115)
[2025-01-23] MEDS: 0.9 % Sodium Chloride Flush 3 ML SYRINGE IVFLUSH (20:44)
[2025-01-24] VITALS (8 sets, daily range): BP systolic 144–172; BP diastolic 81–94; PULSE 73–84; RESP 14–20; TEMP 36.1–36.8; O2SAT 90–98
[2025-01-24 06:26] LABS: Alanine Aminotransferase 11 U/L (0-40); Albumin Level 3.5 g/dL (3.5-5.0); Alkaline Phosphatase 54 U/L (39-117); Anion Gap 12 (12-20); Aspartate Amino Transferase 32 U/L (5-37); Blood Urea Nitrogen 5 mg/dL (9-16); Calcium 8.3 mg/dL (8.4-10.2); Carbon Dioxide 29 mmol/L (22-29); Chloride 103 mmol/L (96-108); Creatinine Clr Calc Pharmacy 129.8; Estimated Glomerular Filt Rate > 60; Magnesium 1.9 mg/dL (1.6-2.6); Potassium 3.8 mmol/L (3.3-5.1); Sodium 140 mmol/L (135-145); Total Protein 6.3 g/dL (6.5-8.0); Triglycerides 118 mg/dL (<150)
[2025-01-24 07:33] LABS: Glucose, Whole Blood 117 mg/dL (60-115)
[2025-01-24] MEDS: Fluticasone/Vilanterol 100/25 BLST.W.DEV 1 PUFF INHALE (08:06)
[2025-01-24] MEDS: 0.9 % Sodium Chloride Flush 3 ML SYRINGE IVFLUSH ×3 (08:43→22:48)
--- NOTE | 2025-01-24 11:05 | PM.PNGS ---
Subjective Subjective Date of Service: 01/24/25 <Fletcher Portillo PA-C - Last Filed: 01/24/25 11:09> 01/24/25 <Jv Galarza MD - Last Filed: 01/24/25 14:55> Interval history: Doing well today. Yesterday when diet was advanced he did experience some nausea but this has subsided. States he passed a small bowel movement yesterday evening. Has continued to pass gas. Denies current nausea or vomiting has been walking. Tolerating solid diet this morning <Fletcher Portillo PA-C - Last Filed: 01/24/25 11:09> Physical Exam Vital Signs: Vital Signs: Last Vital Signs Temp 97.0 F 01/24/25 07:41 Pulse 80 01/24/25 08:07 Resp 20 01/24/25 08:44 BP 160/94 H 01/24/25 08:41 Pulse Ox 98 01/24/25 07:41 O2 Del Method Room Air 01/24/25 07:41 O2 Flow Rate 2 01/22/25 03:09 BMI result Body Mass Index 28.2 <Fletcher Portillo PA-C - Last Filed: 01/24/25 11:09> Const: General: comfortable and no acute distress <ANABEL Davis Last Filed: 01/24/25 11:09> Orientation/consciousness: patient oriented x3 <ANABEL Davis Last Filed: 01/24/25 11:09> Resp: Effort & Inspection: normal respiratory effort and able to speak in complete sentences <ANABEL Davis Last Filed: 01/24/25 11:09> GI: Other: [place] remain in place incision site looks clean dry and intact <Fletcher Portillo PA-C - Last Filed: 01/24/25 11:09> Inspection: Yes distended (Mild) <ANABEL Davis Last Filed: 01/24/25 11:09> Palpation (GI): Soft to palpation, not firm, Tenderness to palpation present (GI) (Mild/moderate tenderness in the epigastric region), no guarding and not rigid <ANABEL Davis Last Filed: 01/24/25 11:09> Neuro: General: patient oriented x3 <ANABEL Davis Filed: 01/24/25 11:09> Objective Data Active Medications Albuterol Sulfate (Albuterol Sulfate (0.083%) 2.5 Mg/3 Ml Vial.Neb) 2.5 mg INHALE Q4H PRN PRN Reason: Shortness Of Breath Or Wheezing Amlodipine Besylate (Amlodipine Besylate 10 Mg Tablet) 10 mg PO DAILY [facility]; Protocol Last Admin: 01/24/25 08:41 Dose: 10 mg Documented By: RIP Atorvastatin Calcium (Atorvastatin Calcium 40 Mg Tablet) 40 mg PO DAILY [facility] Last Admin: 01/24/25 08:40 Dose: 40 mg Documented By: RIP Buprenorphine/Naloxone (Buprenorphine/Naloxone 8/2 Mg Film) 1 film SUBLINGUAL TID [facility] Last Admin: 01/24/25 08:41 Dose: 1 film Documented By: RIP Clonidine HCl (Clonidine Hcl 0.1 Mg Tablet) 0.1 mg PO BEDTIME [facility]; Protocol Last Admin: 01/23/25 20:44 Dose: 0.1 mg Documented By: SHANITA Dextrose (Dextrose 50 % 25 Gm/50 Ml Syringe) 25 gm IVPUSH Q15M PRN; Protocol PRN Reason: per Hypoglycemia Standing Ord. Escitalopram Oxalate (Escitalopram Oxalate 10 Mg Tablet) 10 mg PO DAILY [facility] Last Admin: 01/24/25 08:41 Dose: 10 mg Documented By: RIP Fluticasone Propionate (Fluticasone Propionate Nasal 16 Gm [place]) 1 spray NOSTRIL-B DAILY [facility] Last Admin: 01/24/25 09:43 Dose: 1 spray Documented By: RIP Fluticasone/Vilanterol (Fluticasone/Vilanterol 100/25 Blst.W.Dev) 1 puff INHALE RDAILY [facility] Last Admin: 01/24/25 08:06 Dose: 1 puff Documented By: SURAJ Glucose (Glucose Gel 15 Gm Gel..Gram.) 15 gm PO Q15M PRN; Protocol PRN Reason: per Hypoglycemia Standing Ord. Hydralazine HCl (Hydralazine Hcl 20 Mg/Ml Vial) 10 mg IVPUSH Q6H PRN; Protocol PRN Reason: SBP > 160 Last Admin: 01/22/25 19:55 Dose: 10 mg Documented By: DAVINA Hydromorphone HCl (Hydromorphone Hcl 1 Mg/Ml Syringe) 1 mg IVPUSH Q3H PRN; Protocol PRN Reason: Pain, Severe (Pain Scale 7-10) Last Admin: 01/24/25 08:44 Dose: 1 mg Documented By: RIP Piperacillin Sod/Tazobactam (Sod 3.375 gm/ Sodium Chloride) 50 mls @ 100 mls/hr IV Q6H [facility] Last Infusion: 01/24/25 10:30 Dose: Infused Documented By: RIP Insulin Human Lispro (Insulin Lispro 100 Unit/Ml 3 Ml Vial) 0 unit SUBCUT QIDACHS [facility]; Protocol Last Admin: 01/24/25 07:34 Dose: Not Given Documented By: RIP Non-Admin Reason: No Insulin Coverage Losartan Potassium (Losartan Potassium 50 Mg Tablet) 100 mg PO DAILY [facility]; Protocol Last Admin: 01/24/25 08:40 Dose: 100 mg Documented By: RIP Multi-Ingred Medicated Throat [place] (Throat [place], Medicated 177 Ml Bottle) 1 spray MUCOUS MEM Q2H PRN PRN Reason: Sore Throat Last Admin: 01/20/25 23:57 Dose: 1 spray Documented By: ALBARO Naloxone HCl (Naloxone Hcl 0.4 Mg/Ml Vial) 0.04 mg IVPUSH Q5M PRN PRN Reason: Excessive sedation or RR < 8 Ondansetron HCl (Ondansetron Hcl 4 Mg/2 Ml Vial) 4 mg IVPUSH QID PRN PRN Reason: Nausea Last Admin: 01/23/25 18:08 Dose: 4 mg Documented By: MINI Oxycodone HCl (Oxycodone Hcl Immed Release 5 Mg Tablet) 5 mg PO Q6H PRN PRN Reason: Pain, Moderate(Pain Scale 4-6) Last Admin: 01/23/25 10:38 Dose: 5 mg Documented By: SAE Sodium Chloride (0.9 % Sodium Chloride Flush 3 Ml Syringe) [facility] Last Admin: 01/24/25 08:43 Dose: 3 ml Documented By: RIP <Fletcher Portillo PA-C - Last Filed: 01/24/25 11:09> Labs CBC & Chem 7: 01/23/25 05:41 07/31/25 05:51 <Fletcher Portillo PA-C - Last Filed: 01/24/25 11:09> Labs: Laboratory Results - last 24 hr 01/23/25 01/23/25 01/23/25 11:58 16:30 19:22 Hold Purple Top Anion Gap Estim Creat Clear Calc Estimated GFR POC Glucose 166 H 116 H 127 H Random Glucose Calcium Phosphorus Magnesium Total Bilirubin AST ALT Alkaline Phosphatase Total Protein Albumin Triglycerides 01/24/25 01/24/25 05:51 07:28 Hold Purple Top SEE NOTE Anion Gap 12 Estim Creat Clear Calc 129.8 Estimated GFR > 60 POC Glucose 117 H Random Glucose 116 H Calcium 8.3 L Phosphorus 2.6 L Magnesium 1.9 Total Bilirubin 0.8 AST 32 ALT 11 Alkaline Phosphatase 54 Total Protein 6.3 L Albumin 3.5 Triglycerides 118 <Fletcher Portillo PA-C - Last Filed: 01/24/25 11:09> Procedures Date of Service Date of Service: 01/24/25 <Fletcher Portillo PA-C - Last Filed: 01/24/25 11:09> 01/24/25 <Jv Galarza MD - Last Filed: 01/24/25 14:55> Progress Note: A&P Assessment and plan (1) Small bowel obstruction: Status: Acute <Fletcher Portillo PA-C - Last Filed: 01/24/25 11:09> Assessment and Plan: 54 year old male POD#6 s/p explor lap with SBR and anastomosis. Doing well today. Diet was advanced last night. He has had nausea when he initially eat regular diet but this has subsided now currently denying nausea or vomiting. Pain is minimal at rest. He has been walking more. Tolerating regular diet. Continues to pass gas, had a small bowel movement yesterday. abdomen is soft, mildly distended tender to palpation in the epigastric area. Incision is clean and dry, nehemiah in palce Continue regular diet, will evaluate in afternoon Ambulation and spirometry as tolerated If patient continues to improve, plan for discharge tomorrow <Fletcher Portillo PA-C - Last Filed: 01/24/25 11:09> 54 year old male POD#6 s/p explor lap with SBR and anastomosis. Doing well today. Diet was advanced last night. He has had nausea when he initially eat regular diet but this has subsided now currently denying nausea or vomiting. Pain is minimal at rest. He has been walking more. Tolerating regular diet. Continues to pass gas, had a small bowel movement yesterday. abdomen is soft, mildly distended tender to palpation in the epigastric area. Incision is clean and dry, nehemiah in palce Continue regular diet, will evaluate in afternoon Ambulation and spirometry as tolerated If patient continues to improve, plan for discharge tomorrow Patient much improved after having a bowel movement. He does have some incisional pain but overall is making good progress. Agree with continuing the regular diet with possible discharge in a.m. if no further nausea or vomiting. <Jv Galarza MD - Last Filed: 01/24/25 14:55> Time Spent With Patient Time: Total time managing care of this patient today ____ minutes. <Fletcher Portillo PA-C - Last Filed: 01/24/25 11:09> Quality Stroke Does the patient have a stroke diagnosis?: No <Fletcher Portillo PA-C - Last Filed: 01/24/25 11:09> VTE Prior VTE?: No <Fletcher Portillo PA-C - Last Filed: 01/24/25 11:09> VTE Risk Level:: Surgical - moderate <Fletcehr Portillo PA-C - Last Filed: 01/24/25 11:09> VTE Device Contraindication: N/A - Device Ordered <Fletcher Portillo PA-C - Last Filed: 01/24/25 11:09> VTE Drug Contraindication: Treatment Not Indicated <Fletcher Portillo PA-C - Last Filed: 01/24/25 11:09>
[2025-01-24 11:23] LABS: Glucose, Whole Blood 126 mg/dL (60-115)
--- NOTE | 2025-01-24 11:26 | MHC.CLN ---
F/U DIET ADVANCED TO 1800DM PT PREVIOUSLY CONSUMED 75-100% OF CLEAR LIQUID DIET RECOMMEND ADDING GELATEIN BID TO INCREASE KCALS SUPP TO PROVIDE 320KCALS, 40G PROTEIN MONITOR PO INTAKE AND ENCOURAGE SUPPLEMENTS
[2025-01-24] MEDS: oxyCODONE HCl Immed Release 5 MG TABLET PO (12:11)
--- NOTE | 2025-01-24 12:20 | MHC.CM.PN ---
PER SURGERY NOTE, PT WILL BE MONITORED ONE MORE DAY WITH A TENTTIVE PLAN TO DC TOMORROW DCP: HOME RESUME MEDICAL BILL PROCESSOR SERVICES MEDICAL BILL PROCESSOR TO TRANSPORT
[2025-01-24 16:23] LABS: Glucose, Whole Blood 109 mg/dL (60-115)
[2025-01-24 20:36] LABS: Glucose, Whole Blood 118 mg/dL (60-115)
[2025-01-25] MEDS: oxyCODONE HCl Immed Release 5 MG TABLET PO ×3 (03:11→14:10)
[2025-01-25 03:22] VITALS: BP 138/88; PULSE 71; RESP 20; TEMP 36.5; O2SAT 96
[2025-01-25] MEDS: Fluticasone/Vilanterol 100/25 BLST.W.DEV 1 PUFF INHALE (07:40)
[2025-01-25 07:42] VITALS: PULSE 78; RESP 18; O2SAT 89
[2025-01-25 07:43] LABS: Alanine Aminotransferase 11 U/L (0-40); Albumin Level 3.4 g/dL (3.5-5.0); Alkaline Phosphatase 49 U/L (39-117); Anion Gap 12 (12-20); Aspartate Amino Transferase 26 U/L (5-37); Blood Urea Nitrogen 8 mg/dL (9-16); Calcium 8.5 mg/dL (8.4-10.2); Carbon Dioxide 27 mmol/L (22-29); Chloride 104 mmol/L (96-108); Creatinine Clr Calc Pharmacy 127.8; Estimated Glomerular Filt Rate > 60; Magnesium 1.8 mg/dL (1.6-2.6); Potassium 3.9 mmol/L (3.3-5.1); Sodium 139 mmol/L (135-145); Total Protein 5.9 g/dL (6.5-8.0)
[2025-01-25 08:00] VITALS: BP 149/86; PULSE 71; RESP 17; TEMP 36.3; O2SAT 93
[2025-01-25 08:04] LABS: Glucose, Whole Blood 107 mg/dL (60-115)
[2025-01-25] MEDS: 0.9 % Sodium Chloride Flush 3 ML SYRINGE IVFLUSH ×2 (08:06→15:00)
--- NOTE | 2025-01-25 08:36 | PM.PNGS ---
Subjective Subjective Date of Service: 01/25/25 <Fletcher Portillo PA-C - Last Filed: 01/25/25 08:45> 01/25/25 <Jv Galarza MD - Last Filed: 01/25/25 09:43> Interval history: doing well this morning, mild pain in the upper abdomen and back. Tolerating diet. passing gas, no more stool today. denies fever, chills, n/v <ANABEL Davis Last Filed: 01/25/25 08:45> Physical Exam Vital Signs: Vital Signs: Last Vital Signs Temp 97.4 F 01/25/25 08:00 Pulse 71 01/25/25 08:00 Resp 17 01/25/25 08:00 BP 149/86 H 01/25/25 08:00 Pulse Ox 93 01/25/25 08:00 O2 Del Method Room Air 01/25/25 08:00 O2 Flow Rate 2 01/22/25 03:09 BMI result Body Mass Index 28.2 <ANABEL Davis Last Filed: 01/25/25 08:45> Const: General: comfortable and no acute distress <ANABEL Davis Last Filed: 01/25/25 08:45> Orientation/consciousness: patient oriented x3 <ANABEL Davis Last Filed: 01/25/25 08:45> Resp: Effort & Inspection: normal respiratory effort and able to speak in complete sentences <ANABEL Davis Last Filed: 01/25/25 08:45> GI: Other: nehemiah in place, incision clean and dry, no discharge or erythema <ANABEL Davis Last Filed: 01/25/25 08:45> Inspection: Yes distended (mild) <ANABEL Davis Last Filed: 01/25/25 08:45> Palpation (GI): Soft to palpation, not firm, Tenderness to palpation present (GI) in the epigastrum, no guarding and not rigid <ANABEL Davis Last Filed: 01/25/25 08:45> Neuro: General: patient oriented x3 <ANABEL Davis Last Filed: 01/25/25 08:45> Objective Data Active Medications Albuterol Sulfate (Albuterol Sulfate (0.083%) 2.5 Mg/3 Ml Vial.Neb) 2.5 mg INHALE Q4H PRN PRN Reason: Shortness Of Breath Or Wheezing Amlodipine Besylate (Amlodipine Besylate 10 Mg Tablet) 10 mg PO DAILY [facility]; Protocol Last Admin: 01/25/25 08:03 Dose: 10 mg Documented By: JELANI Atorvastatin Calcium (Atorvastatin Calcium 40 Mg Tablet) 40 mg PO DAILY [facility] Last Admin: 01/25/25 08:03 Dose: 40 mg Documented By: JELANI Buprenorphine/Naloxone (Buprenorphine/Naloxone 8/2 Mg Film) 1 film SUBLINGUAL TID [facility] Last Admin: 01/25/25 08:03 Dose: 1 film Documented By: JELANI Clonidine HCl (Clonidine Hcl 0.1 Mg Tablet) 0.1 mg PO BEDTIME [facility]; Protocol Last Admin: 01/24/25 21:16 Dose: 0.1 mg Documented By: ALBARO Dextrose (Dextrose 50 % 25 Gm/50 Ml Syringe) 25 gm IVPUSH Q15M PRN; Protocol PRN Reason: per Hypoglycemia Standing Ord. Escitalopram Oxalate (Escitalopram Oxalate 10 Mg Tablet) 10 mg PO DAILY [facility] Last Admin: 01/25/25 08:03 Dose: 10 mg Documented By: JELANI Fluticasone Propionate (Fluticasone Propionate Nasal 16 Gm [place]) 1 spray NOSTRIL-B DAILY [facility] Last Admin: 01/25/25 08:03 Dose: Not Given Documented By: JELANI Non-Admin Reason: Patient Refused Fluticasone/Vilanterol (Fluticasone/Vilanterol 100/25 Blst.W.Dev) 1 puff INHALE RDAILY [facility] Last Admin: 01/25/25 07:40 Dose: 1 puff Documented By: SURAJ Glucose (Glucose Gel 15 Gm Gel..Gram.) 15 gm PO Q15M PRN; Protocol PRN Reason: per Hypoglycemia Standing Ord. Hydralazine HCl (Hydralazine Hcl 20 Mg/Ml Vial) 10 mg IVPUSH Q6H PRN; Protocol PRN Reason: SBP > 160 Last Admin: 01/22/25 19:55 Dose: 10 mg Documented By: CASTILM Hydromorphone HCl (Hydromorphone Hcl 1 Mg/Ml Syringe) 1 mg IVPUSH Q3H PRN; Protocol PRN Reason: Pain, Severe (Pain Scale 7-10) Last Admin: 01/24/25 21:23 Dose: 1 mg Documented By: ALBARO Piperacillin Sod/Tazobactam (Sod 3.375 gm/ Sodium Chloride) 50 mls @ 100 mls/hr IV Q6H [facility] Last Admin: 01/25/25 08:07 Dose: 100 mls/hr Documented By: JELANI Insulin Human Lispro (Insulin Lispro 100 Unit/Ml 3 Ml Vial) 0 unit SUBCUT QIDACHS [facility]; Protocol Last Admin: 01/25/25 08:05 Dose: Not Given Documented By: JELANI Non-Admin Reason: No Insulin Coverage Losartan Potassium (Losartan Potassium 50 Mg Tablet) 100 mg PO DAILY [facility]; Protocol Last Admin: 01/25/25 08:03 Dose: 100 mg Documented By: JELANI Multi-Ingred Medicated Throat [place] (Throat [place], Medicated 177 Ml Bottle) 1 spray MUCOUS MEM Q2H PRN PRN Reason: Sore Throat Last Admin: 01/20/25 23:57 Dose: 1 spray Documented By: ALBARO Naloxone HCl (Naloxone Hcl 0.4 Mg/Ml Vial) 0.04 mg IVPUSH Q5M PRN PRN Reason: Excessive sedation or RR < 8 Ondansetron HCl (Ondansetron Hcl 4 Mg/2 Ml Vial) 4 mg IVPUSH QID PRN PRN Reason: Nausea Last Admin: 01/23/25 18:08 Dose: 4 mg Documented By: MINI Oxycodone HCl (Oxycodone Hcl Immed Release 5 Mg Tablet) 5 mg PO Q6H PRN PRN Reason: Pain, Moderate(Pain Scale 4-6) Last Admin: 01/25/25 08:03 Dose: 5 mg Documented By: JELANI Sodium Chloride (0.9 % Sodium Chloride Flush 3 Ml Syringe) [facility] Last Admin: 01/25/25 08:06 Dose: 3 ml Documented By: JELANI <Fletcher Portillo PA-C - Last Filed: 01/25/25 08:45> Labs CBC & Chem 7: 01/23/25 05:41 01/25/25 05:41 <ANABEL Davis Last Filed: 01/25/25 08:45> Labs: Laboratory Results - last 24 hr 01/24/25 01/24/25 01/24/25 11:17 16:15 20:30 Hold Purple Top Anion Gap Estim Creat Clear Calc Estimated GFR POC Glucose 126 H 109 118 H Random Glucose Calcium Phosphorus Magnesium Total Bilirubin AST ALT Alkaline Phosphatase Total Protein Albumin 01/25/25 01/25/25 05:41 07:57 Hold Purple Top SEE NOTE Anion Gap 12 Estim Creat Clear Calc 127.8 Estimated GFR > 60 POC Glucose 107 Random Glucose 96 Calcium 8.5 Phosphorus 2.7 Magnesium 1.8 Total Bilirubin 0.7 AST 26 ALT 11 Alkaline Phosphatase 49 Total Protein 5.9 L Albumin 3.4 L <Flethcer Portillo PA-C - Last Filed: 01/25/25 08:45> Procedures Date of Service Date of Service: 01/25/25 <Fletcher Portillo PA-C - Last Filed: 01/25/25 08:45> 01/25/25 <Jv Galarza MD - Last Filed: 01/25/25 09:43> Progress Note: A&P Assessment and plan (1) Small bowel obstruction: Status: Acute <Fletcher Portillo PA-C - Last Filed: 01/25/25 08:45> Assessment and Plan: 54 year old male POD#7 s/p explor lap with SBR and anastomosis. Doing well today. still experiencing mild pain in the upper abdomen and in the back. He is denying nausea or vomiting. Continues to tolerate diet. Pain is minimal at rest. He has been walking more. Tolerating regular diet. Continues to pass gas, had a small bowel movement yesterday. abdomen is soft, mildly distended tender to palpation in the epigastric area. Incision is clean and dry, nehemiah in palce. patient has been using PRn IV dilaudid frequently, recommended that he trial oral narcotics for pain control, will reasses his pain control in afternoon, if still well controlled, patient to be discharged Continue regular diet Ambulation and spirometry as tolerated possible DC this afternoon <Fletcher Portillo PA-C - Last Filed: 01/25/25 08:45> 54 year old male POD#7 s/p explor lap with SBR and anastomosis. Doing well today. still experiencing mild pain in the upper abdomen and in the back. He is denying nausea or vomiting. Continues to tolerate diet. Pain is minimal at rest. He has been walking more. Tolerating regular diet. Continues to pass gas, had a small bowel movement yesterday. abdomen is soft, mildly distended tender to palpation in the epigastric area. Incision is clean and dry, nehemiah in palce. patient has been using PRn IV dilaudid frequently, recommended that he trial oral narcotics for pain control, will reasses his pain control in afternoon, if still well controlled, patient to be discharged Continue regular diet Ambulation and spirometry as tolerated possible DC this afternoon Patient reporting slight increased abdominal pain after eating. Denies any vomiting but does feel somewhat nauseated. Patient continues to request pain medications. Agree with switch to oral meds. Patient is not ready for discharge today. We will continue to monitor over the weekend. <Jv Galarza MD - Last Filed: 01/25/25 09:43> Time Spent With Patient Time: Total time managing care of this patient today ____ minutes. <Fletcher Portillo PA-C - Last Filed: 01/25/25 08:45> Quality Stroke Does the patient have a stroke diagnosis?: No <Fletcher Portillo PA-C - Last Filed: 01/25/25 08:45> VTE Prior VTE?: No <Fletcher Portillo PA-C - Last Filed: 01/25/25 08:45> VTE Risk Level:: Surgical - moderate <Fletcher Portillo PA-C - Last Filed: 01/25/25 08:45> VTE Device Contraindication: N/A - Device Ordered <Fletcher Portillo PA-C - Last Filed: 01/25/25 08:45> VTE Drug Contraindication: Treatment Not Indicated <Fletcher Portillo PA-C - Last Filed: 01/25/25 08:45>
--- NOTE | 2025-01-25 09:37 | MHC.CLN ---
F/U DJTQ=[id number] INAKE APPEARS TO BE VERY GOOD. GELATEIN BID TO INCREASE KCALS. PROVIDES 320KCALS, 40G PROTEIN. MONITOR PO INTAKE AND ENCOURAGE SUPPLEMENTS.
[2025-01-25 11:10] LABS: Glucose, Whole Blood 100 mg/dL (60-115)
--- NOTE | 2025-01-25 13:52 | MHC.CM.PN ---
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
[2025-01-25 15:57] VITALS: BP 127/71; PULSE 72; RESP 16; TEMP 36.2; O2SAT 93
[2025-01-25 16:31] LABS: Glucose, Whole Blood 108 mg/dL (60-115)
[2025-01-25 20:00] VITALS: BP 134/82; PULSE 80; RESP 17; TEMP 36.3; O2SAT 93
[2025-01-25 20:24] LABS: Glucose, Whole Blood 93 mg/dL (60-115)
[2025-01-25 21:40] VITALS: BP 155/88
[2025-01-26] VITALS: BP 156/82; PULSE 72; RESP 20; TEMP 36.6; O2SAT 94
[2025-01-26] MEDS: 0.9 % Sodium Chloride Flush 3 ML SYRINGE IVFLUSH ×2 (03:43→08:01)
[2025-01-26 03:56] VITALS: BP 146/84; PULSE 70; RESP 20; TEMP 37.1; O2SAT 94
[2025-01-26 05:53] LABS: Alanine Aminotransferase 12 U/L (0-40); Albumin Level 3.4 g/dL (3.5-5.0); Alkaline Phosphatase 51 U/L (39-117); Anion Gap 13 (12-20); Aspartate Amino Transferase 28 U/L (5-37); Blood Urea Nitrogen 8 mg/dL (9-16); Calcium 8.3 mg/dL (8.4-10.2); Carbon Dioxide 26 mmol/L (22-29); Chloride 104 mmol/L (96-108); Creatinine Clr Calc Pharmacy 129.8; Estimated Glomerular Filt Rate > 60; Magnesium 1.6 mg/dL (1.6-2.6); Potassium 3.7 mmol/L (3.3-5.1); Sodium 139 mmol/L (135-145); Total Protein 5.9 g/dL (6.5-8.0)
--- NOTE | 2025-01-26 07:01 | P.PNGS_ITS ---
Subjective Subjective Date of Service: 01/26/25 Interval history: Patient reporting some abdominal pain in the lower abdomen. Denies any nausea or vomiting. Had a bowel movement this morning. Physical Exam 2 Vital Signs: Vital Signs: Last Vital Signs Temp 98.7 F 01/26/25 03:56 Pulse 70 01/26/25 03:56 Resp 20 01/26/25 03:56 BP 146/84 H 01/26/25 03:56 Pulse Ox 94 01/26/25 03:56 O2 Del Method Room Air 01/26/25 03:56 O2 Flow Rate 2 01/22/25 03:09 BMI result Body Mass Index 28.2 Resp: Effort & Inspection: normal respiratory effort, no audible wheezes, no cough and no respiratory distress GI: Other: Soft, distended, non tympanitic, incision is clean and intact without redness or discharge. Skin: Other: Warm, dry, no rash Objective Data Active Medications Albuterol Sulfate (Albuterol Sulfate (0.083%) 2.5 Mg/3 Ml Vial.Neb) 2.5 mg INHALE Q4H PRN PRN Reason: Shortness Of Breath Or Wheezing Amlodipine Besylate (Amlodipine Besylate 10 Mg Tablet) 10 mg PO DAILY [facility]; Protocol Last Admin: 01/25/25 08:03 Dose: 10 mg Documented By: JELANI Atorvastatin Calcium (Atorvastatin Calcium 40 Mg Tablet) 40 mg PO DAILY [facility] Last Admin: 01/25/25 08:03 Dose: 40 mg Documented By: JELANI Buprenorphine/Naloxone (Buprenorphine/Naloxone 8/2 Mg Film) 1 film SUBLINGUAL TID [facility] Last Admin: 01/25/25 21:40 Dose: 1 film Documented By: JERMAN Clonidine HCl (Clonidine Hcl 0.1 Mg Tablet) 0.1 mg PO BEDTIME [facility]; Protocol Last Admin: 01/25/25 21:40 Dose: 0.1 mg Documented By: JERMAN Dextrose (Dextrose 50 % 25 Gm/50 Ml Syringe) 25 gm IVPUSH Q15M PRN; Protocol PRN Reason: per Hypoglycemia Standing Ord. Escitalopram Oxalate (Escitalopram Oxalate 10 Mg Tablet) 10 mg PO DAILY [facility] Last Admin: 01/25/25 08:03 Dose: 10 mg Documented By: JELANI Fluticasone Propionate (Fluticasone Propionate Nasal 16 Gm [place]) 1 spray NOSTRIL-B DAILY [facility] Last Admin: 01/25/25 08:03 Dose: Not Given Documented By: JELANI Non-Admin Reason: Patient Refused Fluticasone/Vilanterol (Fluticasone/Vilanterol 100/25 Blst.W.Dev) 1 puff INHALE RDAILY [facility] Last Admin: 01/25/25 07:40 Dose: 1 puff Documented By: SURAJ Glucose (Glucose Gel 15 Gm Gel..Gram.) 15 gm PO Q15M PRN; Protocol PRN Reason: per Hypoglycemia Standing Ord. Hydralazine HCl (Hydralazine Hcl 20 Mg/Ml Vial) 10 mg IVPUSH Q6H PRN; Protocol PRN Reason: SBP > 160 Last Admin: 01/22/25 19:55 Dose: 10 mg Documented By: CASTLOUISA Hydromorphone HCl (Hydromorphone Hcl 1 Mg/Ml Syringe) 1 mg IVPUSH Q3H PRN; Protocol PRN Reason: Pain, Severe (Pain Scale 7-10) Last Admin: 01/26/25 03:43 Dose: 1 mg Documented By: JERMAN Piperacillin Sod/Tazobactam (Sod 3.375 gm/ Sodium Chloride) 50 mls @ 100 mls/hr IV Q6H [facility] Last Infusion: 01/26/25 04:15 Dose: Infused Documented By: JERMAN Insulin Human Lispro (Insulin Lispro 100 Unit/Ml 3 Ml Vial) 0 unit SUBCUT QIDACHS [facility]; Protocol Last Admin: 01/25/25 21:36 Dose: Not Given Documented By: JERMAN Non-Admin Reason: No Insulin Coverage Losartan Potassium (Losartan Potassium 50 Mg Tablet) 100 mg PO DAILY [facility]; Protocol Last Admin: 01/25/25 08:03 Dose: 100 mg Documented By: JELANI Multi-Ingred Medicated Throat [place] (Throat [place], Medicated 177 Ml Bottle) 1 spray MUCOUS MEM Q2H PRN PRN Reason: Sore Throat Last Admin: 01/20/25 23:57 Dose: 1 spray Documented By: ALBARO Naloxone HCl (Naloxone Hcl 0.4 Mg/Ml Vial) 0.04 mg IVPUSH Q5M PRN PRN Reason: Excessive sedation or RR < 8 Ondansetron HCl (Ondansetron Hcl 4 Mg/2 Ml Vial) 4 mg IVPUSH QID PRN PRN Reason: Nausea Last Admin: 01/23/25 18:08 Dose: 4 mg Documented By: MINI Oxycodone HCl (Oxycodone Hcl Immed Release 5 Mg Tablet) 5 mg PO Q6H PRN PRN Reason: Pain, Moderate(Pain Scale 4-6) Last Admin: 01/25/25 14:10 Dose: 5 mg Documented By: JELANI Sodium Chloride (0.9 % Sodium Chloride Flush 3 Ml Syringe) 3 ml IVFLUSH [facility] Last Admin: 01/26/25 03:43 Dose: 3 ml Documented By: ARMSTRH Labs 01/23/25 05:41 01/26/25 05:04 Labs: Laboratory Results - last 24 hr 01/25/25 01/25/25 01/25/25 05:41 07:57 11:02 Hold Purple Top SEE NOTE Anion Gap 12 Estim Creat Clear Calc 127.8 Estimated GFR > 60 POC Glucose 107 100 Random Glucose 96 Calcium 8.5 Phosphorus 2.7 Magnesium 1.8 Total Bilirubin 0.7 AST 26 ALT 11 Alkaline Phosphatase 49 Total Protein 5.9 L Albumin 3.4 L 01/25/25 01/25/25 01/26/25 16:22 20:17 05:04 Hold Purple Top Anion Gap 13 Estim Creat Clear Calc 129.8 Estimated GFR > 60 POC Glucose 108 93 Random Glucose 94 Calcium 8.3 L Phosphorus 2.9 Magnesium 1.6 Total Bilirubin 0.7 AST 28 ALT 12 Alkaline Phosphatase 51 Total Protein 5.9 L Albumin 3.4 L Procedures Date of Service Date of Service: 01/26/25 Progress Note: A&P Assessment and plan (1) Small bowel obstruction: Status: Acute Plan 54-year-old male POD 8 following exploratory laparotomy and small-bowel resection. He has some lower abdominal pain in his softly distended examination. His wounds are clean and intact. He continues to tolerate a regular diet and having bowel movements. I will check back later today see if he is ready for discharge. Time Spent With Patient Time: Total time managing care of this patient today ____ minutes. Quality Stroke Does the patient have a stroke diagnosis?: No VTE Prior VTE?: No VTE Risk Level:: Surgical - moderate VTE Device Contraindication: N/A - Device Ordered VTE Drug Contraindication: Treatment Not Indicated
[2025-01-26 07:30] LABS: Glucose, Whole Blood 88 mg/dL (60-115)
[2025-01-26 07:50] VITALS: BP 128/94; PULSE 72; RESP 18; TEMP 36.4; O2SAT 92
[2025-01-26] MEDS: Fluticasone/Vilanterol 100/25 BLST.W.DEV 1 PUFF INHALE (08:12)
[2025-01-26 08:14] VITALS: PULSE 77; RESP 18; O2SAT 90
--- NOTE | 2025-01-26 10:46 | MHC.CM.PN ---
PT CLEARED TO DC HOME TODAY WITH RESUMPTION OF ANALYTICAL STRATEGIST SERVICES ANALYTICAL STRATEGIST TO TRANSPORT
[2025-01-26 11:20] LABS: Glucose, Whole Blood 127 mg/dL (60-115)
--- NOTE | 2025-01-29 11:35 | PM.DS ---
DS: Providers Provider Date of Service: 01/26/25 Date of admission: 01/17/25 22:07 Date of discharge: 01/26/25 Primary care physician: Carlin Rivas NP Admitting clinician: Jv Galarza Attending physician on admission: Jv Galarza Consults: 01/17/25 22:05 Consult to Hospitalist Routine Comment: Consulting Provider[place] [facility] [place] [facility] Reason For Exam: SBO, Diabetes, med management DS: Diagnosis Discharge Diagnosis (1) Small bowel obstruction: Status: Acute DS: Summary Hospital Course Hospital Course: Admission HPI: Kannan Gann is a 54 year old male presenting with complaints of severe abdominal pain which began approximately 3 days prior to presentation to the emergency department. His past medical history is significant for diabetes mellitus and a previous history of small-bowel obstruction. He has a history of chronic back pain in his on Suboxone. He reports the abdominal pain has increased in severity with the past 3 days in his associated with nausea, vomiting, and difficulty passing his bowels. He presented to the emergency department and was noted to have a mild leukocytosis of 11.4 and a normal lactic acid. CT abdomen and pelvis revealed small-bowel obstruction with a transition point in the left lower quadrant with findings suggestive of intestinal malrotation with right-sided small-bowel lateral displacement of the distal SMA relative the SMV. The patient was admitted to the surgical service for further management of this small-bowel obstruction. A nasogastric tube was placed in the emergency department and has been draining clear nonbilious fluid. The patient reports his previous obstruction occurred at an outside facility and required a surgical exploration to resolve. Hospital Course: Patient had Exploratory laparotomy, lysis of adhesions, small-bowel resection on 01/18, dinh catheter and NG tube remained in place on POD1. Patient experiencing appropriate post op pain. Dinh was removed on POD2, NG tub remianed in place, high output due to patient drinking. No return of bowel function. pain improving. POD3 output remains high from drinking, no return of bowel function. Pain mild, incisional. Encouraged patient to ambulate. POD 4, NG tube was clamped, output was below 100cc after 4 hours, NG was removed. Patient not symptomatic after removal, POD5 patient tolerating clear diet., abdomen soft, tender around incision site, incision clean and dry. Passed small BM that evening. patient ambulating more. Pain well controlled. Diet was advanced to regular. POD6 , patient had mild nausea with solid food but this resolved, passed a small bowel movement. Pain is improving, but patient requiring IV pain medications, recommended weaning off narcotics, transitioning to oral narcotics as needed. Abdomen is soft, mildly distended. incision clean and dry. POD 7 pain well controlled, abdomen remains mildly distended, patient still passing gas, tolerating diet, denying nausea or vomiting. POD8, patient passed another BM, felt ready for DC. At the time of discharge, the patients abdomen was soft and benign, and his vital signs were in stable condition. Status at Discharge Functional status at discharge: independent ambulation Overall status at discharge: patient is progressing back to baseline Time Attestation Discharge Coordination Time (in mins): 30 Quality: Safe Use of Opioids Does Pt have an Active Cancer Diagnosis on the Problem List?: No Quality: Stroke Does the patient have a stroke diagnosis?: No Physical Exam Vital Signs: Vital Signs: Last Vital Signs Temp 97.6 F 01/26/25 07:50 Pulse 77 01/26/25 08:14 Resp 18 01/26/25 08:14 BP 128/94 H 01/26/25 07:50 Pulse Ox 92 01/26/25 07:50 O2 Del Method Room Air 01/26/25 07:50 O2 Flow Rate 2 01/22/25 03:09 BMI result Body Mass Index 28.2 Resp: Effort & Inspection: normal respiratory effort, no audible wheezes, no cough and no respiratory distress GI: Other: Soft, distended, non tympanitic, incision is clean and intact without redness or discharge. Skin: Other: Warm, dry, no rash DS: Data Data Completed and Pending Completed studies during hospitalization [Text1]: Pending at discharge 01/18/25 12:55 Surgical [PTH] Routine Discharge Plan Discharge Anticipated Discharge Date/Time: 01/26/25 10:30 Patient Disposition: Home, Self-Care Discharge Diagnosis: Small-bowel obstruction, internal hernia Referrals: Jv Galarza MD [Physician, General Surgery] - 1 Week Carlin Rivas NP [Primary Care Provider, Primary Care] - 1 Week Discharge Medications: New oxycodone 5 mg tablet 5 mg PO Q6H PRN (Reason: pain (scale score 7-10)) Qty: 15 0RF Rx Instructions: Partial Fill upon patient request. Continued amlodipine 10 mg tablet 10 mg PO DAILY escitalopram oxalate 10 mg tablet 10 mg PO DAILY buprenorphine-naloxone 8-2 mg film 1 film sublingual TID albuterol sulfate 2.5 mg /3 mL (0.083 %) Solution For Nebulization 2.5 mg INHALATION Q4H PRN (Reason: Shortness Of Breath Or Wheezing) fluticasone propionate [Flonase Allergy Relief] 50 mcg/actuation spray,suspension 1 spray intranasal DAILY Rx Instructions: administer into each nostril fluticasone propion-salmeterol [Advair Diskus] 100-50 mcg/dose blister with device 1 inh inhalation BID atorvastatin 40 mg tablet 40 mg PO DAILY clonidine HCl 0.1 mg tablet 0.1 mg PO BEDTIME No Action ibuprofen 800 mg tablet 800 mg PO TID sennosides-docusate sodium [Stool Softener-Stimulant Laxat] 8.6-50 mg tablet 2 tab PO DAILY glipizide 5 mg tablet extended release 24hr 5 mg PO DAILY calcium polycarbophil [Fiber-Lax] 625 mg tablet 625 mg PO BID docusate sodium 100 mg capsule 100 mg PO BID polyethylene glycol 3350 17 gram/dose powder 17 g PO DAILY PRN (Reason: constipation) losartan-hydrochlorothiazide 100-12.5 mg tablet 1 tab PO DAILY mirtazapine 7.5 mg tablet 7.5 mg PO BEDTIME PRN (Reason: insomnia) cholecalciferol (vitamin D3) 10 mcg (400 unit) capsule 10 mcg PO DAILY chlorthalidone 25 mg tablet 25 mg PO DAILY metformin 1,000 mg tablet 1,000 mg PO BID Discharge Orders: Discharge Order (Routine); Ordered 01/26/25 Ordered By: Jv Galarza Diet: Diabetic diet Activity on Discharge: No heavy lifting Stand Alone Forms: Patient Portal Discharge page Print Language: Korean Activity Restrictions/Additional Instructions: If your incision site is sore, you may apply ice to the area for short periods of time (no more than 20 minutes at a time, followed by 20 minutes off). You were prescribed oxycodone to assist with pain management as needed. You can additionally use OTC ibuprofen or acetaminophen as needed for pain. The nehemiah were remain in place until your 1st visit in the office No heavy lifting >20 pounds No strenuous activity. Do not use creams, lotion, ointment on the incision sites You will follow up with Dr. Galarza in the office in 1 week, you can call the office to schedule the appointment ) Please reach out to the office or be seen at the emergency department if you develop: -Fever >101.5 -Increasing pain or swelling of the area -Increased bleeding from the incision site or the incision begins to separate -If you are concerned for incision site infection such as redness, warmth, discharge. Some yellow/pink tinged discharge is normal -You develop nausea or vomiting Care Plan Goals: Returned to baseline level of health Health Concerns: Bbe-gjumslq-iukfwtmoy type 2 diabetes mellitus Hyperlipidemia Chronic pain S/p small-bowel resection Plan of Treatment: Follow up in the office in one-week Assessment: Patient doing well Patient Instructions: Bowel Obstruction (DC) Discharge Date/Time: 01/26/25 12:40
== END 2025-01-26 12:40 | disposition home or self-care (01) | DRG 329 ==
LOC: HO.ED 22:17 → HO.EDOVER 01-18 00:21 → HO.S3 01-18 09:42
PROVIDERS: Family Medicine; Internal Medicine; Physician Assistant; Physician Assistant Medical; Admitting Provider Surgery; Emergency Provider Emergency Medicine; Visit Provider Surgery
PROC: 0DBB0ZZ Excision of Ileum, Open Approach (ICD-10-PCS; CPT 49000; principal; 2025-01-18 12:00)
DX: K46.0 Unspecified abdominal hernia with obstruction, without gangrene (principal); K55.021 Focal (segmental) acute infarction of small intestine; K56.7 Ileus, unspecified; G89.4 Chronic pain syndrome; F17.210 Nicotine dependence, cigarettes, uncomplicated; K66.0 Peritoneal adhesions (postprocedural) (postinfection); K59.09 Other constipation; Z71.6 Tobacco abuse counseling; E87.6 Hypokalemia; I10 Essential (primary) hypertension; E83.39 Other disorders of phosphorus metabolism; G89.18 Other acute postprocedural pain; E11.9 Type 2 diabetes mellitus without complications; Z79.51 Long term (current) use of inhaled steroids; Z79.84 Long term (current) use of oral hypoglycemic drugs; Z79.891 Long term (current) use of opiate analgesic; Z79.899 Other long term (current) drug therapy
CPT/HCPCS: 36415; 71045; 74018; 74177; 80048; 80053; 80076; 81003; 82947; 83605; 83690; 83735; 84100; 84478; 84484; 85025; 85027; 86850; 86900; 86901; 87637; 88307; 93005; 94640; 99285; J0131; J0330; J0360; J1100; J1171; J2003; J2250; J2270; J2371; J2405; J2470; J2543; J2598; J2704; J3360; J3480; J7120; Q9967

== ENCOUNTER → 2025-01-17 14:44 | Outpatient (BNV) | payer MEDICARE, MEDICAID, SELFPAY | PROVIDERS: Admitting Provider Surgery; Emergency Provider Emergency Medicine; Visit Provider Internal Medicine Cardiovascular Disease | DX: R94.31 Abnormal electrocardiogram [ECG] [EKG] (principal); R07.9 Chest pain, unspecified; R06.02 Shortness of breath | CPT/HCPCS: 93010 ==

== ENCOUNTER → 2025-01-17 14:46 | Outpatient (BNV) | payer MEDICARE, MEDICAID, SELFPAY | PROVIDERS: Visit Provider Radiology Diagnostic Radiology | DX: R10.9 Unspecified abdominal pain (principal) | CPT/HCPCS: 74018 ==

== ENCOUNTER → 2025-01-17 22:07 | Outpatient (BNV) | payer MEDICARE, MEDICAID, SELFPAY | PROVIDERS: Admitting Provider Surgery; Emergency Provider Emergency Medicine; Visit Provider Nurse Practitioner Family | DX: K56.609 Unspecified intestinal obstruction, unspecified as to partial versus complete obstruction (principal); E11.8 Type 2 diabetes mellitus with unspecified complications | CPT/HCPCS: 99222; 99232 ==

== ENCOUNTER → 2025-01-17 22:07 | Outpatient (BNV) | payer MEDICARE, MEDICAID, SELFPAY | PROVIDERS: Admitting Provider Surgery; Emergency Provider Emergency Medicine; Visit Provider Surgery | DX: K56.609 Unspecified intestinal obstruction, unspecified as to partial versus complete obstruction (principal) | CPT/HCPCS: 44140; 99024; 99222 ==

== ENCOUNTER 2025-01-29 08:35 | Outpatient (REF) | payer MEDICARE, MEDICAID, SELFPAY ==
--- OUTSIDE RECORDS SUMMARY | 2025-01-30 08:47 | XMS_ITS | Clinical Summary ---
Author Organization [facility] Address [address] [place] [address] Care Team Providers Care Binder Selector Name Role Phone Unavailable Primary Care Provider [...] season) 2024 Influenza (#1) 2025 HPV Vaccine (No Doses Required) Completed Hep A Aged Out No longer eligi ble based on patient's age to complete this topic Hib Aged Out No longer eligi ble based on patient's age to complete this topic Meningococcal ACWY Aged Out No longer eligible based on patient's age to complete this topic Insurance MEDICARE PART B MEDICAID
--- OUTSIDE RECORDS SUMMARY | 2025-01-30 08:47 | XMS_ITS | Clinical Summary ---
Author Organization [facility] Address [address] [place] [address] Care Team Providers Care Luggage Repairer Name Role Phone Ced Sesay Primary Care Provider [phone] Allergies Active Allergy Reactions Criticality Noted Date [...] 09/01/2016, 10/21/2015, 07/18/2015 Procedures * Due to [place] [employer] law, this organization might not be sharing negative HIV tests. Procedure Name Priority Date/Time Associated Diagnosis Comments COLONOSCOPY 12/11/2018 CT CHEST PULMONARY EMBOLISM W CONTRAST STAT 04/13/2016 5:47 AM EDT from Last 3 Months or Most Recently Relevant to Health Maintenance Results * Due to [place] [employer] law, this organization might not be sharing [...] 350: 80 ML, IV POWER INJ WSN: [id number] Narrative 04/13/2016 6:21 AM EDT COMPARISON: None. [...] 350: 80 ML, IV POWER INJ WSN: [id number] Casey Castro MD IMG CT PROCEDURES Final Result from Last 3 Months or Most Recently Relevant to Health Maintenance Insurance MEDICARE [facility] Care Teams Luggage Repairer Relationship Specialty Start Date End Date Ced Sesay PA PCP - General 10/14/21
--- OUTSIDE RECORDS SUMMARY | 2025-01-30 08:47 | XMS_ITS | Encounter Summary ---
Author Organization [employer] [facility] Address [address] [facility] [address] [place] [address] Care Team Providers Care Bakery Assistant Name Role Phone Carlin Rivas CNP Primary Care Provider [phone] Reason for Visit * Reason Onset Date Comments Medication Question 01/28/2025 Encounter Details Date Type Department Care Team (Late st Contact Info) Description 01/28/2025 Telephone [facility] [address] [place], [place] [phone] Carlin Rivas CNP [address] [place], [place] [phone] Medication Question Social History Tobacco Use Types Packs/Day Years Used Date Smoking Tobacco: Every Day Cigarettes Comments:Pt reports smoking more often when he [...] encounter Miscellaneous Notes * Telephone Encounter - Yenny Penaloza RN - 01/29/2025 4:08 PM EDT Tc to pt via S ID: [id number] to schedule HDF. Pt agrees with HDF appt on 02/08/25 with PCP. Pt also wants clarification if they can start taking their regular medications since having the surgery. Advised pt we'll send a message to their PCP and call them to let them know what they recommend. Pt agrees with plan and message sent to PCP for review. Hospital admission/discharge printed and placed on vest front presser to upload to pt chart for PCP to review. * Telephone Encounter - Jodi Rodriguez - 01/28/2025 9:54 AM EDT Tc from pt requesting a call back regarding his medications. Patient recently had surgery and wantsto confirm if he can continue taking his regular tablets. Contact pt at [phone] documented in this encounter Plan of Treatment Upcoming Encounters Date Type Department Care Team (Late st Contact Info) Description 02/08/2025 9:00 AM EDT Office Visit [facility] [address] [place] [phone] Carlin Rivas CNP [address] [place] [address] [place] [address] 02/18/2025 1:15 PM EDT Office Visit [facility] [address], [place] [phone] Shane Ndiaye MD [address] [place], [place] [phone] documented as of this encounter Visit Diagnoses Not on filedocumented in this encounter Additional Health Concerns Assessment Noted Time PHQ-9 Depression Total Score: 7 08/24/19 2:01 PM EST documented as of this encounter Care Teams Bakery Assistant Relationship Specialty Start Date End Date Carlin Rivas CNP [address] [place], [place] [phone] PCP - General Family Medicine 08/24/24 documented as of this encounter
== END 2025-01-29 08:36 | disposition home or self-care (01) ==
LOC: HO.HOSX 08:35
PROVIDERS: Visit Provider Physician Assistant
DX: Z13.89 Encounter for screening for other disorder (principal)

== ENCOUNTER 2025-02-01 09:05 | Outpatient (AMB) | payer MEDICARE, MEDICAID, SELFPAY ==
--- NOTE | 2025-02-01 09:06 | MHC.OFFVIS ---
Vital Signs 02/01/25 09:12 Weight 192 lb BP 121/78 Blood Pressure Location Rt brachial Position Sitting Pulse 83 Intake Visit Reasons: s/p exp lap Intake Note: Patient is seen in office for post op assessment post exploratory laparotomy. Pt c/o: bothersome when walking. Taking Ibuprofen as needed. Reports incisions healing well. Denies oozing. surgery:01/18/25 Substation Operator Transforming Required: Yes Substation Operator Transforming Language: Abstract Maker Services: Substation Operator Transforming Offered & Declined Information Interpreted: clinical only Resistance Welding Machine Operator: Resistance Welding Machine Operator Present Accompanied by: son Kannan Gann Allergies No Known Allergies Allergy (Verified 02/01/25 09:13) Medication List - Last Reconciled 02/01/25 by Jv Galarza MD albuterol sulfate 2.5 mg inhalation Q4H PRN amlodipine 10 mg PO DAILY atorvastatin 40 mg PO DAILY buprenorphine-naloxone 8-2 mg 1 film sublingual TID calcium polycarbophil (Fiber-Lax) 625 mg PO BID chlorthalidone 25 mg PO DAILY cholecalciferol (vitamin D3) 10 mcg PO DAILY clonidine HCl 0.1 mg PO BEDTIME docusate sodium 100 mg PO BID escitalopram oxalate 10 mg PO DAILY fluticasone propion-salmeterol 100-50 mcg/dose (Advair Diskus) 1 inh inhalation BID fluticasone propionate 50 mcg/actuation (Flonase Allergy Relief) 1 spray intranasal DAILY glipizide ER 5 mg PO DAILY ibuprofen 800 mg PO TID losartan-hydrochlorothiazide 100-12.5 mg 1 tab PO DAILY metformin 1,000 mg PO BID mirtazapine 7.5 mg PO BEDTIME PRN oxycodone 5 mg PO Q6H PRN polyethylene glycol 3350 17 grams PO DAILY PRN sennosides-docusate sodium 8.6-50 mg (Stool Softener-Stimulant Laxative) 2 tabs PO DAILY HPI Comments Details: 54-year-old male patient returning following a recent hospitalization for small-bowel obstruction requiring exploratory laparotomy, lysis of adhesions and small-bowel resection on 01/18/2025. He returns today for wound check. He reports some discomfort when ambulating but generally feels much improved. He is eating without nausea or vomiting and having daily bowel movements which are much improved. He denies any fever or chills. [facility] Medical History COPD (chronic obstructive pulmonary disease) Chronic constipation Non-insulin dependent type 2 diabetes mellitus Tobacco dependence Hyperlipidemia Small bowel obstruction History of substance use disorder Surgical History (Updated 01/31/25 @ 16:21 by MANDY Garvey) Hx of exploratory laparotomy (01/18/25) History of abdominal surgery Social History (Updated 01/18/25 @ 02:07 by GERRY Fragoso) Household Members: Children Housing: Apartment Do you presently have visiting nurse or other home services: Yes (REGISTERED NURSE.) Patient Tobacco Use Status: Current everyday Tobacco user Tobacco use type: Cigarette Cigarette Packs Per Day: 1 Cigarettes Per Day: 20.0 service: No Current occupational status: disabled Physical Exam Vital Signs: Last Vital Signs Pulse 83 02/01/25 09:12 BP 121/78 02/01/25 09:12 Const General: comfortable Nutritional Appearance: well nourished Orientation/consciousness: patient oriented x3 Limitations: ambulation with cane Resp Effort & Inspection: normal respiratory effort GI Other: Soft and nondistended, lower abdominal midline incision is clean, dry and intact without redness or discharge. [place] were removed and Steri-Strips applied. Skin Other: Warm, dry, no rashes Neuro General: patient oriented x3 Extrem General: Yes no pedal edema Assessment & Plan Assessment & Plan (1) Small bowel obstruction: Code(s): K56.609 - Unspecified intestinal obstruction, unspecified as to partial versus complete obstruction Category: Medical Plan: 54-year-old male patient returning 1 week after discharge from the hospital following small-bowel resection for small-bowel obstruction. He is doing well and having regular bowel movements. His abdominal incision is clean, dry and intact. [place] were removed and Steri-Strips applied. He should continue to avoid lifting greater than 10 lb but should return in approximately 1 month for follow-up examination. Coding Level of Care Code Global (87359) Diagnoses Small bowel obstruction K56.609
[2025-02-01 09:12] VITALS: BP 121/78; PULSE 83
--- OUTSIDE RECORDS SUMMARY | 2025-02-01 09:15 | XMS_ITS | Clinical Summary ---
Author Organization [facility] Address [address] [place] [address] Care Team Providers Care Jail Manager Name Role Phone Unavailable Primary Care Provider [...]
--- OUTSIDE RECORDS SUMMARY | 2025-02-01 09:15 | XMS_ITS | Clinical Summary ---
Author Organization [facility] Address [address] [place] [address] Care Team Providers Care Visitor Services Information Assistant Name Role Phone Ced Sesay Primary Care Provider Allergies Active Allergy Reactions Criticality Noted Date [...] T PO BID WITH THE MORNING AND EMNAUEL MEAL 2 7 Active glipiZIDE XL (GLUCOTROL [...] 09/01/2016, 10/21/2015, 07/18/2015 Procedures * Due to [place] [employer] law, this organization might not be sharing negative HIV tests. Procedure Name Priority Date/Time Associated Diagnosis Comments COLONOSCOPY 12/11/2018 CT CHEST PULMONARY EMBOLISM W CONTRAST STAT 04/13/2016 5:47 AM EDT from Last 3 Months or Most Recently Relevant to Health Maintenance Results * Due to [place] [employer] law, this organization might not be sharing [...] 350: 80 ML, IV POWER INJ WSN: [id number] Narrative 04/13/2016 6:21 AM EDT COMPARISON: None. [...] 350: 80 ML, IV POWER INJ WSN: [id number] Casey Castro MD IMG CT PROCEDURES Final Result from Last 3 Months or Most Recently Relevant to Health Maintenance Insurance MEDICARE [facility] Care Teams Visitor Services Information Assistant Relationship Specialty Start Date End Date Ced Sesay PA PCP - General 10/14/21
--- OUTSIDE RECORDS SUMMARY | 2025-02-01 09:15 | XMS_ITS | Encounter Summary ---
Author Organization [employer] Address [address] [facility] [address] [place] [address] Care Team Providers Care 21 Dealer Name Role Phone Carlin Rivas CNP Primary Care Provider [phone] Reason for Visit * Reason Onset Date Comments Medication Question 01/28/2025 Encounter Details Date Type Department Care Team (Late st Contact Info) Description 01/28/2025 Telephone [facility] [address] [place], [place] [phone] Carlin Rivas CNP [address] [place], [place] [phone] Medication Question Social History Tobacco Use Types [...] Telephone Encounter - Yenny Penaloza RN - 01/30/2025 12:07 PM EDT Tc to pt via [employer] ID: [id number] to let them know per PCP Good morning, Pt is OK to resume medications, I do not see any indication to stop medications post surgery in post operative note. Let me know if any further questions. . Pt verbalized understanding and no further questions or concerns atthis time. * Telephone Encounter - Carlin Rivas CNP - 01/30/2025 9:00 AM EDT Good morning, Pt is OK to resume medications, I do not see any indication to stop medications post surgery in post operative note. Let me know if any further questions. * Telephone Encounter - Yenny Penaloza RN - 01/29/2025 4:08 PM EDT Tc to pt via [employer] ID: Buddy [id number] to schedule HDF. Pt agrees with HDF [...] review. Hospital admission/discharge printed and placed on front desk worker to upload to pt chart for PCP to review. * Telephone Encounter - Jodi Tmimy Rodriguez - 01/28/2025 9:54 AM EDT Tc from pt requesting a call back regarding his medications. Patient recently had surgery and wantsto confirm if he can continue taking his regular tablets. Contact pt at [phone] documented in this encounter Plan of Treatment Upcoming Encounters Date Type Department Care Team (Late st Contact Info) Description 02/08/2025 9:00 AM EDT Office Visit [facility] [address] [place] [phone] Carlin Rivas CNP [address] [place] [address] 02/18/2025 1:15 PM EDT Office Visit [facility] [address] [place] [phone] Shane Ndiaye MD [address] [place] [phone] documented as of this encounter Visit Diagnoses Not on filedocumented in this encounter Additional Health Concerns Assessment Noted Time PHQ-9 Depression Total Score: 7 08/24/19 2:01 PM EST documented as of this encounter Care Teams 21 Dealer Relationship Specialty Start Date End Date Carlin Rivas CNP [address] [place] [phone] PCP - General Family Medicine 08/24/24 documented as of this encounter
== END 2025-02-01 09:26 | disposition home or self-care (01) ==
LOC: HO.HGS 09:05
PROVIDERS: Visit Provider Surgery
DX: K56.609 Unspecified intestinal obstruction, unspecified as to partial versus complete obstruction (principal)
CPT/HCPCS: 99024

== ENCOUNTER → 2025-02-01 09:05 | Outpatient (BNVA) | payer MEDICARE, MEDICAID, SELFPAY | PROVIDERS: Visit Provider Surgery | DX: Z48.89 Encounter for other specified surgical aftercare (principal); Z98.890 Other specified postprocedural states | CPT/HCPCS: 99212 ==

== ENCOUNTER 2025-02-08 17:37 | Outpatient (REF) | payer MEDICARE, MEDICAID, SELFPAY ==
--- OUTSIDE RECORDS SUMMARY | 2025-02-08 17:39 | XMS_ITS | Encounter Summary ---
Author Organization [employer] Address [address] [facility] [address] [place] [address] Care Team Providers Care Supervisor Cemetery Workers Name Role Phone Carlin Rivas CNP Primary Care Provider [phone] Reason for Visit * Reason Onset Date Comments Hospital Follow-up 01/28/2025 Encounter Details Date Type Department Care Team (Late st Contact Info) Description 01/28/2025 Telephone [facility] [address] [place], [place] [phone] Carlin Rivas CNP [address] [place], [place] [phone] Hospital Follow-up Social History Tobacco Use Types Packs/Day Years [...] encounter Miscellaneous Notes * Telephone Encounter - Jodi Rodriguez - 01/28/2025 9:50 AM EDT Tc from pt requesting a HDF appt. Hospital: [facility] Date of admission: 01/19 Discharge date: 01/26 Diagnosed: intestinal surgery *Send message to [place] Clinical Care Coordinators documented in this encounter Plan of Treatment Upcoming Encounters Date Type Department Care Team (Late st Contact Info) Description 02/18/2025 1:15 PM EDT Office Visit [facility] [address] [place] [phone] Shane Ndiaye MD [address] [place] [address] documented as of this encounter Visit Diagnoses Not on filedocumented in this encounter Additional Health Concerns Assessment Noted Time PHQ-9 Depression Total Score: 7 08/24/19 2:01 PM EST documented as of this encounter Care Teams Supervisor Cemetery Workers Relationship Specialty Start Date End Date Carlin Rivas CNP [address] [place] [address] PCP - General Family Medicine 08/24/24 documented as of this encounter
--- OUTSIDE RECORDS SUMMARY | 2025-02-08 17:39 | XMS_ITS | Clinical Summary ---
Author Organization [facility] Address [address] [place] [address] Care Team Providers Care Observer [employer] Name Role Phone Unavailable Primary Care Provider [...]
== END 2025-02-08 17:38 | disposition home or self-care (01) ==
LOC: HO.HHCLNP 17:37
DX: R30.0 Dysuria (principal); K59.00 Constipation, unspecified; Z90.49 Acquired absence of other specified parts of digestive tract
CPT/HCPCS: 87086

== ENCOUNTER 2025-03-01 10:37 | Outpatient (AMB) | payer MEDICARE, MEDICAID, SELFPAY ==
--- NOTE | 2025-03-01 10:38 | MHC.OFFVIS ---
Vital Signs 03/01/25 10:53 Weight 197 lb BP 174/91 H Blood Pressure Location Rt brachial Position Sitting Pulse 86 Intake Visit Reasons: 1mo s/p exp lap Intake Note: Patient is seen in office for one month follow up visit, post exploratory laparotomy. Patient c/o: no concerns. Reports incisions healing well. Taking Motrin when discomfort. 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 Management Professor Required: Yes Project Management Professor Name: Brandan # [id number] Accompanied by: son Kannan Gann Allergies No Known Allergies Allergy (Verified 02/01/25 09:13) Medication List - Last Reconciled 03/01/25 by Jv Galarza MD albuterol sulfate 2.5 mg inhalation Q4H PRN amlodipine 10 mg PO DAILY atorvastatin 40 mg PO DAILY buprenorphine-naloxone 8-2 mg 1 film sublingual TID calcium polycarbophil (Fiber-Lax) 625 mg PO BID chlorthalidone 25 mg PO DAILY cholecalciferol (vitamin D3) 10 mcg PO DAILY clonidine HCl 0.1 mg PO BEDTIME docusate sodium 100 mg PO BID escitalopram oxalate 10 mg PO DAILY fluticasone propion-salmeterol 100-50 mcg/dose (Advair Diskus) 1 inh inhalation BID fluticasone propionate 50 mcg/actuation (Flonase Allergy Relief) 1 spray intranasal DAILY glipizide ER 5 mg PO DAILY ibuprofen 800 mg PO TID losartan-hydrochlorothiazide 100-12.5 mg 1 tab PO DAILY metformin 1,000 mg PO BID mirtazapine 7.5 mg PO BEDTIME PRN oxycodone 5 mg PO Q6H PRN polyethylene glycol 3350 17 grams PO DAILY PRN sennosides-docusate sodium 8.6-50 mg (Stool Softener-Stimulant Laxative) 2 tabs PO DAILY HPI HPI 1mo s/p exp lap: Details: 54-year-old male patient who underwent exploratory laparotomy, lysis of adhesions and small-bowel resection on 01/18/2025 for small-bowel obstruction. He returns today for routine follow up. He overall feels well. He reports occasionally needing motrin for lower abdominal discomfort around his incision after he has been more active. He is tolerating a solid diet and moving his bowels daily. He denies any fever, chills, nausea, vomiting, diarrhea. He has no concerns. [facility] Medical History (Updated 02/03/25 @ 00:01 by Sunil Pearson) COPD (chronic obstructive pulmonary disease) Chronic constipation Non-insulin dependent type 2 diabetes mellitus Tobacco dependence Hyperlipidemia Small bowel obstruction History of substance use disorder Surgical History (Updated 03/07/25 @ 10:11 by Chiquita Faith PA-C) Hx of exploratory laparotomy (01/18/25) History of abdominal surgery Social History (Updated 01/18/25 @ 02:07 by GERRY Fragoso) Household Members: Children Housing: Apartment Do you presently have visiting nurse or other home services: Yes (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.) Patient Tobacco Use Status: Current everyday Tobacco user Tobacco use type: Cigarette Cigarette Packs Per Day: 1 Cigarettes Per Day: 20.0 service: No Current occupational status: disabled Review of Systems Const All systems reviewed & are unremarkable except as noted in HPI and below Physical Exam Vital Signs: Last Vital Signs Pulse 86 03/01/25 10:53 BP 174/91 H 03/01/25 10:53 Const General: comfortable, no acute distress and alert Orientation/consciousness: patient oriented x3 Resp Effort & Inspection: normal respiratory effort GI Other: infraumbilical incision well healed, a couple of steri strips remain on inferior aspect which were removed, no erythema or edema, mild residual induration, no drainage abd soft, nontender, nondistended Percussion: Yes normal to percussion Skin General skin exam: no rashes or lesions noted Neuro General: patient oriented x3 and moves all extremities Assessment & Plan Assessment & Plan (1) Hx of exploratory laparotomy: Onset Date: 01/18/25 Comment: Lysis of adhesions, small-bowel resection-Jv Galarza MD Code(s): Z98.890 - Other specified postprocedural states Category: Surgical Plan 54-year-old male patient returning for routine follow up 6 weeks after undergoing lysis of adhesions, small-bowel resection for SBO. He continues to do well and is tolerating a solid diet with good GI function and has no concerns. His abdominal incision is well healed without evidence of infection. He was instructed he can begin to gradually resume all activities as tolerated. He can follow up as needed. Patient and son comfortable with plan, all questions answered. Coding Level of Care Code Global (92568) Diagnoses Hx of exploratory laparotomy Z98.890
[2025-03-01 10:53] VITALS: BP 174/91; PULSE 86
--- OUTSIDE RECORDS SUMMARY | 2025-03-01 11:35 | XMS_ITS | Clinical Summary ---
Author Organization [facility] Address [address] [place] [address] Care Team Providers Care Planer Chain Offbearer Name Role Phone Ced Sesay Primary Care Provider [phone] Allergies Active Allergy Reactions Criticality Noted Date [...] - PCV) 08/28/2022 08/28/2021 Colonoscopy 12/12/2023 12/11/2018 Alcohol/Substance Use Screening 06/27/2024 Depression Screening and Follow-Up 06/27/2024 Social Drivers of Health Barbie ual Screening 06/27/2024 COVID-19 Vaccine (3 - 2024-2 6 season) 2025 11/22/2020, 10/25/2020 Influenza Vaccine (#1) 2025 , 03/23/2018, 03/02/2017, Additional history exists DTaP,Tdap,and Td Vaccines (2 - Td or Tdap) 04/01/2025 04/01/2015 RSV Vaccine (60+ years old a nd patients) (1 - 1-dose 75+ series) 2043 Hepatitis B Vaccines Completed 09/01/2016, 10/21/2015, 07/18/2015 Procedures * Due to [place] Magnetic law, this organization might not be sharing negative HIV tests. Procedure Name Priority Date/Time Associated Diagnosis Comments COLONOSCOPY 12/11/2018 CT CHEST PULMONARY EMBOLISM W CONTRAST STAT 04/13/2016 5:47 AM EDT from Last 3 Months or Most Recently Relevant to Health Maintenance Results * Due to [place] Magnetic law, this organization might not be sharing [...] 350: 80 ML, IV POWER INJ WSN: [id number] Narrative 04/13/2016 6:21 AM EDT COMPARISON: None. [...] 350: 80 ML, IV POWER INJ WSN: [id number] Casey Castro MD IMG CT PROCEDURES Final Result from Last 3 Months or Most Recently Relevant to Health Maintenance Insurance MEDICARE [facility] Care Teams Planer Chain Offbearer Relationship Specialty Start Date End Date Ced Sesay PA PCP - General 10/14/21
--- OUTSIDE RECORDS SUMMARY | 2025-03-01 11:35 | XMS_ITS | Encounter Summary ---
Author Organization [facility] Address [address] [place] [address] Care Team Providers Care Printer Machine Name Role Phone Unavailable Primary Care Provider Unavailabl e Encounter Details Date Type Department Care Team ([facility] st Contact Info) Description 11/09/2016 Orders Only [facility] [address] [facility] [address] [place] [address] Cullen Rosas MD [address] [place] [address] Social History Tobacco Use Types Packs/Day Years [...]
--- OUTSIDE RECORDS SUMMARY | 2025-03-01 11:35 | XMS_ITS | Clinical Summary ---
Author Organization [facility] Address [address] [place] [address] Care Team Providers Care Food Or Baggage Handling Rampman Name Role Phone Unavailable Primary Care Provider [...] COVID-19 Vaccine ( - 2023-2 5 season) 2025 Influenza (#1) 2025 HPV Vaccine (No Doses [...]
--- OUTSIDE RECORDS SUMMARY | 2025-03-01 11:35 | XMS_ITS | Encounter Summary ---
Author Organization [facility] Address [address] [place] [address] Care Team Providers Care Glove Pairer Name Role Phone Ced Sesay Primary Care Provider Encounter Details Date Type Department Care Team (Late st Contact Info) Description 02/01/2024 Community Orders [facility] EpicCare Link [address] [place] [address] Ced Sesay PA [address] [place] [address] Low back pain, unspecified back pain laterality, [...] Primary documented in this encounter Care Teams Glove Pairer Relationship Specialty Start Date End Date Ced Sesay PA PCP - General 10/14/21 documented as of this encounter
== END 2025-03-01 11:03 | disposition home or self-care (01) ==
LOC: HO.HGS 10:37
PROVIDERS: Visit Provider Physician Assistant Surgical
DX: Z98.890 Other specified postprocedural states (principal)
CPT/HCPCS: 99024

== ENCOUNTER → 2025-03-01 10:37 | Outpatient (BNVA) | payer MEDICARE, MEDICAID, SELFPAY | PROVIDERS: Visit Provider Physician Assistant Surgical | DX: K59.09 Other constipation (principal); Z98.890 Other specified postprocedural states; I10 Essential (primary) hypertension; E11.9 Type 2 diabetes mellitus without complications; Z79.84 Long term (current) use of oral hypoglycemic drugs; F17.210 Nicotine dependence, cigarettes, uncomplicated; E78.5 Hyperlipidemia, unspecified | CPT/HCPCS: 99212 ==

== ENCOUNTER 2025-03-21 14:02 | Outpatient (REF) | payer MEDICARE, MEDICAID, SELFPAY ==
--- OUTSIDE RECORDS SUMMARY | 2025-03-21 13:30 | XMS_ITS | Encounter Summary ---
Author Organization [employer] Address [address] [place] [address] [address] [place] [address] Care Team Providers Care Compliance Representative Name Role Phone Carlin Rivas CNP Primary Care Provider [phone] Reason for Referral * Consultation (Routine) - Authorized Specialty Diagnoses / Procedures Referred By Davey vance Referred To Contact Audiology Diagnoses Tinnitus of both ears Carlin Rivas CNP [address] [place] [address] Phone: tel: fax: [facility] [address] [place], [place] Phone: tel: fax: Referral ID Status Reason Start Date Expiration Date Visits Requested Visits Authorized [id number] Authorized Specialty Services Required 03/21/2025 03/21/2026 1 1 Reason for Visit * Reason Comments Follow-up Chronic conditions Encounter Details Date Type Department Care Team ([facility] st Contact Info) Description 03/21/2025 1:30 PM EDT Office Visit [facility] [address] [place] [address] Carlin Rivas CNP [address] [place] [address] Tinnitus of both ears (Primary Dx); Type 2 diabetes mellitus without complication, without long-term current use of insulin (CMS/HCC); Chronic pain syndrome; Encounter for immunization; Hypertension, unspecified type; S/P small bowel resection Social History Tobacco Use Types Packs/Day Years Used Date Smoking Tobacco: Former Cigarettes Passive Smoke Exposure: Past Smokeless Tobacco: Former Comments:Pt reports smoking more often when he [...] your housing situation today? I have evelyn vazuqez 03/13/[address] you li [...] Answer Date Recorded Internet Access Q1 Yes 03/17/2025 Internet Access Q2 Not on file 03/17/2025 Sex and Gender Information Value Date Recorded Sex Assigned at Male 12/06/2023 1:37 PM EDT Legal Sex Male 6:53 PM EDT Gender Identity Male 12/06/2023 1:37 PM EDT Sexual Orientation Choose not to disclose 2023 6:53 PM EDT documented as of this encounter Last Filed Vital Signs Vital Sign Reading Time Taken Comments Blood Pressure 146/102 03/21/2025 1:39 PM EDT Manually checked Pulse 76 03/21/2025 1:12 PM EDT Temperature 36.8 C (98.3 F) 03/21/2025 1:12 PM EDT Respiratory Rate 14 03/21/2025 1:12 PM EDT Oxygen Saturation 98% 03/21/2025 1:1 2 PM EDT Inhaled Oxygen Concentration - - Weight 88 kg (194 lb) 03/21/2025 1:12 PM EDT Height 176.5 cm (5' 9.49 ) 03/21/2025 1 :12 PM EDT Body Mass Index 28.25 03/21/2025 1:12 PM EDT documented in this encounter Progress Notes * Carlin Rivas, YOLANDA - 03/21/2025 1:30 PM EDT Subjective Patient ID: Kannan Galeano is a 54 y.o. male who presents for f/u for chronic conditions. HPI Interim History -Pt seen by [facility] general surgery 03/01/2025 for exp lap f/u x 1 month. Per providernote pt is doing well and is tolerating solid diet with good GI function and has no concerns. Abdominal incision is well healed without evidence of infection. He was instructed he can begin to gradually resume all activities as tolerated. -pt follows with [facility] pain mgmt for his chronic LBP and he has to schedule his lumbar injection. Chronic conditions HTN Kannan also brings in his BP log today which showed readings over the past 2 weeks. Readings were allin 120s/70s range. Pt reports he is adhering to medications as prescribed. Denies any HARKINS, dizziness, CP, visual changes. T2DM Pt taking metformin discontinued glipizide due to risk of potential hypoglycemia. Pt does endorse feelings of hypoglycemia however reports lowest glucose in 90s. When asked if he was still taking glipizide pt seemed to be unsure if he stopped it. I did emphasize today that we will formally discontinue this medication to avoid hypoglycemia. Lab Results Component Value Date HGBA1C 5.9 (A) 02/08/2025 Current concerns Pt reporting tinnitus and some mild hearing loss in past two months. 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 Denies any ear pain or ear drainage. Denies ear fullness. Arthritis: requests ibuprofen refills today for his arthritis. Pt reports the weather exacerbates his pain which ultimately elevates his BP. Review of Systems Constitutional: Negative for chills, fatigue and fever. HENT: Positive for hearing loss and tinnitus. Negative for ear discharge and ear pain. Eyes: Negative. Respiratory: Negative for choking, chest tightness, shortness of breath and wheezing. Cardiovascular: Negative for chest pain and palpitations. Endocrine: Negative for polydipsia, polyphagia and polyuria. Musculoskeletal: Positive for arthralgias. Neurological: Negative for dizziness and headaches. Psychiatric/Behavioral: Negative. Objective Vitals: 03/21/25 1339 BP: (!) 146/102 Pulse: Resp: Temp: SpO2: Physical Exam Vitals reviewed. Constitutional: General: He is not in acute distress. Appearance: Normal appearance. He is not ill-appearing, toxic-appearing or diaphoretic. HENT: Head: Normocephalic and atraumatic. Right Ear: Tympanic membrane, ear canal and external ear normal. Left Ear: Tympanic membrane, ear canal and external ear normal. Cardiovascular: Rate and Rhythm: Normal rate and regular rhythm. Pulses: Normal pulses. Heart sounds: Normal heart sounds. No murmur heard. No friction rub. No gallop. Pulmonary: Effort: Pulmonary effort is normal. No respiratory distress. Breath sounds: Normal breath sounds. No stridor. No wheezing, rhonchi or rales. Chest: Chest wall: No tenderness. Musculoskeletal: Right lower leg: No edema. Left lower leg: No edema. Neurological: General: No focal deficit present. Mental Status: He is alert and oriented to person, place, and time. Mental status is at baseline. Psychiatric: Mood and Affect: Mood normal. Behavior: Behavior normal. Thought Content: Thought content normal. Judgment: Judgment normal. Assessment/Plan Problem List Items Addressed This Visit HTN (hypertension) BP not at goal of <140/90, pt office readings are consistently elevated despite home readings being normal. High suspicion for elevation 2/2 arthritic pain. Plan to obtain labs to monitor kidney function, will consider Hyzaar increase based on lab results. Medication: Continue current antihypertensives: Hyzaar and amlodipine Start/change dosage of: Monitor for side effects: Lifestyle Modifications: Low sodium DASH diet Regular aerobic exercise (>=150 min/week) Weight loss if BMI >25 Limit alcohol, avoid tobacco Follow-up: Monitor BP 1-2x daily, pt to call office if consistently >140/90 Labs: Repeat today Patient Education: Provided verbal/written education on BP goals and home monitoring Emphasized adherence to medication and follow-up Type 2 diabetes mellitus without complication, without long-term current use of insulin ([facility]) Relevant Orders POCT glucose manually resulted (Completed) Basic Metabolic Panel Pt A1c at goal <7, will get updated labs today Lab Results Component Value Date HGBA1C 5.9 (A) 02/08/2025 Will consider dose reduction of metformin based on updated a1c Maintenance BMP: ordered today Microalbumin: ordered today Foot Exam: up to date, normal Eye Exam: up to date 11/2024 Lipid panel: due ordered today Statin: yes ASA: no, pt self discontinued DIEGO/ARB: yes Treatment Goals: A1c goal: <7% FBG goal: <130 2 hour post prandial goal: <180 Advised Low sugar and Low carb diet. Counseled regarding self-monitoring of blood glucose. Counseled re: potential co-morbidities including cardiovascular disease. Counseled re: potential co-morbidities include neuropathy and retinopathy. Counseled re: potential co-morbidities include nephropathy. Chronic pain syndrome Relevant Medications ibuprofen 800 MG tablet Refilled ibuprofen for pain relief Will update BMP today Other Visit Diagnoses Tinnitus of both ears - Primary Likely presbycusis Will refer for audiometry Encounter for immunization Relevant Medications ibuprofen 800 MG tablet Other Relevant Orders FLU VACCINE TRIVALENT 5210-5615 (Fluarix) 6 mo + TDAP VACCINE 7 yrs + S/P small bowel resection Healing routinely Tolerating solid foods and moving bowels regularly Pt will reach out if any concerns F/u in 3 months for chronic conditions documented in this encounter Plan of Treatment Upcoming Encounters Date Type Department Care Team (Late st Contact Info) Description 05/13/2025 1:15 PM EST Office Visit [facility] [address] [place] [address] Shane Ndiaye MD [address] [place] [address] Scheduled Referrals Name Type Priority Associated Diagnoses Orde r Schedule Referral to Audiology Outpatient Referral Routine Tinnitus of both ears Expected: 03/21/2025 (Approximate), Expires: 03/21/2026 documented as of this encounter Procedures Procedure Name Priority Date/Time Associated Diagnosis Comments BASIC METABOLIC PANEL Routine 03/21/2025 2:05 PM EDT Type 2 diabetes mellitus without complication, without long-term current use of insulin ([facility]) POCT GLUCOSE Routine 03/21/2025 1:13 PM EDT Type 2 diabetes mellitus without complication, without long-term current use of insulin ([facility]) documented in this encounter Results * (ABNORMAL) Basic Metabolic Panel (03/21/2025 2:05 PM EDT) Sodium 141 135 - 145 mmol/L [facility] Potassium 3.2(L) 3.3 - 5.1 mmol/L [facility] Chloride 103 96 - 108 mmol/L [facility] Carbon Dioxide 30(H) 22 - 29 mmol/L [facility] Anion Gap 11(L) 12 - 20 [facility] Urea Nitrogen (BUN) 7(L) 9 - 16 mg/dL [facility] Creatinine, Serum 0.66 0.5 - 1.4 mg/dL [facility] Estimated Glomerular Filt Rate >60 [facility] Comment:Chronic Kidney Disea se: Estimated GFR < 60 mL/min/[id number] Kidney Disease: Estimated GFR < 15 mL/min/1.73m2 Glucose 67 60 - 115 mg/dL [facility] Calcium 9.0 8.4 - 10.2 mg/dL [facility] Blood Venous blood specimen / Unknown 03/21/2025 2:05 PM EDT 03/21/2025 5:38 PM EDT Carlin Rivas [facility] BLOOD ORDERABLES Yasmin l Result [facility] [address] [place] [address] [phone] * POCT glucose manually resulted (03/21/2025 1:13 PM EDT) Glucose Blood, POC 96 60 - 200 mg/dL QC Media Lot # Comment:[id number] Lot# Expiration Date Comment:06/15/2025 Blood Capillary blood specimen / Unknown 03/21/2025 1:13 PM EDT Carlin Rivas CNP POINT OF CARE TEST ENTER/ EDIT ORDERABLES Final Result documented in this encounter Visit Diagnoses Diagnosis Tinnitus of both ears- Primary Unspecified tinnitus Type 2 diabetes mellitus without complication, without long-term current use of insulin (CMS/HCC) Chronic pain syndrome Encounter for immunization Hypertension, unspecified type S/P small bowel resection Other postprocedural status documented in this encounter Additional Health Concerns Assessment Noted Time PHQ-9 Depression Total Score: 7 08/24/19 25 2:01 PM EST documented as of this encounter Care Teams Compliance Representative Relationship Specialty Start Date End Date Carlin Rivas CNP PCP - General Family Medicine 08/24/24 documented as of this encounter
[2025-03-21 17:43] LABS: MANUAL DIFF FLAG NO
[2025-03-21 18:10] LABS: Hematocrit 46.1 % (42.0-52.0); Hemoglobin 16.0 g/dl (14.0-18.0); Imm Gran Abs Auto 0.02 X10*3/uL (0.00-0.03); Imm Gran Pct Auto 0.4 % (0.0-0.4); Lymphocytes Absolute Auto 2.1 X10*3/uL (1.2-4.9); Mean Corpuscular HGB Conc 34.7 g/dl (31.0-36.0); Mean Corpuscular Hemoglobin 30.5 pg (27.0-33.0); Mean Corpuscular Volume 87.8 fL (80.0-98.0); NRBC Abs Auto 0.000 X10*3/uL (0.0-0.012); NRBC Pct Auto 0.0 /100WBC (0.0-0.2); Platelet Count 282 X10*3/uL (160-400); Red Blood Count 5.25 X10*6/uL (4.60-5.80); White Blood Count 5.7 X10*3/uL (4.8-10.8)
[2025-03-21 18:18] LABS: Hemoglobin A1C 149.5875 umol/L
[2025-03-21 18:23] LABS: Anion Gap 11 (12-20); Blood Urea Nitrogen 7 mg/dL (9-16); Calcium 9.0 mg/dL (8.4-10.2); Carbon Dioxide 30 mmol/L (22-29); Chloride 103 mmol/L (96-108); Cholesterol 164 mg/dL (<200); Estimated Glomerular Filt Rate > 60; HDL Cholesterol 31 mg/dL (>40); Potassium 3.2 mmol/L (3.3-5.1); Sodium 141 mmol/L (135-145); Triglycerides 166 mg/dL (<150)
--- OUTSIDE RECORDS SUMMARY | 2025-03-21 18:31 | XMS_ITS | Clinical Summary ---
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 60 tablet 5 03/13/20 24 Active aspirin 81 MG EC tablet Take 81 mg by mouth Once per day. Active metFORMIN (Glucophage) 1000 MG tablet Take 1,000 mg by mouth with breakfast and with evening meal. Active lidocaine (Xylocaine) 5 % ointment Apply topically if needed in the morning and at bedtime for moderate pain. 50 g 1 06/11/20 24 Active lamoTRIgine (LaMICtal) 25 MG tablet Take 25 mg by mouth Once per day. 10/20/19 24 Active Breo Ellipta 100-25 MCG/ACT aerosol powderIndicatio ns:Asthma, unspecified asthma severity, unspecified whether complicated, unspecified whether persistent Take 1 puff by mouth Once per day. 60 each 08/24/19 25 Active escitalopram (Lexapro) 10 MG tabletIndicatio ns:Anxiety associated with depression Take 1 tablet (10 mg) by mouth Once per day. 30 tablet 2 12/01/19 25 Active losartan-hydroC HLOROthiazide (Hyzaar) 100-12.5 MG tabletIndicatio ns:Hypertension , unspecified type Take 1 tablet by mouth Once per day. 30 tablet 11 12/01/19 25 2025 Active polyvinyl alcohol (Liquifilm Tears) 1.4 % ophthalmic solutionIndicat ions:Dry eyes, bilateral Administer 1 drop into both eyes if needed in the morning and at bedtime for dry eyes. 15 mL 12/06/19 Active amLODIPine (Norvasc) 10 MG tablet TAKE 1 TABLET BY MOUTH EVERY DAY 30 tablet 12/25/19 Active docusate sodium (Colace) 100 MG capsule Take 1 capsule (100 mg) by mouth 2 times daily. 60 capsule 01/02/20 25 2025 Active polycarbophil (Fibercon) 625 MG tablet Take 1 tablet (625 mg) by mouth 2 times daily. 60 tablet 01/02/20 25 2025 Active polyethylene glycol, PEG, [...] complication, without long-term current use of insulin (CMS/[facility]) TEST BLOOD SUGAR ONCE DAILY 100 each 3 01/16/20 25 Active Blood Pressure Monitor miscIndications :Hypertension, unspecified type Use to check blood pressure two times daily 1 each 01/17/20 25 Active Buprenorphine HCl-Naloxone HCl (Suboxone) 8-2 MG SL filmIndications :Opioid dependence in remission (CMS/HCC),Post- operative pain Place 1 Film under the tongue 3 times daily. 84 Film 2 02/13/20 25 2024 Active mirtazapine (Remeron) 7.5 MG tablet Take 1 tablet (7.5 mg) by mouth at bedtime. 30 tablet 2 02/19/20 Active albuterol (Ventolin HFA) 108 (90 Base) MCG/ACT inhaler INHALE 2 PUFFS BY MOUTH EVERY 4 HOURS NEEDED FOR WHEEZING OR SHORTNESS OF BREATH 18 g 1 02/23/20 Active tiZANidine (Zanaflex) 2 MG tablet TAKE 1 TABLET BY MOUTH EVERY 8 HOURS NEEDED FOR MUSCLE SPASMS 30 tablet 3 03/19/20 Active ibuprofen 800 MG tabletIndicatio ns:Chronic pain syndrome Take 1 tablet (800 mg) by mouth 3 times daily. 90 tablet 03/21/20 25 Active naloxone (Narcan) 4 mg/0.1 mL nasal spray Administer 1 spray (4 mg) into affected nostril(s) if needed for opioid reversal. May repeat every 2-3 minutes if needed, alternating nostrils, until medical assistance becomes available. 2 each 3 03/13/20 24 2024 albuterol 108 (90 Base) MCG/ACT inhaler 2 puffs q 4-6 hours prn asthma/shortne ss of breath. 18 g 1 05/15/20 24 2024 Discontinued tiZANidine (Zanaflex) 2 MG tablet Take 1 tablet (2 mg) by mouth every 8 (eight) hours if needed for muscle spasms. 30 tablet 3 07/10/19 25 2024 Discontinued glipiZIDE XL (Glucotrol XL) 5 MG 24 hr tabletIndicatio ns:Type 2 diabetes mellitus with other specified complication, without long-term current use of insulin ([facility]) Take 1 tablet (5 mg) by mouth with breakfast. 90 tablet 3 08/24/19 25 2024 Discontinued ibuprofen 800 MG tabletIndicatio ns:Chronic pain syndrome Take 1 tablet (800 mg) by mouth 3 times daily. 90 tablet 12/01/19 25 2024 Discontinued ibuprofen 800 MG tabletIndicatio ns:Chronic pain syndrome TAKE 1 TABLET BY MOUTH THREE TIMES DAILY 90 tablet 09/242024 Discontinued(R eorder (will not trigger notification to [...] pain mgmt clinic Plan to refer to fish trapper Pt declines PT at this time Pt [...] he has 2 children that live in [place] and expresses his 4 years ago. ASCVD=10.5% [...] UTD, but needs to transfer care to [facility], referral placed Colon CA: UTD, next due 2028 Lung CA: UTD, had it done last year in [place] and was neg, will obtain records Labs: [...] Encounters Date Type Department Care Team Description 03/21/2025 1:30 PM EDT Office Visit [facility] MED & PEDS [address] [place] [address] Carlin Rivas CNP Tinnitus of both ears (Primary Dx); Type 2 diabetes mellitus without complication, without long-term current use of insulin ([facility]); Chronic pain syndrome; Encounter for immunization; Hypertension, unspecified type; S/P small bowel resection 03/21/2025 Travel 03/19/2025 Telephone [facility] MEDICINE [address] [place] [address] Carlin Rivas CNP No Show 03/19/2025 Refill [facility] MED[facility] [address] [place] [address] Carlin Rivas CNP Chronic pain syndrome 03/17/2025 Refill [facility] WALK-IN CENTER [address] [place] [address] Shane Ndiaye MD 03/06/2025 Telephone [facility] [address] [place] [address] Carlin Rivas CNP chart prep 02/22/2025 Refill [facility] MED[facility] [address] [place] [address] Emre Mckeon MD 02/18/2025 1:15 PM EDT Office Visit [facility] MEDICINE [address] [place] [address] Shane Ndiaye MD Uncomplicated opioid dependence ([facility]/HCC) (Primary Dx) 02/18/2025 Travel 02/11/2025 Refill [facility] MED[facility]INE [address] [place] [phone] Michaela Tenorio, GREGORY Opioid dependence in remission ([facility]); Post-operative pain 02/08/2025 9:00 AM EDT Office Visit [facility] MED[facility]INE [address] [place] [phone] Carlin Rivas CNP Burning with urination (Primary Dx); Type 2 diabetes mellitus without complication, without long-term current use of insulin (CMS/[facility]); S/P small bowel resection; Acute constipation; Opioid dependence in remission ([facility]); Post-operative pain; Hypertension, unspecified type 02/08/2025 Telephone [facility] [address] [place] [address] Carlie Waldron MD 02/08/2025 Travel 02/07/[address] [address] Kylah Escamilla [place] CHARTPREP 01/29/2025 Telephone [facility] [address] [place] [phone] Yenny Penaloza RN 01/28/2025 Patient Outreach [facility] [address] [place] [phone] Carlin Rivas CNP Transition Of Care (Tcm) (HDF- Unscheduled (surgery) ) 01/28/[address] [address] Carlin Rivas CNP Medication Question 01/28/2025 Telephone [facility] [address] [place] [phone] Carlin Rivas CNP Hospital Follow-up 01/21/2025 Telephone [facility] [address] [place] [phone] Yenny Penaloza, GREGORY 01/17/2025 Orders Only [facility] External Provider, [facility] 01/15/2025 Refill [facility] [address] [place] [phone] Carlin Rivas CNP Hypertension, unspecified type (Primary Dx) 01/15/2025 Refill [facility] [address] [place] [address] Carlin Rivas CNP Type 2 diabetes mellitus with other specified complication, without long-term current use of insulin (CMS/HCC) 01/11/2025 Refill [facility] MED[facility] [address] [place] [address] Carlin Rivas CNP Anxiety associated with depression 01/09/2025 9:30 AM EDT Office Visit [facility] OPTOMETRY [address] [place] [address] Cheo, Ananya, OD Presbyopia (Primary Dx) 01/07/2025 Telephone [facility] MEDIC[facility] [address] [place] [address] Carlin Rivas CNP 01/04/2025 3:45 PM EDT Office Visit [facility] MEDICINE [address] [place] [address] Carlin Rivas CNP Other constipation (Primary Dx); Type 2 diabetes mellitus with other specified complication, without long-term current use of insulin (CMS/HCC) 01/04/2025 Travel 01/03/2025 Telephone [facility] MEDICINE [address] [place] [address] Carlin Rivas CNP Chart Prep 01/03/2025 Telephone [facility] MED[facility] [address] [place] [address] Carlin Rivas CNP Nurse Triage 01/01/2025 10:40 AM EDT Office Visit [facility] WALK[facility] [address] [place] [phone] Daly Pineda DO Acute constipation (Primary Dx) 01/01/2025 Travel 12/31/2024 Telephone [facility] MED[facility] [address] [place] [address] Carlin Rivas CNP Nurse Triage 12/24/2024 1:30 PM EDT Office Visit [facility] MED[facility]INE [address] [place] [phone] Shane Ndiaye MD Uncomplicated opioid dependence (CMS/HCC) (Primary Dx) 12/24/2024 Travel 12/23/2024 Refill [facility] MED[facility] [address] [place] [address] Carlin Rivas CNP Anxiety associated with depression 12/23/2024 Refill [facility] [address] [place] [address] Shane Ndiaye MD from Last 3 Months Immunizations Immunization Administration Dates Next Due Hep A, Adult 12/24/2024,03/19/2024 Hep B, adult 09/01/2016,10/21/2015,07/18/2015 Influenza injectable quadriv alent IIV4 with preservative 03/23/2018 Influenza injectable quadriv alent preservative free 04/26/2020,03/02/2017,02/25/2016,04/01 Influenza, seasonal, injecta ble, preservative free 03/21/2025 Pneumococcal Polysaccharide PPSV23 08/28/2021 Tdap 03/21/2025,04/01/2015 Zoster, Recombinant 05/29/2021 Social History Tobacco Use Types Packs/Day Years Used Date Smoking Tobacco: Former Cigarettes Passive Smoke Exposure: Past Smokeless Tobacco: Former Tobacco Cessation:Counseling Given: Not Answered Comments:Pt reports smoking more [...] Mass Index 28.25 03/21/2025 1:12 PM EDT Plan of Treatment Upcoming Encounters Date Type Department Care Team (Late st Contact Info) Description 05/13/2025 1:15 PM EST Office Visit [facility] MEDICINE [address] [place] [address] Shane Ndiaye MD [address] [place] [address] Health Maintenance Due Date Last Done Comments CT Colonography 1968 FIT DNA/Cologuard 1970 FIT 1970 FOBT 1970 Sigmoidoscopy 1970 Diabetes: Urine Protein Screening 1987 Zoster Vaccines (2 of 2) 07/24/2021 05/29/2021 Pneumococcal Vaccine: 50+ Years (2 of 2 - PCV) 08/28/2022 08/28/2021 Lipid Panel 11/17/2023 03/21/2025, 11/16/2022 Diabetes: Hemoglobin A1C 08/11/2025 025, 02/08/2025, 11/02/2024, Additional history exists Depression Screening 08/24/2025 08/24/2024, 08/24/19 SDOH Screening 08/24/2025 08/24/2024 Alcohol/Substance Use Screening 11/02/2025 11/02/2024 Disability Screening 11/02/2025 11/02/2024 Tobacco Screening 02/18/2026 02/18/2025 COVID-19 Vaccine ( season) 2026 11/22/2020, 10/25/2020 Postponed from 02/25/2025 (Patient Refused) Eye Exam 12/05/2026 12/05/2024, 11/25, 12/05/2024, Additional history exists Colonoscopy 12/11/2028 12/11/2018 Colorectal Cancer Screening 12/11/2028 DTaP/Tdap/Td Vaccines (3 - Td or Tdap) 03/21/2035 03/21/2025, 04/01/2015 RSV Patients and Patients Aged 60 years or older (1 - 1-dose 75+ series) 2043 Hepatitis B Vaccines Completed 09/01/2016, 10/21/2015, 07/18/2015 Diabetes: Foot Exam Discontinued 09/20/2023 HIV Screening Completed 03/13/2024, 06/16/2023 Hepatitis C Screening Completed 03/13/2024, 023 Hepatitis A Vaccines Aged Out 12/24/2024, 03/19/20 24 No longer eligible based on patient's age to complete this topic Influenza Vaccine Completed 03/21/2025, , 03/23/2018, Additional history exists HIB Vaccines Aged Out No longer eligi [...] complication, without long-term current use of insulin (CMS/[facility]) CBC WITH AUTO DIFFERENTIAL Routine 03/21/2025 2:05 PM EDT Type 2 diabetes mellitus without complication, without long-term current use of insulin (CMS/[facility]) S/P small bowel resection HEMOGLOBIN A1C Routine 03/21/2025 2:05 PM EDT Type 2 diabetes mellitus without complication, without long-term current use of insulin (CMS/[facility]) S/P small bowel resection LIPID PANEL, STANDARD Routine 03/21/2025 2:05 PM EDT Type 2 diabetes mellitus without complication, without long-term current use of insulin (CMS/HCC) POCT GLUCOSE Routine 03/21/2025 1:13 PM EDT Type 2 diabetes mellitus without complication, without long-term current use of insulin (CMS/[facility]) CULTURE, URINE, ROUTINE Routine 02/08/2025 9:26 AM EDT Burning with urination POCT URINALYSIS DIPSTICK Routine 02/08/2025 9:23 AM EDT Burning with urination POCT GLYCATED HEMOGLOBIN, TOTAL Routine 02/08/2025 9:00 AM EDT Type 2 diabetes mellitus without complication, without long-term current use of insulin (CMS/[facility]) POCT GLUCOSE Routine 02/08/2025 8:59 AM EDT Type 2 diabetes mellitus without complication, without long-term current use of insulin (CMS/HCC) XR CHEST 1 VIEW Routine 01/18/2025 12:18 AM EDT GLUCOSE, WHOLE BLOOD Routine 01/17/2025 11:[address] ABDOMEN PELVIS W CONTRAST Routine 01/17/2025 9:39 PM EDT LACTIC ACID Routine 01/17/2025 8:22 PM EDT URINALYSIS WITH REFLEX MICROSCOPIC Routine 01/17/2025 5:12 PM EDT XR KUB AND UPRIGHT 2 VIEWS Routine 01/17/2025 3:30 PM EDT POCT GLUCOSE Routine 01/04/2025 4:00 PM EDT Type 2 diabetes mellitus with other specified complication, without long-term current use of insulin (CMS/HCC) POCT WILLIAM-14 URINE DRUG SCREEN Routine 12/24/2024 1:15 PM EDT Uncomplicated opioid dependence (CMS/HCC) HEPATITIS C AB W/REFL TO HCV RNA, QN, PCR Routine 03/13/2024 3:07 PM EDT HIV 1/2 ANTIGEN/ANTIBODY, FOURTH GENERATION W/RFL Routine 03/13/2024 3:07 PM EDT DIABETES FOOT EXAM Routine 09/20/2023 COLONOSCOPY Routine 12/11/2018 from Last 3 Months or Most Recently Relevant to Health Maintenance Results * CBC auto differential (03/21/2025 2:05 PM EDT) White Blood Count 5.7 4.8 - 10.8 X10*3/uL [facility] Red Blood Count 5.25 4.60 - 5.80 X10*6/uL [facility] Hemoglobin 16.0 14.0 - 18.0 g/dl [facility] Hematocrit 46.1 42.0 - 52.0 % [facility] Mean Corpuscular Volume 87.8 80.0 - 98.0 fL [facility] Mean Corpuscular Hemoglobin 30.5 27.0 - 33.0 pg [facility] Mean Corpuscular HGB Conc 34.7 31.0 - 36.0 g/dl [facility] Red Cell Distribution Width 13.5 11.0 - 16.0 % [facility] Platelet Count 282 160 - 400 X10*3/uL [facility] Mean Platelet Volume 10.9 9.4 - 12.4 fL [facility] Neutrophils Percent Auto 49.3 45 - 73 % [facility] Imm Gran Pct Auto 0.4 0.0 - 0.4 % [facility] Lymphocytes Percent Auto 36.5 20 - 40 % [facility] Monocytes Percent Auto 8.8 2 - 11 % [facility] Eosinophils Percent Auto 3.9 0 - 4 % [facility] Basophils Percent Auto 1.1 0 - 2 % [facility] NRBC Pct Auto 0.0 0.0 - 0.2 /100WBC [facility] Neutrophils Absolute Auto 2.8 2.0 - 8.3 x10*3/uL [facility] Imm Gran Abs Auto 0.02 0.00 - 0.03 X10*3/uL [facility] Lymphocytes Absolute Auto 2.1 1.2 - 4.9 X10*3/uL [facility] Monocytes Absolute Auto 0.5 0.1 - 1.2 X10*3/uL [facility] Eosinophils Absolute Auto 0.2 0.0 - 0.4 X10*3/uL [facility] Basophils Absolute Auto 0.1 0.0 - 0.2 X10*3/uL [facility] NRBC Abs Auto 0.000 0.0 - 0.012 X10*3/uL [facility] Blood Venous blood specimen / Unknown 03/21/2025 2:05 PM EDT 03/21/2025 5:38 PM EDT Carlin Rivas [facility] LAB BLOOD ORDERABLES Yasmin l Result [facility] [address] [place] [phone] * Hemoglobin A1c (03/21/2025 2:05 PM EDT) Hemoglobin A1c 5.7 <6.0 % [facility] Comment:Hemoglobin A1C Refer ence Range Adults: 4.8 - 6.0 % Non diabetic: < 6.0 % Goal: < 7.0 %Additional Action Suggested: > 8.0 %Note: Hemoglobin A1c results are invalid for patients with abnormal amounts of HbF. Blood transfusions may impact the HbA1c concentration in the patient sample. Estimated Average Glucose 117 mg/dL [facility] Comment:eAG = Estimated ave rage glucose which is %A1C expressed asaverage glucose, using the formula of the O8X-KtfremfXhkifff Glucose study (ADAG), Diabetes Care, Vol.31,#8,Jan. 2007 Blood Venous blood specimen / Unknown 03/21/2025 2:05 PM EDT 03/21/2025 5:38 PM EDT [facility] LAB BLOOD ORDERABLES Yasmin l Result Performing Organization Address [facility] Co de Phone Number [facility] [address] [place] [phone] * (ABNORMAL) Lipid Panel, Standard (03/21/2025 2:05 PM EDT) Triglycerides 166(H) <150 mg/dL [facility] Comment:Desirable Triglyceri de: less than 150 mg/dLBorderline High Triglyceride 150-199 mg/dLHigh Triglyceride: 200-499 mg/dLVery High Triglyceride: greater than or equal to 5OO mg/dL Cholesterol 164 <200 mg/dL [facility] Comment:Desirable Cholestero l: less than 200 mg/dLBorderline High Cholesterol: 200-239 mg/dLHigh Cholesterol: greater than 239 mg/dL LDL Cholesterol Calculated 100(H) <100 mg/dL [facility] Comment:Desirable LDL: less than 100 mg/dLNear Optimal/Above Optimal LDL: 110- 129 mg/dLBorderline High LDL: 130-159 mg/dLHigh LDL: 160-189 mg/dLVery High LDL: greater than or equal to 190 mg/dL HDL Cholesterol 31(L) >40 mg/dL [facility] Comment:Desirable HDL: great er than 40 mg/dL Note: This HDL assay may give artificially low results in patients with liver disease. Blood Venous blood specimen / Unknown 03/21/2025 2:05 PM EDT 03/21/2025 5:38 PM EDT [facility] LAB BLOOD ORDERABLES Yasmin l Result [facility] [address] [place] [phone] * (ABNORMAL) Basic Metabolic Panel (03/21/2025 2:05 PM EDT) Sodium 141 135 - 145 mmol/L [facility] Potassium 3.2(L) 3.3 - 5.1 mmol/L [facility] Chloride 103 96 - 108 mmol/L [facility] Carbon Dioxide 30(H) 22 - 29 mmol/L [facility] Anion Gap 11(L) 12 - 20 [facility] Urea Nitrogen (BUN) 7(L) 9 - 16 mg/dL [facility] Creatinine, Serum 0.66 0.5 - 1.4 mg/dL [facility] Estimated Glomerular Filt Rate >60 [facility] Comment:Chronic Kidney Disea se: Estimated GFR < 60 mL/min/1.60c1Tmclgb Kidney Disease: Estimated GFR < 15 mL/min/1.73m2 Glucose 67 60 - 115 mg/dL [facility] Calcium 9.0 8.4 - 10.2 mg/dL [facility] Blood Venous blood specimen / Unknown 03/21/2025 2:05 PM EDT 03/21/2025 5:38 PM EDT [facility] LAB BLOOD ORDERABLES Yasmin l Result Performing Organization Address [facility] Co de Phone Number [facility] [address] [place] [phone] [phone] * POCT glucose manually resulted (03/21/2025 1:13 PM EDT) Only the most recent of3 resultswithin the time period is included. Glucose Blood, POC 96 60 - 200 mg/dL QC Media Lot # Comment:[id number] Lot# Expiration Date Comment:06/15/2025 Blood Capillary blood specimen / Unknown 03/21/2025 1:13 PM EDT [facility] POINT OF CARE TEST ENTER/ EDIT ORDERABLES Final Result * Culture, Urine, Routine (02/08/2025 9:26 AM EDT) Urine Urine specimen obtained by clean catch procedure / Unknown 02/08/2025 9:26 AM EDT 02/08/2025 5:38 PM EDT Comment:UACC Narrative [facility] - 02/10/2025 11:08 AM EDT Urine Culture No growth. Specimen Source: Urine clean catch [facility] LAB MICROBIOLOGY - GENERA L ORDERABLES Final Result Performing Organization Address [facility] Co de Phone Number [facility] [address] [place] [phone] * POCT Urinalysis (02/08/2025 9:23 AM EDT) Color, UA Yellow Clarity, UA Clear Glucose, UA Negative Bilirubin, UA Negative Ketones, UA Negative Spec Grav, UA 1.010 Blood, UA Negative Negative, None Detected pH, UA 7.0 Protein, UA Negative Urobilinogen, UA 0.2 Leukocytes, UA Negative Negative, Rare, Trace Nitrite, UA Negative Negative, None Detected Appearance, UA clear QC Media Lot # [id number] Lot# Expiration Date [id number] Urine 02/08/2025 9:23 AM EDT [facility] POINT OF CARE TEST ENTER/ EDIT ORDERABLES Final Result * (ABNORMAL) POCT HGB A1C (02/08/2025 9:00 AM EDT) Hemoglobin A1C 5.9(A) 4.0 - 5.7 % QC Media Lot # [id number] Lot# Expiration Date [id number] Blood 02/08/2025 9:00 AM EDT [facility] POINT OF CARE TEST ENTER/ EDIT ORDERABLES Final Result * XR Chest 1 View (01/18/2025 12:18 AM EDT) Anatomical Region Laterality Modality Chest Radiographic Natalia ging 01/18/2025 12:1 8 AM EDT Narrative 01/18/2025 12:20 AM EDT [place] [address] XRay Report Signed Patient: Kannan Gann MR#: [id number] : 1970 Acct:[id number] Age/Sex: 54 / M ADM Date: 01/17/25 Loc: .ED Attending Dr: Ordering Physician: Christian Ramirez PA-C Date of Service: 01/17/25 Procedure(s): XR chest 1V Accession Number(s): [id number] cc: Christian Ramirez PA-C; [facility] CLINICAL HISTORY: Post NG Tube Placement 1 view chest x-ray Comparison: CT/SR - CT ABDOMEN PELVIS W IV CON - 01/17/25 19:53 EDT CR/SR - XR CHEST 2 VIEWS - 09/16/23 04:29 EDT Findings: Low lung volumes with bibasilar atelectasis. Normal heart size. Gastric tube tip and side hole in the stomach. Gas distended loops of bowel in the visualized upper abdomen. IMPRESSION: Gastric tube in appropriate position. This document has been electronically signed by: Celso Glez MD on 01/18/2025 00:18:36 Dictated By: Celso Glez MD Signed By: <Electronically signed by Celso Glez MD in OV> 01/18/2518 DD/ TD/TT: 01/18/2517 Mathematics Professor: Procedure Note Sanchez, Image - 01/18/[address] [address] XRay Report Signed Patient: Kannan GannMR#: [id number] : 1970Acct:[id number] Age/Sex: 54 / MADM Date: 01/17/25 Loc: HO.ED Attending Dr: Ordering Physician: Christian Ramirez PA-C Date of Service: 01/17/25 Procedure(s): XR chest 1V Accession Number(s): [id number] cc: Christian Ramirez PA-C; Carlin Rivas CLINICAL HISTORY: Post NG Tube Placement 1 view chest x-ray Comparison: CT/SR - CT ABDOMEN PELVIS W IV CON - 01/17/25 19:53 EDT CR/SR - XR CHEST 2 VIEWS - 09/16/23 04:29 EDT Findings: Low lung volumes with bibasilar atelectasis. Normal heart size. Gastric tube tip and side hole in the stomach. Gas distended loops of bowel in the visualized upper abdomen. IMPRESSION: Gastric tube in appropriate position. This document has been electronically signed by: Celso Glez MD on 01/18/2025 00:18:36 Dictated By: Celso Glez MD Signed By: <Electronically signed by Celso Glez MD in OV> 01/18/2518 DD/ TD/TT: 01/18/2517 Mathematics Professor: [facility] External Provider IMG XR PROCEDURES Edited Result - Final * (ABNORMAL) Glucose, Whole Blood (01/17/2025 11:17 PM EDT) Glucose, Whole Blood 190(H) 60 - 115 mg/dL [facility] Comment:METER #: [id number] 01/17/2025 11:1 7 PM EDT 01/17/2025 11:21 PM EDT us Generic External Data Provider LAB BLOOD ORDERAB LES Final Result Performing Organization Address City/State/[facility] Co de Phone Number [facility] [address] [place] [phone] * CT Abdomen Pelvis w/ Contrast (01/17/2025 9:39 PM EDT) Anatomical Region Laterality Modality Body, Pelvis, Abdomen Computed T omography 01/17/2025 9:39 PM EDT Narrative 01/17/2025 9:42 PM EDT [address] [address] [address] Scan Report Signed with Addenda Patient: Kannan Gann MR#: [id number] : 1970 Acct:[id number] Age/Sex: 54 / M ADM Date: 01/17/25 Loc: HO.ED Attending Dr: Ordering Physician: Robson Reno Date of Service: 01/17/25 Procedure(s): CT abdomen pelvis w IV con Accession Number(s): [id number] cc: Robson Reno; Carlin Rivas Report Number: [id number]: Total DLP = 1439.00 mGy-cm ADDENDUM This document has been electronically signed by: Celso Glez MD on 01/17/2025 21:39:54 ADDENDUM: This report was discussed with Christian FELDMAN on Jan 17, 2025 21:46:00 EDT. This document has been electronically signed by: Nahomi Amor on 01/17/2025 21:46:30 Addendum Dictated By: Celso Glez MD Addendum Signed By: <Electronically signed by Celso Glez MD in OV> 01/17/252146 Addendum Cosigned By: DD/ TD/TT: 01/17/25 CLINICAL HISTORY: pain, nausea and vomiting. ?obstruction CT abdomen and pelvis with contrast Comparison: CR/SR - XR ABDOMEN 1 VIEW (KUB) - 01/17/25 15:39 EDT Findings: Small bilateral effusions. Mild dependent atelectasis. Colonic interposition displacing the liver posteriorly. Liver parenchyma is otherwise within normal limits. Atrophic pancreas. Gallbladder, spleen, and adrenal glands are within normal limits. No hydronephrosis. Symmetric contrast enhancement of the kidneys. Small bowel loops are displaced to the right with the distal SMA located lateral to the SMV suggesting malrotation. There is small-bowel obstruction with transition point in the left lower quadrant. No pneumatosis or pneumoperitoneum. Pelvic contents unremarkable. Severe degenerative disc disease at L5-S1. Grade 1 anterolisthesis of L5 on S1 from bilateral pars defects. No acute fracture. IMPRESSION: 1. Small bowel obstruction with transition point in left lower quadrant. 2. Findings suggestive of intestinal malrotation with right-sided small bowel and lateral displacement of distal SMA relative to SMV. This document has been electronically signed by: Celso Glez MD on 01/17/2025 21:39:54 Dictated By: Celso Glez MD Signed By: <Electronically signed by Celso Glez MD in OV> 01/17/252140 DD/ 38 TD/TT: 01/17/252138 Mathematics Professor: Procedure Note Donotuseinterpreter, Image - 01/17/[address] [place] [address] [address] Scan Report Signed with Addenda Patient: Kannan GannMR#: [id number] : 1970Acct:[id number] Age/Sex: 54 / MADM Date: 01/17/25 Loc: HO.ED Attending Dr: Ordering Physician: Robson Reno Date of Service: 01/17/25 Procedure(s): CT abdomen pelvis w IV con Accession Number(s): [id number] cc: Robson Reno; Carlin Rivas Report Number: [id number]: Total DLP = 1439.00 mGy-cm ADDENDUM This document has been electronically signed by: Celso Glez MD on 01/17/2025 21:39:54 ADDENDUM: This report was discussed with Christian FELDMAN on Jan 17, 2025 21:46:00EDT. This document has been electronically signed by: Nahomi Amor on 01/17/2025 21:46:30 Addendum Dictated By: Celso Glez MD Addendum Signed By: <Electronically signed by MD Isaura in OV> 01/17/252146 Addendum Cosigned By: DD/ TD/TT: 01/17/25 CLINICAL HISTORY: pain, nausea and vomiting. ?obstruction CT abdomen and pelvis with contrast Comparison: CR/SR - XR ABDOMEN 1 VIEW (KUB) - 01/17/25 15:39 EDT Findings: Small bilateral effusions. Mild dependent atelectasis. Colonic interposition displacing the liver posteriorly. Liver parenchyma is otherwise within normal limits. Atrophic pancreas. Gallbladder, spleen, and adrenal glands are within normal limits. No hydronephrosis. Symmetric contrast enhancement of the kidneys. Small bowel loops are displaced to the right with the distal SMA located lateral to the SMV suggesting malrotation. There is small-bowel obstruction with transition point in the left lower quadrant. No pneumatosis or pneumoperitoneum. Pelvic contents unremarkable. Severe degenerative disc disease at L5-S1. Grade 1 anterolisthesis of L5 on S1 from bilateral pars defects. No acute fracture. IMPRESSION: 1. Small bowel obstruction with transition point in left lower quadrant. 2. Findings suggestive of intestinal malrotation with right-sided small bowel and lateral displacement of distal SMA relative to SMV. This document has been electronically signed by: Celso Glez MD on 01/17/2025 21:39:54 Dictated By: Celso Glez MD Signed By: <Electronically signed by Celso Glez MD in OV> 01/17/252140 DD/ 38 TD/TT: 01/17/252138 Mathematics Professor: [facility] External Provider IMG CT PROCEDURES Edited Result - Final * Lactic Acid (01/17/2025 8:22 PM EDT) Lactic Acid 0.9 0.5 - 2.0 mmol/L [facility] 01/17/2025 8:22 PM EDT 01/17/2025 8:26 PM EDT Generic External Data Provider LAB BLOOD ORDERAB LES Final Result Performing Organization Address [facility] Co de Phone Number [facility] [address] [place] [phone] * Urinalysis w/reflex microscopic (01/17/2025 5:12 PM EDT) Color Urine Yellow [facility] Appearance Urine Clear [facility] PH 8.0 5.0 - 9.0 [facility] Glucose Urine UA Negative Negative mg/dL [facility] Urine Blood Negative Negative [facility] Specific [place] - Urine 1.010 1.005 - 1.025 [facility] Urine Protein Trace Neg-Trace mg/dL [facility] Urine Ketones 15 Negative mg/dL [facility] Nitrite Urine Negative Negative [facility] Leukocyte Esterase Urine Negative Negative [facility] 01/17/2025 5:12 PM EDT 01/17/2025 5:16 PM EDT Narrative [facility] - 01/17/2025 5:26 PM EDT [id number], Clean Catch Generic External Data Provider LAB URINE ORDERAB LES Final Result Performing Organization Address [facility] Co de Phone Number [facility] [address] [place] [phone] * XR KUB and Upright 2 Views (01/17/2025 3:30 PM EDT) Anatomical Region Laterality Modality Radiographic Natalia ging 01/17/2025 3:30 PM EDT Narrative 01/17/2025 3:56 PM EDT [address] [address] XRay Report Signed Patient: Kannan Gann MR#: [id number] : 1970 Acct:[id number] Age/Sex: 54 / M ADM Date: 01/17/25 Loc: HO.ED Attending Dr: Ordering Physician: Daylin Jordan Date of Service: 01/17/25 Procedure(s): XR KUB Accession Number(s): [id number] cc: Daylin Jordan; [facility] EXAMINATION: XR ABDOMEN 1 VIEW (KUB) HISTORY: abd pain, hx of SBO COMPARISON: There are no prior studies available for comparison. FINDINGS: Three supine views of the abdomen are submitted. There is gaseous distention of the stomach and numerous small bowel loops which are moderately dilated. There is also gas in the ascending colon. No abnormal calcifications are identified. There are surgical clips in the left upper quadrant. There are no abnormal soft tissue masses. There is scoliosis and degenerative disc disease of the spine. XR/XR KUB IMPRESSION: Findings concerning for small bowel obstruction. This could be further evaluated with CT as indicated. Electronically signed by: Alfredito Briones MD 01/17/2025 03:53 PM EDT RP Dictated By: Alfredito Briones MD Signed By: <Electronically signed by Alfredito Briones MD in OV> 01/17/25 1553 DD/ 1530 TD/TT: 01/17/25 1538 Mathematics Professor: Procedure Note Donotuseinterpreter, Image - 01/17/[address] [address] XRay Report Signed Patient: Kannan GannMR#: [id number] : 1970Acct:[id number] Age/Sex: 54 / MADM Date: 01/17/25 Loc: .ED Attending Dr: Ordering Physician: Daylin Jordan Date of Service: 01/17/25 Procedure(s): XR KUB Accession Number(s): [id number] cc: Daylin Jordan; [facility] EXAMINATION: XR ABDOMEN 1 VIEW (KUB) HISTORY: abd pain, hx of SBO COMPARISON: There are no prior studies available for comparison. FINDINGS: Three supine views of the abdomen are submitted. There is gaseous distention of the stomach and numerous small bowel loops which are moderately dilated. There is also gas in the ascending colon. No abnormal calcifications are identified. There are surgical clips in the left upper quadrant. There are no abnormal soft tissue masses. There is scoliosis and degenerative disc disease of the spine. XR/XR KUB IMPRESSION: Findings concerning for small bowel obstruction. This could be further evaluated with CT as indicated. Electronically signed by: Alfredito Briones MD 01/17/2025 03:53 PM EDT RP Dictated By: Alfredito Briones MD Signed By: <Electronically signed by Alfredito Briones MD in OV> 01/17/25 1553 DD/ 1530 TD/TT: 01/17/25 1538 Mathematics Professor: [facility] External Provider IMG XR PROCEDURES Edited Result - Final * (ABNORMAL) POCT WILLIAM-14 Urine Drug Screen (12/24/2024 1:15 PM EDT) THC Negative Negative Cocaine Screen, Urine Negative [...] TEST ENTER/EDIT OR DERABLES Final Result * Hepatitis C Antibody with Reflex to HCV, RNA, Quantitative, Real-Time PCR (03/13/2024 3:07 PM EDT) Hepatitis C Antibody Nonreactive Nonreactive [facility] Comment:Antibodies to HCV no t detected; does not exclude early acuteHCV infection. 03/13/2024 3:07 PM EDT 03/13/2024 4:22 PM EDT us Shane Ndiaye MD LAB BLOOD ORDERABLES Final Resul t Performing Organization Address [facility]/ZIP Co de Phone Number [facility] [address] [place] [phone] * HIV-1/2 Antigen and Antibodies, Fourth Generation, with Reflexes (03/13/2024 3:07 PM EDT) HIV AB/AG Nonreactive Nonreactive [facility] Comment:HIV-1 p24 Ag and/or HIV-1/HIV-2 Ab not detected.A test result that is nonreactive does not exclude thepossibility of exposure to or infection with HIV-1 and/orHIV-2. Nonreactive results in this assay for individualswith prior exposure to HIV-1 and/or HIV-2 may be due toantigen and antibody levels that are below the limit ofdetection of this assay.The [employer] HIV Ag/Ab Combo assay result andsupplemental assay results should be interpreted inconjunction with the patient's clinical presentation,history and other laboratory results. If the results areinconsistent with clinical evidence, additional testing issuggested to confirm the result. 03/13/2024 3:07 PM EDT 03/13/2024 4:22 PM EDT us Shane Ndiaye MD LAB BLOOD ORDERABLES Final Resul t Performing Organization Address [facility]/ZIP Co de Phone Number [facility] [address] [place] [phone] * Diabetes Foot Exam (09/20/2023) Lele Pinto MD HEALTH MAINTENANCE Final Result * (ABNORMAL) Colonoscopy (12/11/2018) Colonoscopy Normal(A) Normal Lele Pinto MD HEALTH MAINTENANCE Final Result from Last 3 Months or Most Recently Relevant to Health Maintenance Insurance [facility] [employer] MEDICARE [facility] [place] [id number] Care Teams Assembler Truck Trailer Relationship Specialty Start Date End Date Carlin Rivas CNP PCP - General Family Medicine 08/24/24
--- OUTSIDE RECORDS SUMMARY | 2025-03-21 18:31 | XMS_ITS | Encounter Summary ---
Author Organization [employer] Address [address] [facility] 7t [place] [address] Care Team Providers Care City Distribution Clerk Name Role Phone Carlin Rivas CNP Primary Care Provider [phone] Reason for Visit * Reason Onset Date Comments Hospital Follow-up 01/28/2025 Encounter Details Date Type Department Care Team (Late st Contact Info) Description 01/28/2025 Telephone [facility] [address] [place] [address] Carlin Rivas CNP [address] [place], [place] [phone] Hospital Follow-up Social History Tobacco Use Types [...] from pt requesting a HDF appt. Hospital: [facility] Date of admission: 01/19 Discharge date: 01/26 Diagnosed: intestinal surgery *Send message to [facility] Clinical Care Coordinators documented in this encounter Plan of Treatment Upcoming Encounters Date Type Department Care Team (Late st Contact Info) Description 05/13/2025 1:15 PM EST Office Visit [facility] [address] [place] [address] Shane Ndiaye MD [address] [place] [address] documented as of this encounter Visit Diagnoses Not on filedocumented in this encounter Additional Health Concerns Assessment Noted Time PHQ-9 Depression Total Score: 7 08/24/19 2:01 PM EST documented as of this encounter Care Teams City Distribution Clerk Relationship Specialty Start Date End Date Carlin Rivas CNP PCP - General Family Medicine 08/24/24 documented as of this encounter
--- OUTSIDE RECORDS SUMMARY | 2025-03-21 18:32 | XMS_ITS | Clinical Summary ---
Author Organization [facility] Address [address] [place] [address] Care Team Providers Care Cupola Man Name Role Phone Ced Sesay Primary Care Provider [phone] Allergies Active Allergy Reactions Criticality Noted Date [...] 09/01/2016, 10/21/2015, 07/18/2015 Procedures * Due to [place] [employer] law, this organization might not be sharing negative HIV tests. Procedure Name Priority Date/Time Associated Diagnosis Comments COLONOSCOPY 12/11/2018 CT CHEST PULMONARY EMBOLISM W CONTRAST STAT 04/13/2016 5:47 AM EDT from Last 3 Months or Most Recently Relevant to Health Maintenance Results * Due to [place] [employer] law, this organization might not be sharing [...] 350: 80 ML, IV POWER INJ WSN: [id number] Narrative 04/13/2016 6:21 AM EDT COMPARISON: None. [...] 350: 80 ML, IV POWER INJ WSN: [id number] Casey Castro MD IMG CT PROCEDURES Final Result from Last 3 Months or Most Recently Relevant to Health Maintenance Insurance MEDICARE [facility] Care Teams Cupola Man Relationship Specialty Start Date End Date Ced Sesay PA PCP - General 10/14/21
--- OUTSIDE RECORDS SUMMARY | 2025-03-21 18:32 | XMS_ITS | Encounter Summary ---
Author Organization [facility] Address [address] [place] [address] Care Team Providers Care Food Service Substitute Name Role Phone Ced Sesay Primary Care Provider Encounter Details Date Type Department Care Team (Late st Contact Info) Description 02/01/2024 Community Orders [facility] EpicCare Link [address] [place] [address] Ced Sesay PA [address] [place] [address] Low back pain, unspecified back pain laterality, [...] Primary documented in this encounter Care Teams Food Service Substitute Relationship Specialty Start Date End Date Ced Sesay PA PCP - General 10/14/21 documented as of this encounter
--- OUTSIDE RECORDS SUMMARY | 2025-03-21 18:32 | XMS_ITS | Clinical Summary ---
Author Organization [facility] Address [address] [place] [address] Care Team Providers Care Branding Specialist Name Role Phone Unavailable Primary Care [...]
--- OUTSIDE RECORDS SUMMARY | 2025-03-21 18:32 | XMS_ITS | Encounter Summary ---
Author Organization [employer] Address [address] [facility] 7t [place] [address] Care Team Providers Care Motor Pool Driver Name Role Phone Carlin Rivas CNP Primary Care Provider [phone] Reason for Visit * Reason Comments Med Refill Encounter Details Date Type Department Care Team (Late st Contact Info) Description 03/19/2025 Refill [facility] [address] [place], [place] [phone] Carlin Rivas CNP [address] [place], [place] [phone] Chronic pain syndrome Social History Tobacco Use Types Packs/Day Years [...] Description 05/13/2025 1:15 PM EST Office Visit [facility]INE [address] [place] [phone] Shane Ndiaye MD [address] [place] [address] documented as of this encounter Visit Diagnoses Diagnosis Chronic pain syndrome documented in this encounter Additional Health Concerns Assessment Noted Time PHQ-9 Depression Total Score: 7 08/24/19 25 2:01 PM EST documented as of this encounter Care Teams Motor Pool Driver Relationship Specialty Start Date End Date Carlin Rivas CNP PCP - General Family Medicine 08/24/24 documented as of this encounter
--- OUTSIDE RECORDS SUMMARY | 2025-03-21 18:32 | XMS_ITS | Encounter Summary ---
Author Organization [employer] Address [address] [facility] 7t [place] [address] Care Team Providers Care Home Visitor Home Base Head Start Name Role Phone Carlin Rivas CNP Primary Care Provider [phone] Reason for Visit * Reason Comments Med Refill Encounter Details Date Type Department Care Team (Late st Contact Info) Description 01/11/2025 Refill [facility] [address] [place], [place] [phone] Carlin Rivas CNP [address] [place], [place] [phone] Anxiety associated with depression Social History Tobacco Use Types Packs/Day [...] 1:15 PM EST Office Visit [facility] [address] [place] [address] Shane Ndiaye MD [address] [place] [address] documented as of this encounter Visit Diagnoses Diagnosis Anxiety associated with depression Dysthymic disorder documented in this encounter Additional Health Concerns Assessment Noted Time PHQ-9 Depression Total Score: 7 08/24/19 25 2:01 PM EST documented as of this encounter Care Teams Home Visitor Home Base Head Start Relationship Specialty Start Date End Date Carlin Rivas CNP PCP - General Family Medicine 08/24/24 documented as of this encounter
--- OUTSIDE RECORDS SUMMARY | 2025-03-21 18:32 | XMS_ITS | Encounter Summary ---
Author Organization [employer] Address [address] [facility] 7t [place] [address] Care Team Providers Care Actuarial Mathematician Name Role Phone Carlin Rivas CNP Primary Care Provider [phone] Reason for Visit * Reason Onset Date Comments No Show 03/19/2025 Encounter Details Date Type Department Care Team (Late st Contact Info) Description 03/19/2025 Telephone [facility] [address] [place] [address] Carlin Rivas CNP [address] [place] [address] No Show Social History Tobacco Use Types Packs/Day Years [...] encounter Miscellaneous Notes * Telephone Encounter - Annabelle Apple - 03/19/2025 12:06 PM EDT No show 03/19/25 documented in this encounter Plan of Treatment Upcoming Encounters Date Type Department Care Team (Late st Contact Info) Description 05/13/2025 1:15 PM EST Office Visit [facility] [address] [place] [address] Shane Ndiaye MD [address] [place] [address] documented as of this encounter Visit Diagnoses Not on filedocumented in this encounter Additional Health Concerns Assessment Noted Time PHQ-9 Depression Total Score: 7 08/24/19 2:01 PM EST documented as of this encounter Care Teams Actuarial Mathematician Relationship Specialty Start Date End Date Carlin Rivas CNP PCP - General Family Medicine 08/24/24 documented as of this encounter
--- OUTSIDE RECORDS SUMMARY | 2025-03-21 18:32 | XMS_ITS | Encounter Summary ---
Author Organization [facility] Address [address] [place] [address] Care Team Providers Care Livestock Farmer Name Role Phone Unavailable Primary Care Provider Unavailabl e Encounter Details Date Type Department Care Team ([facility] st Contact Info) Description 11/09/2016 Orders Only [facility] Orthopedic Surgery [address] [facility] [address] [place] [address] Cullen Rosas MD [address] [place] [address] Social History Tobacco Use Types Packs/Day Years [...]
--- OUTSIDE RECORDS SUMMARY | 2025-03-21 18:32 | XMS_ITS | Encounter Summary ---
Author Organization [employer] Address [address] [place] [address] 7t [place] [address] Care Team Providers Care Dairy Clerk Name Role Phone Carlin Rivas YOLANDA Primary Care Provider [phone] Reason for Visit * Reason Comments Med Refill Encounter Details Date Type Department Care Team (Late st Contact Info) Description 05/20/2024 Refill [facility] [place] [facility] [address] [phone] Ced Sesay PA-C [address] [place] [phone] Social History Tobacco Use Types Packs/Day [...] Description 05/13/2025 1:15 PM EST Office Visit [facility] MEDICINE [address] [place] [address] Shane Ndiaye MD [address] [place] [address] documented as of this encounter Visit Diagnoses Not on filedocumented in this encounter Care Teams Dairy Clerk Relationship Specialty Start Date End Date Carlin Rivas CNP PCP - General Family Medicine 08/24/24 documented as of this encounter
--- OUTSIDE RECORDS SUMMARY | 2025-03-21 18:32 | XMS_ITS | Encounter Summary ---
Author Organization [employer] Address [address] [facility] 7t [place] [address] Care Team Providers Care Music Store Manager Name Role Phone Carlin Rivas YOLANDA Primary Care Provider [phone] Encounter Details Date Type Department Care Team (Late st Contact Info) Description 02/08/[address] [facility] [address] [place], [place] [phone] Carlie Waldron MD [address] [place], [place] [phone] Social History Tobacco Use Types Packs/Day Years [...] encounter Miscellaneous Notes * Telephone Encounter - Carlie Waldron MD - 02/08/2025 9:32 AM EDT PCP was concerned about patient's postop pain management. Patient did not want to take opioid analgesics. Agreed PCP's suggestion on short-term increase on patient's buprenorphine. PCP will provide 1week supply of additional dose. Next appointment with [facility] provider is currently scheduled on 02/18/25. Please schedule a visit (I think televisit is okay) to assess his pain and plan further pain management. Appreciate PCP and [facility] team for collaborative care. documented in this encounter Plan of Treatment Upcoming Encounters Date Type Department Care Team (Late st Contact Info) Description 05/13/2025 1:15 PM EST Office Visit [facility] [address] [place] [address] Shane Ndiaye MD [address] [place] [address] documented as of this encounter Visit Diagnoses Not on filedocumented in this encounter Additional Health Concerns Assessment Noted Time PHQ-9 Depression Total Score: 7 08/24/19 2:01 PM EST documented as of this encounter Care Teams Music Store Manager Relationship Specialty Start Date End Date Carlin Rivas CNP PCP - General Family Medicine 08/24/24 documented as of this encounter
--- OUTSIDE RECORDS SUMMARY | 2025-03-21 18:32 | XMS_ITS | Encounter Summary ---
Author Organization [employer] Address [address] [place] [address] [address] [place] [address] Care Team Providers Care Employment Security Officer Name Role Phone Ced Sesay PA-C Primary Care Provider Carlin Rivas CNP Primary Care Provider [phone] Encounter Details Date Type Department Care Team (Late st Contact Info) Description 02/13/2024 Telephone [facility] [address] [place] [phone] Family Medicine, Manager Route, STEAM CLEANING MACHINE OPERATOR Social History Tobacco Use Types Packs/Day Years [...] Description 05/13/2025 1:15 PM EST Office Visit [facility] MEDICINE [address] [place] [address] Shane Ndiaye MD [address] [place] [address] documented as of this encounter Visit Diagnoses Diagnosis Asthma, unspecified asthma severity, unspecified whether complicated, unspecified whether persistent- Primary documented in this encounter Care Teams Employment Security Officer Relationship Specialty Start Date End Date Ced Sesay PA-C [address] [place] [phone] PCP - General Family Medicine 09/07/18 05/14/24 Carlin Rivas CNP [address] [place] [phone] PCP - General Family Medicine 08/24/24 Promise Zavala LPN Cost And Risk Analysis ManagerProfessional System Administrator 12/13/19 05/14/24 documented as of this encounter
--- OUTSIDE RECORDS SUMMARY | 2025-03-21 18:32 | XMS_ITS | Encounter Summary ---
Author Organization [employer] Address [address] [facility] [address] [place] [address] Care Team Providers Care Chief Cloth Finishing Range Operator Name Role Phone Carlin Rivas YOLANDA Primary Care Provider [phone] Reason for Visit * Reason Comments Med Refill Encounter Details Date Type Department Care Team (Late st Contact Info) Description 07/01/2024 Refill [facility] MEDICINE [address] [place], [place] [phone] Shane Ndiaye MD [address] [place], [place] [phone] Social History Tobacco Use Types Packs/Day Years [...] Description 05/13/2025 1:15 PM EST Office Visit [facility] MEDICINE [address] [place] [address] Shane Ndiaye MD [address] [place] [address] documented as of this encounter Visit Diagnoses Not on filedocumented in this encounter Care Teams Chief Cloth Finishing Range Operator Relationship Specialty Start Date End Date Carlin Rivas CNP PCP - General Family Medicine 08/24/24 documented as of this encounter
--- OUTSIDE RECORDS SUMMARY | 2025-03-21 18:32 | XMS_ITS | Encounter Summary ---
Author Organization [employer] Address [address] [facility] [address] [place] [address] Care Team Providers Care Application Integration Engineer Name Role Phone Carlin Rivas YOLANDA Primary Care Provider [phone] Reason for Visit * Reason Comments Med Refill Encounter Details Date Type Department Care Team (Late st Contact Info) Description 03/17/2025 Refill [facility] [address] [place], [place] [phone] Shane Ndiaye MD [address] [place] [address] Social History Tobacco Use Types Packs/Day Years [...] Description 05/13/2025 1:15 PM EST Office Visit [facility] MEDICINE [address] [place] [address] Shane Ndiaye MD [address] [place] [address] documented as of this encounter Visit Diagnoses Not on filedocumented in this encounter Additional Health Concerns Assessment Noted Time PHQ-9 Depression Total Score: 7 08/24/19 25 2:01 PM EST documented as of this encounter Care Teams Application Integration Engineer Relationship Specialty Start Date End Date Carlin Rivas CNP PCP - General Family Medicine 08/24/24 documented as of this encounter
--- OUTSIDE RECORDS SUMMARY | 2025-03-21 18:32 | XMS_ITS | Encounter Summary ---
Author Organization [employer] Address [address] [place] [address] [address] [place] [address] Care Team Providers Care Opera Singer Name Role Phone Ced Sesay PA-C Primary Care Provider Carlin Rivas CNP Primary Care Provider [phone] Encounter Details Date Type Department Care Team (Late st Contact Info) Description 12/07/2023 [facility] Only [address] [phone] Ced Sesay PA-C [address] [place] [phone] Uncomplicated opioid dependence (CMS/HCC) Social History [...] Description 05/13/2025 1:15 PM EST Office Visit [facility] MEDICINE [address] [place], [place] [phone] Shane Ndiaye MD [address] [place], [place] [phone] documented as of this encounter Visit Diagnoses Diagnosis Uncomplicated opioid dependence (CMS/HCC) documented in this encounter Care Teams Opera Singer Relationship Specialty Start Date End Date Ced Sesay PA-C [address] [place] [phone] PCP - General Family Medicine 09/07/18 05/14/24 Carlin Rivas CNP [address] [place] [phone] PCP - General Family Medicine 08/24/24 Promise Zavala LPN Contact And Service Clerks SupervisorCharcoal Burner Bee[employer]ive Kiln 12/13/19 05/14/24 documented as of this encounter
--- OUTSIDE RECORDS SUMMARY | 2025-03-21 18:32 | XMS_ITS | Encounter Summary ---
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 Name Role Phone Carlin Rivas YOLANDA Primary Care Provider [phone] Encounter Details Date Type Department Care Team (Latest Contact Info) Description 03/21/2025 Travel Social History Tobacco Use Types Packs/Day [...] Description 05/13/2025 1:15 PM EST Office Visit [facility] MEDICINE [address] [place] [address] Shane Ndiaye MD [address] [place] [address] documented as of this encounter Visit Diagnoses Not on filedocumented in this encounter Additional Health Concerns Assessment Noted Time PHQ-9 Depression Total Score: 7 08/24/19 25 2:01 PM EST documented as of this encounter Care Teams Lawn Mower Mechanic Relationship Specialty Start Date End Date Carlin Rivas CNP PCP - General Family Medicine 08/24/24 documented as of this encounter
== END 2025-03-21 14:03 | disposition home or self-care (01) ==
LOC: HO.CHCLDS 14:02
DX: E11.9 Type 2 diabetes mellitus without complications (principal); Z90.49 Acquired absence of other specified parts of digestive tract
CPT/HCPCS: 36415; 80048; 80061; 83036; 85025